=== PATIENT | female | born 1955 | race Caucasian/White ===

== ENCOUNTER 2022-12-04 12:18 | Outpatient (REF) | payer BC, SELFPAY ==
[2022-12-04 13:55] LABS: MANUAL DIFF FLAG NO
[2022-12-04 14:09] LABS: Basophils Percent Auto 0.4 % (0-2); Eosinophils Percent Auto 0.3 % (0-4); Hematocrit 36.7 % (37.0-47.0); Hemoglobin 11.7 g/dl (12.0-16.0); Imm Gran Abs Auto 0.03 X10*3/uL (0.00-0.03); Imm Gran Pct Auto 0.3 % (0.0-0.4); Lymphocytes Absolute Auto 1.2 X10*3/uL (1.2-4.9); Lymphocytes Percent Auto 13.6 % (20-40); Mean Corpuscular HGB Conc 31.9 g/dl (31.0-35.0); Mean Corpuscular Hemoglobin 26.7 pg (27.0-33.0); Mean Corpuscular Volume 83.8 fL (80.0-98.0); Monocytes Absolute Auto 1.1 X10*3/uL (0.1-1.2); Monocytes Percent Auto 11.7 % (2-11); Neutrophils Absolute Auto 6.7 x10*3/uL (2.0-8.3); Neutrophils Percent Auto 73.7 % (45-73); Platelet Count 196 X10*3/uL (160-400); Red Blood Count 4.38 X10*6/uL (4.20-5.50); Red Cell Distribution Width 15.7 % (11.0-16.0); White Blood Count 9.1 X10*3/uL (4.8-10.8)
[2022-12-04 15:07] LABS: Alanine Aminotransferase 13 U/L (0-31); Albumin Level 3.6 g/dL (3.5-5.0); Alkaline Phosphatase 98 U/L (39-117); Anion Gap 17 (12-20); Aspartate Amino Transferase 14 U/L (5-31); Bilirubin Total 1.2 mg/dL (0.0-1.0); Blood Urea Nitrogen 19 mg/dL (9-16); Calcium 9.4 mg/dL (8.4-10.2); Carbon Dioxide 25 mmol/L (22-29); Chloride 101 mmol/L (96-108); Estimated Glomerular Filt Rate > 60; Glucose Random 147 mg/dL (60-115); Sodium 139 mmol/L (135-145); Total Protein 6.3 g/dL (6.5-8.0)
[2022-12-04 15:40] LABS: Estimated Average Glucose 128 mg/dL; Hemoglobin A1c % 6.1 %
== END 2022-12-04 12:19 | disposition home or self-care (01) ==
LOC: HO.HMGCLNP 12:18
PROVIDERS: Visit Provider Pediatrics
DX: E11.9 Type 2 diabetes mellitus without complications (principal)
CPT/HCPCS: 80053; 83036; 85025

== ENCOUNTER 2023-02-02 16:20 | Emergency (ER) | payer BC, SELFPAY ==
[2023-02-02 16:51] VITALS: BP 133/47; PULSE 67; RESP 20; TEMP 35.9; O2SAT 100; BMI 40.4
--- NOTE | 2023-02-02 16:54 | ED_ITS ---
HPI - General Adult General Chief complaint: Wound/Laceration Stated complaint: wounds both legs Time Seen by Provider: 02/02/23 18:46 Source: patient Mode of arrival: ambulatory Limitations: no limitations History of Present Illness HPI narrative: Patient is a 67-year-old female presenting with wounds of both of her lower extremities. She states that these wounds have been present for a year and she is seen regularly by wound care as well as a visiting home health nurse. However in the past week she reports increased clear discharge from all wounds, a new dark discoloration in the wounds, as well as increasing pain at the wound sites. She went to be seen by wound care this afternoon who advised her to present to the emergency department. She denies any additional symptoms including fevers/chills, chest pain, SOB, nausea/vomiting, numbness, tingling Related Data Home Medications Medication Instructions Recorded Confirmed clonazepam 0.5 mg tablet 0.5 mg PO DAILY PRN Anxiety 02/02/23 02/02/23 famotidine 40 mg tablet 40 mg PO DAILY 02/02/23 02/02/23 furosemide 40 mg tablet 40 mg PO DAILY 02/02/23 02/02/23 gabapentin 300 mg capsule 300 mg PO BEDTIME 02/02/23 02/02/23 metoprolol succinate 50 mg 50 mg PO DAILY 02/02/23 02/02/23 tablet,extended release 24 hr sertraline 100 mg tablet 100 mg PO DAILY 02/02/23 02/02/23 tirzepatide 7.5 mg/0.5 mL 7.5 mg subcut FR 02/02/23 02/02/23 subcutaneous pen injector (Leonor) Previous Rx's Medication Instructions Recorded doxycycline hyclate 100 mg capsule 100 mg PO BID 10 days #20 caps 02/02/23 Allergies Allergy/AdvReac Type Severity Reaction Status Date / Time diltiazem [From Cardizem] Allergy Hives Verified 02/02/23 17:00 Penicillins Allergy Rash Verified 02/02/23 16:59 Review of Systems Review of Systems: Constitutional : No Weight loss, No Fever, No Chills, No Fatigue, No Malaise Eyes: No Eye Pain, No Swelling, No Redness Cardiovascular : No Chest Pain, No SOB, No Dyspnea on Exertion, No Orthopnea, + Edema, No Palpitations Respiratory : No Cough, No Sputum, No Wheezing Gastrointestinal : No Nausea, No Vomiting, No Diarrhea, No Constipation, No abdominal Pain, No Hematochezia, No Melena Genitourinary : No Dysuria, No Urinary Frequency, No Hematuria, Musculoskeletal : No joint pain, No Myalgias, No Joint Swelling Skin : No Skin Lesions, No rash Neuro : No Weakness, No Numbness, No Dizziness, No Headache Psych : No Anxiety/Panic, No Depression All other systems reviewed and are negative Yes all other systems are reviewed and are negative [facility] Past Medical History Attestation statement: The following information was validated with the patient. Source: old records reviewed and nursing notes reviewed Social History Social History Alcohol intake: never Smoked in Last 30 Days: No Use of substances other than those prescribed or required for medical reasons: No Advance Directives: No Advance Directives Information Provided: Yes Physical Exam ED Vital Signs: Vital Signs - 24 hr 02/02/23 16:51 02/02/23 20:55 Temperature 96.7 F L 98.2 F Pulse Rate 67 73 Respiratory Rate 20 16 Blood Pressure 133/47 L 141/67 H Pulse Oximetry 100 100 Oxygen Delivery Method Room Air Room Air BMI result Body Mass Index 40.4 Vital signs stable Appearance: Alert.? Oriented X3.? No acute distress.? Head: Normocephalic, atraumatic, no step-offs or deformities Eyes: Pupils equal, round and reactive to light.? CVS: Normal heart rate and rhythm.? Pulses normal.? Respiratory: No respiratory distress.? Breath sounds normal.? Abdomen: Soft and nontender.? Skin: Skin warm and dry.? Normal skin color.? Normal skin turgor.? Extremities: Positive lower extremity edema 4+ pitting from the knees down, patient states that this is her baseline.? No calf ttp. 5/5 strength to bilateral upper and lower extremities 2+ dorsalis pedis, anterior tibialis and posterior tibialis pulses equal bilateral. Normal sensation distally. + open wounds to b/l lower extremities w/ overlying errythema and warmt Neuro: Oriented X 3.? No motor deficit.? No sensory deficit. CN 2-12 intact Course Course Course Narrative: RME performed by Vicky Phipps PA-C. Patient is a 67 year old assigned female at presenting to the emergency department with bilateral lower leg wounds. Wound care called about this patient and explained that she will likely need surgical debridement with wound vac placement. They recommended IV antibiotics.Labs and imaging ordered. Patient placed back in the waiting room pending room availability and results. Reevaluation(s) Reevaluation #1: CBC appears to be around patient's baseline. Potassium 3.1, will order p.o. potassium, remainder of chemistry appears unremarkable. Lactic normal. As expected CRP elevated 4.74. No indication for imaging at this time. Palpable pulses no need for venous arterial duplex. I did discuss this case with the hospitalist who does not feel a need for hospital admission. Recommended I speak to surgery. Surgery recommends patient to be discharged home with outpatient surgical follow-up. Patient was offered admission however she would prefer to go home. Educated patient on diagnosis and treatment plan, answered all question, patient verbalizes understanding. At this time patient will be discharged home, advised to return with new or worsening symptoms. Educated on worrisome signs and symptoms and when to return. At this time I feel comfortable discharge home. Time: 21:52 Medications Administered Discontinued Medications Generic Name Dose Route Start Last Admin Trade Name Ponce PRN Reason Stop Dose Admin Ceftriaxone Sodium 1 gm/ 50 mls @ 100 mls/hr 02/02/23 19:45 02/02/23 20:50 Sodium Chloride IV 02/02/23 20:14 Infused ONCE ONE Infusion Vancomycin HCl 2,000 mg in 500 mls @ 250 mls/hr 02/02/23 19:45 02/02/23 20:56 Vancomycin/Ns IV 02/02/23 21:44 250 mls/hr ONCE ONE Administration Medical Decision Making Medical Decision Making MDM Narrative: 67-year-old female presents with chronic nonhealing wounds to bilateral lower extremities followed by VNA and wound clinic. Was advised to come in by the wound clinic to be evaluated. Patient denies fevers, chills, numbness and tingling. Physical exam significant for Positive lower extremity edema 4+ pitting from the knees down, patient states that this is her baseline.? No calf ttp. 5/5 strength to bilateral upper and lower extremities 2+ dorsalis pedis, anterior tibialis and posterior tibialis pulses equal bilateral. Normal sensation distally. + open wounds to b/l lower extremities w/ overlying errythema and warmt These are likely non healing chronic wounds with lymphedema. Unlikely necrotizing infection, osteomyelitis. Unlikely arterial or venous occlusion. No signs of threatened limb at this time. I do concerns for cellulitis. Plan labs. Differential Diagnosis Differential Diagnoses: The differential diagnosis associated with the presentation includes These are likely non healing chronic wounds with lymphedema. Unlikely necrotizing infection, osteomyelitis. Unlikely arterial or venous occlusion. No signs of threatened limb at this time. I do concerns for cellulitis. Admission/Observation Consideration of admission/observation: Escalation of care including admiss ion/observation considered Lab Data MDM Lab Attestation statement: I reviewed the patient's lab results. 02/02/23 17:48 02/02/23 17:48 Labs: Lab Results 02/02/23 02/02/23 02/02/23 Range/Units 17:48 17:48 17:48 WBC 9.0 (4.8-10.8) X10*3/uL RBC 4.68 (4.20-5.50) X10*6/uL Hgb 12.3 (12.0-16.0) g/dl Hct 37.9 (37.0-47.0) % MCV 81.0 (80.0-98.0) fL MCH 26.3 L (27.0-33.0) pg MCHC 32.5 (31.0-35.0) g/dl RDW 15.2 (11.0-16.0) % Plt Count 244 (160-400) X10*3/uL MPV 9.1 L (9.4-12.3) fL Immature Gran % (Auto) 0.2 (0.0-0.4) % Neut % (Auto) 76.0 H (45-73) % Lymph % (Auto) 12.8 L (20-40) % Cherry % (Auto) 9.1 (2-11) % Eos % (Auto) 1.1 (0-4) % Baso % (Auto) 0.8 (0-2) % Lymph # (Auto) 1.2 (1.2-4.9) X10*3/uL Cherry # (Auto) 0.8 (0.1-1.2) X10*3/uL Eos # (Auto) 0.1 (0.0-0.4) X10*3/uL Baso # (Auto) 0.1 (0.0-0.2) X10*3/uL Abs Immat Gran (auto) 0.02 (0.00-0.03) X10*3/uL Absolute Neuts (auto) 6.8 (2.0-8.3) x10*3/uL Absolute Nucleated RBC 0.000 (0.0-0.012) X10*3/uL Nucleated RBC % (auto) 0.0 (0.0-0.2) /100WBC ESR 34 H (0-20) MM/HR Sodium 143 (135-145) mmol/L Potassium 3.1 L D (3.3-5.1) mmol/L Chloride 105 (96-108) mmol/L Carbon Dioxide 29 (22-29) mmol/L Anion Gap 12 (12-20) BUN 20 H (9-16) mg/dL Creatinine 0.79 (0.5-1.4) mg/dL Estim Creat Clear Calc 92.6 Estimated GFR > 60 Random Glucose 120 H (60-115) mg/dL Lactic Acid (0.5-2.0) mmol/L Calcium 9.8 (8.4-10.2) mg/dL Magnesium 1.8 (1.6-2.6) mg/dL Total Bilirubin 0.9 (0.0-1.0) mg/dL AST 14 (5-31) U/L ALT 15 (0-31) U/L Alkaline Phosphatase 121 H (39-117) U/L C-Reactive Protein 4.74 H (< or = 0.50) mg/dL Total Protein 7.0 (6.5-8.0) g/dL Albumin 3.8 (3.5-5.0) g/dL 02/02/23 Range/Units 17:48 WBC (4.8-10.8) X10*3/uL RBC (4.20-5.50) X10*6/uL Hgb (12.0-16.0) g/dl Hct (37.0-47.0) % MCV (80.0-98.0) fL MCH (27.0-33.0) pg MCHC (31.0-35.0) g/dl RDW (11.0-16.0) % Plt Count (160-400) X10*3/uL MPV (9.4-12.3) fL Immature Gran % (Auto) (0.0-0.4) % Neut % (Auto) (45-73) % Lymph % (Auto) (20-40) % Cherry % (Auto) (2-11) % Eos % (Auto) (0-4) % Baso % (Auto) (0-2) % Lymph # (Auto) (1.2-4.9) X10*3/uL Cherry # (Auto) (0.1-1.2) X10*3/uL Eos # (Auto) (0.0-0.4) X10*3/uL Baso # (Auto) (0.0-0.2) X10*3/uL Abs Immat Gran (auto) (0.00-0.03) X10*3/uL Absolute Neuts (auto) (2.0-8.3) x10*3/uL Absolute Nucleated RBC (0.0-0.012) X10*3/uL Nucleated RBC % (auto) (0.0-0.2) /100WBC ESR (0-20) MM/HR Sodium (135-145) mmol/L Potassium (3.3-5.1) mmol/L Chloride (96-108) mmol/L Carbon Dioxide (22-29) mmol/L Anion Gap (12-20) BUN (9-16) mg/dL Creatinine (0.5-1.4) mg/dL Estim Creat Clear Calc Estimated GFR Random Glucose (60-115) mg/dL Lactic Acid 1.6 (0.5-2.0) mmol/L Calcium (8.4-10.2) mg/dL Magnesium (1.6-2.6) mg/dL Total Bilirubin (0.0-1.0) mg/dL AST (5-31) U/L ALT (0-31) U/L Alkaline Phosphatase (39-117) U/L C-Reactive Protein (< or = 0.50) mg/dL Total Protein (6.5-8.0) g/dL Albumin (3.5-5.0) g/dL Core Measures AMI core measures followed: Yes Measure exclusions: not indicated Critical Care Time Critical Care Time Critical Care Time: No Discharge Plan Discharge Clinical Impression: Nonhealing nonsurgical wound Patient Disposition: Home, Self-Care Additional Instructions: Take your medications as prescribed. If you were prescribed antibiotics today, it is important that you take your medication to their entirety, do not skip any doses, do not finish them early. Follow-up with your primary care provider this week. Return to the emergency department with new or worsening symptoms. Such as fevers, chills, chest pain, shortness of breath, nausea, vomiting, dizziness, headache, vision changes, lethargy In case of emergency call 911 Please follow-up with General surgery. Prescriptions: New doxycycline hyclate 100 mg capsule 100 mg PO BID 10 Days Qty: 20 0RF No Action furosemide 40 mg tablet 40 mg PO DAILY metoprolol succinate 50 mg tablet extended release 24 hr 50 mg PO DAILY famotidine 40 mg tablet 40 mg PO DAILY clonazepam 0.5 mg tablet 0.5 mg PO DAILY PRN (Reason: Anxiety) sertraline 100 mg tablet 100 mg PO DAILY gabapentin 300 mg capsule 300 mg PO BEDTIME Mounjaro 7.5 mg/0.5 mL pen injector 7.5 mg subcut FR Referrals: Дмитрий Valdivia MD [Physician] - 2 days Tre White MD [Primary Care Provider] - 2 days Stand Alone Forms: Work/School Release
[2023-02-02 17:55] LABS: MANUAL DIFF FLAG NO
[2023-02-02 18:13] LABS: Lactic Acid 1.6 mmol/L (0.5-2.0)
[2023-02-02 18:18] LABS: Alanine Aminotransferase 15 U/L (0-31); Albumin Level 3.8 g/dL (3.5-5.0); Alkaline Phosphatase 121 U/L (39-117); Anion Gap 12 (12-20); Aspartate Amino Transferase 14 U/L (5-31); Bilirubin Total 0.9 mg/dL (0.0-1.0); Blood Urea Nitrogen 20 mg/dL (9-16); C Reactive Protein 4.74 mg/dL (< or = 0.50); Calcium 9.8 mg/dL (8.4-10.2); Carbon Dioxide 29 mmol/L (22-29); Chloride 105 mmol/L (96-108); Creatinine Clr Calc Pharmacy 92.6; Estimated Glomerular Filt Rate > 60; Glucose Random 120 mg/dL (60-115); Magnesium 1.8 mg/dL (1.6-2.6); Potassium 3.1 mmol/L (3.3-5.1); Sodium 143 mmol/L (135-145)
[2023-02-02 18:35] LABS: Basophils Absolute Auto 0.1 X10*3/uL (0.0-0.2); Basophils Percent Auto 0.8 % (0-2); Eosinophils Absolute Auto 0.1 X10*3/uL (0.0-0.4); Eosinophils Percent Auto 1.1 % (0-4); Hematocrit 37.9 % (37.0-47.0); Hemoglobin 12.3 g/dl (12.0-16.0); Imm Gran Abs Auto 0.02 X10*3/uL (0.00-0.03); Imm Gran Pct Auto 0.2 % (0.0-0.4); Lymphocytes Absolute Auto 1.2 X10*3/uL (1.2-4.9); Lymphocytes Percent Auto 12.8 % (20-40); Mean Corpuscular HGB Conc 32.5 g/dl (31.0-35.0); Mean Corpuscular Hemoglobin 26.3 pg (27.0-33.0); Mean Platelet Volume 9.1 fL (9.4-12.3); Monocytes Absolute Auto 0.8 X10*3/uL (0.1-1.2); Monocytes Percent Auto 9.1 % (2-11); Neutrophils Absolute Auto 6.8 x10*3/uL (2.0-8.3); Platelet Count 244 X10*3/uL (160-400); Red Blood Count 4.68 X10*6/uL (4.20-5.50); Red Cell Distribution Width 15.2 % (11.0-16.0)
[2023-02-02 18:49] LABS: Erythrocyte Sedimentation Rate 34 MM/HR (0-20)
[2023-02-02] MEDS: cefTRIAXone sodium 1 GM in 0.9 % Sodium Chloride 50 ML IV (20:14)
--- NOTE | 2023-02-02 20:18 | PC.NURSE ---
Pt presents to ER from wound care for possibly infected wounds on the lower legs. Pt has multiple ulcers and wounds on the lower extemeties as well as a pressure wound on the right buttock. Pt reporting no pain or nausea at this time. Wounds had been loosely packed at wound care. Pt is resting quietly in bed at this time. Pt is A&Ox4, GCS 15, with warm, dry skin. Pt is incontinent of urine, she was cleaned, rolled, and a purewick was put in place. A 20g IV was placed in the right forearm. The second set of cultures were sent and antibiotics were hung.
--- NOTE | 2023-02-02 20:54 | PC.NURSE ---
Medication administration delayed due to hard stick and previous antibiotic administration.
[2023-02-02 20:55] VITALS: BP 141/67; PULSE 73; RESP 16; TEMP 36.8; O2SAT 100
[2023-02-02] MEDS: vancomycin/NS 2,000 MG/500 ML PLAST..BAG 250 MG IV (20:56)
--- NOTE | 2023-02-02 21:22 | PHA.MEDREC ---
Pharmacy Consult ? Medication Reconciliation Pharmacy has completed the medication reconciliation. Pt was able to list the names of her medications. States she was recently changed to 7.5 mg mounjaro and is supposed to take on sunday but she missed this morning dose.
[2023-02-02 21:58] VITALS: BP 127/59; PULSE 73; RESP 16; TEMP 36.7; O2SAT 100
[2023-02-02] MEDS: Potassium Chloride Packet 20 MEQ PACKET 40 MEQ PO (22:00)
--- NOTE | 2023-02-02 22:49 | PC.NURSE ---
IV removed. Pt legs dressed with an abdominal pad and gauze, per PA. Pt verbalized understanding of discharge instructions.
== END 2023-02-02 23:06 | disposition home or self-care (01) ==
PROVIDERS: Physician Assistant Medical; Emergency Provider Internal Medicine; PCP Pediatrics
DX: S81.802A Unspecified open wound, left lower leg, initial encounter (principal); S81.801A Unspecified open wound, right lower leg, initial encounter; X58.XXXA Exposure to other specified factors, initial encounter; R60.0 Localized edema; Y93.9 Activity, unspecified; Y92.9 Unspecified place or not applicable; Y99.9 Unspecified external cause status
CPT/HCPCS: 36415; 80053; 83605; 83735; 85025; 85652; 86140; 87040; 96365; 96366; 96367; 99284; J0696; J3370

== ENCOUNTER → 2023-02-08 15:51 | Outpatient (BNVA) | payer BC, SELFPAY | PROVIDERS: PCP Pediatrics; Visit Provider Surgery ==

== ENCOUNTER 2023-02-19 12:10 | Outpatient (REF) | payer BC, SELFPAY ==
[2023-02-19 12:14] LABS: MANUAL DIFF FLAG NO
[2023-02-19 12:25] LABS: Basophils Absolute Auto 0.1 X10*3/uL (0.0-0.2); Basophils Percent Auto 0.8 % (0-2); Eosinophils Absolute Auto 0.1 X10*3/uL (0.0-0.4); Eosinophils Percent Auto 1.7 % (0-4); Hematocrit 32.8 % (37.0-47.0); Hemoglobin 10.7 g/dl (12.0-16.0); Imm Gran Abs Auto 0.02 X10*3/uL (0.00-0.03); Imm Gran Pct Auto 0.3 % (0.0-0.4); Lymphocytes Absolute Auto 1.3 X10*3/uL (1.2-4.9); Lymphocytes Percent Auto 17.5 % (20-40); Mean Corpuscular HGB Conc 32.6 g/dl (31.0-35.0); Mean Corpuscular Hemoglobin 26.4 pg (27.0-33.0); Mean Corpuscular Volume 80.8 fL (80.0-98.0); Mean Platelet Volume 9.5 fL (9.4-12.3); Monocytes Absolute Auto 0.9 X10*3/uL (0.1-1.2); Monocytes Percent Auto 12.1 % (2-11); Neutrophils Absolute Auto 5.1 x10*3/uL (2.0-8.3); Neutrophils Percent Auto 67.6 % (45-73); Platelet Count 216 X10*3/uL (160-400); Red Blood Count 4.06 X10*6/uL (4.20-5.50); White Blood Count 7.6 X10*3/uL (4.8-10.8)
[2023-02-19 13:10] LABS: Alanine Aminotransferase 13 U/L (0-31); Albumin Level 3.2 g/dL (3.5-5.0); Alkaline Phosphatase 97 U/L (39-117); Anion Gap 13 (12-20); Aspartate Amino Transferase 17 U/L (5-31); Bilirubin Total 0.7 mg/dL (0.0-1.0); Blood Urea Nitrogen 15 mg/dL (9-16); Calcium 8.9 mg/dL (8.4-10.2); Carbon Dioxide 27 mmol/L (22-29); Chloride 106 mmol/L (96-108); Cholesterol 134 mg/dL; Estimated Glomerular Filt Rate > 60; Glucose Random 85 mg/dL (60-115); HDL Cholesterol 38 mg/dL; LDL Cholesterol Calculated 82 mg/dl; Potassium 3.9 mmol/L (3.3-5.1); Sodium 142 mmol/L (135-145); Total Protein 5.8 g/dL (6.5-8.0); Triglycerides 74 mg/dL
[2023-02-19 13:17] LABS: Estimated Average Glucose 108 mg/dL; Hemoglobin A1c % 5.4 %
[2023-02-19 13:47] LABS: T4 Thyroxine 8.6 ug/dL (4.5-12.0); Thyroid Stimulating Hormone 2.05 uIU/mL (0.32-4.0); Vitamin B12 893 pg/mL (200-900)
== END 2023-02-19 12:11 | disposition home or self-care (01) ==
LOC: HO.HVNA 12:10
PROVIDERS: Visit Provider Pediatrics
DX: E11.9 Type 2 diabetes mellitus without complications (principal)
CPT/HCPCS: 36415; 80053; 80061; 82607; 83036; 84436; 84443; 85025

== ENCOUNTER 2023-03-05 07:10 | Day surgery (SDC) | payer BC, SELFPAY ==
[2023-03-01 14:10] VITALS: BMI 39.3
--- NOTE | 2023-03-01 15:14 | HO.ANESPROP2 ---
HPI - Anesthesia Eval Consult details Narrative: 67yo F for Bilateral Debridement Soft Tissue ulcers on legs x 4 Hx of atrial flutter, none since ablation 4 years ago Hx of DVT/PE d/t immobility. No further anticoag T/C to pt 03/02/23: Denies CP or SOB with limited activity PMFSH Active Problems Active Problems: All Active Problems (Updated 03/01/23 @ 14:10 by Adenike Ford RN) Acid reflux (Acute) Stasis ulcer of left lower extremity (Acute) Past Medical History Medical History Anxiety and depression Arthritis Dependent on walker for ambulation HTN (hypertension) Hx of atrial flutter Hx of deep venous thrombosis Hx pulmonary embolism Incontinence of urine Lymphedema of both lower extremities On beta mahamed at home Pre-diabetes Snores Ulcer of ankle Surgical History Surgical History History of ankle fusion History of radiofrequency ablation procedure for cardiac arrhythmia History of surgery on lower extremity History of surgery on lower extremity (03/05/23) Hx of colonoscopy Hx of dilation and curettage Hx of tonsillectomy Social History Social History Are you a primary career development consultant to a significant other at home: No Do you presently have visiting nurse or other home services: Yes ([facility] - 3Xweek) Alcohol intake: never Patient Tobacco Use Status: Never used Tobacco Meds Allergies Allergy/AdvReac Type Severity Reaction Status Date / Time diltiazem [From Cardizem] Allergy Hives Verified 03/15/23 14:35 Penicillins Allergy Rash Verified 03/15/23 14:35 Home Medications Medication Instructions Recorded Confirmed Last Taken Type clonazepam 0.5 mg tablet 0.5 mg PO DAILY PRN Anxiety 02/02/23 03/15/23 03/05/23 History famotidine 40 mg tablet 40 mg PO DAILY 02/02/23 03/15/23 02/01/23 History furosemide 40 mg tablet 40 mg PO DAILY 02/02/23 03/15/23 02/01/23 History gabapentin 300 mg capsule 300 mg PO BEDTIME 02/02/23 03/15/23 02/01/23 History metoprolol succinate 50 mg 50 mg PO DAILY 02/02/23 03/15/23 03/05/23 History tablet,extended release 24 hr sertraline 100 mg tablet 100 mg PO DAILY 02/02/23 03/15/23 03/05/23 History tirzepatide 7.5 mg/0.5 mL 7.5 mg subcut FR 02/02/23 03/15/23 01/26/23 History subcutaneous pen injector (Leonor) Exam Exam Date and Time: March 01, 2023 1514 Height,Weight and Vital Signs: Height 5 ft 7 in Weight 113.852 kg Pertinent Lab Results Pertinent Lab Results: Laboratory Tests 02/19/23 02/19/23 10:40 10:40 WBC 7.6 Hgb 10.7 L Hct 32.8 L Plt Count 216 Sodium 142 Potassium 3.9 D Chloride 106 Carbon Dioxide 27 BUN 15 Creatinine 0.88 Assessment and Plan Assessment Anesthesia Assessment: Chart Reviewed
[2023-03-05] VITALS (14 sets, daily range): BP systolic 87–118; BP diastolic 50–81; PULSE 72–79; RESP 16–22; TEMP 36.1–36.4; O2SAT 96–100
--- NOTE | 2023-03-05 08:13 | MHC.SHP ---
Pre-Procedural Eval Section A Date of Service: 03/05/23 The patient is an INPATIENT: No Changes since office visit: Yes Patient answered all questions; No Cold of Flu in the past 2 weeks, No New Medical Problems and No Changes in Medication The History & Physical has been completed within 30 days and I have reviewed it.: Yes Section B Chief Complaint: Varicose veins L low ext w/ ulcer,non pressure Allergies: Allergies Allergy/AdvReac Type Severity Reaction Status Date / Time diltiazem [From Cardizem] Allergy Hives Verified 03/01/23 14:09 Penicillins Allergy Rash Verified 03/01/23 14:09 Plan Diagnosis/Plan: Unchanged I have reviewed the history and physical and performed a pertinent physical examination on my patient. No changes have occurred unless specified. Time Spent With Patient Time: Total time managing care of this patient today ____ minutes.
[2023-03-05 08:26] LABS: Glucose, Whole Blood 104 mg/dL (60-115)
[2023-03-05] MEDS: Lactated Ringers 1,000 ML 100 ML IVCONT (08:29)
[2023-03-05] MEDS: vancomycin/NS 2,000 MG/500 ML PLAST..BAG 250 MG IV (08:35)
--- NOTE | 2023-03-05 08:35 | HO.ANESPROP2 ---
[facility] Active Problems Active Problems: All Active Problems (Updated 03/01/23 @ 14:10 by Adenike Ford RN) Acid reflux (Acute) Stasis ulcer of left lower extremity (Acute) Past Medical History Medical History Anxiety and depression Arthritis Dependent on walker for ambulation HTN (hypertension) Hx of atrial flutter Hx of deep venous thrombosis Hx pulmonary embolism Incontinence of urine Lymphedema of both lower extremities On beta mahamed at home Pre-diabetes Snores Ulcer of ankle Functional capacity: uses cane/walker Patient : No Surgical History Surgical History History of ankle fusion History of radiofrequency ablation procedure for cardiac arrhythmia History of surgery on lower extremity Hx of colonoscopy Hx of dilation and curettage Hx of tonsillectomy Social History Social History Are you a primary childcare attendant to a significant other at home: No Do you presently have visiting nurse or other home services: Yes ([facility] - 3Xweek) Alcohol intake: never Patient Tobacco Use Status: Never used Tobacco Meds Allergies Allergy/AdvReac Type Severity Reaction Status Date / Time diltiazem [From Cardizem] Allergy Hives Verified 03/01/23 14:09 Penicillins Allergy Rash Verified 03/01/23 14:09 Active Medications: Current Medications Lactated Ringer's (Lr) 1,000 mls @ 100 mls/hr IVCONT .Q10H ABRAHAN Last Admin: 03/05/23 08:29 Dose: 100 mls/hr Vancomycin HCl (Vancomycin/Ns) 2,000 mg in 500 mls @ 250 mls/hr IV PREOP ONE Stop: 03/05/23 10:29 Last Admin: 03/05/23 08:35 Dose: 250 mls/hr Pharmacy Consult (Consult Rx Vancomycin Dosing) 1 each MISCELLANE DAILY PRN PRN Reason: Consult order Home Medications Medication Instructions Recorded Confirmed Last Taken Type clonazepam 0.5 mg tablet 0.5 mg PO DAILY PRN Anxiety 02/02/23 02/28/23 03/05/23 History famotidine 40 mg tablet 40 mg PO DAILY 02/02/23 02/28/23 02/01/23 History furosemide 40 mg tablet 40 mg PO DAILY 02/02/23 02/28/23 02/01/23 History gabapentin 300 mg capsule 300 mg PO BEDTIME 02/02/23 02/28/23 02/01/23 History metoprolol succinate 50 mg 50 mg PO DAILY 02/02/23 02/28/23 03/05/23 History tablet,extended release 24 hr sertraline 100 mg tablet 100 mg PO DAILY 02/02/23 02/28/23 03/05/23 History tirzepatide 7.5 mg/0.5 mL 7.5 mg subcut FR 02/02/23 02/28/23 01/26/23 History subcutaneous pen injector (Leonor) Exam Exam Date and Time: March 05, 2023 0835 Height,Weight and Vital Signs: Height 5 ft 7 in Weight 113.852 kg Last Vital Signs Temp 97.5 F 03/05/23 08:05 Pulse 76 03/05/23 08:05 Resp 18 03/05/23 08:05 BP 118/77 03/05/23 08:05 Pulse Ox 100 03/05/23 08:05 O2 Del Method Room Air 03/05/23 08:05 Pertinent Lab Results Pertinent Lab Results: Laboratory Tests 03/05/23 08:21 POC Glucose 104 Airway Mallampati Class: I TM Dist: >3cm Neck ROM: Full Heart: RRR Lungs: CTA Assessment and Plan Final Anesthetic Review ASA Class: III Final Preanesthetic Review: Meds/Allgs Chart Reviewed, Consent Obtained/Reviewed and Anes Risks/Benef Reviewed Patient Risk: Intermediate Procedure Risk: Low Anesthetic Plan Anesthetic Plan: GA Disposition: Standard PACU
--- NOTE | 2023-03-05 08:46 | P.OP_ITS ---
Operative Note Operative Note Date of Service: 03/05/23 Narrative: Preoperative diagnosis: Bilateral leg ulcers Postoperative diagnosis: same Procedure: debridement of bilateral leg ulcers Surgeon: Дмитрий Valdivia MD Volunteer Assistant: Audrey Khan PA-C Anesthesia: general LMA Indications for procedure: 67-year-old female patient with severe lymphedema bilateral legs with leg ulcers located in the medial ankles presenting today for debridement. She [facility] however because the pain she presents today for debridement under anesthesia. Operative findings: Debridement of 1 ulcer in the left leg measuring 5 cm in diameter, 2 cm deep. Ulcers located on the right leg concluding 1 measuring 6 cm and 0.5 cm deep and a 2nd measuring 2 cm round and 0.5 cm deep Specimen: none Estimated blood loss: 5 mL Complications: none Procedure details: patient was brought to the OR placed in a supine position. After administering General anesthesia patient's bilateral legs were prepped with Betadine draped in a sterile fashion. A surgical time-out was called the consent confirmed. Patient antibiotics and Venodyne boots were in place. Debridement of the bilateral also was then performed using a combination of care at and 15 blade scalpel. Bluish discoloration was noted on the wounds to just above a Pseudomonas infection. The wounds were completely debrided down to healthy granulation tissue. Wounds were then irrigated with 5 L of saline using a Pulsavac. Wounds were then dressed with Surgicel on the left leg followed by silver alginate, fluff gauze and ABD pads. This was then covered with an Josh bandage. The right leg was covered with silver alginate, fluff gauze, large ABD and 6 in Josh band which. The patient tolerated the procedure well. Sponge, instrument, needle counts reported as correct. Patient was transferred to PACU in stable condition.
--- NOTE | 2023-03-05 09:15 | HO.ANESPROP2 ---
[facility] Active Problems Active Problems: All Active Problems Acid reflux (Acute) Stasis ulcer of left lower extremity (Acute) Past Medical History Medical History Anxiety and depression Arthritis Dependent on walker for ambulation HTN (hypertension) Hx of atrial flutter Hx of deep venous thrombosis Hx pulmonary embolism Incontinence of urine Lymphedema of both lower extremities On beta mahamed at home Pre-diabetes Snores Ulcer of ankle Functional capacity: uses cane/walker Surgical History Surgical History History of ankle fusion History of radiofrequency ablation procedure for cardiac arrhythmia History of surgery on lower extremity Hx of colonoscopy Hx of dilation and curettage Hx of tonsillectomy Social History Social History Are you a primary insurance healthcare consultant to a significant other at home: No Do you presently have visiting nurse or other home services: Yes ([facility] - 3Xweek) Alcohol intake: never Patient Tobacco Use Status: Never used Tobacco Meds Allergies Allergy/AdvReac Type Severity Reaction Status Date / Time diltiazem [From Cardizem] Allergy Hives Verified 03/01/23 14:09 Penicillins Allergy Rash Verified 03/01/23 14:09 Active Medications: Current Medications Lactated Ringer's (Lr) 1,000 mls @ 100 mls/hr IVCONT .Q10H ABRAHAN Last Admin: 03/05/23 08:29 Dose: 100 mls/hr Vancomycin HCl (Vancomycin/Ns) 2,000 mg in 500 mls @ 250 mls/hr IV PREOP ONE Stop: 03/05/23 10:29 Last Admin: 03/05/23 08:35 Dose: 250 mls/hr Home Medications Medication Instructions Recorded Confirmed Last Taken Type clonazepam 0.5 mg tablet 0.5 mg PO DAILY PRN Anxiety 02/02/23 02/28/23 03/05/23 History famotidine 40 mg tablet 40 mg PO DAILY 02/02/23 02/28/23 02/01/23 History furosemide 40 mg tablet 40 mg PO DAILY 02/02/23 02/28/23 02/01/23 History gabapentin 300 mg capsule 300 mg PO BEDTIME 05/02/28/23 02/01/23 History metoprolol succinate 50 mg 50 mg PO DAILY 02/02/23 02/28/23 03/05/23 History tablet,extended release 24 hr sertraline 100 mg tablet 100 mg PO DAILY 02/02/23 02/28/23 03/05/23 History tirzepatide 7.5 mg/0.5 mL 7.5 mg subcut FR 02/02/23 02/28/23 01/26/23 History subcutaneous pen injector (Leonor) Exam Exam Date and Time: March 05, 2023 0915 Height,Weight and Vital Signs: Height 5 ft 7 in Weight 113.852 kg Last Vital Signs Temp 97.5 F 03/05/23 08:05 Pulse 76 03/05/23 08:05 Resp 18 03/05/23 08:05 BP 118/77 03/05/23 08:05 Pulse Ox 100 03/05/23 08:05 O2 Del Method Room Air 03/05/23 08:05 Pertinent Lab Results Pertinent Lab Results: Laboratory Tests 03/05/23 08:21 POC Glucose 104 Airway Mallampati Class: I TM Dist: >3cm Neck ROM: Full Heart: RRR Lungs: CTA Assessment and Plan Final Anesthetic Review ASA Class: III Final Preanesthetic Review: Meds/Allgs Chart Reviewed and Consent Obtained/Reviewed Patient Risk: Intermediate Procedure Risk: Low Anesthetic Plan Anesthetic Plan: GA Disposition: Standard PACU
[2023-03-05] MEDS: fentaNYL citrate/PF 100 MCG/2 ML VIAL 25 MCG IVPUSH ×4 (09:51→10:30)
[2023-03-05] MEDS: Acetaminophen 1,000 MG/100 ML PIGGYBACK 400 MG IV (09:54)
[2023-03-05] MEDS: oxyCODONE HCl Immed Release 5 MG TABLET PO (09:55)
[2023-03-05] MEDS: Ketorolac Tromethamine 30 MG/ML VIAL IVPUSH (10:35)
--- NOTE | 2023-03-05 10:47 | HO.POSTANES ---
Post Anesthesia Evaluation Post Anesthesia Evaluation Date of Service: 03/05/23 Vital Signs: Vital Signs Temp Pulse Resp BP Pulse Ox O2 Del Method 03/05/23 10:40 79 18 103/59 L 97 Room Air 03/05/23 10:35 74 18 104/60 97 Room Air 03/05/23 10:25 74 18 103/56 L 97 Room Air 03/05/23 10:10 74 18 104/56 L 97 Room Air 03/05/23 10:30 76 18 109/64 97 Room Air 03/05/23 10:30 18 03/05/23 10:05 75 18 106/57 L 97 Room Air 03/05/23 10:00 18 03/05/23 10:00 74 18 90/59 L 97 Room Air 03/05/23 09:55 18 03/05/23 09:55 77 20 100/50 L 98 Room Air 03/05/23 09:50 73 22 H 100/81 98 Room Air 03/05/23 09:45 74 16 87/51 L 98 Room Air 03/05/23 09:40 97 F 76 16 97/61 98 Room Air 03/05/23 08:05 97.5 F 76 18 118/77 100 Room Air Anesthesia: General LMA Mental Status: Awake Pain Control: Satisfactory Nausea/Vomiting: None Hydration: Adequate Anesthesia-Related Issues: No Anes. Related Issues
== END 2023-03-05 11:49 | disposition home or self-care (01) ==
PROVIDERS: PCP Pediatrics; Visit Provider Surgery
PROC: (CPT 11042; principal; 2023-03-05 08:40)
DX: I83.028 Varicose veins of left lower extremity with ulcer other part of lower leg (principal); L97.829 Non-pressure chronic ulcer of other part of left lower leg with unspecified severity; I83.018 Varicose veins of right lower extremity with ulcer other part of lower leg; L97.819 Non-pressure chronic ulcer of other part of right lower leg with unspecified severity; I89.0 Lymphedema, not elsewhere classified; E11.9 Type 2 diabetes mellitus without complications; I10 Essential (primary) hypertension; Z86.718 Personal history of other venous thrombosis and embolism; Z86.711 Personal history of pulmonary embolism; Z88.0 Allergy status to penicillin; Z88.1 Allergy status to other antibiotic agents; Z79.899 Other long term (current) drug therapy; Z79.85 Long-term (current) use of injectable non-insulin antidiabetic drugs
CPT/HCPCS: 11042; 11045; 82947; J0131; J1885; J2405; J3010; J3370

== ENCOUNTER → 2023-03-15 14:23 | Outpatient (BNVA) | payer BC, SELFPAY | PROVIDERS: PCP Pediatrics; Visit Provider Surgery ==

== ENCOUNTER 2023-04-04 12:50 | Inpatient (IN) | payer BC, SELFPAY ==
[2023-04-04] VITALS (9 sets, daily range): BP systolic 82–112; BP diastolic 50–65; PULSE 64–86; RESP 14–18; TEMP 36.2–36.7; O2SAT 99–100; BMI 51.5
--- NOTE | ~2023-04-04 | XR_ITS ---
EXAMINATION: XR ANKLE, RIGHT CLINICAL INFORMATION: Bony erosion. COMPARISON: None available. TECHNIQUE: AP, lateral, and mortise views of the right ankle. FINDINGS: Severe soft tissue swelling is seen with superficial calcification seen medially in the calf. The ankle joint and mortise are intact. There is no acute fracture or dislocation. The tarsal bones are normally aligned. Small plantar and retrocalcaneal spurs are noted. XR/XR ankle RT 2V IMPRESSION: 1. Severe soft tissue swelling with superficial calcification medially in the calf. No acute underlying osseous abnormality. 2. Small degenerative calcaneal spurs.
--- NOTE | ~2023-04-04 | XR_ITS ---
EXAMINATION: XR ANKLE, LEFT CLINICAL INFORMATION: Bony erosion. COMPARISON: None available. TECHNIQUE: AP, lateral, and mortise views of the left ankle. FINDINGS: Severe soft tissue swelling is seen predominantly in the right calf proximally with superficial calcification seen medially. The ankle joint is intact. Mild tibiotalar degenerative joint changes are seen with subcortical cystic changes. Mild to moderate degenerative spurring is seen in the lateral talus. There is no acute fracture or dislocation. The tarsal bones are normally aligned. XR/XR ankle LT 2V IMPRESSION: 1. Severe soft tissue swelling predominantly in the right calf proximally with superficial soft tissue calcification medially. 2. Mild tibiotalar degenerative joint changes and lateral talar degenerative spurring without acute abnormality.
--- NOTE | ~2023-04-04 | XR_ITS ---
EXAMINATION: XR knee LT 1V CLINICAL INFORMATION: Reason for Exam possible BKA Left COMPARISON: None available at the time of this dictation. TECHNIQUE: Single frontal view. FINDINGS: BONES: No fracture or dislocation is present. JOINTS: Advanced degenerative osteoarthritis evident by narrowing of joint spaces and developed osteophytes from the edges of articular surfaces. This has involved both medial and lateral compartments. SOFT TISSUE: Normal XR/XR knee LT 1V IMPRESSION: Early advanced degenerative osteoarthritis.
--- NOTE | ~2023-04-04 | XR_ITS ---
EXAMINATION: XR CHEST CLINICAL INFORMATION: Cough, leukocytosis. COMPARISON: Chest CTA dated 11/29/2020. TECHNIQUE: Frontal view of the chest was obtained. FINDINGS: No significant abnormality is noted involving the heart, lungs, mediastinum, bony thorax or soft tissues. XR/XR chest 1V IMPRESSION: No acute cardiopulmonary process. Given the long interval between studies and lack of previous chest radiograph for comparison, if symptoms persist or worsen, short-term PA and lateral views of the chest are recommended to assess for change.
--- NOTE | 2023-04-04 13:18 | ED_ITS ---
HPI - General Adult General Chief complaint: Weakness Stated complaint: DECR MENTAL STATUS,LLE/COCCYX WOUNDS PER VNS Time Seen by Provider: 04/04/23 13:14 Source: patient Mode of arrival: ambulatory Limitations: no limitations History of Present Illness HPI narrative: Patient is 67 years old with long history of bilateral lower extremity lymphedema with bilateral ankle as ulcers status post debridement on 03/05, history of hypertension, diabetic, atrial flutter, PE not on anticoagulant comes here for increased weakness and confusion with worsening of the wound of both lower extremities with increased discharge, foul odor urine and new coccyx wound. No fever no chills for last few days patient unable to ambulate because of weakness 3 days ago patient felt weak and fell had superficial laceration to left eyebrow no loss of consciousness Related Data Home Medications Medication Instructions Recorded Confirmed clonazepam 0.5 mg tablet 0.5 mg PO DAILY PRN Anxiety 02/02/23 04/04/23 famotidine 40 mg tablet 40 mg PO DAILY 02/02/23 04/04/23 furosemide 40 mg tablet 40 mg PO DAILY 02/02/23 04/04/23 gabapentin 300 mg capsule 300 mg PO BEDTIME 02/02/23 04/04/23 metoprolol succinate 50 mg 50 mg PO DAILY 02/02/23 04/04/23 tablet,extended release 24 hr sertraline 100 mg tablet 100 mg PO DAILY 02/02/23 04/04/23 acetaminophen 650 mg 1,300 mg PO DAILY 04/04/23 04/04/23 tablet,extended release budesonide 3 mg 3 mg PO QAM 04/04/23 04/04/23 capsule,delayed,extended release cetirizine 10 mg tablet 10 mg PO DAILY 04/04/23 04/04/23 cholecalciferol (vitamin D3) 25 25 mcg PO DAILY 04/04/23 04/04/23 mcg (1,000 unit) tablet multivitamin 1 tab PO DAILY 04/04/23 04/04/23 oxybutynin chloride 10 mg 10 mg PO DAILY 04/04/23 04/04/23 tablet,extended release 24 hr sulfamethoxazole 800 1 tab PO BID 04/04/23 04/04/23 mg-trimethoprim 160 mg tablet tirzepatide 10 mg/0.5 mL 10 mg subcut FR 04/04/23 04/04/23 subcutaneous pen injector (Leonor) Previous Rx's Medication Instructions Recorded oxycodone 5 mg capsule 5 mg PO Q6H PRN pain (scale score 03/05/23 7-10) #15 caps Allergies Allergy/AdvReac Type Severity Reaction Status Date / Time diltiazem [From Cardizem] Allergy Hives Verified 03/15/23 14:35 Penicillins Allergy Rash Verified 03/15/23 14:35 Review of Systems Review of Systems: Yes all other systems are reviewed and are negative [facility] Past Medical History Medical History Anxiety and depression Arthritis Dependent on walker for ambulation HTN (hypertension) Hx of atrial flutter Hx of deep venous thrombosis Hx pulmonary embolism Incontinence of urine Lymphedema of both lower extremities On beta mahamed at home Pre-diabetes Snores Ulcer of ankle Surgical History History of ankle fusion History of radiofrequency ablation procedure for cardiac arrhythmia History of surgery on lower extremity History of surgery on lower extremity (03/05/23) Hx of colonoscopy Hx of dilation and curettage Hx of tonsillectomy Social History Social History Are you a primary health care law specialist to a significant other at home: No Do you presently have visiting nurse or other home services: Yes ([facility] - 3Xweek) Alcohol intake: never Patient Tobacco Use Status: Never used Tobacco Smoked in Last 30 Days: No Use of substances other than those prescribed or required for medical reasons: No Advance Directives: No Physical Exam ED Vital Signs: Vital Signs - 24 hr 04/04/23 13:13 04/04/23 15:02 04/04/23 15:31 Temperature 97.8 F 98.1 F Pulse Rate 64 76 75 Respiratory Rate 18 15 Blood Pressure 102/65 93/50 L 97/62 Pulse Oximetry 100 99 Oxygen Delivery Method Room Air Room Air BMI result Body Mass Index 51.5 Appearance: Alert. Oriented X3. No acute distress. Eyes: PERRLA, No Nystagmus ENT: Pharynx normal. Oral Mucosa moist Neck: Normal inspection. Neck supple. CVS: Normal heart rate and rhythm. Pulses normal. Respiratory: No respiratory distress. Equal air entry bilateral, no wheezing/rales/rhonchi Abdomen: Soft and nontender. Bowel sounds are present, no mass palpable, no CVA tenderness Skin: Skin warm and dry. Picture of gluteal and bilateral lower extremities wounds Extremities: Nonpitting lower extremity edema++. No calf tenderness Neuro: Oriented X 3. No motor deficit. No sensory deficit.No cerebellar signs , cranial nerves II-XII intact Medications Administered Generic Name Dose Route Start Last Admin Trade Name Freq PRN Reason Stop Dose Admin Heparin Sodium (Porcine) 5,000 unit 04/04/23 17:00 04/04/23 18:37 Heparin Sodium,Porcine 5,000 Unit/Ml Vial SUBCUT 5,000 unit Q8H ABRAHAN Administration Sodium Chloride 1,000 mls @ 100 mls/hr 04/04/23 17:00 04/04/23 18:14 Ns IVCONT 100 mls/hr .Q10H ABRAHAN Administration Insulin Human Lispro 0 unit 04/04/23 16:30 04/04/23 18:25 Insulin Lispro 100 Unit/Ml 3 Ml Vial SUBCUT Not Given QIDACHS PENDING SALE TO [facility] Protocol Discontinued Medications Generic Name Dose Route Start Last Admin Trade Name Freq PRN Reason Stop Dose Admin Sodium Chloride 1,000 mls @ 999 mls/hr 04/04/23 13:54 04/04/23 16:04 Ns IV 04/04/23 14:54 Infused .Q1H1M ONE Infusion Vancomycin HCl 2,000 mg in 500 mls @ 250 mls/hr 04/04/23 14:00 04/04/23 15:30 Vancomycin/Ns IV 04/04/23 15:59 250 mls/hr ONCE ONE Administration Piperacillin Sod/Tazobactam 100 mls @ 200 mls/hr 04/04/23 14:00 04/04/23 15:30 Sod 4.5 gm/ Sodium Chloride IV 04/04/23 14:29 Infused ONCE ONE Infusion Medical Decision Making Medical Decision Making [facility] Narrative: Patient with infected ulcers both lower extremities also gluteal area x-ray negative for bony erosion she does have leukocytosis wounds are foul-smelling. Will start patient on antibiotic vancomycin and Zosyn for broad coverage patient does have ELVA with creatinine of 3.5 baseline was 0.8 on 02/19/2023 Differential Diagnosis Differential Diagnoses: The differential diagnosis associated with the presentation includes Sepsis/osteomyelitis/ELVA and metabolic encephalopathy Admission/Observation Consideration of admission/observation: Escalation of care including admission/observation considered Consult Healthcare Provider Management of the patient was discussed with: Hospitalist Lab Data MDM Lab Attestation statement: I reviewed the patient's lab results. 04/04/23 14:25 04/04/23 14:25 Labs: Lab Results 04/04/23 04/04/23 04/04/23 Range/Units 14:25 14:25 14:25 WBC 25.6 H (4.8-10.8) X10*3/uL RBC 3.58 L (4.20-5.50) X10*6/uL Hgb 9.1 L (12.0-16.0) g/dl Hct 27.5 L (37.0-47.0) % MCV 76.8 L (80.0-98.0) fL MCH 25.4 L (27.0-33.0) pg MCHC 33.1 (31.0-35.0) g/dl RDW 17.3 H (11.0-16.0) % Plt Count 311 D (160-400) X10*3/uL MPV 9.1 L (9.4-12.3) fL Immature Gran % (Auto) 2.9 H (0.0-0.4) % Neut % (Auto) 83.9 H (45-73) % Lymph % (Auto) 5.5 L (20-40) % Payne % (Auto) 6.1 (2-11) % Eos % (Auto) 1.1 (0-4) % Baso % (Auto) 0.5 (0-2) % Lymph # (Auto) 1.4 (1.2-4.9) X10*3/uL Payne # (Auto) 1.6 H (0.1-1.2) X10*3/uL Eos # (Auto) 0.3 (0.0-0.4) X10*3/uL Baso # (Auto) 0.1 (0.0-0.2) X10*3/uL Abs Immat Gran (auto) 0.75 H (0.00-0.03) X10*3/uL Absolute Neuts (auto) 21.4 H (2.0-8.3) x10*3/uL Absolute Nucleated RBC 0.000 (0.0-0.012) X10*3/uL Nucleated RBC % (auto) 0.0 (0.0-0.2) /100WBC Smear Tech's Comments VERIFIED PT (11.1-13.3) SEC INR (0.9-1.1) APTT (26.0-36.4) SEC Sodium 125 L (135-145) mmol/L Potassium 4.0 (3.3-5.1) mmol/L Chloride 98 (96-108) mmol/L Carbon Dioxide 19 L (22-29) mmol/L Anion Gap 12 (12-20) BUN 51 H (9-16) mg/dL Creatinine 3.50 H (0.5-1.4) mg/dL Estim Creat Clear Calc 21.8 Estimated GFR 13 Random Glucose 148 H (60-115) mg/dL Lactic Acid 2.1 H* (0.5-2.0) mmol/L Calcium 9.5 D (8.4-10.2) mg/dL Magnesium 2.2 (1.6-2.6) mg/dL Total Bilirubin 0.3 (0.0-1.0) mg/dL AST 25 (5-31) U/L ALT 24 (0-31) U/L Alkaline Phosphatase 158 H (39-117) U/L Total Protein 5.8 L (6.5-8.0) g/dL Albumin 2.5 L (3.5-5.0) g/dL 04/04/ Range/Units 14:25 WBC (4.8-10.8) X10*3/uL RBC (4.20-5.50) X10*6/uL Hgb (12.0-16.0) g/dl Hct (37.0-47.0) % MCV (80.0-98.0) fL MCH (27.0-33.0) pg MCHC (31.0-35.0) g/dl RDW (11.0-16.0) % Plt Count (160-400) X10*3/uL MPV (9.4-12.3) fL Immature Gran % (Auto) (0.0-0.4) % Neut % (Auto) (45-73) % Lymph % (Auto) (20-40) % Payne % (Auto) (2-11) % Eos % (Auto) (0-4) % Baso % (Auto) (0-2) % Lymph # (Auto) (1.2-4.9) X10*3/uL Payne # (Auto) (0.1-1.2) X10*3/uL Eos # (Auto) (0.0-0.4) X10*3/uL Baso # (Auto) (0.0-0.2) X10*3/uL Abs Immat Gran (auto) (0.00-0.03) X10*3/uL Absolute Neuts (auto) (2.0-8.3) x10*3/uL Absolute Nucleated RBC (0.0-0.012) X10*3/uL Nucleated RBC % (auto) (0.0-0.2) /100WBC Smear Tech's Comments PT 13.2 (11.1-13.3) SEC INR 1.1 (0.9-1.1) APTT 27.5 (26.0-36.4) SEC Sodium (135-145) mmol/L Potassium (3.3-5.1) mmol/L Chloride (96-108) mmol/L Carbon Dioxide (22-29) mmol/L Anion Gap (12-20) BUN (9-16) mg/dL Creatinine (0.5-1.4) mg/dL Estim Creat Clear Calc Estimated GFR Random Glucose (60-115) mg/dL Lactic Acid (0.5-2.0) mmol/L Calcium (8.4-10.2) mg/dL Magnesium (1.6-2.6) mg/dL Total Bilirubin (0.0-1.0) mg/dL AST (5-31) U/L ALT (0-31) U/L Alkaline Phosphatase (39-117) U/L Total Protein (6.5-8.0) g/dL Albumin (3.5-5.0) g/dL Independent Interpretation I performed an independent interpretation of an: EKG Interpretation: Now sinus rhythm heart rate 74 beats per minute normal interval normal axis no acute ST and no acute ischemia Discharge Plan Discharge Clinical Impression: Open wound of both lower extremities with complication, Cellulitis of left lower extremity, Venous stasis ulcer of left lower extremity Patient Disposition: Admitted As Inpatient Interventions: Admission Worksheet (ED) Last Done: 04/04/23 18:16 Discharge Date/Time: 04/04/23 18:16
--- NOTE | 2023-04-04 14:07 | ECG_ITS ---
Test Reason : AFIB Blood Pressure : / mmHG Vent. Rate : 074 BPM Atrial Rate : 074 BPM P-R Int : 178 ms QRS Dur : 106 ms QT Int : 446 ms P-R-T Axes : 071 -16 060 degrees QTc Int : 495 ms Normal sinus rhythm Prolonged QT Abnormal ECG No previous ECGs available Referred By: Jeff Mercedes Electronically Signed By:TWIN FERNANDES MD
[2023-04-04 14:43] LABS: Basophils Absolute Auto 0.1 X10*3/uL (0.0-0.2); Basophils Percent Auto 0.5 % (0-2); Eosinophils Absolute Auto 0.3 X10*3/uL (0.0-0.4); Eosinophils Percent Auto 1.1 % (0-4); Hematocrit 27.5 % (37.0-47.0); Hemoglobin 9.1 g/dl (12.0-16.0); Imm Gran Abs Auto 0.75 X10*3/uL (0.00-0.03); Imm Gran Pct Auto 2.9 % (0.0-0.4); Lymphocytes Absolute Auto 1.4 X10*3/uL (1.2-4.9); Lymphocytes Percent Auto 5.5 % (20-40); MANUAL DIFF FLAG SCAN; Mean Corpuscular HGB Conc 33.1 g/dl (31.0-35.0); Mean Corpuscular Hemoglobin 25.4 pg (27.0-33.0); Mean Corpuscular Volume 76.8 fL (80.0-98.0); Mean Platelet Volume 9.1 fL (9.4-12.3); Monocytes Absolute Auto 1.6 X10*3/uL (0.1-1.2); Monocytes Percent Auto 6.1 % (2-11); Neutrophils Absolute Auto 21.4 x10*3/uL (2.0-8.3); Neutrophils Percent Auto 83.9 % (45-73); Platelet Count 311 X10*3/uL (160-400); Red Blood Count 3.58 X10*6/uL (4.20-5.50); Red Cell Distribution Width 17.3 % (11.0-16.0); SCAN SMEAR FLAG 1; White Blood Count 25.6 X10*3/uL (4.8-10.8)
[2023-04-04] MEDS: 0.9 % Sodium Chloride 1,000 ML 999 ML IV (14:45)
[2023-04-04 14:57] LABS: Lactic Acid 2.1 mmol/L (0.5-2.0)
[2023-04-04 14:59] LABS: INTERNATIONAL NORM RATIO 1.1 (0.9-1.1); Prothrombin Time 13.2 SEC (11.1-13.3)
[2023-04-04] MEDS: Piperacillin Sodium/Tazobactam 4.5 GM in 0.9 % Sodium Chloride 100 ML IV (14:59)
[2023-04-04 15:00] LABS: Alanine Aminotransferase 24 U/L (0-31); Albumin Level 2.5 g/dL (3.5-5.0); Alkaline Phosphatase 158 U/L (39-117); Anion Gap 12 (12-20); Aspartate Amino Transferase 25 U/L (5-31); Bilirubin Total 0.3 mg/dL (0.0-1.0); Blood Urea Nitrogen 51 mg/dL (9-16); Calcium 9.5 mg/dL (8.4-10.2); Carbon Dioxide 19 mmol/L (22-29); Chloride 98 mmol/L (96-108); Creatinine Clr Calc Pharmacy 21.8; Estimated Glomerular Filt Rate 13; Glucose Random 148 mg/dL (60-115); Magnesium 2.2 mg/dL (1.6-2.6); Sodium 125 mmol/L (135-145); Total Protein 5.8 g/dL (6.5-8.0)
[2023-04-04 15:03] LABS: Partial Thromboplastin Time 27.5 SEC (26.0-36.4)
[2023-04-04 15:14] LABS: SLIDE REVIEW VERIFIED
[2023-04-04] MEDS: vancomycin/NS 2,000 MG/500 ML PLAST..BAG 250 MG IV (15:30)
--- NOTE | 2023-04-04 15:54 | PHA.MEDREC ---
Pharmacy Consult ? Medication Reconciliation Pharmacy has completed the medication reconciliation. Received list from [facility]. Marcy Garcia, SakinaD
[2023-04-04 16:41] LABS: Reflex Lactate? Lactic Acid Added
--- NOTE | 2023-04-04 16:58 | PM.IMHP ---
History of Present Illness Date of Service: 04/04/23 Chief Complaint: generalized weakness bilateral leg wound 67-year-old female patient with past medical history significant for longstanding bilateral lower extremity lymphedema, with bilateral lower leg wounds ,status post debridement on 03/[address] Valdivia, history of hypertension, diabetes, atrial flutter not on anticoagulation due to history of GI bleed, history of PE greater than 4 years ago, patient has VNA services 3 times per week this morning VNA felt, patient is weak and not herself with worsening left lower extremity wound with foul drainage therefore recommended her to ED, according to patient she had fever of 103 , few days ago, but today she denies fever, chills, denies nausea, vomiting, no diarrhea, denies headache, no dizziness, no shortness of breath, she has chronic urinary incontinence, she has been on antibiotic Bactrim 4 more days of antibiotic are left but do not feel any improvement in leg wound she gets dressing change 3 times per week by VNA, as per patient she is compliant with all home medications,With good blood sugar control. patient ambulates with walker, lives at home with she fell few days ago while getting up from the chair had to call EMS but was not brought to ED, did not sustain acute injuries. in ED patient noted to have soft blood pressures, afebrile, normal oxygenation, WBC 25,600, hematocrit 27.5 with last hematocrit 32.8 in February 2023, sodium 125, creatinine 3.5 with no prior history of chronic kidney disease, blood sugar 148, UA not collected patient treated in the emergency room with intravenous vanco and IV Zosyn IV and now being admitted for acute renal failure, hyponatremia bilateral leg wound and left lower extremity cellulitis. Review of Systems Review of Systems: General no headache no dizziness no fever chills. CVS no chest pain, no palpitation. Respiratory dry cough, no sob Gastrointestinal no nausea no vomiting, no abdominal pain chronic urine incontinence PMFSH Medical History Anxiety and depression Arthritis Dependent on walker for ambulation HTN (hypertension) Hx of atrial flutter Hx of deep venous thrombosis Hx pulmonary embolism Incontinence of urine Lymphedema of both lower extremities On beta mahamed at home Pre-diabetes Snores Ulcer of ankle Pertinent family history: no family history of lymphedema Surgical History History of ankle fusion History of radiofrequency ablation procedure for cardiac arrhythmia History of surgery on lower extremity History of surgery on lower extremity (03/05/23) Hx of colonoscopy Hx of dilation and curettage Hx of tonsillectomy Social History Household Members: Spouse Housing: House Are you a primary medicare insurance specialist to a significant other at home: No Do you presently have visiting nurse or other home services: No Alcohol intake: never Patient Tobacco Use Status: Never used Tobacco Smoked in Last 30 Days: No Use of substances other than those prescribed or required for medical reasons: No Currently Displaying Signs/Symptoms of Drug Intoxication Withdrawal: No Any prior treatment program specific to substance use: No Have you been hit, kicked, punched, or otherwise hurt by someone within the past year? If so, by whom?: No Do you feel safe in your current relationship?: Yes Is there a partner from a previous relationship who is making you feel unsafe now?: No Are you made to feel afraid or neglected: No Advance Directives: No Do you have thoughts of harming others: None Recently lost weight without trying: No Nutrition Risks: No Nutritional Risk Patient : No : No Poor oral hygiene: No service: No Meds Allergies Allergy/AdvReac Type Severity Reaction Status Date / Time diltiazem [From Cardize] Allergy Hives Verified 03/15/23 14:35 Penicillins Allergy Rash Verified 03/15/23 14:35 Active Medications: Current Medications Clonazepam (Clonazepam 0.5 Mg Tablet) 0.5 mg PO DAILY PRN PRN Reason: Anxiety Dextrose (Dextrose 50 % 25 Gm/50 Ml Syringe) 25 gm IVPUSH Q15M PRN; Protocol PRN Reason: per Hypoglycemia Standing Ord. Gabapentin (Gabapentin 300 Mg Capsule) 300 mg PO BEDTIME ABRAHAN Glucose (Glucose Gel 15 Gm Gel..Gram.) 15 gm PO Q15M PRN; Protocol PRN Reason: per Hypoglycemia Standing Ord. Insulin Human Lispro (Insulin Lispro 100 Unit/Ml 3 Ml Vial) 0 unit SUBCUT QIDACHS ABRAHAN; Protocol Loratadine (Loratadine 10 Mg Tablet) 10 mg PO DAILY [facility] Multivitamins/Vitamin C (Multivitamin Tablet) 1 tab PO DAILY [facility] Oxybutynin Chloride (Oxybutynin Chloride Er 5 Mg Tab.Er.24) 10 mg PO DAILY [facility] Pharmacy Consult (Consult Rx Perform Med Rec) 1 each MISCELLANE ONCE PRN PRN Reason: Consult order Sertraline HCl (Sertraline Hcl 100 Mg Tablet) 100 mg PO DAILY [facility] Vitamin D (Cholecalciferol (Vitamin D3) 25 Mcg Tablet) 25 mcg PO DAILY [facility] Home Medications Medication Instructions Recorded Confirmed Last Taken Type clonazepam 0.5 mg tablet 0.5 mg PO DAILY PRN Anxiety 02/02/23 04/04/23 03/05/23 History famotidine 40 mg tablet 40 mg PO DAILY 02/02/23 04/04/23 02/01/23 History furosemide 40 mg tablet 40 mg PO DAILY 02/02/23 04/04/23 02/01/23 History gabapentin 300 mg capsule 300 mg PO BEDTIME 02/02/23 04/04/23 02/01/23 History metoprolol succinate 50 mg 50 mg PO DAILY 02/02/23 04/04/23 03/05/23 History tablet,extended release 24 hr sertraline 100 mg tablet 100 mg PO DAILY 02/02/23 04/04/23 03/05/23 History acetaminophen 650 mg 1,300 mg PO DAILY 04/04/23 04/04/23 Unknown History tablet,extended release budesonide 3 mg 3 mg PO QAM 04/04/23 04/04/23 Unknown History capsule,delayed,extended release cetirizine 10 mg tablet 10 mg PO DAILY 04/04/23 04/04/23 Unknown History cholecalciferol (vitamin D3) 25 25 mcg PO DAILY 04/04/23 04/04/23 Unknown History mcg (1,000 unit) tablet multivitamin 1 tab PO DAILY 04/04/23 04/04/23 Unknown History oxybutynin chloride 10 mg 10 mg PO DAILY 04/04/23 04/04/23 Unknown History tablet,extended release 24 hr sulfamethoxazole 800 1 tab PO BID 04/04/23 04/04/23 Unknown History mg-trimethoprim 160 mg tablet tirzepatide 10 mg/0.5 mL 10 mg subcut FR 04/04/23 04/04/23 Unknown History subcutaneous pen injector (Leonor) Physical Exam Vital Signs and Narrative: Vital Signs: Last Vital Signs Temp 98.1 F 04/04/23 15:02 Pulse 75 04/04/23 15:31 Resp 15 04/04/23 15:02 BP 97/62 04/04/23 15:31 Pulse Ox 99 04/04/23 15:02 O2 Del Method Room Air 04/04/23 15:02 BMI result Body Mass Index 51.5 Const: Other: General awake alert x3, resting comfortably in no acute distress. HEENT PERRLA,EOMI Neck supple no JVD. CVS regular rate rhythm, Respiratory lungs clear to auscultation, no respiratory distress, no wheeze, no rhonchi. Gastrointestinal abdomen soft, nontender, bowel sounds audible, no guarding , no rigidity. Extremities bilateral non pitting edema skin bilateral ankle wounds, left wound with surrounding erythema foul odor and purulent drainage bilateral buttock stage 2 pressure ulcers Neuro nonfocal , speech clear. psych appropriate affect Results Labs 04/04/23 14:25 04/04/23 14:25 Labs: Laboratory Results - last 24 hr 04/04/23 04/04/23 04/04/23 14:25 14:25 14:25 MCV 76.8 L MCH 25.4 L MCHC 33.1 RDW 17.3 H Plt Count 311 D MPV 9.1 L Immature Gran % (Auto) 2.9 H Neut % (Auto) 83.9 H Lymph % (Auto) 5.5 L Stewart % (Auto) 6.1 Eos % (Auto) 1.1 Baso % (Auto) 0.5 Lymph # (Auto) 1.4 Stewart # (Auto) 1.6 H Eos # (Auto) 0.3 Baso # (Auto) 0.1 Abs Immat Gran (auto) 0.75 H Absolute Neuts (auto) 21.4 H Absolute Nucleated RBC 0.000 Nucleated RBC % (auto) 0.0 Smear Tech's Comments VERIFIED PT INR APTT Anion Gap 12 Estim Creat Clear Calc 21.8 Estimated GFR 13 Random Glucose 148 H Lactic Acid 2.1 H* Calcium 9.5 D Magnesium 2.2 Total Bilirubin 0.3 AST 25 ALT 24 Alkaline Phosphatase 158 H Total Protein 5.8 L Albumin 2.5 L 04/04/23 14:25 MCV MCH MCHC RDW Plt Count MPV Immature Gran % (Auto) Neut % (Auto) Lymph % (Auto) Stewart % (Auto) Eos % (Auto) Baso % (Auto) Lymph # (Auto) Stewart # (Auto) Eos # (Auto) Baso # (Auto) Abs Immat Gran (auto) Absolute Neuts (auto) Absolute Nucleated RBC Nucleated RBC % (auto) Smear Tech's Comments PT 13.2 INR 1.1 APTT 27.5 Anion Gap Estim Creat Clear Calc Estimated GFR Random Glucose Lactic Acid Calcium Magnesium Total Bilirubin AST ALT Alkaline Phosphatase Total Protein Albumin Imaging Radiologist's Impressions: Impressions Ankle X-Ray 04/04/23 15:52 IMPRESSION: 1. Severe soft tissue swelling predominantly in the right calf proximally with superficial soft tissue calcification medially. 2. Mild tibiotalar degenerative joint changes and lateral talar degenerative spurring without acute abnormality. Ankle X-Ray 04/04/23 15:52 IMPRESSION: 1. Severe soft tissue swelling with superficial calcification medially in the calf. No acute underlying osseous abnormality. 2. Small degenerative calcaneal spurs. Assessment and Plan (1) Acute kidney injury: Status: Acute (2) Hyponatremia: Status: Acute (3) Leukocytosis: Status: Acute (4) Cellulitis of left leg: Status: Acute (5) Open wound of both legs with complication: Status: Acute Plan 67-year-old female with past medical history significant for diabetes mellitus, lymphedema, bilateral leg wounds, history of atrial flutter not on anticoagulation due to GI bleed, history of PE 4 years ago presented to [facility] due to worsening left lower extremity redness and drainage from left leg wound generalized weakness and recent bout of fever patient in the ED diagnosed to have leukocytosis, acute kidney injury, and hyponatremia, patient awake alert no confusion noted. Left leg cellulitis with bilateral lower extremity wounds with chronic lymphedema. wounds not related to diabetes, no sepsis significant leukocytosis and purulent drainage will place patient on IV vancomycin and Zosyn is started on 04/[address] Valdivia patient status post debridment by Dr. Valdivia March 05 under anaesthesia follow follow labs, acute kidney injury likely multifactorial due Bactrim/decreased by mouth intake and use of diuretics will hold Lasix, DC Bactrim give IV fluids, avoid nephrotoxins if no improvement in BMP obtain Nephro consult hypovolemic hyponatremia treat with IV fluids hold Lasix and follow BMP check urinary sodium, serum/ urine osmolality, TSH history of atrial flutter currently normal sinus rhythm, soft blood pressure hold beta-blockers. lactic acidosis due to dehydration not due to sepsis. Diabetes mellitus placed on diabetic diet and insulin sliding scale, hold Monjaro bilateral buttock pressure ulcer stage II, high-protein diet frequent position change and wound consult chronic urinary incontinence continue oxybutynin. morbid obesity weight loss recommended DVT prophylaxis with subcu heparin full code in my clinical judgment patient need to night inpatient stay for IV antibiotics and for further debridement of bilateral leg wounds requiring expert consultation. Time Spent With Patient Time: Total time managing care of this patient today ____ minutes. Quality Stroke Does the patient have a stroke diagnosis?: No VTE Prior VTE?: No VTE Risk Level:: Medical - moderate - high VTE Device Contraindication: Treatment Not Indicated VTE Drug Contraindication: N/A - Med Ordered
--- NOTE | 2023-04-04 18:06 | PHA.PROG ---
Admission Date/Time: April 04, 2023 16:55 Indication: SKIN/SKIN STRUCTURE Weight in k.078 kg Adjusted body weight in Kg: [place] body weight in Kg: Obesity Dosing Indication % IBW: Serum Creatinine - Last 168 Hours 04/04/23 14:25 Creatinine 3.50 H Estimated CrCl and GFR - Last 168 Hours 04/04/23 14:25 Estim Creat Clear Calc 21.8 Estimated GFR 13 Vancomycin Loading Dose: 2000 MG Current Vancomycin Dosing Regimen: 500MG Q24H Vancomycin Monitoring using AUC goal of 400 - 600 range with trough as surrogate marker: AUC 540, 18.9 Date and Time for next Vancomycin Level to be drawn: 04/06 @ 1400 Pharmacist Comments on Vancomycin Plan: Vancomycin dosing will take advantage of [employer] as a clinical decision support tool that uses Bayesian modeling to calculate individual patient's pharmacokinetic parameters and forecast the patient's drug concentration time course with the target goal AUC 24 range of 400 - 600 mg/L/hr.
[2023-04-04] MEDS: 0.9 % Sodium Chloride 1,000 ML 100 ML IVCONT (18:14)
[2023-04-04] MEDS: Heparin Sodium,Porcine 5,000 UNIT/ML VIAL 5000 UNIT SUBCUT (18:37)
[2023-04-04 19:38] LABS: ~Lactic Acid-LAB USE ONLY 2.7 mmol/L (0.5-2.0)
[2023-04-04 20:15] LABS: Glucose, Whole Blood 113 mg/dL (60-115)
[2023-04-04 20:15] LABS: Glucose, Whole Blood 144 mg/dL (60-115)
[2023-04-04] MEDS: 0.9 % Sodium Chloride Flush 3 ML SYRINGE IVFLUSH (20:27)
[2023-04-04] MEDS: Gabapentin 300 MG CAPSULE PO (20:40)
[2023-04-04] MEDS: Piperacillin Sodium/Tazobactam 3.375 GM in 0.9 % Sodium Chloride 50 ML IV (20:40)
[2023-04-04 20:56] LABS: Reflex Lactate? 2 Y
[2023-04-04] MEDS: Lactated Ringers 1,000 ML 999 ML IV (21:10)
[2023-04-04] MEDS: oxyCODONE HCl Immed Release 5 MG TABLET PO (22:49)
[2023-04-04] MEDS: Acetaminophen 325 MG TABLET 650 MG PO (22:49)
[2023-04-05] VITALS (7 sets, daily range): BP systolic 92–108; BP diastolic 51–61; PULSE 71–95; RESP 14–20; TEMP 35.9–37.4; O2SAT 94–100; BMI 51.5
[2023-04-05 00:12] LABS: Lactic Acid 2.2 mmol/L (0.5-2.0)
[2023-04-05 01:42] LABS: Reflex Lactate? Lactic Acid Added
[2023-04-05] MEDS: 0.9 % Sodium Chloride 1,000 ML 100 ML IVCONT ×3 (02:17→22:12)
[2023-04-05] MEDS: Heparin Sodium,Porcine 5,000 UNIT/ML VIAL 5000 UNIT SUBCUT ×3 (02:18→17:11)
[2023-04-05] MEDS: Piperacillin Sodium/Tazobactam 3.375 GM in 0.9 % Sodium Chloride 50 ML IV ×4 (02:22→20:17)
--- NOTE | 2023-04-05 05:16 | PC.NURSE ---
Assumed care at 1900. Critical lab results back from recent evening lab draw showed lactic acid of 2.7. Vitals obtained showed hypotension, 80's/50's. Pt placed in trendelenberg position with improvement in BP to 93/54. Patient consistently asymptomatic and vitals otherwise stable. Extremities warm with palpable pulses. Covering Dr. Carol Ann Khan notified of BP and critical lactate with orders placed for 1L LR bolus, BCx x2 and repeat lactate obtained after bolus was given per MD written order. BP after bolus = 90/56, patient remained asymptomatic. Recieved MD written okay to administer ordered prn opioid with this BP for pt c/o 06/19 pain in BLE wounds 2/2 severe lymphedema/ BLE wounds. Pt tolerated meds, reported pain as improved which has also been evidenced by pt resting in bed appearing more comfortable. BP has since remained 90's/50 with map >65. Lactic acid recheck after bolus = 2.2. Dr. Khan notified of recheck with further lactic acid draws deferred by MD. Maintenance fluids Nacl running on assuming care continue at 100ml/hr overnight. 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
[2023-04-05 07:30] LABS: Glucose, Whole Blood 126 mg/dL (60-115)
[2023-04-05 07:31] LABS: Hematocrit 26.4 % (37.0-47.0); Hemoglobin 8.7 g/dl (12.0-16.0); Mean Corpuscular Hemoglobin 25.4 pg (27.0-33.0); Mean Corpuscular Volume 77.2 fL (80.0-98.0); Mean Platelet Volume 9.5 fL (9.4-12.3); Platelet Count 262 X10*3/uL (160-400); Red Blood Count 3.42 X10*6/uL (4.20-5.50); Red Cell Distribution Width 17.4 % (11.0-16.0); White Blood Count 19.9 X10*3/uL (4.8-10.8)
--- NOTE | 2023-04-05 07:55 | PM.CNGS ---
History of Present Illness Consult details Consult date: 04/05/23 Requesting physician: Veronique Kaufman Narrative: 67-year-old female patient with a long history of peripheral edema with bilateral leg ulcers. Patient presented with increased weakness and dizziness and subsequently fell to her knees and struck her forehead on the left side. Patient was noted to have the increased swelling in the lower extremities with follow-up smelling discharge was subsequently admitted to the hospital service for further management. She had previously undergone operative debridement but appears to have increased necrotic tissue requiring further debridement. Review of Systems Review of Systems: Yes all other systems are reviewed and are negative Constitutional: Constitutional: Reports body ache(s) and Reports fatigue Musculoskeletal: Musculoskeletal: Reports as per HPI Integumentary/Breasts: Skin/Breast: Reports as per HPI Endocrine: Endocrine: Reports fatigue PMFSH Past Medical History Medical History Anxiety and depression Arthritis Dependent on walker for ambulation HTN (hypertension) Hx of atrial flutter Hx of deep venous thrombosis Hx pulmonary embolism Incontinence of urine Lymphedema of both lower extremities On beta mahamed at home Pre-diabetes Snores Ulcer of ankle Surgical History Surgical History History of ankle fusion History of radiofrequency ablation procedure for cardiac arrhythmia History of surgery on lower extremity History of surgery on lower extremity (03/05/23) Hx of colonoscopy Hx of dilation and curettage Hx of tonsillectomy Social History Social History Household Members: Spouse Housing: House Are you a primary patient centered care specialist to a significant other at home: No Do you presently have visiting nurse or other home services: No Alcohol intake: never Patient Tobacco Use Status: Never used Tobacco Smoked in Last 30 Days: No Use of substances other than those prescribed or required for medical reasons: No Currently Displaying Signs/Symptoms of Drug Intoxication Withdrawal: No Any prior treatment program specific to substance use: No Have you been hit, kicked, punched, or otherwise hurt by someone within the past year? If so, by whom?: No Do you feel safe in your current relationship?: Yes Is there a partner from a previous relationship who is making you feel unsafe now?: No Are you made to feel afraid or neglected: No Advance Directives: No Do you have thoughts of harming others: None Recently lost weight without trying: No Nutrition Risks: No Nutritional Risk Patient : No : No Poor oral hygiene: No Meds Allergies Allergy/AdvReac Type Severity Reaction Status Date / Time diltiazem [From Cardizem] Allergy Hives Verified 03/15/23 14:35 Penicillins Allergy Rash Verified 03/15/23 14:35 Active Medications: Current Medications Acetaminophen (Acetaminophen 325 Mg Tablet) 650 mg PO Q6H PRN PRN Reason: Pain, Mild (Pain Scale 1-3) Last Admin: 04/04/23 22:49 Dose: 650 mg Benzonatate (Benzonatate 100 Mg Capsule) 100 mg PO TID PRN PRN Reason: Cough Clonazepam (Clonazepam 0.5 Mg Tablet) 0.5 mg PO DAILY PRN PRN Reason: Anxiety Dextrose (Dextrose 50 % 25 Gm/50 Ml Syringe) 25 gm IVPUSH Q15M PRN; Protocol PRN Reason: per Hypoglycemia Standing Ord. Gabapentin (Gabapentin 300 Mg Capsule) 300 mg PO BEDTIME [facility] Last Admin: 04/04/23 20:40 Dose: 300 mg Glucose (Glucose Gel 15 Gm Gel..Gram.) 15 gm PO Q15M PRN; Protocol PRN Reason: per Hypoglycemia Standing Ord. Heparin Sodium (Porcine) (Heparin Sodium,Porcine 5,000 Unit/Ml Vial) 5,000 unit SUBCUT Q8H [facility] Last Admin: 04/05/23 02:18 Dose: 5,000 unit Sodium Chloride (Ns) 1,000 mls @ 100 mls/hr IVCONT .Q10H [facility] Last Admin: 04/05/23 02:17 Dose: 100 mls/hr Vancomycin HCl 500 mg/ Sodium (Chloride) 110 mls @ 110 mls/hr IV Q24H [facility] Piperacillin Sod/Tazobactam (Sod 3.375 gm/ Sodium Chloride) 50 mls @ 100 mls/hr IV Q6H [facility] Last Infusion: 04/05/23 02:52 Dose: Infused Albumin Human (Kedbumin 25 %) 100 mls @ 100 mls/hr IV Q1H [facility] Stop: 04/05/23 09:44 Insulin Human Lispro (Insulin Lispro 100 Unit/Ml 3 Ml Vial) 0 unit SUBCUT QIDACHS [facility]; Protocol Last Admin: 04/05/23 07:31 Dose: Not Given Loratadine (Loratadine 10 Mg Tablet) 10 mg PO DAILY [facility] Melatonin (Melatonin 3 Mg Tablet) 6 mg PO BEDTIME PRN PRN Reason: Insomnia Multivitamins/Vitamin C (Multivitamin Tablet) 1 tab PO DAILY [facility] Ondansetron HCl (Ondansetron Hcl 4 Mg/2 Ml Vial) 4 mg IVPUSH Q8H PRN PRN Reason: Nausea and Vomiting Oxybutynin Chloride (Oxybutynin Chloride Er 5 Mg Tab.Er.24) 10 mg PO DAILY [facility] Oxycodone HCl (Oxycodone Hcl Immed Release 5 Mg Tablet) 5 mg PO Q6H PRN PRN Reason: Pain, Severe (Pain Scale 7-10) Last Admin: 04/04/23 22:49 Dose: 5 mg Pharmacy Consult (Consult Rx Perform Med Rec) 1 each MISCELLANE ONCE PRN PRN Reason: Consult order Pharmacy Consult (Consult Rx Vancomycin Dosing) 1 each MISCELLANE DAILY PRN PRN Reason: Consult order Sertraline HCl (Sertraline Hcl 100 Mg Tablet) 100 mg PO DAILY [facility] Sodium Chloride (0.9 % Sodium Chloride Flush 3 Ml Syringe) 3 ml IVFLUSH QSHIFT [facility] Last Admin: 04/05/23 07:32 Dose: Not Given Vitamin D (Cholecalciferol (Vitamin D3) 25 Mcg Tablet) 25 mcg PO DAILY [facility] Home Medications Medication Instructions Recorded Confirmed Last Taken Type clonazepam 0.5 mg tablet 0.5 mg PO DAILY PRN Anxiety 02/02/23 04/04/23 03/05/23 History famotidine 40 mg tablet 40 mg PO DAILY 02/02/23 04/04/23 02/01/23 History furosemide 40 mg tablet 40 mg PO DAILY 02/02/23 04/04/23 02/01/23 History gabapentin 300 mg capsule 300 mg PO BEDTIME 02/02/23 04/04/23 02/01/23 History metoprolol succinate 50 mg 50 mg PO DAILY 02/02/23 04/04/23 03/05/23 History tablet,extended release 24 hr sertraline 100 mg tablet 100 mg PO DAILY 02/02/23 04/04/23 03/05/23 History acetaminophen 650 mg 1,300 mg PO DAILY 04/04/23 04/04/23 Unknown History tablet,extended release budesonide 3 mg 3 mg PO QAM 04/04/23 04/04/23 Unknown History capsule,delayed,extended release cetirizine 10 mg tablet 10 mg PO DAILY 04/04/23 04/04/23 Unknown History cholecalciferol (vitamin D3) 25 25 mcg PO DAILY 04/04/23 04/04/23 Unknown History mcg (1,000 unit) tablet multivitamin 1 tab PO DAILY 04/04/23 04/04/23 Unknown History oxybutynin chloride 10 mg 10 mg PO DAILY 04/04/23 04/04/23 Unknown History tablet,extended release 24 hr sulfamethoxazole 800 1 tab PO BID 04/04/23 04/04/23 Unknown History mg-trimethoprim 160 mg tablet tirzepatide 10 mg/0.5 mL 10 mg subcut FR 04/04/23 04/04/23 Unknown History subcutaneous pen injector (Leonor) Physical Exam Vital Signs: Vital Signs: Last Vital Signs Temp 97.3 F 04/05/23 07:08 Pulse 93 04/05/23 07:08 Resp 20 04/05/23 07:08 BP 99/54 L 04/05/23 07:08 Pulse Ox 100 04/05/23 07:08 O2 Del Method Room Air 04/05/23 07:08 BMI result Body Mass Index 51.5 Const: Nutritional Appearance: obese Orientation/consciousness: patient oriented x3 Limitations: ambulation with walker HEENT: Other: Laceration to left upper eyebrow. Resp: Other: Breathing comfortably on room air, no respiratory distress Skin: Other: See extremities below Neuro: General: patient oriented x3 Extrem: Other: The bilateral stasis ulcers with increased foul-smelling discharge. Wound base is black to brown with necrotic tissue requiring further debridement. Results Labs 04/05/23 06:53 04/04/23 14:25 Labs: Abnormal lab results 04/04/23 04/04/23 04/04/23 Range/Units 14:25 14:25 14:25 WBC 25.6 H (4.8-10.8) X10*3/uL RBC 3.58 L (4.20-5.50) X10*6/uL Hgb 9.1 L (12.0-16.0) g/dl Hct 27.5 L (37.0-47.0) % MCV 76.8 L (80.0-98.0) fL MCH 25.4 L (27.0-33.0) pg RDW 17.3 H (11.0-16.0) % MPV 9.1 L (9.4-12.3) fL Immature Gran % (Auto) 2.9 H (0.0-0.4) % Neut % (Auto) 83.9 H (45-73) % Lymph % (Auto) 5.5 L (20-40) % [place] # (Auto) 1.6 H (0.1-1.2) X10*3/uL Abs Immat Gran (auto) 0.75 H (0.00-0.03) X10*3/uL Absolute Neuts (auto) 21.4 H (2.0-8.3) x10*3/uL Sodium 125 L (135-145) mmol/L Carbon Dioxide 19 L (22-29) mmol/L BUN 51 H (9-16) mg/dL Creatinine 3.50 H (0.5-1.4) mg/dL POC Glucose (60-115) mg/dL Random Glucose 148 H (60-115) mg/dL Lactic Acid 2.1 H* (0.5-2.0) mmol/L Lactic Acid F/U @ 2Hr (0.5-2.0) mmol/L Alkaline Phosphatase 158 H (39-117) U/L Total Protein 5.8 L (6.5-8.0) g/dL Albumin 2.5 L (3.5-5.0) g/dL 04/04/23 04/04/23 04/04/23 Range/Units 18:51 20:03 23:34 WBC (4.8-10.8) X10*3/uL RBC (4.20-5.50) X10*6/uL Hgb (12.0-16.0) g/dl Hct (37.0-47.0) % MCV (80.0-98.0) fL MCH (27.0-33.0) pg RDW (11.0-16.0) % MPV (9.4-12.3) fL Immature Gran % (Auto) (0.0-0.4) % Neut % (Auto) (45-73) % Lymph % (Auto) (20-40) % [place] # (Auto) (0.1-1.2) X10*3/uL Abs Immat Gran (auto) (0.00-0.03) X10*3/uL Absolute Neuts (auto) (2.0-8.3) x10*3/uL Sodium (135-145) mmol/L Carbon Dioxide (22-29) mmol/L BUN (9-16) mg/dL Creatinine (0.5-1.4) mg/dL POC Glucose 144 H (60-115) mg/dL Random Glucose (60-115) mg/dL Lactic Acid 2.2 H* (0.5-2.0) mmol/L Lactic Acid F/U @ 2Hr 2.7 H* (0.5-2.0) mmol/L Alkaline Phosphatase (39-117) U/L Total Protein (6.5-8.0) g/dL Albumin (3.5-5.0) g/dL 04/05/23 04/05/23 Range/Units 06:53 07:06 WBC 19.9 H (4.8-10.8) X10*3/uL RBC 3.42 L (4.20-5.50) X10*6/uL Hgb 8.7 L (12.0-16.0) g/dl Hct 26.4 L (37.0-47.0) % MCV 77.2 L (80.0-98.0) fL MCH 25.4 L (27.0-33.0) pg RDW 17.4 H (11.0-16.0) % MPV (9.4-12.3) fL Immature Gran % (Auto) (0.0-0.4) % Neut % (Auto) (45-73) % Lymph % (Auto) (20-40) % [place] # (Auto) (0.1-1.2) X10*3/uL Abs Immat Gran (auto) (0.00-0.03) X10*3/uL Absolute Neuts (auto) (2.0-8.3) x10*3/uL Sodium (135-145) mmol/L Carbon Dioxide (22-29) mmol/L BUN (9-16) mg/dL Creatinine (0.5-1.4) mg/dL POC Glucose 126 H (60-115) mg/dL Random Glucose (60-115) mg/dL Lactic Acid (0.5-2.0) mmol/L Lactic Acid F/U @ 2Hr (0.5-2.0) mmol/L Alkaline Phosphatase (39-117) U/L Total Protein (6.5-8.0) g/dL Albumin (3.5-5.0) g/dL Short CBC 04/04/23 04/05/23 Range/Units 14:25 06:53 WBC 25.6 H 19.9 H (4.8-10.8) X10*3/uL Hgb 9.1 L 8.7 L (12.0-16.0) g/dl Hct 27.5 L 26.4 L (37.0-47.0) % Plt Count 311 D 262 (160-400) X10*3/uL BMP 04/04/23 14:25 Sodium 125 L Potassium 4.0 Chloride 98 Carbon Dioxide 19 L BUN 51 H Creatinine 3.50 H Calcium 9.5 D Liver Function 04/04/23 Range/Units 14:25 Total Bilirubin 0.3 (0.0-1.0) mg/dL AST 25 (5-31) U/L ALT 24 (0-31) U/L Alkaline Phosphatase 158 H (39-117) U/L Albumin 2.5 L (3.5-5.0) g/dL All other labs normal. Assessment and Plan (1) Open wound of both legs with complication: Status: Acute (2) Stasis ulcer of left lower extremity: Status: Acute Plan 67-year-old female patient under the service with her stasis bilateral extremities her condition or. Patient fell yesterday presenting here laceration to her left forehead. Feels improved today. Review of the wounds do revealed increased necrotic tissue at the wound base. She may benefit from further debridement in the OR under anesthesia with placement of wound VAC while in house. I will discuss with hospitalist team to determine the timing of the procedure. Of note the patient is Mounjaro which may result in gastric distension placing her at risk for aspiration with anesthesia. Time Spent With Patient Time: Total time managing care of this patient today ____ minutes. Procedures Date of Service Date of Service: 04/05/23
[2023-04-05] MEDS: Albumin Human 25 % 100 ML IV ×2 (08:08→10:22)
--- NOTE | 2023-04-05 08:16 | MHC.CM.PN ---
CM met with Patient at bedside. Patient lives in a townhouse with her /HCP and she uses a walker and more recently a w/c to assist with mobility. Patient is active with [facility] and should STR be the recommendation, Patient has been to [facility] in the past and she is agreeable to a referral there again. CM has initiated and will follow for dc planning. Patient is jose diggs and her PCP is Dr. Tre White.
[2023-04-05 08:20] LABS: Anion Gap 14 (12-20); Blood Urea Nitrogen 46 mg/dL (9-16); Calcium 8.7 mg/dL (8.4-10.2); Carbon Dioxide 16 mmol/L (22-29); Chloride 105 mmol/L (96-108); Creatinine Clr Calc Pharmacy 25.5; Estimated Glomerular Filt Rate 16; Glucose Random 116 mg/dL (60-115); Potassium 4.3 mmol/L (3.3-5.1); Sodium 131 mmol/L (135-145)
[2023-04-05] MEDS: Multivitamin TABLET 1 TAB PO (09:48)
[2023-04-05] MEDS: oxyBUTYnin chloride ER 5 MG TAB.ER.24 10 MG PO (09:48)
[2023-04-05] MEDS: Sertraline HCL 100 MG TABLET PO (09:49)
[2023-04-05] MEDS: Cholecalciferol (Vitamin D3) 25 MCG TABLET PO (09:49)
[2023-04-05] MEDS: Loratadine 10 MG TABLET PO (09:49)
--- NOTE | 2023-04-05 11:03 | MHC.CLN ---
RE: CONSULT PT WITH INCREASED NUTRITION RISK R/T PRESSURE INJURY DIET RX: 2000DM-APPROPRIATE PT RECEIVING ENSURE TID TO PROMOTE WOUND HEALING RECOMMEND SWITCHING TO ENSURE MAX BID TO PROVIDE 300KCALS, 60G PROTEIN MONITOR PO INTAKE CLOSELY SEE ALSO FULL CLINICAL NUTRITION ASSESSMENT
[2023-04-05 11:29] LABS: Glucose, Whole Blood 169 mg/dL (60-115)
[2023-04-05] MEDS: Insulin Lispro 100 UNIT/ML 3 ML VIAL SUBCUT ×3 (12:01→20:18)
--- NOTE | 2023-04-05 14:16 | P.PNIM_ITS ---
Subjective Subjective Date of Service: 04/05/23 Interval History: being followed for bilateral lower extremity leg wounds and left lower extremity cellulitis, complaining of dry cough and sore throat denies fever, no chills, slept well tolerating diet denies nausea, no vomiting, no abdominal pain no diarrhea, no acute events overnight. Review of Systems All other system reviewed and negative. Physical Exam Vital Signs: Vital Signs: Last Vital Signs Temp 97.6 F 04/05/23 11:08 Pulse 71 04/05/23 11:08 Resp 20 04/05/23 11:08 BP 104/51 L 04/05/23 11:08 Pulse Ox 99 04/05/23 11:08 O2 Del Method Room Air 04/05/23 11:08 BMI result Body Mass Index 51.5 Const: Other: General? awake alert x3, resting comfortably in no acute distress.? HEENT PERRLA,EOMI Neck? supple no JVD. CVS? regular rate rhythm, Respiratory lungs clear to auscultation, no respiratory distress, no wheeze, no rhonchi. Gastrointestinal abdomen soft, nontender, bowel sounds audible, no guarding , no rigidity. Extremities? bilateral non pitting edema skin bilateral ankle wounds, left? wound with surrounding erythema , necrotic wound base, foul odor and purulent drainage bilateral buttock stage 2? pressure ulcers Neuro nonfocal , speech clear. psych appropriate affect Objective Data Active Medications Acetaminophen (Acetaminophen 325 Mg Tablet) 650 mg PO Q6H PRN PRN Reason: Pain, Mild (Pain Scale 1-3) Last Admin: 04/04/23 22:49 Dose: 650 mg Documented By: FATUMA Benzocaine (Throat Lozenge, Medicated Lozenge) 1 lozenge MUCOUS MEM Q2H PRN PRN Reason: Sore Throat Benzonatate (Benzonatate 100 Mg Capsule) 100 mg PO TID PRN PRN Reason: Cough Clonazepam (Clonazepam 0.5 Mg Tablet) 0.5 mg PO DAILY PRN PRN Reason: Anxiety Dextrose (Dextrose 50 % 25 Gm/50 Ml Syringe) 25 gm IVPUSH Q15M PRN; Protocol PRN Reason: per Hypoglycemia Standing Ord. Gabapentin (Gabapentin 300 Mg Capsule) 300 mg PO BEDTIME [facility] Last Admin: 04/04/23 20:40 Dose: 300 mg Documented By: FATUMA Glucose (Glucose Gel 15 Gm Gel..Gram.) 15 gm PO Q15M PRN; Protocol PRN Reason: per Hypoglycemia Standing Ord. Heparin Sodium (Porcine) (Heparin Sodium,Porcine 5,000 Unit/Ml Vial) 5,000 unit SUBCUT Q8H [facility] Last Admin: 04/05/23 09:48 Dose: 5,000 unit Documented By: MARC Sodium Chloride (Ns) 1,000 mls @ 100 mls/hr IVCONT .Q10H [facility] Last Admin: 04/05/23 12:30 Dose: 100 mls/hr Documented By: MARC Vancomycin HCl 500 mg/ Sodium (Chloride) 110 mls @ 110 mls/hr IV Q24H [facility] Piperacillin Sod/Tazobactam (Sod 3.375 gm/ Sodium Chloride) 50 mls @ 100 mls/hr IV Q6H [facility] Last Infusion: 04/05/23 10:26 Dose: 0 mls/hr Documented By: MARC Insulin Human Lispro (Insulin Lispro 100 Unit/Ml 3 Ml Vial) 0 unit SUBCUT QIDACHS [facility]; Protocol Last Admin: 04/05/23 12:01 Dose: 2 unit Documented By: MARC Loratadine (Loratadine 10 Mg Tablet) 10 mg PO DAILY [facility] Last Admin: 04/05/23 09:49 Dose: 10 mg Documented By: MARC Melatonin (Melatonin 3 Mg Tablet) 6 mg PO BEDTIME PRN PRN Reason: Insomnia Multivitamins/Vitamin C (Multivitamin Tablet) 1 tab PO DAILY [facility] Last Admin: 04/05/23 09:48 Dose: 1 tab Documented By: MARC Ondansetron HCl (Ondansetron Hcl 4 Mg/2 Ml Vial) 4 mg IVPUSH Q8H PRN PRN Reason: Nausea and Vomiting Oxybutynin Chloride (Oxybutynin Chloride Er 5 Mg Tab.Er.24) 10 mg PO DAILY [facility] Last Admin: 04/05/23 09:48 Dose: 10 mg Documented By: MARC Oxycodone HCl (Oxycodone Hcl Immed Release 5 Mg Tablet) 5 mg PO Q6H PRN PRN Reason: Pain, Severe (Pain Scale 7-10) Last Admin: 04/04/23 22:49 Dose: 5 mg Documented By: FATUMA Pharmacy Consult (Consult Rx Perform Med Rec) 1 each MISCELLANE ONCE PRN PRN Reason: Consult order Pharmacy Consult (Consult Rx Vancomycin Dosing) 1 each MISCELLANE DAILY PRN PRN Reason: Consult order Sertraline HCl (Sertraline Hcl 100 Mg Tablet) 100 mg PO DAILY [facility] Last Admin: 04/05/23 09:49 Dose: 100 mg Documented By: MARC Sodium Chloride (0.9 % Sodium Chloride Flush 3 Ml Syringe) 3 ml IVFLUSH QSHIFT [facility] Last Admin: 04/05/23 07:32 Dose: Not Given Documented By: MARC Non-Admin Reason: IV Running Vitamin D (Cholecalciferol (Vitamin D3) 25 Mcg Tablet) 25 mcg PO DAILY [facility] Last Admin: 04/05/23 09:49 Dose: 25 mcg Documented By: MARC Labs 04/05/23 06:53 04/05/23 06:53 Labs: Laboratory Results - last 24 hr 04/04/23 04/04/23 04/04/23 14:25 14:25 14:25 MCV 76.8 L MCH 25.4 L MCHC 33.1 RDW 17.3 H Plt Count 311 D MPV 9.1 L Immature Gran % (Auto) 2.9 H Neut % (Auto) 83.9 H Lymph % (Auto) 5.5 L [place] % (Auto) 6.1 Eos % (Auto) 1.1 Baso % (Auto) 0.5 Lymph # (Auto) 1.4 [place] # (Auto) 1.6 H Eos # (Auto) 0.3 Baso # (Auto) 0.1 Abs Immat Gran (auto) 0.75 H Absolute Neuts (auto) 21.4 H Absolute Nucleated RBC 0.000 Nucleated RBC % (auto) 0.0 Smear Tech's Comments VERIFIED PT INR APTT Anion Gap 12 Estim Creat Clear Calc 21.8 Estimated GFR 13 POC Glucose Random Glucose 148 H Lactic Acid 2.1 H* Lactic Acid F/U @ 2Hr Calcium 9.5 D Magnesium 2.2 Total Bilirubin 0.3 AST 25 ALT 24 Alkaline Phosphatase 158 H Total Protein 5.8 L Albumin 2.5 L 04/04/23 04/04/23 04/04/23 14:25 18:16 18:51 MCV MCH MCHC RDW Plt Count MPV Immature Gran % (Auto) Neut % (Auto) Lymph % (Auto) [place] % (Auto) Eos % (Auto) Baso % (Auto) Lymph # (Auto) [place] # (Auto) Eos # (Auto) Baso # (Auto) Abs Immat Gran (auto) Absolute Neuts (auto) Absolute Nucleated RBC Nucleated RBC % (auto) Smear Tech's Comments PT 13.2 INR 1.1 APTT 27.5 Anion Gap Estim Creat Clear Calc Estimated GFR POC Glucose 113 Random Glucose Lactic Acid Lactic Acid F/U @ 2Hr 2.7 H* Calcium Magnesium Total Bilirubin AST ALT Alkaline Phosphatase Total Protein Albumin 04/04/23 04/04/23 04/05/23 20:03 23:34 06:53 MCV 77.2 L MCH 25.4 L MCHC 33.0 RDW 17.4 H Plt Count 262 MPV 9.5 Immature Gran % (Auto) Neut % (Auto) Lymph % (Auto) [place] % (Auto) Eos % (Auto) Baso % (Auto) Lymph # (Auto) [place] # (Auto) Eos # (Auto) Baso # (Auto) Abs Immat Gran (auto) Absolute Neuts (auto) Absolute Nucleated RBC 0.000 Nucleated RBC % (auto) 0.0 Smear Tech's Comments PT INR APTT Anion Gap Estim Creat Clear Calc Estimated GFR POC Glucose 144 H Random Glucose Lactic Acid 2.2 H* Lactic Acid F/U @ 2Hr Calcium Magnesium Total Bilirubin AST ALT Alkaline Phosphatase Total Protein Albumin 04/05/23 04/05/23 04/05/23 06:53 07:06 11:04 MCV MCH MCHC RDW Plt Count MPV Immature Gran % (Auto) Neut % (Auto) Lymph % (Auto) [place] % (Auto) Eos % (Auto) Baso % (Auto) Lymph # (Auto) [place] # (Auto) Eos # (Auto) Baso # (Auto) Abs Immat Gran (auto) Absolute Neuts (auto) Absolute Nucleated RBC Nucleated RBC % (auto) Smear Tech's Comments PT INR APTT Anion Gap 14 Estim Creat Clear Calc 25.5 Estimated GFR 16 POC Glucose 126 H 169 H Random Glucose 116 H Lactic Acid Lactic Acid F/U @ 2Hr Calcium 8.7 D Magnesium Total Bilirubin AST ALT Alkaline Phosphatase Total Protein Albumin Assessment and Plan (1) Acute kidney injury: Status: Acute (2) Open wound of both legs with complication: Status: Acute (3) Cellulitis of left leg: Status: Acute (4) Leukocytosis: Status: Acute (5) Hyponatremia: Status: Acute (6) Acute kidney injury: Status: Acute Plan 67-year-old female with past medical history significant for diabetes mellitus,? lymphedema, bilateral leg wounds, history of atrial flutter not on anticoagulation due to GI bleed, history of PE 4 years ago presented to [facility] due to worsening left lower extremity redness and drainage from left leg wound generalized weakness and recent bout of fever patient in the ED diagnosed to have leukocytosis, acute kidney injury, and hyponatremia, patient awake alert no confusion noted. Left leg cellulitis with bilateral lower extremity wounds? with chronic lymphedema. ?wounds not related to diabetes, no sepsis WBC trending down, blood culture pending, on IV vancomycin and Zosyn? started on 04/04 ?case discussed with Dr. Valdivia will undergo wound debridement in over at a.m ., will keep her NPO follow follow labs, ?acute kidney injury ?likely multifactorial due Bactrim/decreased by mouth intake and use of diuretics ? creatinine improving continue to hold Lasix avoid hypotension, IV fluids, avoid nephrotoxins if no improvement in BMP obtain Nephro consult ?hypovolemic hyponatremia sodium improved to 131, continue IV fluids follow BMP acute on chronic normocytic anemia will obtain iron studies follow CBC check stool guaiac. ?history of atrial flutter currently normal sinus rhythm, soft blood pressure hold beta-blockers. ?lactic acidosis due to dehydration not due to sepsis. ?Diabetes mellitus stable blood sugars continue diabetic diet and insulin sliding scale, hold Monjaro ?bilateral? buttock pressure ulcer stage II, high-protein diet frequent position change and wound consult ?chronic urinary incontinence continue oxybutynin. ?morbid obesity weight loss recommended ?DVT prophylaxis with subcu heparin ?full code ?in my clinical judgment patient need continued inpatient stay for IV antibiotics and for further debridement of bilateral leg wounds Time Spent With Patient Time: Total time managing care of this patient today ____ minutes. Quality Stroke Does the patient have a stroke diagnosis?: No VTE Prior VTE?: No VTE Risk Level:: Medical - moderate - high VTE Device Contraindication: Treatment Not Indicated VTE Drug Contraindication: N/A - Med Ordered
[2023-04-05 15:57] LABS: Glucose, Whole Blood 167 mg/dL (60-115)
[2023-04-05] MEDS: vancomycin HCL 500 MG in 0.9 % Sodium Chloride 100 ML 110 MG IV (16:30)
[2023-04-05 19:57] LABS: Glucose, Whole Blood 205 mg/dL (60-115)
[2023-04-05] MEDS: Gabapentin 300 MG CAPSULE PO (20:18)
[2023-04-05] MEDS: 0.9 % Sodium Chloride Flush 3 ML SYRINGE IVFLUSH (20:18)
[2023-04-05 21:33] LABS: Anion Gap 15 (12-20); Blood Urea Nitrogen 43 mg/dL (9-16); Calcium 9.2 mg/dL (8.4-10.2); Carbon Dioxide 17 mmol/L (22-29); Chloride 106 mmol/L (96-108); Creatinine Clr Calc Pharmacy 31.6; Estimated Glomerular Filt Rate 20; Glucose Random 198 mg/dL (60-115); Magnesium 1.7 mg/dL (1.6-2.6); Potassium 4.1 mmol/L (3.3-5.1); Sodium 134 mmol/L (135-145)
[2023-04-06] VITALS (22 sets, daily range): BP systolic 89–113; BP diastolic 45–81; PULSE 60–159; RESP 12–19; TEMP 36.4–37.3; O2SAT 95–100
[2023-04-06] MEDS: Heparin Sodium,Porcine 5,000 UNIT/ML VIAL 5000 UNIT SUBCUT (00:02)
[2023-04-06] MEDS: Piperacillin Sodium/Tazobactam 3.375 GM in 0.9 % Sodium Chloride 50 ML IV ×3 (03:27→22:47)
[2023-04-06 07:26] LABS: Glucose, Whole Blood 149 mg/dL (60-115)
[2023-04-06 07:52] LABS: Hematocrit 22.3 % (37.0-47.0); Hemoglobin 7.5 g/dl (12.0-16.0); Mean Corpuscular HGB Conc 33.6 g/dl (31.0-35.0); Mean Corpuscular Hemoglobin 25.6 pg (27.0-33.0); Mean Corpuscular Volume 76.1 fL (80.0-98.0); Platelet Count 280 X10*3/uL (160-400); Red Blood Count 2.93 X10*6/uL (4.20-5.50); Red Cell Distribution Width 17.2 % (11.0-16.0); White Blood Count 19.6 X10*3/uL (4.8-10.8)
[2023-04-06] MEDS: 0.9 % Sodium Chloride 1,000 ML 100 ML IVCONT (07:54)
[2023-04-06 08:03] LABS: Anion Gap 14 (12-20); Blood Urea Nitrogen 38 mg/dL (9-16); Calcium 8.5 mg/dL (8.4-10.2); Carbon Dioxide 17 mmol/L (22-29); Chloride 108 mmol/L (96-108); Creatinine Clr Calc Pharmacy 40.3; Estimated Glomerular Filt Rate 27; Glucose Random 142 mg/dL (60-115); Iron 11 mcg/dL (30-160); Percent Iron Saturation 9 % (15-50); Potassium 3.5 mmol/L (3.3-5.1); Sodium 135 mmol/L (135-145); Total Iron Binding Capacity 122 mcg/dL (228-428); Unsaturated Iron Binding 111 ug/dL
[2023-04-06 08:21] LABS: Ferritin 366 ng/mL (10-250)
[2023-04-06 11:30] LABS: Glucose, Whole Blood 122 mg/dL (60-115)
--- NOTE | 2023-04-06 12:03 | MHC.CLN ---
F/U CURRENTLY NPO FOR DEBRIDEMENT OF LEG ULCERS. WHEN ABLE TO RESUME DIET, RECOMMEND: DIABETIC 2000 KCALS; SUPPLEMENT ENSURE MAX PROTEIN BID. PROVIDES 300 KCALS, 60 G PROTEIN. SUPPLEMENT TO PROMOTE WOUND HEALING. MONITOR FOR INTAKE AND WOUND HEALING.
[2023-04-06 12:29] LABS: Glucose, Whole Blood 124 mg/dL (60-115)
--- NOTE | 2023-04-06 15:10 | P.CONAN_ITS ---
HPI - Anesthesia Eval Consult details Narrative: 67 yo female patient for debridement of bilateral leg ulcers. S/p debridement 03/05/23 PMF Active Problems Active Problems: All Active Problems (Updated 04/06/23 @ 13:35 by Lilia Martínez MD) Acute kidney injury (Acute) Open wound of both legs with complication (Acute) Cellulitis of left leg (Acute) Leukocytosis (Acute) Hyponatremia (Acute) Acute kidney injury (Acute) Improving but still present BUN/Cr 38/1.89 from 51/3.5 Acid reflux (Acute) Stasis ulcer of left lower extremity (Acute) Morbid Obesity BMI 51.5 Anemia Hct 22.3 from 27.5 (04/04/23) Hct 32.8 03/02 Last lactic acid 04/04 2.2 Acidosis Fall 4 days ago. Band aid over Left brow Past Medical History Medical History Anxiety and depression Arthritis Dependent on walker for ambulation HTN (hypertension) Hx of atrial flutter Hx of deep venous thrombosis Hx pulmonary embolism Incontinence of urine Lymphedema of both lower extremities On beta mahamed at home Pre-diabetes Snores Ulcer of ankle Family History Family history of problems with anesthesia: No Surgical History Surgical History History of ankle fusion History of radiofrequency ablation procedure for cardiac arrhythmia History of surgery on lower extremity History of surgery on lower extremity (03/05/23) Hx of colonoscopy Hx of dilation and curettage Hx of tonsillectomy History of Problems with Anesthesia: No Social History Social History Household Members: Spouse Housing: House Are you a primary summer child caregiver to a significant other at home: No Do you presently have visiting nurse or other home services: No Alcohol intake: never Patient Tobacco Use Status: Never used Tobacco Smoked in Last 30 Days: No Use of substances other than those prescribed or required for medical reasons: No Currently Displaying Signs/Symptoms of Drug Intoxication Withdrawal: No Any prior treatment program specific to substance use: No Have you been hit, kicked, punched, or otherwise hurt by someone within the past year? If so, by whom?: No Do you feel safe in your current relationship?: Yes Is there a partner from a previous relationship who is making you feel unsafe now?: No Are you made to feel afraid or neglected: No Are you DNR?: No Advance Directives: No Do you have thoughts of harming others: None Recently lost weight without trying: No Nutrition Risks: No Nutritional Risk Patient : No : No Poor oral hygiene: No service: No Meds Allergies Allergy/AdvReac Type Severity Reaction Status Date / Time diltiazem [From Cardizem] Allergy Hives Verified 03/15/23 14:35 Penicillins Allergy Rash Verified 03/15/23 14:35 Active Medications: Current Medications Acetaminophen (Acetaminophen 325 Mg Tablet) 650 mg PO Q6H PRN PRN Reason: Pain, Mild (Pain Scale 1-3) Last Admin: 04/04/23 22:49 Dose: 650 mg Benzocaine (Throat Lozenge, Medicated Lozenge) 1 lozenge MUCOUS MEM Q2H PRN PRN Reason: Sore Throat Benzonatate (Benzonatate 100 Mg Capsule) 100 mg PO TID PRN PRN Reason: Cough Clonazepam (Clonazepam 0.5 Mg Tablet) 0.5 mg PO DAILY PRN PRN Reason: Anxiety Dextrose (Dextrose 50 % 25 Gm/50 Ml Syringe) 25 gm IVPUSH Q15M PRN; Protocol PRN Reason: per Hypoglycemia Standing Ord. Gabapentin (Gabapentin 300 Mg Capsule) 300 mg PO BEDTIME [facility] Last Admin: 04/05/23 20:18 Dose: 300 mg Glucose (Glucose Gel 15 Gm Gel..Gram.) 15 gm PO Q15M PRN; Protocol PRN Reason: per Hypoglycemia Standing Ord. Heparin Sodium (Porcine) (Heparin Sodium,Porcine 5,000 Unit/Ml Vial) 5,000 unit SUBCUT Q8H [facility] Last Admin: 04/06/23 07:41 Dose: Not Given Sodium Chloride (Ns) 1,000 mls @ 100 mls/hr IVCONT .Q10H [facility] Last Admin: 04/06/23 07:54 Dose: 100 mls/hr Vancomycin HCl 500 mg/ Sodium (Chloride) 110 mls @ 110 mls/hr IV Q24H [facility] Last Infusion: 04/05/23 18:17 Dose: Infused Piperacillin Sod/Tazobactam (Sod 3.375 gm/ Sodium Chloride) 50 mls @ 100 mls/hr IV Q6H [facility] Last Infusion: 04/06/23 08:57 Dose: Infused Insulin Human Lispro (Insulin Lispro 100 Unit/Ml 3 Ml Vial) 0 unit SUBCUT QIDACHS [facility]; Protocol Last Admin: 04/06/23 11:39 Dose: Not Given Loratadine (Loratadine 10 Mg Tablet) 10 mg PO DAILY [facility] Last Admin: 04/06/23 07:45 Dose: Not Given Melatonin (Melatonin 3 Mg Tablet) 6 mg PO BEDTIME PRN PRN Reason: Insomnia Multivitamins/Vitamin C (Multivitamin Tablet) 1 tab PO DAILY [facility] Last Admin: 04/06/23 07:45 Dose: Not Given Ondansetron HCl (Ondansetron Hcl 4 Mg/2 Ml Vial) 4 mg IVPUSH Q8H PRN PRN Reason: Nausea and Vomiting Oxybutynin Chloride (Oxybutynin Chloride Er 5 Mg Tab.Er.24) 10 mg PO DAILY [facility] Last Admin: 04/06/23 07:46 Dose: Not Given Oxycodone HCl (Oxycodone Hcl Immed Release 5 Mg Tablet) 5 mg PO Q6H PRN PRN Reason: Pain, Severe (Pain Scale 7-10) Last Admin: 04/04/23 22:49 Dose: 5 mg Pharmacy Consult (Consult Rx Perform Med Rec) 1 each MISCELLANE ONCE PRN PRN Reason: Consult order Pharmacy Consult (Consult Rx Vancomycin Dosing) 1 each MISCELLANE DAILY PRN PRN Reason: Consult order Sertraline HCl (Sertraline Hcl 100 Mg Tablet) 100 mg PO DAILY [facility] Last Admin: 04/06/23 07:46 Dose: Not Given Sodium Chloride (0.9 % Sodium Chloride Flush 3 Ml Syringe) 3 ml IVFLUSH QSHIFT [facility] Last Admin: 04/06/23 07:55 Dose: Not Given Vitamin D (Cholecalciferol (Vitamin D3) 25 Mcg Tablet) 25 mcg PO DAILY [facility] Last Admin: 04/06/23 07:45 Dose: Not Given Home Medications Medication Instructions Recorded Confirmed Last Taken Type clonazepam 0.5 mg tablet 0.5 mg PO DAILY PRN Anxiety 02/02/23 04/04/23 03/05/23 History famotidine 40 mg tablet 40 mg PO DAILY 02/02/23 04/04/23 02/01/23 History furosemide 40 mg tablet 40 mg PO DAILY 02/02/23 04/04/2323 History gabapentin 300 mg capsule 300 mg PO BEDTIME 02/02/23 04/04/23 02/01/23 History metoprolol succinate 50 mg 50 mg PO DAILY 02/02/23 04/04/23 03/05/23 History tablet,extended release 24 hr sertraline 100 mg tablet 100 mg PO DAILY 02/02/23 04/04/23 03/05/23 History acetaminophen 650 mg 1,300 mg PO DAILY 04/04/23 04/04/23 Unknown History tablet,extended release budesonide 3 mg 3 mg PO QAM 04/04/23 04/04/23 Unknown History capsule,delayed,extended release cetirizine 10 mg tablet 10 mg PO DAILY 04/04/23 04/04/23 Unknown History cholecalciferol (vitamin D3) 25 25 mcg PO DAILY 04/04/23 04/04/23 Unknown History mcg (1,000 unit) tablet multivitamin 1 tab PO DAILY 04/04/23 04/04/23 Unknown History oxybutynin chloride 10 mg 10 mg PO DAILY 04/04/23 04/04/23 Unknown History tablet,extended release 24 hr sulfamethoxazole 800 1 tab PO BID 04/04/23 04/04/23 Unknown History mg-trimethoprim 160 mg tablet tirzepatide 10 mg/0.5 mL 10 mg subcut FR 04/04/23 04/04/23 Unknown History subcutaneous pen injector (Leonor) Exam Exam Date and Time: April 06, 2023 1510 Height,Weight and Vital Signs: Height 5 ft 4 in Weight 136.078 kg Last Vital Signs Temp 98.7 F 04/06/23 12:16 Pulse 84 04/06/23 12:16 Resp 18 04/06/23 12:16 BP 89/45 L 04/06/23 12:16 Pulse Ox 100 04/06/23 12:16 O2 Del Method Room Air 04/06/23 12:16 Repeat BP 99/51 Pertinent Lab Results Pertinent Lab Results: Laboratory Tests 04/04/23 04/04/23 04/04/23 14:25 14:25 14:25 WBC 25.6 H RBC 3.58 L Hgb 9.1 L Hct 27.5 L MCV 76.8 L MCH 25.4 L MCHC 33.1 RDW 17.3 H Plt Count 311 D MPV 9.1 L Immature Gran % (Auto) 2.9 H Neut % (Auto) 83.9 H Lymph % (Auto) 5.5 L [place] % (Auto) 6.1 Eos % (Auto) 1.1 Baso % (Auto) 0.5 Lymph # (Auto) 1.4 [place] # (Auto) 1.6 H Eos # (Auto) 0.3 Baso # (Auto) 0.1 Abs Immat Gran (auto) 0.75 H Absolute Neuts (auto) 21.4 H Absolute Nucleated RBC 0.000 Nucleated RBC % (auto) 0.0 Smear Tech's Comments VERIFIED PT INR APTT Sodium 125 L Potassium 4.0 Chloride 98 Carbon Dioxide 19 L Anion Gap 12 BUN 51 H Creatinine 3.50 H Estim Creat Clear Calc 21.8 Estimated GFR 13 POC Glucose Random Glucose 148 H Lactic Acid 2.1 H* Lactic Acid F/U @ 2Hr Calcium 9.5 D Magnesium 2.2 Iron TIBC % Saturation Unsat Iron Binding Ferritin Total Bilirubin 0.3 AST 25 ALT 24 Alkaline Phosphatase 158 H Total Protein 5.8 L Albumin 2.5 L 04/04/23 04/04/23 04/04/23 14:25 18:16 18:51 WBC RBC Hgb Hct MCV MCH MCHC RDW Plt Count MPV Immature Gran % (Auto) Neut % (Auto) Lymph % (Auto) [place] % (Auto) Eos % (Auto) Baso % (Auto) Lymph # (Auto) [place] # (Auto) Eos # (Auto) Baso # (Auto) Abs Immat Gran (auto) Absolute Neuts (auto) Absolute Nucleated RBC Nucleated RBC % (auto) Smear Tech's Comments PT 13.2 INR 1.1 APTT 27.5 Sodium Potassium Chloride Carbon Dioxide Anion Gap BUN Creatinine Estim Creat Clear Calc Estimated GFR POC Glucose 113 Random Glucose Lactic Acid Lactic Acid F/U @ 2Hr 2.7 H* Calcium Magnesium Iron TIBC % Saturation Unsat Iron Binding Ferritin Total Bilirubin AST ALT Alkaline Phosphatase Total Protein Albumin 04/04/23 04/04/23 04/05/23 20:03 23:34 06:53 WBC 19.9 H RBC 3.42 L Hgb 8.7 L Hct 26.4 L MCV 77.2 L MCH 25.4 L MCHC 33.0 RDW 17.4 H Plt Count 262 MPV 9.5 Immature Gran % (Auto) Neut % (Auto) Lymph % (Auto) [place] % (Auto) Eos % (Auto) Baso % (Auto) Lymph # (Auto) [place] # (Auto) Eos # (Auto) Baso # (Auto) Abs Immat Gran (auto) Absolute Neuts (auto) Absolute Nucleated RBC 0.000 Nucleated RBC % (auto) 0.0 Smear Tech's Comments PT INR APTT Sodium Potassium Chloride Carbon Dioxide Anion Gap BUN Creatinine Estim Creat Clear Calc Estimated GFR POC Glucose 144 H Random Glucose Lactic Acid 2.2 H* Lactic Acid F/U @ 2Hr Calcium Magnesium Iron TIBC % Saturation Unsat Iron Binding Ferritin Total Bilirubin AST ALT Alkaline Phosphatase Total Protein Albumin 04/05/23 04/05/23 04/05/23 06:53 07:06 11:04 WBC RBC Hgb Hct MCV MCH MCHC RDW Plt Count MPV Immature Gran % (Auto) Neut % (Auto) Lymph % (Auto) [place] % (Auto) Eos % (Auto) Baso % (Auto) Lymph # (Auto) [place] # (Auto) Eos # (Auto) Baso # (Auto) Abs Immat Gran (auto) Absolute Neuts (auto) Absolute Nucleated RBC Nucleated RBC % (auto) Smear Tech's Comments PT INR APTT Sodium 131 L Potassium 4.3 Chloride 105 Carbon Dioxide 16 L Anion Gap 14 BUN 46 H Creatinine 2.98 H Estim Creat Clear Calc 25.5 Estimated GFR 16 POC Glucose 126 H 169 H Random Glucose 116 H Lactic Acid Lactic Acid F/U @ 2Hr Calcium 8.7 D Magnesium Iron TIBC % Saturation Unsat Iron Binding Ferritin Total Bilirubin AST ALT Alkaline Phosphatase Total Protein Albumin 04/05/23 04/05/23 04/05/23 15:39 19:51 20:52 WBC RBC Hgb Hct MCV MCH MCHC RDW Plt Count MPV Immature Gran % (Auto) Neut % (Auto) Lymph % (Auto) [place] % (Auto) Eos % (Auto) Baso % (Auto) Lymph # (Auto) [place] # (Auto) Eos # (Auto) Baso # (Auto) Abs Immat Gran (auto) Absolute Neuts (auto) Absolute Nucleated RBC Nucleated RBC % (auto) Smear Tech's Comments PT INR APTT Sodium 134 L Potassium 4.1 Chloride 106 Carbon Dioxide 17 L Anion Gap 15 BUN 43 H Creatinine 2.41 H Estim Creat Clear Calc 31.6 Estimated GFR 20 POC Glucose 167 H 205 H Random Glucose 198 H Lactic Acid Lactic Acid F/U @ 2Hr Calcium 9.2 Magnesium 1.7 Iron TIBC % Saturation Unsat Iron Binding Ferritin Total Bilirubin AST ALT Alkaline Phosphatase Total Protein Albumin 04/06/23 04/06/23 04/06/23 07:11 07:26 07:26 WBC 19.6 H RBC 2.93 L Hgb 7.5 L Hct 22.3 L MCV 76.1 L MCH 25.6 L MCHC 33.6 RDW 17.2 H Plt Count 280 MPV 9.0 L Immature Gran % (Auto) Neut % (Auto) Lymph % (Auto) [place] % (Auto) Eos % (Auto) Baso % (Auto) Lymph # (Auto) [place] # (Auto) Eos # (Auto) Baso # (Auto) Abs Immat Gran (auto) Absolute Neuts (auto) Absolute Nucleated RBC 0.000 Nucleated RBC % (auto) 0.0 Smear Tech's Comments PT INR APTT Sodium 135 Potassium 3.5 Chloride 108 Carbon Dioxide 17 L Anion Gap 14 BUN 38 H Creatinine 1.89 H Estim Creat Clear Calc 40.3 Estimated GFR 27 POC Glucose 149 H Random Glucose 142 H Lactic Acid Lactic Acid F/U @ 2Hr Calcium 8.5 D Magnesium Iron 11 L TIBC 122 L % Saturation 9 L Unsat Iron Binding 111 Ferritin Total Bilirubin AST ALT Alkaline Phosphatase Total Protein Albumin 04/06/23 04/06/23 04/06/23 07:26 11:12 12:24 WBC RBC Hgb Hct MCV MCH MCHC RDW Plt Count MPV Immature Gran % (Auto) Neut % (Auto) Lymph % (Auto) [place] % (Auto) Eos % (Auto) Baso % (Auto) Lymph # (Auto) [place] # (Auto) Eos # (Auto) Baso # (Auto) Abs Immat Gran (auto) Absolute Neuts (auto) Absolute Nucleated RBC Nucleated RBC % (auto) Smear Tech's Comments PT INR APTT Sodium Potassium Chloride Carbon Dioxide Anion Gap BUN Creatinine Estim Creat Clear Calc Estimated GFR POC Glucose 122 H 124 H Random Glucose Lactic Acid Lactic Acid F/U @ 2Hr Calcium Magnesium Iron TIBC % Saturation Unsat Iron Binding Ferritin 366 H Total Bilirubin AST ALT Alkaline Phosphatase Total Protein Albumin Airway Mallampati Class: II TM Dist: >3cm Neck ROM: Full Loose/Missing/Broken Teeth: No (Denies broken, loose teeth. Missing molars) Heart: RRR Lungs: CTAB Assessment and Plan Assessment Anesthesia Assessment: Anesthesia Plan Discussed and Chart Reviewed Final Anesthetic Review Family History of Problems with Anesthesia: No History of Problems with Anesthesia: No NPO: Yes ASA Class: IV Final Preanesthetic Review: No Changes in Pt Med Stat, Meds/Allgs Chart Reviewed, Consent Obtained/Reviewed and Anes Risks/Benef Reviewed Patient Risk: High Procedure Risk: Low Assessment/Block/Sedation in SS: Assess/Block/Sedation-SS Anesthetic Plan Anesthetic Plan: GA Disposition: Standard PACU and Inp. Admit - Standard Bed
--- NOTE | 2023-04-06 15:37 | P.PNIM_ITS ---
Subjective Subjective Date of Service: 04/06/23 Interval History: resting comfortably, NPO for wound debridement in OR by General surgery, no fevers, no chills no other acute issues overnight. Review of Systems all other system reviewed and negative. Physical Exam Vital Signs: Vital Signs: Last Vital Signs Temp 98.7 F 04/06/23 12:16 Pulse 84 04/06/23 12:16 Resp 18 04/06/23 12:16 BP 89/45 L 04/06/23 12:16 Pulse Ox 100 04/06/23 12:16 O2 Del Method Room Air 04/06/23 12:16 BMI result Body Mass Index 51.5 Const: Other: General? awake alert x3, in no acute distress.? Neck? supple no JVD. CVS? regular rate rhythm, Respiratory lungs clear to auscultation, no respiratory distress, no wheeze, no rhonchi. Gastrointestinal abdomen soft, nontender, bowel sounds audible, no guarding , no rigidity. Extremities? bilateral non pitting edema skin bilateral ankle wounds, left? wound with surrounding erythema ,? necrotic wound base, foul odor and purulent drainage bilateral buttock stage 2? pressure ulcers Neuro nonfocal , speech clear. psych appropriate affect Objective Data Active Medications Acetaminophen (Acetaminophen 325 Mg Tablet) 650 mg PO Q6H PRN PRN Reason: Pain, Mild (Pain Scale 1-3) Last Admin: 04/04/23 22:49 Dose: 650 mg Documented By: FATUMA Benzocaine (Throat Lozenge, Medicated Lozenge) 1 lozenge MUCOUS MEM Q2H PRN PRN Reason: Sore Throat Benzonatate (Benzonatate 100 Mg Capsule) 100 mg PO TID PRN PRN Reason: Cough Clonazepam (Clonazepam 0.5 Mg Tablet) 0.5 mg PO DAILY PRN PRN Reason: Anxiety Dextrose (Dextrose 50 % 25 Gm/50 Ml Syringe) 25 gm IVPUSH Q15M PRN; Protocol PRN Reason: per Hypoglycemia Standing Ord. Gabapentin (Gabapentin 300 Mg Capsule) 300 mg PO BEDTIME [facility] Last Admin: 04/05/23 20:18 Dose: 300 mg Documented By: FATUMA Glucose (Glucose Gel 15 Gm Gel..Gram.) 15 gm PO Q15M PRN; Protocol PRN Reason: per Hypoglycemia Standing Ord. Heparin Sodium (Porcine) (Heparin Sodium,Porcine 5,000 Unit/Ml Vial) 5,000 unit SUBCUT Q8H [facility] Last Admin: 04/06/23 07:41 Dose: Not Given Documented By: DAMIAN Non-Admin Reason: hold for debridement Sodium Chloride (Ns) 1,000 mls @ 100 mls/hr IVCONT .Q10H [facility] Last Admin: 04/06/23 07:54 Dose: 100 mls/hr Documented By: DAMIAN Vancomycin HCl 500 mg/ Sodium (Chloride) 110 mls @ 110 mls/hr IV Q24H [facility] Last Infusion: 04/05/23 18:17 Dose: 0 mls/hr Documented By: MARC Piperacillin Sod/Tazobactam (Sod 3.375 gm/ Sodium Chloride) 50 mls @ 100 mls/hr IV Q6H [facility] Last Infusion: 04/06/23 08:57 Dose: 0 mls/hr Documented By: DAMIAN Lactated Ringer's (Lr) 1,000 mls @ 100 mls/hr IVCONT .Q10H [facility] Insulin Human Lispro (Insulin Lispro 100 Unit/Ml 3 Ml Vial) 0 unit SUBCUT QIDACHS [facility]; Protocol Last Admin: 04/06/23 11:39 Dose: Not Given Documented By: DAMIAN Non-Admin Reason: No Insulin Coverage Loratadine (Loratadine 10 Mg Tablet) 10 mg PO DAILY [facility] Last Admin: 04/06/23 07:45 Dose: Not Given Documented By: DAMIAN Non-Admin Reason: NPO Melatonin (Melatonin 3 Mg Tablet) 6 mg PO BEDTIME PRN PRN Reason: Insomnia Multivitamins/Vitamin C (Multivitamin Tablet) 1 tab PO DAILY [facility] Last Admin: 04/06/23 07:45 Dose: Not Given Documented By: DAMIAN Non-Admin Reason: NPO Ondansetron HCl (Ondansetron Hcl 4 Mg/2 Ml Vial) 4 mg IVPUSH Q8H PRN PRN Reason: Nausea and Vomiting Oxybutynin Chloride (Oxybutynin Chloride Er 5 Mg Tab.Er.24) 10 mg PO DAILY [facility] Last Admin: 04/06/23 07:46 Dose: Not Given Documented By: DAMIAN Non-Admin Reason: NPO Oxycodone HCl (Oxycodone Hcl Immed Release 5 Mg Tablet) 5 mg PO Q6H PRN PRN Reason: Pain, Severe (Pain Scale 7-10) Last Admin: 04/04/23 22:49 Dose: 5 mg Documented By: FATUMA Pharmacy Consult (Consult Rx Perform Med Rec) 1 each MISCELLANE ONCE PRN PRN Reason: Consult order Pharmacy Consult (Consult Rx Vancomycin Dosing) 1 each MISCELLANE DAILY PRN PRN Reason: Consult order Sertraline HCl (Sertraline Hcl 100 Mg Tablet) 100 mg PO DAILY [facility] Last Admin: 04/06/23 07:46 Dose: Not Given Documented By: DAMIAN Non-Admin Reason: NPO Sodium Chloride (0.9 % Sodium Chloride Flush 3 Ml Syringe) 3 ml IVFLUSH QSHIFT [facility] Last Admin: 04/06/23 07:55 Dose: Not Given Documented By: DAMIAN Non-Admin Reason: IV Running Vitamin D (Cholecalciferol (Vitamin D3) 25 Mcg Tablet) 25 mcg PO DAILY [facility] Last Admin: 04/06/23 07:45 Dose: Not Given Documented By: DAMIAN Non-Admin Reason: NPO Labs 04/06/23 07:26 04/06/23 07:26 Labs: Laboratory Results - last 24 hr 04/05/23 04/05/23 04/05/23 15:39 19:51 20:52 MCV MCH MCHC RDW Plt Count MPV Absolute Nucleated RBC Nucleated RBC % (auto) Anion Gap 15 Estim Creat Clear Calc 31.6 Estimated GFR 20 POC Glucose 167 H 205 H Random Glucose 198 H Calcium 9.2 Magnesium 1.7 Iron TIBC % Saturation Unsat Iron Binding Ferritin 04/06/23 04/06/23 04/06/23 07:11 07:26 07:26 MCV 76.1 L MCH 25.6 L MCHC 33.6 RDW 17.2 H Plt Count 280 MPV 9.0 L Absolute Nucleated RBC 0.000 Nucleated RBC % (auto) 0.0 Anion Gap 14 Estim Creat Clear Calc 40.3 Estimated GFR 27 POC Glucose 149 H Random Glucose 142 H Calcium 8.5 D Magnesium Iron 11 L TIBC 122 L % Saturation 9 L Unsat Iron Binding 111 Ferritin 04/06/23 04/06/23 04/06/23 07:26 11:12 12:24 MCV MCH MCHC RDW Plt Count MPV Absolute Nucleated RBC Nucleated RBC % (auto) Anion Gap Estim Creat Clear Calc Estimated GFR POC Glucose 122 H 124 H Random Glucose Calcium Magnesium Iron TIBC % Saturation Unsat Iron Binding Ferritin 366 H Microbiology Microbiology Results: Microbiology 04/04/23 14:25 Blood Culture - Preliminary Blood - Venous Prelim: GNR Gram Stain only Prelim: GPC Gram Stain only 04/04/23 23:34 Blood Culture - Preliminary Blood - Venous No growth after 24 hours. 04/04/23 23:34 Blood Culture - Preliminary Blood - Venous No growth after 24 hours. 04/04/23 23:34 Blood Culture - Preliminary Blood - Venous No growth after 24 hours. Assessment and Plan (1) Acute kidney injury: Status: Acute (2) Open wound of both legs with complication: Status: Acute (3) Cellulitis of left leg: Status: Acute (4) Leukocytosis: Status: Acute (5) Hyponatremia: Status: Acute (6) Acute kidney injury: Status: Acute Plan 67-year-old female with past medical history significant for diabetes mellitus,? lymphedema, bilateral leg wounds, history of atrial flutter not on anticoagulation due to GI bleed, history of PE 4 years ago presented to [facility] due to worsening left lower extremity redness and drainage from left leg wound generalized weakness and recent bout of fever patient in the ED diagnosed to have leukocytosis, acute kidney injury, and hyponatremia, patient awake alert no confusion noted. Left leg cellulitis with bilateral lower extremity wounds? with chronic lymphedema. ?wounds not related to diabetes, no sepsis WBC remains elevated 19.6, improved from 25.6, blood culture 1/4 positive for g negative rods and Gram-positive cocci in clusters continue IV vancomycin and Zosyn? started on 04/04 ?case discussed with Dr. Valdivia will undergo wound debridement in OR today follow labs, ?acute kidney injury ?likely multifactorial due to Bactrim/decreased by mouth intake and use of diuretics creatinine improving 1.89 improved from 3.5, continue to hold Lasix avoid hypotension,dc IV fluids, avoid nephrotoxins if no improvement Nephro consult ?hypovolemic hyponatremia sodium improved to 135 acute on chronic normocytic anemia hematocrit dropped to 22.3, likely multifactorial dilutional + iron studies showed mixed picture low iron saturation, but consistent with anemia of chronic disease, check stool guaiac. ?history of atrial flutter currently normal sinus rhythm, soft blood pressure hold beta-blockers. ?lactic acidosis due to dehydration not due to sepsis. ?Diabetes mellitus stable blood sugars continue diabetic diet and insulin sliding scale, hold Monjaro ?bilateral? buttock pressure ulcer stage II, high-protein diet frequent position change and wound consult ?chronic urinary incontinence continue oxybutynin. ?morbid obesity weight loss recommended ?DVT prophylaxis with subcu heparin ?full code ?in my clinical judgment patient need continued inpatient stay for IV antibiotics and for further debridement of bilateral leg wounds Time Spent With Patient Time: Total time managing care of this patient today ____ minutes. Quality Stroke Does the patient have a stroke diagnosis?: No VTE Prior VTE?: No VTE Risk Level:: Medical - moderate - high VTE Device Contraindication: Treatment Not Indicated VTE Drug Contraindication: N/A - Med Ordered
--- NOTE | 2023-04-06 15:56 | W.PM.OPN ---
Operative Note Operative Note Date of Service: 04/06/23 Narrative: Preoperative diagnosis: bilateral leg ulcers Postoperative diagnosis: bilateral leg ulcers, leg necrotizing fasciitis extending to left knee Procedure: debridement bilateral leg ulcers, above knee amputation left leg Surgeon: Дмитрий Valdivia MD Peer Specialist: Brooks Lombardo MD Anesthesia: general LMA Indications for procedure: 67-year-old female patient with morbid obesity and marked bilateral lower extremity edema with chronic bilateral leg ulcers presenting to the ED with severe gangrenous changes involving the Lower legs left greater than right. Operative findings: Patient found to have areas of necrotic skin extending left mid bañuelos level with underlying necrotizing fasciitis extending to the level of the knee. Foul-smelling discharge extending along fascial planes to the knee. Multiple attempts to call patient's were made during the procedure to inform him of the need for an above knee amputation. Unable to contact patient's and patient never responded to messages left. As this was a matter of life and limb, the decision was made to proceed to above knee amputation which was a life-saving procedure. Specimen: left leg above the amputation Estimated blood loss: 300 mL, expected blood loss for patient's medical condition. Complications: None Procedure details: patient was brought to the OR placed in a supine position. After administering general anesthesia the patient's bilateral legs were prepped with Betadine and draped in a sterile fashion. A surgical time-out was called the consent confirmed. patient was on [id number] antibiotics were continued during the surgery. Beginning on the right leg ulceration located along the medial thigh was debrided sharply down to viable tissue. No necrotic tissue was noted on the right leg. Attention was then directed to the left leg which was noted to have a wide area of necrosis in the skin above the initial ulcer. Debridement of this area revealed necrotic subcutaneous tissue extending down to the fascial planes. purulent discharge was noted along the fascial plane extending up to the level of the knee. Findings were consistent with necrotizing fasciitis extending to the level of the knee. As noted above an attempt was made to contact the patient's which was unsuccessful. It was felt the level of necrotizing fasciitis which continue to extend if left untreated therefore the decision was made to perform an above knee amputation. the patient had previous knee surgery and it was uncertain if there was underlying hardware. An x-ray of the left knee was therefore performed which revealed no evidence of hardware. Incision was then made above the knee circumferentially with a scalpel and carried out through subcutaneous tissue using electrocautery. Dissection was continued circumferentially down to the femur. Dissection was continued below the femur and vessels protected using a Ray-Jim sponge. Bone saw was used to cut the femur just above the knee. Vessels were then individually ligated as was the sciatic nerve using 2-0 silk. The remaining muscles were divided using electrocautery. Hemostasis was assured using electrocautery and free ties of Polysorb. Leg was passed off the table and sent to pathology for further examination. Wounds were then irrigated with saline solution suctioned dry. Dermal edges were then loosely approximated using interrupted 3-0 Polysorb sutures. Sterile dressings were applied to both wounds. the patient remained hemodynamically stable was transferred to PACU in stable condition. She will be observed in the ICU.
--- NOTE | 2023-04-06 16:18 | PM.EVENT ---
Event Note Date of Service: 04/06/23 Event Note: Patient scheduled for debridement of bilateral leg ulcers. H/o chronic lymphedema. S/p debridement 03/05/23. Patient was admitted on 04/04/23 with mental status changes, with acute kidney injury and lactic acidosis. Still with acute kidney injury though improved. 5 point drop in Hct since admission 27.5 - 22.3 and 10 point drop since February. Lactic acid since admission as high as 2.7. Last check 04/04 was 2.2 Leukocytosis. BP soft. No fever. Patient alert and oriented pre-op On examination and upon commencement of surgery, patient found to have necrotizing fasciitis and 2 Physician decision made to amputate the left leg after attempts to speak with patient's was unsuccessful. Patient needed some doses of phenlyephrine intra-op. Decision made to transfer patient to ICU post -op for further evaluation and management. Patient was taken to PACU post-op pending transfer to ICU. VSS Time Spent With Patient Time: Total time managing care of this patient today ____ minutes.
--- NOTE | 2023-04-06 16:27 | PC.NURSE ---
Received hand off report on patient at 15:00. patient already off unit in OR at that time for debridement.
[2023-04-06 16:57] LABS: VBG Base Excess -6.8 mmol/L; VBG HCO3 14 mmol/L (22-26); VBG pCO2 18 mmHg; VBG pO2 218 mmHg
[2023-04-06] MEDS: Albumin Human 25 % 100 ML 133.33 ML IV ×4 (17:00→22:47)
[2023-04-06 17:08] LABS: Lactic Acid 1.4 mmol/L (0.5-2.0)
--- NOTE | 2023-04-06 17:08 | PM.CCN ---
Critical Care Event Note Summary Date of Service: 04/06/23 Code activated: No Narrative: 67-year-old lady with morbid obesity, lower extremity bilateral lymphedema with bilateral leg wounds with prior surgical debridement, hypertension, DVT/PE, diabetes admitted on 04/04/2023 with worsening of her like also hours and treated for cellulitis undergoing surgical debridement on 04/06/2023 with demonstration of necrotizing fasciitis of the left lower extremity requiring [id number] amputation. Now being monitored in the intensive care unit in the immediate postoperative period. Critical Care Time (minutes): 0
[2023-04-06 17:14] LABS: Venous Blood Gas Refer to POC result
[2023-04-06 17:15] LABS: Vancomycin Random 10.6 mcg/mL (15-20)
[2023-04-06] MEDS: 0.9 % Sodium Chloride Flush 3 ML SYRINGE IVFLUSH (17:25)
--- NOTE | 2023-04-06 17:30 | HE.PHANOTE ---
VANCO DOSE ADJUSTMENT BASED ON SCR OF 1.89 AND TROUGH OF 10.6 DOSE INCREASED TO 1000 Q 24H. NEXT TROUGH 04/06 @ 1600
--- NOTE | 2023-04-06 17:43 | ECG_ITS ---
Test Reason : rhythm change Blood Pressure : / mmHG Vent. Rate : 182 BPM Atrial Rate : 267 BPM P-R Int : 000 ms QRS Dur : 084 ms QT Int : 242 ms P-R-T Axes : 000 -18 191 degrees QTc Int : 421 ms Atrial fibrillation with rapid ventricular response Anterior infarct , age undetermined ST & T wave abnormality, consider inferolateral ischemia Abnormal ECG When compared to the previous EKG of Atrial fibrillation with rapid ventricular response has replaced Normal sinus rhythm Referred By: Will Olea Electronically Signed By:TWIN FERNANDES MD
[2023-04-06] MEDS: Amiodarone/Dextrose 150 MG/100 ML PLAST..BAG 600 MG IV (17:45)
[2023-04-06 18:17] LABS: Basophils Absolute Auto 0.1 X10*3/uL (0.0-0.2); Basophils Percent Auto 0.3 % (0-2); Eosinophils Percent Auto 0.1 % (0-4); Hematocrit 21.7 % (37.0-47.0); Hemoglobin 7.4 g/dl (12.0-16.0); Imm Gran Pct Auto 4.7 % (0.0-0.4); Lymphocytes Absolute Auto 0.9 X10*3/uL (1.2-4.9); Lymphocytes Percent Auto 3.4 % (20-40); MANUAL DIFF FLAG SCAN; Mean Corpuscular HGB Conc 34.1 g/dl (31.0-35.0); Mean Corpuscular Hemoglobin 26.1 pg (27.0-33.0); Mean Corpuscular Volume 76.7 fL (80.0-98.0); Mean Platelet Volume 8.9 fL (9.4-12.3); Monocytes Absolute Auto 0.6 X10*3/uL (0.1-1.2); Monocytes Percent Auto 2.4 % (2-11); Neutrophils Absolute Auto 22.7 x10*3/uL (2.0-8.3); Neutrophils Percent Auto 89.1 % (45-73); Platelet Count 277 X10*3/uL (160-400); Red Blood Count 2.83 X10*6/uL (4.20-5.50); Red Cell Distribution Width 17.4 % (11.0-16.0); SCAN SMEAR FLAG 1; White Blood Count 25.5 X10*3/uL (4.8-10.8)
[2023-04-06] MEDS: Amiodarone HCL 900 MG in 0.9 % Sodium Chloride 500 ML 34.53 MG IVCONT (18:21)
[2023-04-06 18:31] LABS: Alanine Aminotransferase 23 U/L (0-31); Albumin Level 2.6 g/dL (3.5-5.0); Alkaline Phosphatase 132 U/L (39-117); Anion Gap 20 (12-20); Aspartate Amino Transferase 34 U/L (5-31); Bilirubin Total 0.6 mg/dL (0.0-1.0); Blood Urea Nitrogen 35 mg/dL (9-16); Calcium 8.9 mg/dL (8.4-10.2); Carbon Dioxide 13 mmol/L (22-29); Chloride 107 mmol/L (96-108); Creatinine Clr Calc Pharmacy 47.3; Estimated Glomerular Filt Rate 32; Glucose Random 226 mg/dL (60-115); Potassium 4.1 mmol/L (3.3-5.1); Sodium 136 mmol/L (135-145); Total Protein 5.5 g/dL (6.5-8.0)
[2023-04-06] MEDS: vancomycin HCL 1,000 MG in 0.9 % Sodium Chloride 250 ML 270 MG IV (18:34)
[2023-04-06 18:40] LABS: SLIDE REVIEW VERIFIED
[2023-04-06] MEDS: Metoprolol Tartrate 5 MG/5 ML VIAL IVPUSH (19:20)
[2023-04-06] MEDS: fentaNYL citrate/PF 100 MCG/2 ML VIAL 25 MCG IVPUSH (19:20)
[2023-04-06] MEDS: Metoprolol Succinate ER 50 MG TAB.ER.24H PO (19:41)
[2023-04-06] MEDS: Acetaminophen 325 MG TABLET 975 MG PO (21:05)
[2023-04-06] MEDS: oxyCODONE HCl Immed Release 5 MG TABLET PO (21:06)
[2023-04-06 21:29] LABS: Glucose, Whole Blood 223 mg/dL (60-115)
[2023-04-06] MEDS: Insulin Lispro 100 UNIT/ML 3 ML VIAL SUBCUT (21:30)
[2023-04-06] MEDS: Digoxin 0.5 MG/2 ML AMPUL IVPUSH (22:42)
[2023-04-07] VITALS (21 sets, daily range): BP systolic 91–136; BP diastolic 56–88; PULSE 52–88; RESP 14–20; TEMP 36–37; O2SAT 95–100; BMI 42.0
[2023-04-07] MEDS: Sodium Bicarbonate 8.4% 50 MEQ/50 ML SYRINGE 100 MEQ IVPUSH (01:14)
[2023-04-07 01:16] LABS: Hematocrit 19.4 % (37.0-47.0); Hemoglobin 6.7 g/dl (12.0-16.0)
[2023-04-07] MEDS: Lactated Ringers 1,000 ML 999 ML IV (01:19)
[2023-04-07] MEDS: Piperacillin Sodium/Tazobactam 3.375 GM in 0.9 % Sodium Chloride 50 ML IV ×4 (03:30→20:12)
--- NOTE | 2023-04-07 04:29 | PC.NURSE ---
Addendum entered by Roni Shah RN 04/07/23 05:14: 1AM HEPARIN SC HELD PER SHIFT REPORT AND PER ICU PA Original Note: CARE ASSUMED 23:15...AWAKE..ALERT..ORIENTED X3..RESPIRATIONS EASY ON ROOM AIR...SAO2 98-100%..LEFT AKA DRESSING WITH SEROSANGUINOUS STAINING...RIGHT LOWER LEG DRESSING DRY/INTACT...AMIODARONE DRIP 1 MG/MIN WEANED TO 0.5 MG/MIN AT 00:21.....MONITOR NSR HR 60'S ATHS...HR 52-54 AT 2AM...AMIODARONE DRIP HELD 02:15 PER ICU PA....1 UNIT PRBC COMPLETED APPROX 23:00....SBP 90'S-100'S...REPEAT H/H ORDERED BY ICU PA...H/H= 6.7/19.4....LR 1000ml BOLUS INFUSED...NaHCO3 100 MEQ IVP PER NOV...2 ADDITIONAL UNITS PRBC'S INFUSED...SBP 100'S-120...DENIES/OFFERS NO COMPLAINTS..PURWIK EXTERNAL CATHETER WITH YELLOW URINE
[2023-04-07 05:49] LABS: VBG Base Excess -1.1 mmol/L; VBG HCO3 20 mmol/L (22-26); VBG pCO2 24 mmHg; VBG pH 7.53 (7.32-7.43); VBG pO2 44 mmHg
[2023-04-07 06:13] LABS: MANUAL DIFF FLAG NO
[2023-04-07 06:21] LABS: Basophils Absolute Auto 0.1 X10*3/uL (0.0-0.2); Basophils Percent Auto 0.3 % (0-2); Eosinophils Percent Auto 0.1 % (0-4); Hematocrit 26.7 % (37.0-47.0); Hemoglobin 9.1 g/dl (12.0-16.0); Imm Gran Abs Auto 0.51 X10*3/uL (0.00-0.03); Imm Gran Pct Auto 3.2 % (0.0-0.4); Lymphocytes Absolute Auto 1.2 X10*3/uL (1.2-4.9); Lymphocytes Percent Auto 7.5 % (20-40); Mean Corpuscular HGB Conc 34.1 g/dl (31.0-35.0); Mean Corpuscular Hemoglobin 27.2 pg (27.0-33.0); Mean Corpuscular Volume 79.7 fL (80.0-98.0); Mean Platelet Volume 9.1 fL (9.4-12.3); Monocytes Absolute Auto 0.7 X10*3/uL (0.1-1.2); Monocytes Percent Auto 4.5 % (2-11); Neutrophils Absolute Auto 13.4 x10*3/uL (2.0-8.3); Neutrophils Percent Auto 84.4 % (45-73); Platelet Count 216 X10*3/uL (160-400); Red Blood Count 3.35 X10*6/uL (4.20-5.50); Red Cell Distribution Width 17.6 % (11.0-16.0); White Blood Count 15.9 X10*3/uL (4.8-10.8)
[2023-04-07 06:40] LABS: Alanine Aminotransferase 21 U/L (0-31); Albumin Level 3.5 g/dL (3.5-5.0); Alkaline Phosphatase 114 U/L (39-117); Anion Gap 17 (12-20); Aspartate Amino Transferase 32 U/L (5-31); Bilirubin Total 2.4 mg/dL (0.0-1.0); Blood Urea Nitrogen 33 mg/dL (9-16); Carbon Dioxide 18 mmol/L (22-29); Chloride 107 mmol/L (96-108); Creatinine Clr Calc Pharmacy 49.9; Estimated Glomerular Filt Rate 39; Glucose Random 173 mg/dL (60-115); Magnesium 1.7 mg/dL (1.6-2.6); Phosphorus 3.3 mg/dL (2.7-4.5); Potassium 3.7 mmol/L (3.3-5.1); Sodium 138 mmol/L (135-145); Total Protein 5.7 g/dL (6.5-8.0)
[2023-04-07 07:39] LABS: Glucose, Whole Blood 149 mg/dL (60-115)
[2023-04-07] MEDS: 0.9 % Sodium Chloride Flush 3 ML SYRINGE IVFLUSH ×2 (08:53→14:47)
[2023-04-07] MEDS: oxyCODONE HCl Immed Release 5 MG TABLET PO ×2 (09:04→17:36)
[2023-04-07] MEDS: Heparin Sodium,Porcine 5,000 UNIT/ML VIAL 5000 UNIT SUBCUT ×2 (09:25→17:29)
--- NOTE | 2023-04-07 09:52 | PM.CCPN ---
Subjective Subjective Date of Service: 04/07/23 Interval History: 67-year-old lady with morbid obesity, lower extremity bilateral lymphedema with bilateral leg wounds with prior surgical debridement, hypertension, DVT/PE, diabetes admitted on 04/04/2023 with worsening of her like also hours and treated for cellulitis undergoing surgical debridement on 04/06/2023 with demonstration of necrotizing fasciitis of the left lower extremity requiring [id number] amputation. Patient was monitored in the intensive care unit in the immediate postop period. She developed hemodynamically stable a flutter that resolved with reinstitution of beta-mahamed. She require transfusion 2 units of packed red blood cells, likely secondary to hemoglobin re-equilibration and oozing from the surgical site. Now with stabilization of hemoglobin level. Critical Care Time (minutes): 0 Physical Exam Vital Signs: Vital Signs: Last Vital Signs Temp 97.5 F 04/07/23 08:00 Pulse 67 04/07/23 09:00 Resp 16 04/07/23 09:00 BP 136/88 04/07/23 09:00 Pulse Ox 100 04/07/23 09:00 O2 Del Method Room Air 04/07/23 09:00 O2 Flow Rate 2 04/06/23 17:04 BMI result Body Mass Index 42.0 Const: General: no acute distress, alert and awake Nutritional Appearance: obese Eyes: Sclerae: sclerae normal EOM: EOMs intact bilaterally Neck: Neck: Yes no lymphadenopathy, Yes trachea midline and Yes supple Resp: Effort & Inspection: normal respiratory effort and no respiratory distress Auscultation: clear to auscultation bilaterally Cardio: Rate: regular rate Rhythm: regular rhythm Heart sounds: no gallops, no murmurs and no rubs GI: Palpation (GI): Soft to palpation and Other GI palpation findings present ( Nontender) Auscultation: normal bowel sounds Extrem: General: No clubbing, No cyanosis and Yes other (Left AKA with surgical dressing) Objective Data Labs 04/07/23 05:43 04/07/23 05:43 Labs: Laboratory Results - last 24 hr 04/06/23 04/06/23 04/06/23 11:12 12:24 16:47 WBC RBC Hgb Hct MCV MCH MCHC RDW Plt Count MPV Immature Gran % (Auto) Neut % (Auto) Lymph % (Auto) Guthrie % (Auto) Eos % (Auto) Baso % (Auto) Lymph # (Auto) Guthrie # (Auto) Eos # (Auto) Baso # (Auto) Abs Immat Gran (auto) Absolute Neuts (auto) Absolute Nucleated RBC Nucleated RBC % (auto) Smear Tech's Comments VBG pH VBG pCO2 VBG pO2 VBG HCO3 VBG O2 Saturation VBG Base Excess Sodium Potassium Chloride Carbon Dioxide Anion Gap BUN Creatinine Estim Creat Clear Calc Estimated GFR POC Glucose 122 H 124 H Random Glucose Lactic Acid 1.4 Calcium Phosphorus Magnesium Total Bilirubin AST ALT Alkaline Phosphatase Total Protein Albumin Random Vancomycin Blood Type Antibody Screen Crossmatch 04/06/23 04/06/23 04/06/23 16:48 16:48 16:50 WBC RBC Hgb Hct MCV MCH MCHC RDW Plt Count MPV Immature Gran % (Auto) Neut % (Auto) Lymph % (Auto) Guthrie % (Auto) Eos % (Auto) Baso % (Auto) Lymph # (Auto) Guthrie # (Auto) Eos # (Auto) Baso # (Auto) Abs Immat Gran (auto) Absolute Neuts (auto) Absolute Nucleated RBC Nucleated RBC % (auto) Smear Tech's Comments VBG pH 7.50 H VBG pCO2 18 VBG pO2 218 VBG HCO3 14 L VBG O2 Saturation 99.0 VBG Base Excess -6.8 Sodium Potassium Chloride Carbon Dioxide Anion Gap BUN Creatinine Estim Creat Clear Calc Estimated GFR POC Glucose Random Glucose Lactic Acid Calcium Phosphorus Magnesium Total Bilirubin AST ALT Alkaline Phosphatase Total Protein Albumin Random Vancomycin 10.6 L Blood Type A Positive Antibody Screen NEGATIVE Crossmatch See Detail 04/06/23 04/06/23 04/06/23 17:59 17:59 21:25 WBC 25.5 H RBC 2.83 L Hgb 7.4 L Hct 21.7 L MCV 76.7 L MCH 26.1 L MCHC 34.1 RDW 17.4 H Plt Count 277 MPV 8.9 L Immature Gran % (Auto) 4.7 H Neut % (Auto) 89.1 H Lymph % (Auto) 3.4 L Guthrie % (Auto) 2.4 Eos % (Auto) 0.1 Baso % (Auto) 0.3 Lymph # (Auto) 0.9 L Guthrie # (Auto) 0.6 Eos # (Auto) 0.0 Baso # (Auto) 0.1 Abs Immat Gran (auto) 1.20 H Absolute Neuts (auto) 22.7 H Absolute Nucleated RBC 0.000 Nucleated RBC % (auto) 0.0 Smear Tech's Comments VERIFIED VBG pH VBG pCO2 VBG pO2 VBG HCO3 VBG O2 Saturation VBG Base Excess Sodium 136 Potassium 4.1 Chloride 107 Carbon Dioxide 13 L Anion Gap 20 BUN 35 H Creatinine 1.61 H Estim Creat Clear Calc 47.3 Estimated GFR 32 POC Glucose 223 H Random Glucose 226 H Lactic Acid Calcium 8.9 Phosphorus Magnesium Total Bilirubin 0.6 AST 34 H ALT 23 Alkaline Phosphatase 132 H Total Protein 5.5 L Albumin 2.6 L Random Vancomycin Blood Type Antibody Screen Crossmatch 04/07/23 04/07/23 04/07/23 00:59 05:39 05:43 WBC 15.9 H RBC 3.35 L Hgb 6.7 L* 9.1 L D Hct 19.4 L* 26.7 L D MCV 79.7 L MCH 27.2 MCHC 34.1 RDW 17.6 H Plt Count 216 MPV 9.1 L Immature Gran % (Auto) 3.2 H Neut % (Auto) 84.4 H Lymph % (Auto) 7.5 L Guthrie % (Auto) 4.5 Eos % (Auto) 0.1 Baso % (Auto) 0.3 Lymph # (Auto) 1.2 Guthrie # (Auto) 0.7 Eos # (Auto) 0.0 Baso # (Auto) 0.1 Abs Immat Gran (auto) 0.51 H Absolute Neuts (auto) 13.4 H Absolute Nucleated RBC 0.000 Nucleated RBC % (auto) 0.0 Smear Tech's Comments VBG pH 7.53 H VBG pCO2 24 VBG pO2 44 VBG HCO3 20 L VBG O2 Saturation 84.0 VBG Base Excess -1.1 Sodium Potassium Chloride Carbon Dioxide Anion Gap BUN Creatinine Estim Creat Clear Calc Estimated GFR POC Glucose Random Glucose Lactic Acid Calcium Phosphorus Magnesium Total Bilirubin AST ALT Alkaline Phosphatase Total Protein Albumin Random Vancomycin Blood Type Antibody Screen Crossmatch 04/07/23 04/07/23 05:43 07:35 WBC RBC Hgb Hct MCV MCH MCHC RDW Plt Count MPV Immature Gran % (Auto) Neut % (Auto) Lymph % (Auto) Guthrie % (Auto) Eos % (Auto) Baso % (Auto) Lymph # (Auto) Guthrie # (Auto) Eos # (Auto) Baso # (Auto) Abs Immat Gran (auto) Absolute Neuts (auto) Absolute Nucleated RBC Nucleated RBC % (auto) Smear Tech's Comments VBG pH VBG pCO2 VBG pO2 VBG HCO3 VBG O2 Saturation VBG Base Excess Sodium 138 Potassium 3.7 Chloride 107 Carbon Dioxide 18 L Anion Gap 17 BUN 33 H Creatinine 1.35 Estim Creat Clear Calc 49.9 Estimated GFR 39 POC Glucose 149 H Random Glucose 173 H Lactic Acid Calcium 9.0 Phosphorus 3.3 Magnesium 1.7 Total Bilirubin 2.4 H AST 32 H ALT 21 Alkaline Phosphatase 114 Total Protein 5.7 L Albumin 3.5 Random Vancomycin Blood Type Antibody Screen Crossmatch Microbiology Microbiology Results: Microbiology 04/04/23 23:34 Blood - Venous Blood Culture - Preliminary No growth after 48 hours. 04/04/23 23:34 Blood - Venous Blood Culture - Preliminary No growth after 48 hours. 04/04/23 23:34 Blood - Venous Blood Culture - Preliminary No growth after 48 hours. 04/04/23 14:25 Blood - Venous Blood Culture - Preliminary Prelim: GNR Gram Stain only Prelim: GPC Gram Stain only Progress Note: A&P Assessment and plan (1) Atrial flutter: Status: Acute (2) Necrotizing fasciitis: Status: Acute (3) Lymphedema of both lower extremities: Status: Acute (4) Morbid obesity: Status: Acute Plan Assessment: 67-year-old lady requiring [id number] amputation for left lower extremity necrotizing fasciitis monitored in the intensive care unit in the postop period. Plan: Neuro: No acute issues. Cardiac: AFlutter with a known history of AFlutter, resolved after reinstitution of beta-mahamed. Pulmonary: No acute issues. Renal: No acute issues. Endo: No acute issues. GI: No acute issues. ID: Left lower extremity necrotizing fasciitis status post [id number] amputation. General surgery service care appreciated. Continues on empiric broad-spectrum antibiotics. Heme/Onc: No acute issues. Psych: No acute issues. Miscellaneous: No acute issues. Prophylaxis: Heparin Diet: Regular Quality Stroke Does the patient have a stroke diagnosis?: No VTE Prior VTE?: No VTE Risk Level:: Medical - moderate - high VTE Device Contraindication: Treatment Not Indicated VTE Drug Contraindication: N/A - Med Ordered
[2023-04-07 11:56] LABS: Glucose, Whole Blood 162 mg/dL (60-115)
[2023-04-07] MEDS: Insulin Lispro 100 UNIT/ML 3 ML VIAL SUBCUT ×2 (12:10→17:29)
--- NOTE | 2023-04-07 12:22 | HO.POSTANES ---
Post Anesthesia Evaluation Post Anesthesia Evaluation Date of Service: 04/07/23 Vital Signs: Vital Signs Temp Pulse Resp BP Pulse Ox O2 Del Method 04/07/23 09:00 67 16 136/88 100 Room Air 04/07/23 08:00 97.5 F 65 16 126/67 99 Room Air 04/07/23 07:00 57 15 126/71 100 Room Air 04/07/23 05:53 64 16 128/76 100 Room Air 04/07/23 05:00 56 16 122/77 99 Room Air 04/07/23 04:00 96.9 F 62 16 119/74 100 Room Air 04/07/23 04:11 96.9 F 62 16 119/74 04/07/23 03:37 97.2 F 52 16 111/64 04/07/23 03:00 97.6 F 52 16 120/67 99 Room Air 04/07/23 03:16 97.6 F 54 18 120/67 04/07/23 02:04 97.6 F 56 16 112/64 04/07/23 02:00 97.3 F 58 16 112/61 99 Room Air 04/07/23 01:57 97.3 F 58 16 112/61 04/07/23 01:49 97.6 F 57 14 111/63 04/07/23 01:45 97.6 F 54 18 111/63 04/07/23 01:00 60 16 101/64 99 Room Air Anesthesia: General LMA Mental Status: Awake Pain Control: Satisfactory Nausea/Vomiting: None Hydration: Adequate Anesthesia-Related Issues: No Anes. Related Issues
--- NOTE | 2023-04-07 12:31 | P.EN_ITS ---
Event Note Date of Service: 04/07/23 Event Note: 67-year-old lady with morbid obesity, lower extremity bilateral lymphedema with bilateral leg wounds with prior surgical debridement, hypertension, DVT/PE, diabetes admitted on 04/04/2023 with worsening LE wounds and foul drainage and treated for cellulitis undergoing surgical debridement on 04/06/2023 with demonstration of necrotizing fasciitis of the left lower extremity requiring [id number] amputation.? Patient was monitored in the intensive care unit in the immediate postop period.? She developed hemodynamically stable at. flutter that resolved with reinstitution of beta-mahamed.? She require transfusion 2 units of packed red blood cells, likely secondary to hemoglobin re-equilibration and oozing from the surgical site.? Left lower extremity necrotizing fasciitis status post cxwcy-[id number] amputation.?Continues IV vancomycin and IV Zosyn, being followed by General surgery. history of atrial flutter, briefly went into atrial flutter in ICU diet resolved with beta-blockers. continue metoprolol acute kidney injury ?likely multifactorial due to Bactrim/decreased by mouth intake and use of diuretics Resolved,?continue to hold Lasix avoid hypotension,avoid nephrotoxins ?hypovolemic hyponatremia? resolved ?acute on chronic normocytic anemia ? hematocrit dropped to 19.4 received 2 units of packed RBC hematocrit improved to 26.7 likely multifactorial oozing from surgical site,dilutional + iron studies showed mixed picture low iron saturation, but consistent with anemia of chronic disease, follow stool guaiac. ?lactic acidosis resolved with IVF ?Diabetes mellitus? stable blood sugars continue diabetic diet and insulin slidi ng scale, hold Monjaro ?bilateral? buttock pressure ulcer stage II, high-protein diet frequent position change and wound consult ?chronic urinary incontinence continue oxybutynin. ?morbid obesity weight loss recommended Prophylaxis:? Heparin Time Spent With Patient Time: Total time managing care of this patient today ____ minutes.
--- NOTE | 2023-04-07 14:44 | PM.PNGS ---
Subjective Subjective Date of Service: 04/07/23 Interval history: Patient awake alert in bed. Minimal incisional discomfort. All things considered, patient is doing amazingly well post surgical procedure. Patient states that dressing was changed earlier this morning. Physical Exam Vital Signs: Vital Signs: Last Vital Signs Temp 97.5 F 04/07/23 12:00 Pulse 69 04/07/23 12:00 Resp 20 04/07/23 12:00 BP 127/78 04/07/23 12:00 Pulse Ox 100 04/07/23 12:00 O2 Del Method Room Air 04/07/23 12:00 O2 Flow Rate 2 04/06/23 17:04 BMI result Body Mass Index 42.0 Extrem: Other: Left AKA dressing clean dry and intact. Objective Data Active Medications Acetaminophen (Acetaminophen 325 Mg Tablet) 975 mg PO Q8H PRN PRN Reason: Pain, Mild (Pain Scale 1-3) Last Admin: 04/06/23 21:05 Dose: 975 mg Documented By: PORSHA Dextrose (Dextrose 50 % 25 Gm/50 Ml Syringe) 25 gm IVPUSH Q2H PRN; Protocol PRN Reason: per Hypoglycemia Standing Ord. Glucose (Glucose Gel 15 Gm Gel..Gram.) 15 gm PO Q15M PRN; Protocol PRN Reason: per Hypoglycemia Standing Ord. Heparin Sodium (Porcine) (Heparin Sodium,Porcine 5,000 Unit/Ml Vial) 5,000 unit SUBCUT Q8H [facility] Last Admin: 04/07/23 09:25 Dose: 5,000 unit Documented By: WU Piperacillin Sod/Tazobactam (Sod 3.375 gm/ Sodium Chloride) 50 mls @ 100 mls/hr IV Q6H [facility] Last Infusion: 04/07/23 09:27 Dose: 0 mls/hr Documented By: WU Vancomycin HCl 1,000 mg/ (Sodium Chloride) 270 mls @ 270 mls/hr IV Q24H [facility] Last Infusion: 04/06/23 20:01 Dose: 0 mls/hr Documented By: PORSHA Insulin Human Lispro (Insulin Lispro 100 Unit/Ml 3 Ml Vial) 0 unit SUBCUT QIDACHS [facility]; Protocol Last Admin: 04/07/23 12:10 Dose: 2 unit Documented By: WU Metoprolol Succinate (Metoprolol Succinate Er 50 Mg Tab.Er.24h) 50 mg PO DAILY [facility]; Protocol Last Admin: 04/07/23 12:54 Dose: Not Given Documented By: WU Non-Admin Reason: Physician Held Med Ondansetron HCl (Ondansetron Hcl 4 Mg/2 Ml Vial) 4 mg IVPUSH Q8H PRN PRN Reason: Nausea and Vomiting Ondansetron HCl (Ondansetron Hcl 4 Mg/2 Ml Vial) 4 mg IVPUSH ONCE PRN PRN Reason: Nausea and Vomiting Oxycodone HCl (Oxycodone Hcl Immed Release 5 Mg Tablet) 5 mg PO Q6H PRN PRN Reason: Pain, Moderate(Pain Scale 4-6) Last Admin: 04/07/23 09:04 Dose: 5 mg Documented By: WU Pharmacy Consult (Consult Rx Perform Med Rec) 1 each MISCELLANE ONCE PRN PRN Reason: Consult order Pharmacy Consult (Consult Rx Vancomycin Dosing) 1 each MISCELLANE DAILY PRN PRN Reason: Consult order Sodium Chloride (0.9 % Sodium Chloride Flush 3 Ml Sy[facility]) [facility] Admin: 04/07/23 08:53 Dose: 3 ml Documented By: WU Labs 04/07/23 05:43 04/07/23 05:43 Labs: Laboratory Results - last 24 hr 04/06/23 04/06/23 04/06/23 16:47 16:48 16:48 MCV MCH MCHC RDW Plt Count MPV Immature Gran % (Auto) Neut % (Auto) Lymph % (Auto) [place] % (Auto) Eos % (Auto) Baso % (Auto) Lymph # (Auto) [place] # (Auto) Eos # (Auto) Baso # (Auto) Abs Immat Gran (auto) Absolute Neuts (auto) Absolute Nucleated RBC Nucleated RBC % (auto) Smear Tech's Comments VBG pH VBG pCO2 VBG pO2 VBG HCO3 VBG O2 Saturation VBG Base Excess Anion Gap Estim Creat Clear Calc Estimated GFR POC Glucose Random Glucose Lactic Acid 1.4 Calcium Phosphorus Magnesium Total Bilirubin AST ALT Alkaline Phosphatase Total Protein Albumin Random Vancomycin 10.6 L Blood Type A Positive Antibody Screen NEGATIVE Crossmatch See Detail 04/06/23 04/06/23 04/06/23 16:50 17:59 17:59 MCV 76.7 L MCH 26.1 L MCHC 34.1 RDW 17.4 H Plt Count 277 MPV 8.9 L Immature Gran % (Auto) 4.7 H Neut % (Auto) 89.1 H Lymph % (Auto) 3.4 L [place] % (Auto) 2.4 Eos % (Auto) 0.1 Baso % (Auto) 0.3 Lymph # (Auto) 0.9 L [place] # (Auto) 0.6 Eos # (Auto) 0.0 Baso # (Auto) 0.1 Abs Immat Gran (auto) 1.20 H Absolute Neuts (auto) 22.7 H Absolute Nucleated RBC 0.000 Nucleated RBC % (auto) 0.0 Smear Tech's Comments VERIFIED VBG pH 7.50 H VBG pCO2 18 VBG pO2 218 VBG HCO3 14 L VBG O2 Saturation 99.0 VBG Base Excess -6.8 Anion Gap 20 Estim Creat Clear Calc 47.3 Estimated GFR 32 POC Glucose Random Glucose 226 H Lactic Acid Calcium 8.9 Phosphorus Magnesium Total Bilirubin 0.6 AST 34 H ALT 23 Alkaline Phosphatase 132 H Total Protein 5.5 L Albumin 2.6 L Random Vancomycin Blood Type Antibody Screen Crossmatch 04/06/23 04/07/23 04/07/23 21:25 05:39 05:43 MCV 79.7 L MCH 27.2 MCHC 34.1 RDW 17.6 H Plt Count 216 MPV 9.1 L Immature Gran % (Auto) 3.2 H Neut % (Auto) 84.4 H Lymph % (Auto) 7.5 L [place] % (Auto) 4.5 Eos % (Auto) 0.1 Baso % (Auto) 0.3 Lymph # (Auto) 1.2 [place] # (Auto) 0.7 Eos # (Auto) 0.0 Baso # (Auto) 0.1 Abs Immat Gran (auto) 0.51 H Absolute Neuts (auto) 13.4 H Absolute Nucleated RBC 0.000 Nucleated RBC % (auto) 0.0 Smear Tech's Comments VBG pH 7.53 H VBG pCO2 24 VBG pO2 44 VBG HCO3 20 L VBG O2 Saturation 84.0 VBG Base Excess -1.1 Anion Gap Estim Creat Clear Calc Estimated GFR POC Glucose 223 H Random Glucose Lactic Acid Calcium Phosphorus Magnesium Total Bilirubin AST ALT Alkaline Phosphatase Total Protein Albumin Random Vancomycin Blood Type Antibody Screen Crossmatch 04/07/23 04/07/23 04/07/23 05:43 07:35 11:51 MCV MCH MCHC RDW Plt Count MPV Immature Gran % (Auto) Neut % (Auto) Lymph % (Auto) [place] % (Auto) Eos % (Auto) Baso % (Auto) Lymph # (Auto) [place] # (Auto) Eos # (Auto) Baso # (Auto) Abs Immat Gran (auto) Absolute Neuts (auto) Absolute Nucleated RBC Nucleated RBC % (auto) Smear Tech's Comments VBG pH VBG pCO2 VBG pO2 VBG HCO3 VBG O2 Saturation VBG Base Excess Anion Gap 17 Estim Creat Clear Calc 49.9 Estimated GFR 39 POC Glucose 149 H 162 H Random Glucose 173 H Lactic Acid Calcium 9.0 Phosphorus 3.3 Magnesium 1.7 Total Bilirubin 2.4 H AST 32 H ALT 21 Alkaline Phosphatase 114 Total Protein 5.7 L Albumin 3.5 Random Vancomycin Blood Type Antibody Screen Crossmatch Microbiology Microbiology Results: Microbiology 04/04/23 23:34 Blood Culture - Preliminary Blood - Venous No growth after 48 hours. 04/04/23 14:25 Blood Culture - Preliminary Blood - Venous Gram negative rishabh Coag negative Staphylococcus 04/04/23 23:34 Blood Culture - Preliminary Blood - Venous No growth after 48 hours. 04/04/23 23:34 Blood Culture - Preliminary Blood - Venous No growth after 48 hours. Procedures Date of Service Date of Service: 04/07/23 Progress Note: A&P Assessment and plan (1) Necrotizing fasciitis: Status: Acute Plan Continue restorative measures. To follow closely. Time Spent With Patient Time: Total time managing care of this patient today ____ minutes. Quality Stroke Does the patient have a stroke diagnosis?: No VTE Prior VTE?: No VTE Risk Level:: Medical - moderate - high VTE Device Contraindication: Treatment Not Indicated VTE Drug Contraindication: N/A - Med Ordered
[2023-04-07 16:20] LABS: Glucose, Whole Blood 171 mg/dL (60-115)
[2023-04-07 16:43] LABS: Vancomycin Random 14.3 mcg/mL (15-20)
[2023-04-07] MEDS: vancomycin HCL 1,000 MG in 0.9 % Sodium Chloride 250 ML 270 MG IV (17:29)
[2023-04-07] MEDS: Morphine Sulfate 4 MG/ML CARTRIDGE IVPUSH (20:12)
[2023-04-07 20:50] LABS: Glucose, Whole Blood 158 mg/dL (60-115)
[2023-04-08] MEDS: Morphine Sulfate 4 MG/ML CARTRIDGE IVPUSH ×2 (01:54→13:21)
[2023-04-08] MEDS: Heparin Sodium,Porcine 5,000 UNIT/ML VIAL 5000 UNIT SUBCUT ×3 (01:55→17:02)
[2023-04-08] MEDS: Piperacillin Sodium/Tazobactam 3.375 GM in 0.9 % Sodium Chloride 50 ML IV ×4 (01:56→21:22)
[2023-04-08 03:36] VITALS: BP 110/59; PULSE 84; RESP 14; TEMP 36.3; O2SAT 96
[2023-04-08 05:59] LABS: MANUAL DIFF FLAG NO
[2023-04-08 06:00] VITALS: BMI 41.2
[2023-04-08 06:05] LABS: Basophils Absolute Auto 0.1 X10*3/uL (0.0-0.2); Basophils Percent Auto 0.7 % (0-2); Eosinophils Absolute Auto 0.3 X10*3/uL (0.0-0.4); Eosinophils Percent Auto 2.5 % (0-4); Hematocrit 25.9 % (37.0-47.0); Imm Gran Abs Auto 0.58 X10*3/uL (0.00-0.03); Imm Gran Pct Auto 4.8 % (0.0-0.4); Lymphocytes Absolute Auto 2.2 X10*3/uL (1.2-4.9); Mean Corpuscular HGB Conc 34.7 g/dl (31.0-35.0); Mean Corpuscular Hemoglobin 27.2 pg (27.0-33.0); Mean Corpuscular Volume 78.2 fL (80.0-98.0); Mean Platelet Volume 8.8 fL (9.4-12.3); Monocytes Absolute Auto 1.1 X10*3/uL (0.1-1.2); Monocytes Percent Auto 9.4 % (2-11); NRBC Pct Auto 0.2 /100WBC (0.0-0.2); Neutrophils Absolute Auto 7.8 x10*3/uL (2.0-8.3); Neutrophils Percent Auto 64.6 % (45-73); Platelet Count 250 X10*3/uL (160-400); Red Blood Count 3.31 X10*6/uL (4.20-5.50); Red Cell Distribution Width 17.1 % (11.0-16.0)
[2023-04-08 06:25] LABS: Albumin Level 2.8 g/dL (3.5-5.0); Anion Gap 13 (12-20); Blood Urea Nitrogen 25 mg/dL (9-16); Calcium 8.6 mg/dL (8.4-10.2); Carbon Dioxide 19 mmol/L (22-29); Chloride 111 mmol/L (96-108); Estimated Glomerular Filt Rate > 60; Glucose Random 132 mg/dL (60-115); Magnesium 1.6 mg/dL (1.6-2.6); Phosphorus 2.9 mg/dL (2.7-4.5); Potassium 3.4 mmol/L (3.3-5.1); Sodium 140 mmol/L (135-145)
[2023-04-08 06:45] LABS: Venous Blood Gas Refer to POC result
[2023-04-08 07:02] VITALS: BP 119/56; PULSE 84; RESP 20; TEMP 36.1; O2SAT 98
[2023-04-08 07:30] LABS: Glucose, Whole Blood 122 mg/dL (60-115)
[2023-04-08] MEDS: oxyBUTYnin chloride ER 5 MG TAB.ER.24 10 MG PO (08:30)
[2023-04-08] MEDS: Famotidine 20 MG TABLET 40 MG PO (08:30)
[2023-04-08] MEDS: Metoprolol Succinate ER 50 MG TAB.ER.24H PO (08:30)
[2023-04-08] MEDS: Sertraline HCL 100 MG TABLET PO (08:31)
--- NOTE | 2023-04-08 10:41 | P.PNIM_ITS ---
Subjective Subjective Date of Service: 04/09/23 Interval History: resting comfortably in bed offers no acute complaints denies pain, tolerating diet no nausea, no vomiting, no abdominal pain, no other acute events overnight, blood sugars stable 122 this morning tolerating antibiotics, no fevers, no chills. Review of Systems All other system reviewed and negative. Physical Exam Vital Signs: Vital Signs: Last Vital Signs Temp 97.0 F 04/08/23 07:02 Pulse 84 04/08/23 07:02 Resp 20 04/08/23 07:02 BP 119/56 L 04/08/23 07:02 Pulse Ox 98 04/08/23 07:02 O2 Del Method Room Air 04/08/23 07:02 O2 Flow Rate 2 04/06/23 17:04 BMI result Body Mass Index 41.2 Const: Other: General? awake alert x3, in no acute distress.? Neck? supple no JVD. CVS? regular rate rhythm, Respiratory lungs clear to auscultation, no respiratory distress, no wheeze, no rhonchi. Gastrointestinal abdomen soft, nontender, bowel sounds audible, no guarding , no rigidity. Extremities? left AKA dressing in place,Rt leg multiple ulcers, no drainage noted bilateral buttock stage 2? pressure ulcers Neuro nonfocal , speech clear. psych appropriate affect Objective Data Active Medications Acetaminophen (Acetaminophen 325 Mg Tablet) 975 mg PO Q8H PRN PRN Reason: Pain, Mild (Pain Scale 1-3) Last Admin: 04/06/23 21:05 Dose: 975 mg Documented By: PORSHA Clonazepam (Clonazepam 0.5 Mg Tablet) 0.5 mg PO BID PRN PRN Reason: Anxiety Dextrose (Dextrose 50 % 25 Gm/50 Ml Syringe) 25 gm IVPUSH Q2H PRN; Protocol PRN Reason: per Hypoglycemia Standing Ord. Famotidine (Famotidine 20 Mg Tablet) 40 mg PO DAILY [facility] Last Admin: 04/08/23 08:30 Dose: 40 mg Documented By: MARCIN Gabapentin (Gabapentin 300 Mg Capsule) 300 mg PO BEDTIME [facility] Glucose (Glucose Gel 15 Gm Gel..Gram.) 15 gm PO Q15M PRN; Protocol PRN Reason: per Hypoglycemia Standing Ord. Heparin Sodium (Porcine) (Heparin Sodium,Porcine 5,000 Unit/Ml Vial) 5,000 unit SUBCUT Q8H [facility] Last Admin: 04/08/23 08:31 Dose: 5,000 unit Documented By: MARCIN Piperacillin Sod/Tazobactam (Sod 3.375 gm/ Sodium Chloride) 50 mls @ 100 mls/hr IV Q6H [facility] Last Admin: 04/08/23 08:31 Dose: 100 mls/hr Documented By: MARCIN Vancomycin HCl 1,000 mg/ (Sodium Chloride) 270 mls @ 270 mls/hr IV Q24H [facility] Last Infusion: 04/07/23 19:36 Dose: 0 mls/hr Documented By: WU Insulin Human Lispro (Insulin Lispro 100 Unit/Ml 3 Ml Vial) 0 unit SUBCUT QIDACHS [facility]; Protocol Last Admin: 04/08/23 07:32 Dose: Not Given Documented By: MARCIN Non-Admin Reason: No Insulin Coverage Metoprolol Succinate (Metoprolol Succinate Er 50 Mg Tab.Er.24h) 50 mg PO DAILY [facility]; Protocol Last Admin: 04/08/23 08:30 Dose: 50 mg Documented By: MARCIN Morphine Sulfate (Morphine Sulfate 4 Mg/Ml Cartridge) 4 mg IVPUSH Q4H PRN; Protocol PRN Reason: Pain, Severe (Pain Scale 7-10) Last Admin: 04/08/23 01:54 Dose: 4 mg Documented By: DELMA Ondansetron HCl (Ondansetron Hcl 4 Mg/2 Ml Vial) 4 mg IVPUSH Q8H PRN PRN Reason: Nausea and Vomiting Ondansetron HCl (Ondansetron Hcl 4 Mg/2 Ml Vial) 4 mg IVPUSH ONCE PRN PRN Reason: Nausea and Vomiting Oxybutynin Chloride (Oxybutynin Chloride Er 5 Mg Tab.Er.24) 10 mg PO DAILY [facility] Last Admin: 04/08/23 08:30 Dose: 10 mg Documented By: MARCIN Oxycodone HCl (Oxycodone Hcl Immed Release 5 Mg Tablet) 5 mg PO Q6H PRN PRN Reason: Pain, Moderate(Pain Scale 4-6) Last Admin: 04/07/23 17:36 Dose: 5 mg Documented By: WU Pharmacy Consult (Consult Rx Perform Med Rec) 1 each MISCELLANE ONCE PRN PRN Reason: Consult order Pharmacy Consult (Consult Rx Vancomycin Dosing) 1 each MISCELLANE DAILY PRN PRN Reason: Consult order Sertraline HCl (Sertraline Hcl 100 Mg Tablet) 100 mg PO DAILY [facility] Last Admin: 04/08/23 08:31 Dose: 100 mg Documented By: MARCIN Sodium Chloride (0.9 % Sodium Chloride Flush 3 Ml Syringe) 3 ml IVFLUSH QSHIFT [facility] Last Admin: 04/08/23 08:31 Dose: Not Given Documented By: MARCIN Non-Admin Reason: IV Running Labs 04/08/23 05:50 04/08/23 05:50 Labs: Laboratory Results - last 24 hr 04/07/23 04/07/23 04/07/23 11:51 15:39 16:06 MCV MCH MCHC RDW Plt Count MPV Immature Gran % (Auto) Neut % (Auto) Lymph % (Auto) [place] % (Auto) Eos % (Auto) Baso % (Auto) Lymph # (Auto) [place] # (Auto) Eos # (Auto) Baso # (Auto) Abs Immat Gran (auto) Absolute Neuts (auto) Absolute Nucleated RBC Nucleated RBC % (auto) Anion Gap Estim Creat Clear Calc Estimated GFR POC Glucose 162 H 171 H Random Glucose Calcium Phosphorus Magnesium Albumin Random Vancomycin 14.3 L 04/07/23 04/08/23 04/08/23 20:41 05:50 05:50 MCV 78.2 L MCH 27.2 MCHC 34.7 RDW 17.1 H Plt Count 250 MPV 8.8 L Immature Gran % (Auto) 4.8 H Neut % (Auto) 64.6 Lymph % (Auto) 18.0 L [place] % (Auto) 9.4 Eos % (Auto) 2.5 Baso % (Auto) 0.7 Lymph # (Auto) 2.2 [place] # (Auto) 1.1 Eos # (Auto) 0.3 Baso # (Auto) 0.1 Abs Immat Gran (auto) 0.58 H Absolute Neuts (auto) 7.8 Absolute Nucleated RBC 0.020 H Nucleated RBC % (auto) 0.2 Anion Gap 13 Estim Creat Clear Calc 75.0 Estimated GFR > 60 POC Glucose 158 H Random Glucose 132 H Calcium 8.6 Phosphorus 2.9 Magnesium 1.6 Albumin 2.8 L Random Vancomycin 04/08/23 07:21 MCV MCH MCHC RDW Plt Count MPV Immature Gran % (Auto) Neut % (Auto) Lymph % (Auto) [place] % (Auto) Eos % (Auto) Baso % (Auto) Lymph # (Auto) [place] # (Auto) Eos # (Auto) Baso # (Auto) Abs Immat Gran (auto) Absolute Neuts (auto) Absolute Nucleated RBC Nucleated RBC % (auto) Anion Gap Estim Creat Clear Calc Estimated GFR POC Glucose 122 H Random Glucose Calcium Phosphorus Magnesium Albumin Random Vancomycin Microbiology Microbiology Results: Microbiology 04/04/23 23:34 Blood Culture - Preliminary Blood - Venous No growth after 48 hours. 04/04/23 14:25 Blood Culture - Final Blood - Venous Bacteroides fragilis group Coag negative Staphylococcus Assessment and Plan (1) Hereditary lymphedema of legs: Status: Acute (2) S/P AKA (above knee amputation) unilateral: Status: Acute (3) Morbid obesity: Status: Acute (4) Necrotizing fasciitis: Status: Acute (5) Atrial flutter: Status: Acute (6) Acute kidney injury: Status: Acute Plan 67-year-old lady with morbid obesity, lower extremity bilateral lymphedema with bilateral leg wounds with prior surgical debridement, hypertension, DVT/PE, diabetes admitted on 04/04/2023 with worsening LE wounds and foul drainage and treated for cellulitis undergoing surgical debridement on 04/06/2023 with demonstration of necrotizing fasciitis of the left lower extremity requiring [id number] amputation.? Patient was monitored in the intensive care unit in the immediate postop period.? She developed hemodynamically stable at. flutter that resolved with reinstitution of beta-mahamed.? She require transfusion 2 units of packed red blood cells, likely secondary to hemoglobin re-equilibration and oozing from the surgical site.? Left lower extremity necrotizing fasciitis status post [id number] amputation 04/06 Continues? IV vancomycin and IV Zosyn initial blood cultures 04/04 grew Bacteroides fragilis,+ beta lactamase suggestive of PEN/AMP resistance continue analgesics, dressing change as per General surgery . history of atrial flutter, briefly went into atrial flutter in ICU resolved with beta-blockers. continue metoprolol now in normal sinus rhythm. ?acute kidney injury ?likely multifactorial due to Bactrim/decreased by mouth intake and use of diuretics ?Resolved,?continue to hold Lasix avoid hypotension,avoid nephrotoxins. ?hypovolemic hyponatremia?? resolved. ?acute on chronic normocytic anemia ? hematocrit dropped to 19.4? received 2 units of packed RBC hematocrit improved to 26.7 ?likely multifactorial? oozing from surgical site,dilutional + iron studies showed mixed picture low iron saturation, but consistent with anemia of chronic disease, follow stool guaiac. ?lactic acidosis resolved with IVF. ?Diabetes mellitus? stable blood sugars continue diabetic diet and insulin sliding scale, hold Monjaro. ?bilateral? buttock pressure ulcer stage II, high-protein diet frequent position change. ?chronic urinary incontinence continue oxybutynin. ?morbid obesity weight loss recommended Prophylaxis:? Heparin patient need continued inpatient hospitalization for IV antibiotics and close monitoring after left AKA. Time Spent With Patient Time: Total time managing care of this patient today ____ minutes. Quality Stroke Does the patient have a stroke diagnosis?: No VTE Prior VTE?: No VTE Risk Level:: Medical - moderate - high VTE Device Contraindication: Treatment Not Indicated VTE Drug Contraindication: N/A - Med Ordered
[2023-04-08 11:15] LABS: Glucose, Whole Blood 154 mg/dL (60-115)
[2023-04-08] MEDS: oxyCODONE HCl Immed Release 5 MG TABLET PO (11:22)
[2023-04-08 11:51] VITALS: BP 129/78; PULSE 76; RESP 20; TEMP 36.4; O2SAT 99
--- NOTE | 2023-04-08 12:44 | PM.PNGS ---
Subjective Subjective Date of Service: 04/08/23 Interval history: Uneventful evening. All things considered, patient is doing well. Physical Exam Vital Signs: Vital Signs: Last Vital Signs Temp 97.5 F 04/08/23 11:51 Pulse 76 04/08/23 11:51 Resp 20 04/08/23 11:51 BP 129/78 04/08/23 11:51 Pulse Ox 99 04/08/23 11:51 O2 Del Method Room Air 04/08/23 11:51 O2 Flow Rate 2 04/06/23 17:04 BMI result Body Mass Index 41.2 Extrem: Other: Dressing taken down in wound is clean dry intact. Serous drainage from radha. Objective Data Active Medications Acetaminophen (Acetaminophen 325 Mg Tablet) 975 mg PO Q8H PRN PRN Reason: Pain, Mild (Pain Scale 1-3) Last Admin: 04/06/23 21:05 Dose: 975 mg Documented By: PORSHA Clonazepam (Clonazepam 0.5 Mg Tablet) 0.5 mg PO BID PRN PRN Reason: Anxiety Dextrose (Dextrose 50 % 25 Gm/50 Ml Syringe) 25 gm IVPUSH Q2H PRN; Protocol PRN Reason: per Hypoglycemia Standing Ord. Famotidine (Famotidine 20 Mg Tablet) 40 mg PO DAILY [facility] Last Admin: 04/08/23 08:30 Dose: 40 mg Documented By: MARCIN Gabapentin (Gabapentin 300 Mg Capsule) 300 mg PO BEDTIME [facility] Glucose (Glucose Gel 15 Gm Gel..Gram.) 15 gm PO Q15M PRN; Protocol PRN Reason: per Hypoglycemia Standing Ord. Heparin Sodium (Porcine) (Heparin Sodium,Porcine 5,000 Unit/Ml Vial) 5,000 unit SUBCUT Q8H [facility] Last Admin: 04/08/23 08:31 Dose: 5,000 unit Documented By: MARCIN Piperacillin Sod/Tazobactam (Sod 3.375 gm/ Sodium Chloride) 50 mls @ 100 mls/hr IV Q6H [facility] Last Infusion: 04/08/23 11:24 Dose: 0 mls/hr Documented By: MARCIN Vancomycin HCl 1,000 mg/ (Sodium Chloride) 270 mls @ 270 mls/hr IV Q24H [facility] Last Infusion: 04/07/23 19:36 Dose: 0 mls/hr Documented By: WU Insulin Human Lispro (Insulin Lispro 100 Unit/Ml 3 Ml Vial) 0 unit SUBCUT QIDACHS [facility]; Protocol Last Admin: 04/08/23 07:32 Dose: Not Given Documented By: MARCIN Non-Admin Reason: No Insulin Coverage Metoprolol Succinate (Metoprolol Succinate Er 50 Mg Tab.Er.24h) 50 mg PO DAILY [facility]; Protocol Last Admin: 04/08/23 08:30 Dose: 50 mg Documented By: MARCIN Morphine Sulfate (Morphine Sulfate 4 Mg/Ml Cartridge) 4 mg IVPUSH Q4H PRN; Protocol PRN Reason: Pain, Severe (Pain Scale 7-10) Last Admin: 04/08/23 01:54 Dose: 4 mg Documented By: DELMA Ondansetron HCl (Ondansetron Hcl 4 Mg/2 Ml Vial) 4 mg IVPUSH Q8H PRN PRN Reason: Nausea and Vomiting Ondansetron HCl (Ondansetron Hcl 4 Mg/2 Ml Vial) 4 mg IVPUSH ONCE PRN PRN Reason: Nausea and Vomiting Oxybutynin Chloride (Oxybutynin Chloride Er 5 Mg Tab.Er.24) 10 mg PO DAILY [facility] Last Admin: 04/08/23 08:30 Dose: 10 mg Documented By: MARCIN Oxycodone HCl (Oxycodone Hcl Immed Release 5 Mg Tablet) 5 mg PO Q6H PRN PRN Reason: Pain, Moderate(Pain Scale 4-6) Last Admin: 04/08/23 11:22 Dose: 5 mg Documented By: MARCIN Pharmacy Consult (Consult Rx Perform Med Rec) 1 each MISCELLANE ONCE PRN PRN Reason: Consult order Pharmacy Consult (Consult Rx Vancomycin Dosing) 1 each MISCELLANE DAILY PRN PRN Reason: Consult order Sertraline HCl (Sertraline Hcl 100 Mg Tablet) 100 mg PO DAILY [facility] Last Admin: 04/08/23 08:31 Dose: 100 mg Documented By: MARCIN Sodium Chloride (0.9 % Sodium Chloride Flush 3 Ml Syringe) 3 ml IVFLUSH QSHIFT [facility] Last Admin: 04/08/23 08:31 Dose: Not Given Documented By: MARCIN Non-Admin Reason: IV Running Labs 04/08/23 05:50 04/08/23 05:50 Labs: Laboratory Results - last 24 hr 04/07/23 04/07/23 04/07/23 15:39 16:06 20:41 MCV MCH MCHC RDW Plt Count MPV Immature Gran % (Auto) Neut % (Auto) Lymph % (Auto) [place] % (Auto) Eos % (Auto) Baso % (Auto) Lymph # (Auto) [place] # (Auto) Eos # (Auto) Baso # (Auto) Abs Immat Gran (auto) Absolute Neuts (auto) Absolute Nucleated RBC Nucleated RBC % (auto) Anion Gap Estim Creat Clear Calc Estimated GFR POC Glucose 171 H 158 H Random Glucose Calcium Phosphorus Magnesium Albumin Random Vancomycin 14.3 L 04/08/23 04/08/23 04/08/23 05:50 05:50 07:21 MCV 78.2 L MCH 27.2 MCHC 34.7 RDW 17.1 H Plt Count 250 MPV 8.8 L Immature Gran % (Auto) 4.8 H Neut % (Auto) 64.6 Lymph % (Auto) 18.0 L [place] % (Auto) 9.4 Eos % (Auto) 2.5 Baso % (Auto) 0.7 Lymph # (Auto) 2.2 [place] # (Auto) 1.1 Eos # (Auto) 0.3 Baso # (Auto) 0.1 Abs Immat Gran (auto) 0.58 H Absolute Neuts (auto) 7.8 Absolute Nucleated RBC 0.020 H Nucleated RBC % (auto) 0.2 Anion Gap 13 Estim Creat Clear Calc 75.0 Estimated GFR > 60 POC Glucose 122 H Random Glucose 132 H Calcium 8.6 Phosphorus 2.9 Magnesium 1.6 Albumin 2.8 L Random Vancomycin 04/08/23 11:10 MCV MCH MCHC RDW Plt Count MPV Immature Gran % (Auto) Neut % (Auto) Lymph % (Auto) [place] % (Auto) Eos % (Auto) Baso % (Auto) Lymph # (Auto) [place] # (Auto) Eos # (Auto) Baso # (Auto) Abs Immat Gran (auto) Absolute Neuts (auto) Absolute Nucleated RBC Nucleated RBC % (auto) Anion Gap Estim Creat Clear Calc Estimated GFR POC Glucose 154 H Random Glucose Calcium Phosphorus Magnesium Albumin Random Vancomycin Microbiology Microbiology Results: Microbiology 04/04/23 23:34 Blood Culture - Preliminary Blood - Venous No growth after 48 hours. 07/26/23 14:25 Blood Culture - Final Blood - Venous Bacteroides fragilis group Coag negative Staphylococcus Procedures Date of Service Date of Service: 04/08/23 Progress Note: A&P Assessment and plan (1) Necrotizing fasciitis: Status: Acute Plan Continue current plan. GABRIELE garcia tomorrow. Time Spent With Patient Time: Total time managing care of this patient today ____ minutes. Quality Stroke Does the patient have a stroke diagnosis?: No VTE Prior VTE?: No VTE Risk Level:: Medical - moderate - high VTE Device Contraindication: Treatment Not Indicated VTE Drug Contraindication: N/A - Med Ordered
[2023-04-08 15:05] VITALS: BP 131/62; PULSE 77; RESP 20; TEMP 36.7; O2SAT 93
[2023-04-08 16:03] LABS: Glucose, Whole Blood 169 mg/dL (60-115)
[2023-04-08] MEDS: Insulin Lispro 100 UNIT/ML 3 ML VIAL SUBCUT (17:02)
[2023-04-08] MEDS: vancomycin HCL 1,000 MG in 0.9 % Sodium Chloride 250 ML 250 MG IV (18:35)
[2023-04-08 19:04] VITALS: BP 118/58; PULSE 78; RESP 20; TEMP 36.4; O2SAT 98
[2023-04-08 19:58] LABS: Glucose, Whole Blood 137 mg/dL (60-115)
[2023-04-08] MEDS: Gabapentin 300 MG CAPSULE PO (21:21)
[2023-04-08] MEDS: 0.9 % Sodium Chloride Flush 3 ML SYRINGE IVFLUSH (23:18)
[2023-04-08 23:20] VITALS: BP 132/87; PULSE 85; RESP 18; TEMP 37.1; O2SAT 99
[2023-04-09] MEDS: Heparin Sodium,Porcine 5,000 UNIT/ML VIAL 5000 UNIT SUBCUT ×3 (01:52→17:40)
[2023-04-09] MEDS: Piperacillin Sodium/Tazobactam 3.375 GM in 0.9 % Sodium Chloride 50 ML IV ×4 (02:04→21:25)
[2023-04-09] MEDS: oxyCODONE HCl Immed Release 5 MG TABLET PO ×3 (03:42→21:24)
[2023-04-09 04:00] VITALS: BP 127/65; PULSE 88; RESP 20; TEMP 36.6; O2SAT 97
[2023-04-09 06:00] VITALS: BMI 41.4
[2023-04-09 07:15] LABS: Glucose, Whole Blood 124 mg/dL (60-115)
[2023-04-09 07:24] LABS: Estimated Glomerular Filt Rate > 60
[2023-04-09 07:41] VITALS: BP 124/56; PULSE 80; RESP 17; TEMP 35.8; O2SAT 98
--- NOTE | 2023-04-09 08:54 | PM.PNGS ---
Subjective Subjective Date of Service: 04/09/23 Interval history: Uneventful weekend. States she is doing ok. Pain is well controlled and she is comfortable. Tolerating diet but not eating much. Physical Exam Vital Signs: Vital Signs: Last Vital Signs Temp 96.5 F L 04/09/23 07:41 Pulse 80 04/09/23 07:41 Resp 17 04/09/23 07:41 BP 124/56 L 04/09/23 07:41 Pulse Ox 98 04/09/23 07:41 O2 Del Method Room Air 04/09/23 07:41 O2 Flow Rate 2 04/06/23 17:04 BMI result Body Mass Index 41.4 Const: General: no acute distress, well developed and alert Orientation/consciousness: patient oriented x3 Resp: Effort & Inspection: normal respiratory effort Skin: Other: no rash Neuro: General: patient oriented x3 Extrem: Other: left AKA dressing intact Objective Data Active Medications Acetaminophen (Acetaminophen 325 Mg Tablet) 975 mg PO Q8H PRN PRN Reason: Pain, Mild (Pain Scale 1-3) Last Admin: 04/06/23 21:05 Dose: 975 mg Documented By: PORSHA Clonazepam (Clonazepam 0.5 Mg Tablet) 0.5 mg PO BID PRN PRN Reason: Anxiety Dextrose (Dextrose 50 % 25 Gm/50 Ml Syringe) 25 gm IVPUSH Q2H PRN; Protocol PRN Reason: per Hypoglycemia Standing Ord. Famotidine (Famotidine 20 Mg Tablet) 40 mg PO DAILY [facility] Last Admin: 04/08/23 08:30 Dose: 40 mg Documented By: MARCIN Gabapentin (Gabapentin 300 Mg Capsule) 300 mg PO BEDTIME [facility] Last Admin: 04/08/23 21:21 Dose: 300 mg Documented By: MARJAN Glucose (Glucose Gel 15 Gm Gel..Gram.) 15 gm PO Q15M PRN; Protocol PRN Reason: per Hypoglycemia Standing Ord. Heparin Sodium (Porcine) (Heparin Sodium,Porcine 5,000 Unit/Ml Vial) 5,000 unit SUBCUT Q8H [facility] Last Admin: 04/09/23 01:52 Dose: 5,000 unit Documented By: MARJAN Piperacillin Sod/Tazobactam (Sod 3.375 gm/ Sodium Chloride) 50 mls @ 100 mls/hr IV Q6H [facility] Last Infusion: 04/09/23 02:35 Dose: 0 mls/hr Documented By: MARJAN Vancomycin HCl 1,000 mg/ (Sodium Chloride) 270 mls @ 270 mls/hr IV Q24H [facility] Last Infusion: 04/08/23 19:40 Dose: 0 mls/hr Documented By: MARJAN Insulin Human Lispro (Insulin Lispro 100 Unit/Ml 3 Ml Vial) 0 unit SUBCUT QIDACHS [facility]; Protocol Last Admin: 04/08/23 21:21 Dose: Not Given Documented By: MARJAN Non-Admin Reason: No Insulin Coverage Metoprolol Succinate (Metoprolol Succinate Er 50 Mg Tab.Er.24h) 50 mg PO DAILY [facility]; Protocol Last Admin: 04/08/23 08:30 Dose: 50 mg Documented By: MARCIN Morphine Sulfate (Morphine Sulfate 4 Mg/Ml Cartridge) 4 mg IVPUSH Q4H PRN; Protocol PRN Reason: Pain, Severe (Pain Scale 7-10) Last Admin: 04/08/23 13:21 Dose: 4 mg Documented By: MARCIN Ondansetron HCl (Ondansetron Hcl 4 Mg/2 Ml Vial) 4 mg IVPUSH Q8H PRN PRN Reason: Nausea and Vomiting Ondansetron HCl (Ondansetron Hcl 4 Mg/2 Ml Vial) 4 mg IVPUSH ONCE PRN PRN Reason: Nausea and Vomiting Oxybutynin Chloride (Oxybutynin Chloride Er 5 Mg Tab.Er.24) 10 mg PO DAILY [facility] Last Admin: 04/08/23 08:30 Dose: 10 mg Documented By: MARCIN Oxycodone HCl (Oxycodone Hcl Immed Release 5 Mg Tablet) 5 mg PO Q6H PRN PRN Reason: Pain, Moderate(Pain Scale 4-6) Last Admin: 04/09/23 03:42 Dose: 5 mg Documented By: MARJAN Pharmacy Consult (Consult Rx Perform Med Rec) 1 each MISCELLANE ONCE PRN PRN Reason: Consult order Pharmacy Consult (Consult Rx Vancomycin Dosing) 1 each MISCELLANE DAILY PRN PRN Reason: Consult order Sertraline HCl (Sertraline Hcl 100 Mg Tablet) 100 mg PO DAILY [facility] Last Admin: 04/08/23 08:31 Dose: 100 mg Documented By: HO.LESSARL Sodium Chloride (0.9 % Sodium Chloride Flush 3 Ml Syringe) 3 ml IVFLUSH QSHIFT [facility] Last Admin: 04/08/23 23:18 Dose: 3 ml Documented By: MARJAN Labs 04/08/23 05:50 04/09/23 06:13 Labs: Laboratory Results - last 24 hr 04/08/23 04/08/23 04/08/23 11:10 15:58 16:08 Estim Creat Clear Calc Estimated GFR POC Glucose 154 H 169 H Random Vancomycin 13.0 L 04/08/23 04/09/23 04/09/23 19:51 06:13 07:11 Estim Creat Clear Calc 88.0 Estimated GFR > 60 POC Glucose 137 H 124 H Random Vancomycin Procedures Date of Service Date of Service: 04/09/23 Progress Note: A&P Assessment and plan (1) Necrotizing fasciitis: Status: Acute (2) S/P AKA (above knee amputation) unilateral: Status: Acute Plan 67-year-old female patient with hx of chronic LE lymphedema and chronic bilateral leg ulcers who was admitted with severe gangrenous changes found to have necrotizing fasciitis requiring left AKA. Patient is doing well and hemodynamically stable. WBC has been continuously down trending. Will return later today for dressing change. Time Spent With Patient Time: Total time managing care of this patient today ____ minutes. Quality Stroke Does the patient have a stroke diagnosis?: No VTE Prior VTE?: No VTE Risk Level:: Medical - moderate - high VTE Device Contraindication: Treatment Not Indicated VTE Drug Contraindication: N/A - Med Ordered
[2023-04-09] MEDS: oxyBUTYnin chloride ER 5 MG TAB.ER.24 10 MG PO (08:57)
[2023-04-09] MEDS: Sertraline HCL 100 MG TABLET PO (08:57)
[2023-04-09] MEDS: Famotidine 20 MG TABLET 40 MG PO (08:57)
[2023-04-09] MEDS: 0.9 % Sodium Chloride Flush 3 ML SYRINGE IVFLUSH ×2 (08:58→21:26)
[2023-04-09] MEDS: Metoprolol Succinate ER 50 MG TAB.ER.24H PO (08:59)
[2023-04-09 11:08] LABS: Glucose, Whole Blood 200 mg/dL (60-115)
[2023-04-09 11:26] VITALS: BP 118/60; PULSE 82; RESP 17; TEMP 37.7; O2SAT 98
--- NOTE | 2023-04-09 12:18 | P.CONWO_ITS ---
History of Present Illness Data of Consult Service Date: 04/09/23 Requesting physician: Veronique Kaufman Primary Care Provider: Tre White MD HPI Reason for consult: right leg ulcers [id number]: 67-year-old female known to us for terrible lymphedema, difficult to control despite lymphedema pumps another home strategies to try to help her with drainage management, recent surgical debridement with wound VAC attempted back in February. She presents to the emergency department on April 04 with altered mental status and significant odor from the left lower extremity. She was seen in consultation by surgery and had a left leg amputation over the weekend. I am seeing her today for the 1st time since the amputation. Her is at the bedside. She is feeling better. Vancomycin and Zosyn are identified at the bedside as well. Appetite is okay. No fever. Were going to address the orders for the right lower extremity. Review of Systems Review of Systems: No chest pain or shortness of breath is reported. Yes all other systems are reviewed and are negative [facility] Medical History (Updated 04/09/23 @ 12:23 by SEBASTIEN Swan) Anxiety and depression Arthritis Dependent on walker for ambulation HTN (hypertension) Hx of atrial flutter Hx of deep venous thrombosis Hx pulmonary embolism Incontinence of urine Lymphedema of both lower extremities On beta mahamed at home Pre-diabetes Snores Ulcer of ankle Surgical History (Updated 04/09/23 @ 09:02 by Audrey Khan PA-C) History of ankle fusion History of radiofrequency ablation procedure for cardiac arrhythmia History of surgery on lower extremity History of surgery on lower extremity (03/05/23) Hx of colonoscopy Hx of dilation and curettage Hx of tonsillectomy Social History Household Members: Spouse Housing: House Are you a primary child caregiver private home to a significant other at home: No Do you presently have visiting nurse or other home services: No Alcohol intake: never Patient Tobacco Use Status: Never used Tobacco Smoked in Last 30 Days: No Use of substances other than those prescribed or required for medical reasons: No Currently Displaying Signs/Symptoms of Drug Intoxication Withdrawal: No Any prior treatment program specific to substance use: No Have you been hit, kicked, punched, or otherwise hurt by someone within the past year? If so, by whom?: No Do you feel safe in your current relationship?: Yes Is there a partner from a previous relationship who is making you feel unsafe now?: No Are you made to feel afraid or neglected: No Are you DNR?: No Advance Directives: No Do you have thoughts of harming others: None Recently lost weight without trying: No Nutrition Risks: No Nutritional Risk Patient : No : No Poor oral hygiene: No service: No Meds Allergies Allergy/AdvReac Type Severity Reaction Status Date / Time diltiazem [From Cardizem] Allergy Hives Verified 03/15/23 14:35 Penicillins Allergy Rash Verified 03/15/23 14:35 Active Medications: Current Medications Acetaminophen (Acetaminophen 325 Mg Tablet) 975 mg PO Q8H PRN PRN Reason: Pain, Mild (Pain Scale 1-3) Last Admin: 04/06/23 21:05 Dose: 975 mg Clonazepam (Clonazepam 0.5 Mg Tablet) 0.5 mg PO BID PRN PRN Reason: Anxiety Dextrose (Dextrose 50 % 25 Gm/50 Ml Syringe) 25 gm IVPUSH Q2H PRN; Protocol PRN Reason: per Hypoglycemia Standing Ord. Famotidine (Famotidine 20 Mg Tablet) 40 mg PO DAILY [facility] Last Admin: 04/09/23 08:57 Dose: 40 mg Gabapentin (Gabapentin 300 Mg Capsule) 300 mg PO BEDTIME [facility] Last Admin: 04/08/23 21:21 Dose: 300 mg Glucose (Glucose Gel 15 Gm Gel..Gram.) 15 gm PO Q15M PRN; Protocol PRN Reason: per Hypoglycemia Standing Ord. Heparin Sodium (Porcine) (Heparin Sodium,Porcine 5,000 Unit/Ml Vial) 5,000 unit SUBCUT Q8H [facility] Last Admin: 04/09/23 08:56 Dose: 5,000 unit Piperacillin Sod/Tazobactam (Sod 3.375 gm/ Sodium Chloride) 50 mls @ 100 mls/hr IV Q6H [facility] Last Infusion: 04/09/23 09:27 Dose: Infused Vancomycin HCl 1,000 mg/ (Sodium Chloride) 270 mls @ 270 mls/hr IV Q24H [facility] Last Infusion: 04/08/23 19:40 Dose: Infused Insulin Human Lispro (Insulin Lispro 100 Unit/Ml 3 Ml Vial) 0 unit SUBCUT QIDACHS [facility]; Protocol Last Admin: 04/09/23 08:56 Dose: Not Given Metoprolol Succinate (Metoprolol Succinate Er 50 Mg Tab.Er.24h) 50 mg PO DAILY [facility]; Protocol Last Admin: 04/09/23 08:59 Dose: 50 mg Morphine Sulfate (Morphine Sulfate 4 Mg/Ml Cartridge) 4 mg IVPUSH Q4H PRN; Protocol PRN Reason: Pain, Severe (Pain Scale 7-10) Last Admin: 04/08/23 13:21 Dose: 4 mg Ondansetron HCl (Ondansetron Hcl 4 Mg/2 Ml Vial) 4 mg IVPUSH Q8H PRN PRN Reason: Nausea and Vomiting Ondansetron HCl (Ondansetron Hcl 4 Mg/2 Ml Vial) 4 mg IVPUSH ONCE PRN PRN Reason: Nausea and Vomiting Oxybutynin Chloride (Oxybutynin Chloride Er 5 Mg Tab.Er.24) 10 mg PO DAILY [facility] Last Admin: 04/09/23 08:57 Dose: 10 mg Oxycodone HCl (Oxycodone Hcl Immed Release 5 Mg Tablet) 5 mg PO Q6H PRN PRN Reason: Pain, Moderate(Pain Scale 4-6) Last Admin: 04/09/23 10:16 Dose: 5 mg Pharmacy Consult (Consult Rx Perform Med Rec) 1 each MISCELLANE ONCE PRN PRN Reason: Consult order Pharmacy Consult (Consult Rx Vancomycin Dosing) 1 each MISCELLANE DAILY PRN PRN Reason: Consult order Sertraline HCl (Sertraline Hcl 100 Mg Tablet) 100 mg PO DAILY [facility] Last Admin: 04/09/23 08:57 Dose: 100 mg Sodium Chloride (0.9 % Sodium Chloride Flush 3 Ml Syringe) [address] [facility] Last Admin: 04/09/23 08:58 Dose: 3 ml Home Medications Medication Instructions Recorded Confirmed Last Taken Type clonazepam 0.5 mg tablet 0.5 mg PO DAILY PRN Anxiety 02/02/23 04/04/23 03/05/23 History famotidine 40 mg tablet 40 mg PO DAILY 02/02/23 04/04/23 02/01/23 History furosemide 40 mg tablet 40 mg PO DAILY 02/02/23 04/04/23 02/01/23 History gabapentin 300 mg capsule 300 mg PO BEDTIME 02/02/23 04/04/23 02/01/23 History metoprolol succinate 50 mg 50 mg PO DAILY 02/02/23 04/04/23 03/05/23 History tablet,extended release 24 hr sertraline 100 mg tablet 100 mg PO DAILY 02/02/23 04/04/23 03/05/23 History acetaminophen 650 mg 1,300 mg PO DAILY 04/04/23 04/04/23 Unknown History tablet,extended release budesonide 3 mg 3 mg PO QAM 04/04/23 04/04/23 Unknown History capsule,delayed,extended release cetirizine 10 mg tablet 10 mg PO DAILY 04/04/23 04/04/23 Unknown History cholecalciferol (vitamin D3) 25 25 mcg PO DAILY 04/04/23 04/04/23 Unknown History mcg (1,000 unit) tablet multivitamin 1 tab PO DAILY 04/04/23 04/04/23 Unknown History oxybutynin chloride 10 mg 10 mg PO DAILY 04/04/23 04/04/23 Unknown History tablet,extended release 24 hr sulfamethoxazole 800 1 tab PO BID 04/04/23 04/04/23 Unknown History mg-trimethoprim 160 mg tablet tirzepatide 10 mg/0.5 mL 10 mg subcut FR 04/04/23 04/04/23 Unknown History subcutaneous pen injector (Adonayundashawn) Physical Exam Vital Signs and Narrative: Vital Signs: Last Vital Signs Temp 99.8 F 04/09/23 11:26 Pulse 82 04/09/23 11:26 Resp 17 04/09/23 11:26 BP 118/60 04/09/23 11:26 Pulse Ox 98 04/09/23 11:26 O2 Del Method Room Air 04/09/23 11:26 O2 Flow Rate 2 04/06/23 17:04 BMI result Body Mass Index 41.4 Her circumferential right lower extremity dressing is not removed. There is no redness or stroke streaking to suggest active infection here. The pictures of the right leg look congruent with her last exam on March 23. She will need barrier cream to her buttocks as well as offloading techniques and positional change assistance. Results Labs 04/08/23 05:50 04/09/23 06:13 Labs: Laboratory Results - last 24 hr 04/08/23 04/08/23 04/08/23 15:58 16:08 19:51 Estim Creat Clear Calc Estimated GFR POC Glucose 169 H 137 H Random Vancomycin 13.0 L 04/09/23 04/09/23 04/09/23 06:13 07:11 11:05 Estim Creat Clear Calc 88.0 Estimated GFR > 60 POC Glucose 124 H 200 H Random Vancomycin Assessment and Plan (1) Hereditary lymphedema of legs: Status: Acute Plan 67-year-old female with bilateral lower extremity lymphedema, life-threatening left lower extremity infection status post left leg amputation by surgery. Follow surgical orders for the left leg. Use alginate on the right lower extremity, cut to fit open ulcers. Please resume Josh wraps so long as fluid status is stable. Based on her history, she will need this changed every day. Please use barrier cream to the buttocks twice daily and help her offload, change position every 2 hours while awake. In terms of her rehabilitative options, will defer to hospitalist team, however would lean towards acute rehabilitation setting with 3 hours of therapy daily in the setting of new left leg amputation for bed mobility, transfer training, wheelchair mobility and stair navigation. Additionally, might consider physical therapy evaluation prior to discharge from the acute hospital setting for training on least assistive device. Time Spent With Patient Time: Total time managing care of this patient today ____ minutes.
[2023-04-09] MEDS: Insulin Lispro 100 UNIT/ML 3 ML VIAL SUBCUT ×2 (12:31→21:25)
--- NOTE | 2023-04-09 12:34 | HO.PM.IMPN ---
Subjective Subjective Date of Service: 04/09/23 Interval History: offers no acute complaints, noted to have significant redness and skin breakdown in pelvic area, no urinary symptoms of urgency frequency, denies fever chills, tolerating diet, poor by mouth intake no nausea, no vomiting, no abdominal pain, denies pain at AKA site. Review of Systems All other system reviewed and negative. Physical Exam Vital Signs: Vital Signs: Last Vital Signs Temp 99.8 F 04/09/23 11:26 Pulse 82 04/09/23 11:26 Resp 17 04/09/23 11:26 BP 118/60 04/09/23 11:26 Pulse Ox 98 04/09/23 11:26 O2 Del Method Room Air 04/09/23 11:26 O2 Flow Rate 2 04/06/23 17:04 BMI result Body Mass Index 41.4 Const: Other: General? awake alert x3, in no acute distress.? Neck? supple no JVD. CVS? regular rate rhythm, Respiratory lungs clear to auscultation, no respiratory distress, no wheeze, no rhonchi. Gastrointestinal abdomen soft, nontender, bowel sounds audible, no guarding , no rigidity. Extremities? left AKA dressing in place,Rt leg? multiple ulcers, no drainage noted. bilateral buttock stage 2? pressure ulcers bilateral labial redness and skin tears Neuro nonfocal , speech clear. psych appropriate affect Objective Data Active Medications Acetaminophen (Acetaminophen 325 Mg Tablet) 975 mg PO Q8H PRN PRN Reason: Pain, Mild (Pain Scale 1-3) Last Admin: 04/06/23 21:05 Dose: 975 mg Documented By: PORSHA Clonazepam (Clonazepam 0.5 Mg Tablet) 0.5 mg PO BID PRN PRN Reason: Anxiety Dextrose (Dextrose 50 % 25 Gm/50 Ml Syringe) 25 gm IVPUSH Q2H PRN; Protocol PRN Reason: per Hypoglycemia Standing Ord. Famotidine (Famotidine 20 Mg Tablet) 40 mg PO DAILY [facility] Last Admin: 04/09/23 08:57 Dose: 40 mg Documented By: ANGELA Gabapentin (Gabapentin 300 Mg Capsule) 300 mg PO BEDTIME [facility] Last Admin: 04/08/23 21:21 Dose: 300 mg Documented By: MARJAN Glucose (Glucose Gel 15 Gm Gel..Gram.) 15 gm PO Q15M PRN; Protocol PRN Reason: per Hypoglycemia Standing Ord. Heparin Sodium (Porcine) (Heparin Sodium,Porcine 5,000 Unit/Ml Vial) 5,000 unit SUBCUT Q8H [facility] Last Admin: 04/09/23 08:56 Dose: 5,000 unit Documented By: ANGELA Piperacillin Sod/Tazobactam (Sod 3.375 gm/ Sodium Chloride) 50 mls @ 100 mls/hr IV Q6H [facility] Last Infusion: 04/09/23 09:27 Dose: 0 mls/hr Documented By: ANGELA Vancomycin HCl 1,000 mg/ (Sodium Chloride) 270 mls @ 270 mls/hr IV Q24H [facility] Last Infusion: 04/08/23 19:40 Dose: 0 mls/hr Documented By: MARJAN Insulin Human Lispro (Insulin Lispro 100 Unit/Ml 3 Ml Vial) 0 unit SUBCUT QIDACHS [facility]; Protocol Last Admin: 04/09/23 12:31 Dose: 2 unit Documented By: ANGELA Metoprolol Succinate (Metoprolol Succinate Er 50 Mg Tab.Er.24h) 50 mg PO DAILY [facility]; Protocol Last Admin: 04/09/23 08:59 Dose: 50 mg Documented By: ANGELA Morphine Sulfate (Morphine Sulfate 4 Mg/Ml Cartridge) 4 mg IVPUSH Q4H PRN; Protocol PRN Reason: Pain, Severe (Pain Scale 7-10) Last Admin: 04/08/23 13:21 Dose: 4 mg Documented By: MARCIN Ondansetron HCl (Ondansetron Hcl 4 Mg/2 Ml Vial) 4 mg IVPUSH Q8H PRN PRN Reason: Nausea and Vomiting Ondansetron HCl (Ondansetron Hcl 4 Mg/2 Ml Vial) 4 mg IVPUSH ONCE PRN PRN Reason: Nausea and Vomiting Oxybutynin Chloride (Oxybutynin Chloride Er 5 Mg Tab.Er.24) 10 mg PO DAILY [facility] Last Admin: 04/09/23 08:57 Dose: 10 mg Documented By: ANGELA Oxycodone HCl (Oxycodone Hcl Immed Release 5 Mg Tablet) 5 mg PO Q6H PRN PRN Reason: Pain, Moderate(Pain Scale 4-6) Last Admin: 07/31/23 10:16 Dose: 5 mg Documented By: ANGELA Pharmacy Consult (Consult Rx Perform Med Rec) 1 each MISCELLANE ONCE PRN PRN Reason: Consult order Pharmacy Consult (Consult Rx Vancomycin Dosing) 1 each MISCELLANE DAILY PRN PRN Reason: Consult order Sertraline HCl (Sertraline Hcl 100 Mg Tablet) 100 mg PO DAILY [facility] Last Admin: 04/09/23 08:57 Dose: 100 mg Documented By: ANGELA Sodium Chloride (0.9 % Sodium Chloride Flush 3 Ml Syringe) 3 ml IVFLUSH QSHIFT [facility] Last Admin: 04/09/23 08:58 Dose: 3 ml Documented By: ANGELA Labs 04/08/23 05:50 04/09/23 06:13 Labs: Laboratory Results - last 24 hr 04/08/23 04/08/23 04/08/23 15:58 16:08 19:51 Estim Creat Clear Calc Estimated GFR POC Glucose 169 H 137 H Random Vancomycin 13.0 L 04/09/23 04/09/23 04/09/23 06:13 07:11 11:05 Estim Creat Clear Calc 88.0 Estimated GFR > 60 POC Glucose 124 H 200 H Random Vancomycin Assessment and Plan (1) Hereditary lymphedema of legs: Status: Acute (2) S/P AKA (above knee amputation) unilateral: Status: Acute (3) Morbid obesity: Status: Acute (4) Necrotizing fasciitis: Status: Acute (5) Atrial flutter: Status: Acute (6) Acute kidney injury: Status: Acute Plan 67-year-old lady with morbid obesity, lower extremity bilateral lymphedema with bilateral leg wounds with prior surgical debridement, hypertension, DVT/PE, diabetes admitted on 04/04/2023 with worsening LE wounds and foul drainage and treated for cellulitis undergoing surgical debridement on 04/06/2023 with demonstration of necrotizing fasciitis of the left lower extremity requiring [id number] amputation.? Patient was monitored in the intensive care unit in the immediate postop period.? She developed hemodynamically stable at. flutter that resolved with reinstitution of beta-mahamed.? She require transfusion 2 units of packed red blood cells, likely secondary to hemoglobin re-equilibration and oozing from the surgical site.? Left lower extremity necrotizing fasciitis status post [id number] amputation 04/06/ right lower extremity ulcers on? IV vancomycin and IV Zosyn started 04/04 initial blood cultures 04/04 grew Bacteroides fragilis,+ beta lactamase suggestive of PEN/AMP resistance , staph aureus coagulase negative will DC IV vancomycin, continue IV Zosyn day 02/21 right lower extremity ulcers healing well. continue analgesics, daily dressing change to left AKA stump with fluffs, abd dressing, kerlix wrap and stockinette to keep in place. Continue daily dressing changes of RLE wounds with silver alginate followed by fluffs and kerlix wrap,as per General surgery . history of atrial flutter, briefly went into atrial flutter in ICU resolved with beta-blockers. continue metoprolol now in normal sinus rhythm. ?acute kidney injury ?likely multifactorial due to Bactrim/decreased by mouth intake and use of diuretics ?Resolved,?continue to hold Lasix avoid hypotension,avoid nephrotoxins. ?hypovolemic hyponatremia:? resolved. ?acute on chronic normocytic anemia ? hematocrit dropped to 19.4? received 2 units of packed RBC hematocrit improved to 26.7 ?likely multifactorial? oozing from surgical site,dilutional + iron studies showed mixed picture low iron saturation, but consistent with anemia of chronic disease, follow stool guaiac. ?lactic acidosis resolved with IVF. ?Diabetes mellitus? stable blood sugars continue diabetic diet and insulin sliding scale, hold Monjaro. ?bilateral? buttock pressure ulcer stage II,/ noted to have periurethral hyperemia and skin abrasion, will place Urena catheter for skin integrity, high-protein diet frequent position change. ?chronic urinary incontinence continue oxybutynin. ?morbid obesity weight loss recommended. Prophylaxis:? Heparin patient need continued inpatient hospitalization for IV antibiotics and close monitoring after left AKA wound and left leg ulcer. Time Spent With Patient Time: Total time managing care of this patient today ____ minutes. Quality Stroke Does the patient have a stroke diagnosis?: No VTE Prior VTE?: No VTE Risk Level:: Medical - moderate - high VTE Device Contraindication: Treatment Not Indicated VTE Drug Contraindication: N/A - Med Ordered
--- NOTE | 2023-04-09 13:12 | MHC.CM.PN ---
EMR reviewed and per MD rounds, pt is not medically cleared for D/C due to continued need for IV ABX and monitoring s/p left AKA. CM will continue to monitor.
--- NOTE | 2023-04-09 14:01 | MHC.CLN ---
F/U WOUND CONSULT 04/06 DEBRIDEMENT OF RIGHT LEG ULCERS AND LEFT AKA. RECOMMEND DIABETIC 2000 KCALS; SUPPLEMENT ENSURE MAX PROTEIN BID. PROVIDES 300 KCALS, 60 G PROTEIN. SUPPLEMENT TO PROMOTE WOUND HEALING. MONITOR FOR INTAKE AND WOUND HEALING.
[2023-04-09 15:17] LABS: Glucose, Whole Blood 150 mg/dL (60-115)
[2023-04-09 15:21] VITALS: BP 106/59; PULSE 83; RESP 18; TEMP 36.7; O2SAT 100
[2023-04-09 19:35] VITALS: BP 134/60; PULSE 82; RESP 20; TEMP 37.6; O2SAT 99
[2023-04-09 19:49] LABS: Glucose, Whole Blood 151 mg/dL (60-115)
[2023-04-09] MEDS: Acetaminophen 325 MG TABLET 975 MG PO (21:25)
[2023-04-09] MEDS: Gabapentin 300 MG CAPSULE PO (21:25)
[2023-04-09 23:35] VITALS: BP 138/66; PULSE 86; RESP 20; TEMP 36.3; O2SAT 97
[2023-04-10] MEDS: Heparin Sodium,Porcine 5,000 UNIT/ML VIAL 5000 UNIT SUBCUT ×3 (00:12→17:19)
[2023-04-10] MEDS: Piperacillin Sodium/Tazobactam 3.375 GM in 0.9 % Sodium Chloride 50 ML IV ×4 (03:04→20:01)
[2023-04-10 03:33] VITALS: BP 127/62; PULSE 74; RESP 20; TEMP 36.1; O2SAT 97
[2023-04-10 05:48] VITALS: BMI 41.6
[2023-04-10 07:07] LABS: Hematocrit 28.1 % (37.0-47.0); Hemoglobin 9.2 g/dl (12.0-16.0); Mean Corpuscular HGB Conc 32.7 g/dl (31.0-35.0); Mean Corpuscular Volume 82.4 fL (80.0-98.0); Mean Platelet Volume 8.7 fL (9.4-12.3); Platelet Count 238 X10*3/uL (160-400); Red Blood Count 3.41 X10*6/uL (4.20-5.50); Red Cell Distribution Width 18.2 % (11.0-16.0); White Blood Count 7.1 X10*3/uL (4.8-10.8)
[2023-04-10 07:12] VITALS: BP 139/67; PULSE 67; RESP 20; TEMP 36.1; O2SAT 99
[2023-04-10 07:17] LABS: Glucose, Whole Blood 122 mg/dL (60-115)
[2023-04-10 07:22] LABS: Anion Gap 13 (12-20); Blood Urea Nitrogen 14 mg/dL (9-16); Calcium 8.6 mg/dL (8.4-10.2); Carbon Dioxide 19 mmol/L (22-29); Chloride 113 mmol/L (96-108); Creatinine Clr Calc Pharmacy 95.8; Estimated Glomerular Filt Rate > 60; Glucose Random 117 mg/dL (60-115); Potassium 4.2 mmol/L (3.3-5.1); Sodium 141 mmol/L (135-145)
--- NOTE | 2023-04-10 08:31 | P.PNIM_ITS ---
Subjective Subjective Date of Service: 04/10/23 Interval History: Doing well, offers no complaint this morning Physical Exam Vital Signs: Vital Signs: Last Vital Signs Temp 97.0 F 04/10/23 07:12 Pulse 67 04/10/23 07:12 Resp 20 04/10/23 07:12 BP 139/67 04/10/23 07:12 Pulse Ox 99 04/10/23 07:12 O2 Del Method Room Air 04/10/23 07:12 O2 Flow Rate 2 04/06/23 17:04 BMI result Body Mass Index 41.6 Const: Other: General? awake alert x3, in no acute distress.? Neck? supple no JVD. CVS? regular rate rhythm, Respiratory lungs clear to auscultation, no respiratory distress, no wheeze, no rhonchi. Gastrointestinal abdomen soft, nontender, bowel sounds audible, no guarding , no rigidity. Extremities? left AKA dressing in place,Rt leg? multiple ulcers, no drainage noted. bilateral buttock stage 2? pressure ulcers bilateral labial redness and skin tears Neuro nonfocal , speech clear. psych appropriate affect Objective Data Active Medications Acetaminophen (Acetaminophen 325 Mg Tablet) 975 mg PO Q8H PRN PRN Reason: Pain, Mild (Pain Scale 1-3) Last Admin: 04/09/23 21:25 Dose: 975 mg Documented By: ERNESTO Clonazepam (Clonazepam 0.5 Mg Tablet) 0.5 mg PO BID PRN PRN Reason: Anxiety Dextrose (Dextrose 50 % 25 Gm/50 Ml Syringe) 25 gm IVPUSH Q2H PRN; Protocol PRN Reason: per Hypoglycemia Standing Ord. Famotidine (Famotidine 20 Mg Tablet) 40 mg PO DAILY [facility] Last Admin: 04/09/23 08:57 Dose: 40 mg Documented By: ANGELA Gabapentin (Gabapentin 300 Mg Capsule) 300 mg PO BEDTIME [facility] Last Admin: 04/09/23 21:25 Dose: 300 mg Documented By: ERNESTO Glucose (Glucose Gel 15 Gm Gel..Gram.) 15 gm PO Q15M PRN; Protocol PRN Reason: per Hypoglycemia Standing Ord. Heparin Sodium (Porcine) (Heparin Sodium,Porcine 5,000 Unit/Ml Vial) 5,000 unit SUBCUT Q8H [facility] Last Admin: 04/10/23 00:12 Dose: 5,000 unit Documented By: BETTY Piperacillin Sod/Tazobactam (Sod 3.375 gm/ Sodium Chloride) 50 mls @ 100 mls/hr IV Q6H [facility] Last Infusion: 04/10/23 05:07 Dose: 0 mls/hr Documented By: BETTY Insulin Human Lispro (Insulin Lispro 100 Unit/Ml 3 Ml Vial) 0 unit SUBCUT QIDACHS [facility]; Protocol Last Admin: 04/10/23 07:41 Dose: Not Given Documented By: ROXIE Non-Admin Reason: No Insulin Coverage Metoprolol Succinate (Metoprolol Succinate Er 50 Mg Tab.Er.24h) 50 mg PO DAILY [facility]; Protocol Last Admin: 04/09/23 08:59 Dose: 50 mg Documented By: ANGELA Morphine Sulfate (Morphine Sulfate 4 Mg/Ml Cartridge) 4 mg IVPUSH Q4H PRN; Protocol PRN Reason: Pain, Severe (Pain Scale 7-10) Last Admin: 04/08/23 13:21 Dose: 4 mg Documented By: MARCIN Ondansetron HCl (Ondansetron Hcl 4 Mg/2 Ml Vial) 4 mg IVPUSH Q8H PRN PRN Reason: Nausea and Vomiting Ondansetron HCl (Ondansetron Hcl 4 Mg/2 Ml Vial) 4 mg IVPUSH ONCE PRN PRN Reason: Nausea and Vomiting Oxybutynin Chloride (Oxybutynin Chloride Er 5 Mg Tab.Er.24) 10 mg PO DAILY [facility] Last Admin: 04/09/23 08:57 Dose: 10 mg Documented By: ANGELA Oxycodone HCl (Oxycodone Hcl Immed Release 5 Mg Tablet) 5 mg PO Q6H PRN PRN Reason: Pain, Moderate(Pain Scale 4-6) Last Admin: 04/09/23 21:24 Dose: 5 mg Documented By: ERNESTO Pharmacy Consult (Consult Rx Perform Med Rec) 1 each MISCELLANE ONCE PRN PRN Reason: Consult order Sertraline HCl (Sertraline Hcl 100 Mg Tablet) 100 mg PO DAILY [facility] Last Admin: 04/09/23 08:57 Dose: 100 mg Documented By: ANGELA Sodium Chloride (0.9 % Sodium Chloride Flush 3 Ml Syringe) 3 ml IVFLUSH QSHIFT [facility] Last Admin: 04/09/23 21:26 Dose: 3 ml Documented By: ERNESTO Labs 04/10/23 06:24 04/10/23 06:24 Labs: Laboratory Results - last 24 hr 04/09/23 04/09/23 04/09/23 11:05 15:13 19:44 MCV MCH MCHC RDW Plt Count MPV Absolute Nucleated RBC Nucleated RBC % (auto) Anion Gap Estim Creat Clear Calc Estimated GFR POC Glucose 200 H 150 H 151 H Random Glucose Calcium 04/10/23 04/10/23 04/10/23 06:24 06:24 07:11 MCV 82.4 MCH 27.0 MCHC 32.7 RDW 18.2 H Plt Count 238 MPV 8.7 L Absolute Nucleated RBC 0.000 Nucleated RBC % (auto) 0.0 Anion Gap 13 Estim Creat Clear Calc 95.8 Estimated GFR > 60 POC Glucose 122 H Random Glucose 117 H Calcium 8.6 Microbiology Microbiology Results: Microbiology 04/04/23 23:34 Blood Culture - Final Blood - Venous No growth after 5 days. 04/04/23 23:34 Blood Culture - Final Blood - Venous No growth after 5 days. Assessment and Plan (1) Hereditary lymphedema of legs: Status: Acute (2) S/P AKA (above knee amputation) unilateral: Status: Acute (3) Morbid obesity: Status: Acute (4) Necrotizing fasciitis: Status: Acute (5) Atrial flutter: Status: Acute (6) Acute kidney injury: Status: Acute Plan 67-year-old lady with morbid obesity, lower extremity bilateral lymphedema with bilateral leg wounds with prior surgical debridement, hypertension, DVT/PE, diabetes admitted on 04/04/2023 with worsening LE wounds and foul drainage and treated for cellulitis undergoing surgical debridement on 04/06/2023 with demonstration of necrotizing fasciitis of the left lower extremity requiring [id number] amputation.? Patient was monitored in the intensive care unit in the immediate postop period.? She developed hemodynamically stable at. flutter that resolved with reinstitution of beta-mahamed.? She require transfusion 2 units of packed red blood cells, likely secondary to hemoglobin re-equilibration and oozing from the surgical site.? Left lower extremity necrotizing fasciitis status post [id number] amputation 04/06/ right lower extremity ulcers initial blood cultures 04/04 grew Bacteroides fragilis,+ beta lactamase suggestive of PEN/AMP resistance , staph aureus coagulase negative on? IV vancomycin and IV Zosyn started 04/04, Vanco dc'd 04/09, Zosyn D7/ right lower extremity ulcers healing well. continue analgesics, daily dressing change to left AKA stump with fluffs, abd dressing, kerlix wrap and stockinette to keep in place. Continue daily dressing changes of RLE wounds with silver alginate followed by fluffs and kerlix wrap,as per General surgery . history of atrial flutter, briefly went into atrial flutter in ICU resolved with beta-blockers. continue metoprolol now in normal sinus rhythm. ?acute kidney injury ?likely multifactorial due to Bactrim/decreased by mouth intake and use of diuretics ?Resolved,?continue to hold Lasix avoid hypotension,avoid nephrotoxins. ?hypovolemic hyponatremia:? resolved. ?acute on chronic normocytic anemia ? hematocrit dropped to 19.4? received 2 units of packed RBC hematocrit improved to 26.7 ?likely multifactorial? oozing from surgical site,dilutional + iron studies showed mixed picture low iron saturation, but consistent with anemia of chronic disease, follow stool guaiac. ?lactic acidosis resolved with IVF. ?Diabetes mellitus? stable blood sugars continue diabetic diet and insulin sliding scale, hold Monjaro. ?bilateral? buttock pressure ulcer stage II,/ noted to have periurethral hyperemia and skin abrasion, Urena catheter for skin integrity, high-protein diet frequent position change. ?chronic urinary incontinence continue oxybutynin. ?morbid obesity weight loss recommended. Prophylaxis:? Heparin patient need continued inpatient hospitalization for IV antibiotics and close monitoring after left AKA wound and left leg ulcer. Time Spent With Patient Time: Total time managing care of this patient today ____ minutes. Quality Stroke Does the patient have a stroke diagnosis?: No VTE Prior VTE?: No VTE Risk Level:: Medical - moderate - high VTE Device Contraindication: Treatment Not Indicated VTE Drug Contraindication: N/A - Med Ordered
--- NOTE | 2023-04-10 08:46 | PM.PNGS ---
Subjective Subjective Date of Service: 04/10/23 Interval history: Patient reports feeling comfortable this morning. No significant left leg pain. Physical Exam Vital Signs: Vital Signs: Last Vital Signs Temp 97.0 F 04/10/23 07:12 Pulse 67 04/10/23 07:12 Resp 20 04/10/23 07:12 BP 139/67 04/10/23 07:12 Pulse Ox 99 04/10/23 07:12 O2 Del Method Room Air 04/10/23 07:12 O2 Flow Rate 2 04/06/23 17:04 BMI result Body Mass Index 41.6 Const: General: no acute distress, well developed and alert Orientation/consciousness: patient oriented x3 Resp: Effort & Inspection: normal respiratory effort Skin: Other: no rash Neuro: General: patient oriented x3 Extrem: Other: left AKA dressing intact Objective Data Active Medications Acetaminophen (Acetaminophen 325 Mg Tablet) 975 mg PO Q8H PRN PRN Reason: Pain, Mild (Pain Scale 1-3) Last Admin: 04/09/23 21:25 Dose: 975 mg Documented By: ERNESTO Clonazepam (Clonazepam 0.5 Mg Tablet) 0.5 mg PO BID PRN PRN Reason: Anxiety Dextrose (Dextrose 50 % 25 Gm/50 Ml Syringe) 25 gm IVPUSH Q2H PRN; Protocol PRN Reason: per Hypoglycemia Standing Ord. Famotidine (Famotidine 20 Mg Tablet) 40 mg PO DAILY [facility] Last Admin: 04/09/23 08:57 Dose: 40 mg Documented By: ANGELA Gabapentin (Gabapentin 300 Mg Capsule) 300 mg PO BEDTIME [facility] Last Admin: 04/09/23 21:25 Dose: 300 mg Documented By: ERNESTO Glucose (Glucose Gel 15 Gm Gel..Gram.) 15 gm PO Q15M PRN; Protocol PRN Reason: per Hypoglycemia Standing Ord. Heparin Sodium (Porcine) (Heparin Sodium,Porcine 5,000 Unit/Ml Vial) 5,000 unit SUBCUT Q8H [facility] Last Admin: 04/10/23 00:12 Dose: 5,000 unit Documented By: BETTY Piperacillin Sod/Tazobactam (Sod 3.375 gm/ Sodium Chloride) 50 mls @ 100 mls/hr IV Q6H [facility] Last Infusion: 04/10/23 05:07 Dose: 0 mls/hr Documented By: BETTY Insulin Human Lispro (Insulin Lispro 100 Unit/Ml 3 Ml Vial) 0 unit SUBCUT QIDACHS [facility]; Protocol Last Admin: 04/10/23 07:41 Dose: Not Given Documented By: ROXIE Non-Admin Reason: No Insulin Coverage Metoprolol Succinate (Metoprolol Succinate Er 50 Mg Tab.Er.24h) 50 mg PO DAILY [facility]; Protocol Last Admin: 04/09/23 08:59 Dose: 50 mg Documented By: ANGELA Morphine Sulfate (Morphine Sulfate 4 Mg/Ml Cartridge) 4 mg IVPUSH Q4H PRN; Protocol PRN Reason: Pain, Severe (Pain Scale 7-10) Last Admin: 04/08/23 13:21 Dose: 4 mg Documented By: MARCIN Ondansetron HCl (Ondansetron Hcl 4 Mg/2 Ml Vial) 4 mg IVPUSH Q8H PRN PRN Reason: Nausea and Vomiting Ondansetron HCl (Ondansetron Hcl 4 Mg/2 Ml Vial) 4 mg IVPUSH ONCE PRN PRN Reason: Nausea and Vomiting Oxybutynin Chloride (Oxybutynin Chloride Er 5 Mg Tab.Er.24) 10 mg PO DAILY [facility] Last Admin: 04/09/23 08:57 Dose: 10 mg Documented By: ANGELA Oxycodone HCl (Oxycodone Hcl Immed Release 5 Mg Tablet) 5 mg PO Q6H PRN PRN Reason: Pain, Moderate(Pain Scale 4-6) Last Admin: 04/09/23 21:24 Dose: 5 mg Documented By: ERNESTO Pharmacy Consult (Consult Rx Perform Med Rec) 1 each MISCELLANE ONCE PRN PRN Reason: Consult order Sertraline HCl (Sertraline Hcl 100 Mg Tablet) 100 mg PO DAILY [facility] Last Admin: 04/09/23 08:57 Dose: 100 mg Documented By: ANGELA Sodium Chloride (0.9 % Sodium Chloride Flush 3 Ml Syringe) 3 ml IVFLUSH QSHIFT [facility] Last Admin: 04/09/23 21:26 Dose: 3 ml Documented By: ERNESTO Labs 04/10/23 06:24 04/10/23 06:24 Labs: Laboratory Results - last 24 hr 04/09/23 04/09/23 04/09/23 11:05 15:13 19:44 MCV MCH MCHC RDW Plt Count MPV Absolute Nucleated RBC Nucleated RBC % (auto) Anion Gap Estim Creat Clear Calc Estimated GFR POC Glucose 200 H 150 H 151 H Random Glucose Calcium 04/10/23 04/10/23 04/10/23 06:24 06:24 07:11 MCV 82.4 MCH 27.0 MCHC 32.7 RDW 18.2 H Plt Count 238 MPV 8.7 L Absolute Nucleated RBC 0.000 Nucleated RBC % (auto) 0.0 Anion Gap 13 Estim Creat Clear Calc 95.8 Estimated GFR > 60 POC Glucose 122 H Random Glucose 117 H Calcium 8.6 Microbiology Microbiology Results: Microbiology 04/04/23 23:34 Blood Culture - Final Blood - Venous No growth after 5 days. 04/04/23 23:34 Blood Culture - Final Blood - Venous No growth after 5 days. Procedures Date of Service Date of Service: 04/10/23 Progress Note: A&P Assessment and plan (1) Necrotizing fasciitis: Status: Acute (2) S/P AKA (above knee amputation) unilateral: Status: Acute Plan 67-year-old female patient with hx of chronic LE lymphedema and chronic bilateral leg ulcers who was admitted with severe gangrenous changes found to have necrotizing fasciitis requiring left AKA. Patient is comfortable this morning and wounds appear clean without evidence of gangrenous changes. Continue physical therapy. Will need short-term rehab. Time Spent With Patient Time: Total time managing care of this patient today ____ minutes. Quality Stroke Does the patient have a stroke diagnosis?: No VTE Prior VTE?: No VTE Risk Level:: Medical - moderate - high VTE Device Contraindication: Treatment Not Indicated VTE Drug Contraindication: N/A - Med Ordered
[2023-04-10] MEDS: oxyBUTYnin chloride ER 5 MG TAB.ER.24 10 MG PO (09:43)
[2023-04-10] MEDS: Sertraline HCL 100 MG TABLET PO (09:44)
[2023-04-10] MEDS: Famotidine 20 MG TABLET 40 MG PO (09:44)
[2023-04-10] MEDS: Metoprolol Succinate ER 50 MG TAB.ER.24H PO (09:44)
[2023-04-10] MEDS: 0.9 % Sodium Chloride Flush 3 ML SYRINGE IVFLUSH ×3 (09:44→20:01)
--- NOTE | 2023-04-10 10:35 | MHC.CM.PN ---
Addendum entered by Ester [place] 04/10/23 15:54: [facility] received auth, however they stated they also filled their last bed and won't have a bed open until tomorrow after 3pm. Plan will be for pt to discharge to [facility] tomorrow. Transport via BLS. Addendum entered by Ester [place] 04/10/23 13:55: [facility] has offered pt a bed and submitted for insurance auth. Pt and MD aware. Original Note: EMR reviewed and per MD rounds, pt is medically cleared for D/C for rehab. Per PT recommendations are for acute rehab. This CM met with pt and [facility] in [place] is her first preference. Referrals placed via careport. OT eval also pending. CM will continue to follow for D/C.
[2023-04-10 11:14] LABS: Glucose, Whole Blood 175 mg/dL (60-115)
[2023-04-10 12:00] VITALS: BP 141/65; PULSE 70; RESP 20; TEMP 36.6; O2SAT 100
[2023-04-10] MEDS: Insulin Lispro 100 UNIT/ML 3 ML VIAL SUBCUT ×2 (12:05→17:19)
--- NOTE | 2023-04-10 12:09 | P.DS_ITS ---
DS: Providers Provider Date of Service: 04/10/23 Date of admission: 04/04/23 16:55 Primary care physician: Tre White MD Consults: 04/04/23 17:08 Consult to General Surgery Routine Consulting Provider: [facility] [place] [place] General Surgeons Reason for consultation: leg wounds Has provider been notified: No 04/08/23 15:52 Consult to Wound Care Routine Consulting Provider: Veronique Kaufman Reason for consultation: WND DS: Diagnosis Discharge Diagnosis (1) Necrotizing fasciitis: Status: Acute (2) S/P AKA (above knee amputation) unilateral: Status: Acute DS: Summary Hospital Course Hospital Course: Chief Complaint:? generalized weakness bilateral leg wound ?67-year-old female patient with past medical history significant for longstanding bilateral lower extremity lymphedema, with bilateral lower leg wounds ,status post debridement on 03/[address] Valdivia, history of hypertension, diabetes, atrial flutter not on anticoagulation due to history of GI bleed, history of PE greater than 4 years ago, patient has VNA services 3 times per week this morning VNA felt, patient is weak and not herself with worsening left lower extremity wound with foul drainage therefore recommended her to ED, according to patient she had fever of 103 , few days ago, but today she denies fever, chills, denies nausea, vomiting, no diarrhea, denies headache, no dizziness, no shortness of breath, she has chronic urinary incontinence, she has been on antibiotic Bactrim 4 more days of antibiotic are left but do not feel any improvement in leg wound she gets dressing change 3 times per week by VNA, as per patient she is compliant with all home medications,With good blood sugar control. patient ambulates with walker, lives at home with she fell few days ago while getting up from the chair had to call EMS but was not brought to ED, did not sustain acute injuries. in ED patient noted to? have soft blood pressures, afebrile, normal oxygenation, WBC 25,600, hematocrit 27.5 with last hematocrit 32.8 in February 2023, sodium 125, creatinine 3.5 with no prior history of chronic kidney disease, blood sugar 148, UA not collected patient treated in the emergency room with intravenous vanco and IV Zosyn IV and now being admitted for acute renal failure, hyponatremia bilateral leg wound and left lower extremity cellulitis. Hospital course: She presented with weakness and bilateral infected lower extremity wounds and developped necrotizing fascitis on the left side that ultimately resulted in above the knee amputation on 04/06, blook cultures grew Bacteriodes Fragilis and 1 coag negative staph (likely contamination), She has been treated with IV Vancomycin and Zosyn since 04/04, Vanco was stopped on 04/09 and continued on Zosyn. Will change to oral Flagyl for 7 days and doxycline 100 mg for 5 days to continue local wound care as recommended by Surgery and wound care. right lower extremity ulcers healing well. continue analgesics, daily dressing change to left AKA stump with fluffs, abd dressing, kerlix wrap and stockinette to keep in place. Continue daily dressing changes of RLE wounds with silver alginate followed by fluffs and kerlix wrap,as per General surgery . history of atrial flutter, briefly went into atrial flutter in ICU resolved with beta-blockers. continue metoprolol now in normal sinus rhythm. ?acute kidney injury--likely multifactorial due to Bactrim/decreased by mouth intake and use of diuretics, resolved Creatine is now 0.70 ?hypovolemic hyponatremia:? resolved. ?acute on chronic normocytic anemia ? hematocrit dropped to 19.4? received 2 units of packed RBC hematocrit improved to 26.7 ?likely multifactorial? oozing from surgical site,dilutional + iron studies showed mixed picture low iron saturation, but consistent with anemia of chronic disease, follow stool guaiac. ?Acute lactic acidosis resolved with IVF. ?Diabetes mellitus? stable blood sugars continue diabetic diet and insulin sliding scale, hold Monjaro. ?bilateral? buttock pressure ulcer stage II,/ noted to have periurethral hyperemia and skin abrasion, Urena catheter for skin integrity, high-protein diet frequent position change. ?chronic urinary incontinence continue oxybutynin. ?morbid obesity weight loss recommended Time Spent with Patient Time attestation: Total time managing care of this patient today ____ minutes. Discharge coordination time: Greater than 30 minutes Quality: Safe Use of Opioids Does Pt have an Active Cancer Diagnosis on the Problem List?: No Quality: Stroke Does the patient have a stroke diagnosis?: No Physical Exam Vital Signs: Vital Signs: Last Vital Signs Temp 97.0 F 04/10/23 07:12 Pulse 67 04/10/23 07:12 Resp 20 04/10/23 07:12 BP 139/67 04/10/23 07:12 Pulse Ox 99 04/10/23 07:12 O2 Del Method Room Air 04/10/23 07:12 O2 Flow Rate 2 04/06/23 17:04 BMI result Body Mass Index 41.6 DS: Data Data Completed and Pending Pending studies at discharge: Pending at discharge 04/06/23 16:09 Surgical [PTH] Routine Labs on day of discharge: Laboratory Results - last 24 hr 04/09/23 04/09/23 04/10/23 15:13 19:44 06:24 WBC RBC Hgb Hct MCV MCH MCHC RDW Plt Count MPV Absolute Nucleated RBC Nucleated RBC % (auto) Sodium 141 Potassium 4.2 D Chloride 113 H Carbon Dioxide 19 L Anion Gap 13 BUN 14 Creatinine 0.70 Estim Creat Clear Calc 95.8 Estimated GFR > 60 POC Glucose 150 H 151 H Random Glucose 117 H Calcium 8.6 04/10/23 04/10/23 04/10/23 06:24 07:11 11:06 WBC 7.1 RBC 3.41 L Hgb 9.2 L Hct 28.1 L MCV 82.4 MCH 27.0 MCHC 32.7 RDW 18.2 H Plt Count 238 MPV 8.7 L Absolute Nucleated RBC 0.000 Nucleated RBC % (auto) 0.0 Sodium Potassium Chloride Carbon Dioxide Anion Gap BUN Creatinine Estim Creat Clear Calc Estimated GFR POC Glucose 122 H 175 H Random Glucose Calcium Discharge Plan Discharge Anticipated Discharge Date/Time: 04/11/23 14:42 Patient Disposition: [facility] Discharge Diagnosis: Necrotizing fascitis Referrals: Дмитрий Valdivia MD [Physician] - 1 Week Tre White MD [Primary Care Provider] - 1 Week Discharge Medications: New metronidazole 500 mg Tablet 500 mg PO Q12H Qty: 14 0RF doxycycline hyclate 100 mg tablet 100 mg PO BID 7 Days Qty: 14 0RF Continued furosemide 40 mg tablet 40 mg PO DAILY metoprolol succinate 50 mg tablet extended release 24 hr 50 mg PO DAILY famotidine 40 mg tablet 40 mg PO DAILY clonazepam 0.5 mg tablet 0.5 mg PO DAILY PRN (Reason: Anxiety) sertraline 100 mg tablet 100 mg PO DAILY gabapentin 300 mg capsule 300 mg PO BEDTIME Mounjaro 10 mg/0.5 mL pen injector 10 mg subcut FR oxybutynin chloride 10 mg tablet extended release 24hr 10 mg PO DAILY acetaminophen 650 mg Tablet Extended Release 1,300 mg PO DAILY budesonide 3 mg capsule,delayed,extend.release 3 mg PO QAM cholecalciferol (vitamin D3) 25 mcg (1,000 unit) Tablet 25 mcg PO DAILY multivitamin Tablet 1 tab PO DAILY cetirizine 10 mg Tablet 10 mg PO DAILY oxycodone 5 mg capsule 5 mg PO Q6H PRN (Reason: pain (scale score 7-10)) Qty: 15 0RF Rx Instructions: Partial Fill upon patient request. Discontinued sulfamethoxazole-trimethoprim 800-160 mg tablet 1 tab PO BID Discharge Orders: Discharge Order (Routine); Ordered 04/11/23 Ordered By: Gareth Christianson Diet: Advance to usual diet Activity on Discharge: As tolerated Stand Alone Forms: Patient Portal Discharge page Activity Restrictions/Additional Instructions: Daily and PRN wound care: Left AKA stump: fluffs, abdominal dressings, kerlix wrap, stockinette followed by melchor wrap for compression RLE ulcers: silver alginate followed by fluffs and kerlix wrap Care Plan Goals: Healing of the wound Health Concerns: Necrotizing fascitis Plan of Treatment: Take Flagyl 500 mg twice daily for 7 more days, Take Augmentin 875 mg twice daily for 5 days Wound dressing as above, follow upwith Dr. Valentino Assessment: as above
[2023-04-10 15:19] VITALS: BP 133/87; PULSE 75; RESP 14; TEMP 36.1; O2SAT 100
[2023-04-10 16:02] LABS: Glucose, Whole Blood 157 mg/dL (60-115)
[2023-04-10 19:34] VITALS: BP 129/69; PULSE 82; RESP 14; TEMP 36.5; O2SAT 94
[2023-04-10 19:42] LABS: Glucose, Whole Blood 131 mg/dL (60-115)
[2023-04-10] MEDS: Gabapentin 300 MG CAPSULE PO (19:59)
[2023-04-10 23:47] VITALS: BP 121/67; PULSE 87; RESP 18; TEMP 37.1; O2SAT 97
[2023-04-11] MEDS: Heparin Sodium,Porcine 5,000 UNIT/ML VIAL 5000 UNIT SUBCUT ×2 (00:16→08:45)
[2023-04-11] MEDS: Piperacillin Sodium/Tazobactam 3.375 GM in 0.9 % Sodium Chloride 50 ML IV ×2 (03:28→08:45)
[2023-04-11 04:00] VITALS: BP 137/75; PULSE 80; RESP 18; TEMP 36.4; O2SAT 95
[2023-04-11 06:00] VITALS: BMI 42.1
[2023-04-11 07:20] LABS: Creatinine Clr Calc Pharmacy 96.4; Estimated Glomerular Filt Rate > 60
[2023-04-11 07:41] LABS: Glucose, Whole Blood 129 mg/dL (60-115)
[2023-04-11 07:52] VITALS: BP 146/85; PULSE 79; RESP 20; TEMP 36.1; O2SAT 97
--- NOTE | 2023-04-11 08:19 | P.PNGS_ITS ---
Subjective Subjective Date of Service: 04/11/23 <Audrey Khan PA-C - Last Filed: 04/11/23 08:24> 04/11/23 <Дмитрий Valdivia MD - Last Filed: 04/11/23 08:27> Interval history: Pain is well controlled. Tolerating diet and appetite increasing. Participating with PT. <Audrey Khan PA-C - Last Filed: 04/11/23 08:24> Physical Exam Vital Signs: Vital Signs: Last Vital Signs Temp 97.0 F 04/11/23 07:52 Pulse 79 04/11/23 07:52 Resp 20 04/11/23 07:52 BP 146/85 H 04/11/23 07:52 Pulse Ox 97 04/11/23 07:52 O2 Del Method Room Air 04/11/23 07:52 O2 Flow Rate 2 04/06/23 17:04 BMI result Body Mass Index 42.1 <Audrey Khan PA-C - Last Filed: 04/11/23 08:24> Const: General: comfortable, no acute distress and alert <Audrey Khan PA-C - Last Filed: 04/11/23 08:24> Orientation/consciousness: patient oriented x3 <Audrey Khan PA-C - Last Filed: 04/11/23 08:24> Resp: Effort & Inspection: normal respiratory effort <Audrey Khan PA-C - Last Filed: 04/11/23 08:24> Skin: Other: no rash <Audrey Khan PA-C - Last Filed: 04/11/23 08:24> Neuro: General: patient oriented x3 and moves all extremities <BELINDA Archuleta Last Filed: 04/11/23 08:24> Extrem: Other: left AKA stump clean appearing, small openings between keren where wound radha were in place with small amount of serosanguineous drainage; no evidence of further necrosis, no erythema, mild edema <BELINDA Archuleta Last Filed: 04/11/23 08:24> Objective Data Active Medications Acetaminophen (Acetaminophen 325 Mg Tablet) 975 mg PO Q8H PRN PRN Reason: Pain, Mild (Pain Scale 1-3) Last Admin: 04/09/23 21:25 Dose: 975 mg Documented By: ERNESTO Clonazepam (Clonazepam 0.5 Mg Tablet) 0.5 mg PO BID PRN PRN Reason: Anxiety Dextrose (Dextrose 50 % 25 Gm/50 Ml Syringe) 25 gm IVPUSH Q2H PRN; Protocol PRN Reason: per Hypoglycemia Standing Ord. Famotidine (Famotidine 20 Mg Tablet) 40 mg PO DAILY [facility] Last Admin: 04/10/23 09:44 Dose: 40 mg Documented By: ROXIE Gabapentin (Gabapentin 300 Mg Capsule) 300 mg PO BEDTIME [facility] Last Admin: 04/10/23 19:59 Dose: 300 mg Documented By: ERNESTO Glucose (Glucose Gel 15 Gm Gel..Gram.) 15 gm PO Q15M PRN; Protocol PRN Reason: per Hypoglycemia Standing Ord. Heparin Sodium (Porcine) (Heparin Sodium,Porcine 5,000 Unit/Ml Vial) 5,000 unit SUBCUT Q8H [facility] Last Admin: 04/11/23 00:16 Dose: 5,000 unit Documented By: ISAAC Piperacillin Sod/Tazobactam (Sod 3.375 gm/ Sodium Chloride) 50 mls @ 100 mls/hr IV Q6H [facility] Last Infusion: 04/11/23 05:00 Dose: 0 mls/hr Documented By: UMAIR Insulin Human Lispro (Insulin Lispro 100 Unit/Ml 3 Ml Vial) 0 unit SUBCUT QIDACHS [facility]; Protocol Last Admin: 04/11/23 07:49 Dose: Not Given Documented By: ROLLY Non-Admin Reason: No Insulin Coverage Metoprolol Succinate (Metoprolol Succinate Er 50 Mg Tab.Er.24h) 50 mg PO DAILY [facility]; Protocol Last Admin: 04/10/23 09:44 Dose: 50 mg Documented By: ROXIE Morphine Sulfate (Morphine Sulfate 4 Mg/Ml Cartridge) 4 mg IVPUSH Q4H PRN; Protocol PRN Reason: Pain, Severe (Pain Scale 7-10) Last Admin: 04/08/23 13:21 Dose: 4 mg Documented By: MARCIN Ondansetron HCl (Ondansetron Hcl 4 Mg/2 Ml Vial) 4 mg IVPUSH Q8H PRN PRN Reason: Nausea and Vomiting Ondansetron HCl (Ondansetron Hcl 4 Mg/2 Ml Vial) 4 mg IVPUSH ONCE PRN PRN Reason: Nausea and Vomiting Oxybutynin Chloride (Oxybutynin Chloride Er 5 Mg Tab.Er.24) 10 mg PO DAILY [facility] Last Admin: 04/10/23 09:43 Dose: 10 mg Documented By: ROXIE Oxycodone HCl (Oxycodone Hcl Immed Release 5 Mg Tablet) 5 mg PO Q6H PRN PRN Reason: Pain, Moderate(Pain Scale 4-6) Last Admin: 04/09/23 21:24 Dose: 5 mg Documented By: ERNESTO Pharmacy Consult (Consult Rx Perform Med Rec) 1 each MISCELLANE ONCE PRN PRN Reason: Consult order Sertraline HCl (Sertraline Hcl 100 Mg Tablet) 100 mg PO DAILY [facility] Last Admin: 04/10/23 09:44 Dose: 100 mg Documented By: ROXIE Sodium Chloride (0.9 % Sodium Chloride Flush 3 Ml Syringe) 3 ml IVFLUSH QSHIFT [facility] Last Admin: 04/10/23 20:01 Dose: 3 ml Documented By: ERNESTO <Audrey Khan PA-C - Last Filed: 04/11/23 08:24> Labs CBC & Chem 7: 04/10/23 06:24 04/11/23 06:28 <Audrey Khan PA-C - Last Filed: 04/11/23 08:24> Labs: Laboratory Results - last 24 hr 04/10/23 04/10/23 04/10/23 11:06 15:58 19:38 Estim Creat Clear Calc Estimated GFR POC Glucose 175 H 157 H 131 H 04/11/23 04/11/23 06:28 07:38 Estim Creat Clear Calc 96.4 Estimated GFR > 60 POC Glucose 129 H <Audrey Khan PA-C - Last Filed: 04/11/23 08:24> Microbiology Microbiology Results: Microbiology 04/04/23 23:34 Blood Culture - Final Blood - Venous No growth after 5 days. <Audrey Khan PA-C - Last Filed: 04/11/23 08:24> Procedures Date of Service Date of Service: 04/11/23 <Audrey Khan PA-C - Last Filed: 04/11/23 08:24> 04/11/23 <Дмитрий Valdivia MD - Last Filed: 04/11/23 08:27> Progress Note: A&P Assessment and plan (1) S/P AKA (above knee amputation) unilateral: Status: Acute <Audrey Khan PA-C - Last Filed: 04/11/23 08:24> (2) Necrotizing fasciitis: Status: Acute <Audrey Khan PA-C - Last Filed: 04/11/23 08:24> (3) Lymphedema of both lower extremities: Status: Acute <Audrey Khan PA-C - Last Filed: 04/11/23 08:24> Assessment and Plan: 67-year-old female patient with hx of chronic LE lymphedema and chronic bilateral leg ulcers who was admitted with severe gangrenous changes found to have necrotizing fasciitis requiring left AKA. Patient is doing well post op and remains comfortable with clean AKA stump without evidence of gangrenous changes. Continue physical therapy. Rafael montemayor. Stable for transfer to [facility] when medically cleared. Continue daily dressings changes with fluffs, abd dressing, kerlix wrap, stockinette followed by melchor wrap to AKA stump and silver alginate to RLE ulcers. F/u in office in [address] Valdivia. <Audrey Khan PA-C - Last Filed: 04/11/23 08:24> 67-year-old female patient with hx of chronic LE lymphedema and chronic bilateral leg ulcers who was admitted with severe gangrenous changes found to have necrotizing fasciitis requiring left AKA. Patient is doing well post op and remains comfortable with clean AKA stump without evidence of gangrenous changes. Continue physical therapy. Rafael montemayor. Stable for transfer to [facility] when medically cleared. Continue daily dressings changes with fluffs, abd dressing, kerlix wrap, stockinette followed by melchor wrap to AKA stump and silver alginate to RLE ulcers. F/u in office in [address] Valdivia. Agree with the above assessment and plan. Wounds are clean with no evidence of fasciitis/skin necrosis. Compressive dressing applied. Possible discharge to [facility] later today. <Дмитрий Valdivia MD - Last Filed: 04/11/23 08:27> Time Spent With Patient Time: Total time managing care of this patient today ____ minutes. <Audrey Khan PA-C - Last Filed: 04/11/23 08:24> Quality Stroke Does the patient have a stroke diagnosis?: No <Audrey Khan PA-C - Last Filed: 04/11/23 08:24> VTE Prior VTE?: No <Audrey Khan PA-C - Last Filed: 04/11/23 08:24> VTE Risk Level:: Medical - moderate - high <Audrey Khan PA-C - Last Filed: 04/11/23 08:24> VTE Device Contraindication: Treatment Not Indicated <Audrey Khan PA-C - Last Filed: 04/11/23 08:24> VTE Drug Contraindication: N/A - Med Ordered <Audrey Khan PA-C - Last Filed: 04/11/23 08:24>
[2023-04-11] MEDS: oxyBUTYnin chloride ER 5 MG TAB.ER.24 10 MG PO (08:44)
[2023-04-11] MEDS: Famotidine 20 MG TABLET 40 MG PO (08:45)
[2023-04-11] MEDS: Metoprolol Succinate ER 50 MG TAB.ER.24H PO (08:45)
[2023-04-11] MEDS: Sertraline HCL 100 MG TABLET PO (08:45)
[2023-04-11] MEDS: 0.9 % Sodium Chloride Flush 3 ML SYRINGE IVFLUSH (08:45)
[2023-04-11 11:21] LABS: Glucose, Whole Blood 171 mg/dL (60-115)
--- NOTE | 2023-04-11 11:28 | MHC.CM.PN ---
Pt is medically cleared for D/C today to [facility] for acute rehab, transport set up for 3pm today via [facility].
--- NOTE | 2023-04-11 11:32 | MHC.CLN ---
F/U VARIABLE PO INTAKE DIET RX: 2000DM-APPROPRIATE PT RECEIVING ENSURE MAX BID TO PROMOTE WOUND HEALING SUPP PROVIDES 300KCLAS, 60G PROTEIN MONITOR PO INTAKE CLOSELY
[2023-04-11 11:41] VITALS: BP 131/80; PULSE 76; RESP 20; TEMP 36.8; O2SAT 97
[2023-04-11] MEDS: metroNIDAZOLE 500 MG TABLET PO (11:49)
[2023-04-11] MEDS: Insulin Lispro 100 UNIT/ML 3 ML VIAL SUBCUT (11:55)
--- NOTE | 2023-04-11 13:44 | PC.NURSE ---
montemayor cath removed at 1200. patient tolerated well. DUe to void at 1800
--- NOTE | 2023-04-18 07:15 | P.CDIM_ITS ---
PROVIDER RESPONSE TEXT: To clarify, the appropriate diagnosis supported by the clinical indicators: Acute QUERY TEXT: PHYSICIAN'S DOCUMENTATION REQUEST Date of Query: 04/09/2023 08:58 AM EDT Patient Name: Anna Alejo Admit Date: 04/04/2023 Dear Veronique Kaufman, A review of the medical record indicates additional documentation may be needed. Please review below and update the documentation accordingly. Clinical Indicators: Per Hospitalist Progress Note 04/08/23: lactic acidosis resolved with IVF Clarify which of the following accurately represents the acuity of the Lactic Acidosis. Possible options might include: Acute Acute on chronic Compensated Chronic stable condition Remission Other (explain)Clinically unable to determine (explain)Thank you, Felicia Mak RN Use of terms such as suspected, likely, concern for, or probable (associated with a specific diagnosi s that is being evaluated, monitored, or treated as if it exists) are acceptable and can be coded in the inpatient se tting, when documented at the time of discharge. Please use your independent medical judgment in providing your response. THIS QUERY IS PART OF THE PERMANENT MEDICAL RECORD
--- NOTE | 2023-04-18 07:15 | P.CDIM_ITS ---
PROVIDER RESPONSE TEXT: To clarify, the appropriate diagnosis supported by the clinical indicators: Other (explain): multifactorial no acute blood loss QUERY TEXT: PHYSICIAN'S DOCUMENTATION REQUEST Date of Query: 04/09/2023 08:54 AM EDT Patient Name: Anna Alejo Admit Date: 04/04/2023 Dear Veronique Kaufman, A review of the medical record indicates additional documentation may be needed. Please review below and update the documentation accordingly. Clinical Indicators: Per Hospitalist Progress Note 04/08/23: acute on chronic normocytic anemia hematocrit dropped to 19.4 received 2 units of packed RBC hematocr it improved to 26.7 likely multifactorial oozing from surgical site, dilutional + iron studies showed mixed picture low i evan saturation, but consistent with anemia of chronic disease, follow stool guaiac H&H on 04/06/23: 7.4/21.7 H&H on 04/07/23: 6.7/19.4 H&H on 04/07/23: 9.1/26.7 Based on the above, could you clarify which of the following is the most likely type of anemia you ar e evaluating, treating, and/or monitoring? Acute blood loss anemia Acute blood loss anemia with baseline chronic anemia (specify type) Anemia of chronic disease indicate if neoplastic disease, CKD, or other Chronic iron deficiency anemia due to blood loss Other (explain)Clinically unable to determine (explain)Thank you, Felicia Mak RN Use of terms such as suspected, likely, concern for, or probable (associated with a specific diagnosi s that is being evaluated, monitored, or treated as if it exists) are acceptable and can be coded in the inpatient se tting, when documented at the time of discharge. Please use your independent medical judgment in providing your response. THIS QUERY IS PART OF THE PERMANENT MEDICAL RECORD
== END 2023-04-11 15:52 | disposition skilled nursing facility (03) | DRG 305 ==
LOC: HO.ED 14:51 → HO.EDOVER 17:00 → HO.IMC 17:10 → HO.ICU 04-06 16:01 → HO.IMC 04-07 09:02
PROVIDERS: Internal Medicine; Internal Medicine Pulmonary Disease; Physician Assistant Medical; Surgery; Admitting Provider Hospitalist; Emergency Provider Internal Medicine; PCP Pediatrics; Visit Provider Internal Medicine
PROC: 0Y6D0Z3 Detachment at Left Upper Leg, Low, Open Approach (ICD-10-PCS; principal; 2023-04-06 13:00)
DX: M72.6 Necrotizing fasciitis (principal); N17.8 Other acute kidney failure; E87.21 Acute metabolic acidosis; L89.312 Pressure ulcer of right buttock, stage 2; L89.322 Pressure ulcer of left buttock, stage 2; E11.52 Type 2 diabetes mellitus with diabetic peripheral angiopathy with gangrene; I48.92 Unspecified atrial flutter; E87.1 Hypo-osmolality and hyponatremia; E86.0 Dehydration; N14.19 Nephropathy induced by other drugs, medicaments and biological substances; T36.8X5A Adverse effect of other systemic antibiotics, initial encounter; L03.116 Cellulitis of left lower limb; D63.8 Anemia in other chronic diseases classified elsewhere; I87.313 Chronic venous hypertension (idiopathic) with ulcer of bilateral lower extremity; Q82.0 Hereditary lymphedema; L03.115 Cellulitis of right lower limb; T50.2X5A Adverse effect of carbonic-anhydrase inhibitors, benzothiadiazides and other diuretics, initial encounter; L97.829 Non-pressure chronic ulcer of other part of left lower leg with unspecified severity; L97.819 Non-pressure chronic ulcer of other part of right lower leg with unspecified severity; E86.1 Hypovolemia; E66.01 Morbid (severe) obesity due to excess calories; Z68.41 Body mass index [BMI] 40.0-44.9, adult; R32 Unspecified urinary incontinence; Z86.718 Personal history of other venous thrombosis and embolism; Z79.899 Other long term (current) drug therapy
CPT/HCPCS: 36415; 71045; 73560; 73600; 80048; 80053; 80202; 82040; 82565; 82728; 82803; 82947; 83540; 83605; 83735; 84100; 85014; 85018; 85025; 85027; 85610; 85730; 86850; 86900; 86901; 86923; 87040; 87076; 87147; 88307; 93005; 97163; 97167; 97530; 97535; 99285; 99499; C1758; J0131; J0282; J0283; J1100; J1160; J1170; J1643; J2250; J2270; J2370; J2371; J2405; J2543; J3010; J3370; P9016; P9047

== ENCOUNTER → 2023-04-04 14:07 | Outpatient (BNV) | payer BC, SELFPAY | PROVIDERS: Admitting Provider Hospitalist; Emergency Provider Internal Medicine; PCP Pediatrics; Visit Provider Internal Medicine Cardiovascular Disease | DX: I48.91 Unspecified atrial fibrillation (principal) | CPT/HCPCS: 93010 ==

== ENCOUNTER 2023-04-04 16:55 | Outpatient (BNV) | payer BC, SELFPAY | END 2023-04-06 17:43 | PROVIDERS: Admitting Provider Hospitalist; Emergency Provider Internal Medicine; PCP Pediatrics; Visit Provider Internal Medicine Cardiovascular Disease | DX: I49.9 Cardiac arrhythmia, unspecified (principal) | CPT/HCPCS: 93010 ==

== ENCOUNTER → 2023-04-04 16:55 | Outpatient (BNV) | payer BC, SELFPAY | PROVIDERS: Admitting Provider Hospitalist; Emergency Provider Internal Medicine; PCP Pediatrics; Visit Provider Internal Medicine Pulmonary Disease | DX: I48.92 Unspecified atrial flutter (principal); M72.6 Necrotizing fasciitis; I89.0 Lymphedema, not elsewhere classified; E66.01 Morbid (severe) obesity due to excess calories | CPT/HCPCS: 99232; 99499 ==

== ENCOUNTER → 2023-04-04 16:55 | Outpatient (BNV) | payer BC, SELFPAY | PROVIDERS: Admitting Provider Hospitalist; Emergency Provider Internal Medicine; PCP Pediatrics; Visit Provider Hospitalist | DX: M72.6 Necrotizing fasciitis (principal); Z89.619 Acquired absence of unspecified leg above knee | CPT/HCPCS: 99223; 99232; 99233; 99239; 99499 ==

== ENCOUNTER → 2023-04-04 16:55 | Outpatient (BNV) | payer BC, SELFPAY | PROVIDERS: Admitting Provider Hospitalist; Emergency Provider Internal Medicine; PCP Pediatrics; Visit Provider Surgery | DX: M72.6 Necrotizing fasciitis (principal); Z89.619 Acquired absence of unspecified leg above knee | CPT/HCPCS: 11042; 27590; 99024; 99222 ==

== ENCOUNTER → 2023-04-11 16:00 | Outpatient (RCR) | payer BC, SELFPAY | END | disposition home or self-care (01) | LOC: HO.WCC 04-03 08:06 | PROVIDERS: Visit Provider Physician Assistant | DX: L97.812 Non-pressure chronic ulcer of other part of right lower leg with fat layer exposed (principal); L97.222 Non-pressure chronic ulcer of left calf with fat layer exposed; I96 Gangrene, not elsewhere classified; Q82.0 Hereditary lymphedema; I10 Essential (primary) hypertension | CPT/HCPCS: 11042; 11045; 11104; 88304; 88305; 99212; 99214 ==

== ENCOUNTER 2023-04-19 16:06 | Outpatient (AMB) | payer BC, SELFPAY ==
--- NOTE | 2023-04-19 16:06 | A.OFFVIS_ITS ---
Intake Vital Signs 04/19/23 16:12 Height 5 ft 7 in Weight 233 lb BMI 36.5 BP 120/82 Intake Visit Reasons: debridement BI leg ulcers, above knee amp left leg Intake Note: Patient is seen in office for post op assessment post above the knee amputation of the left leg. Patient c/o: denies any concerns at the time of visit, dressing changed daily Office Clerk Routine Required: No Accompanied by: Other Relationship Allergies diltiazem [From Cardizem] Allergy (Verified 04/19/23 16:13) Hives Penicillins Allergy (Verified 04/19/23 16:13) Rash Medication List - Last Reconciled 04/23/23 by Дмитрий Valdivia MD acetaminophen ER 1,300 mg PO DAILY bisacodyl 5 mg PO BEDTIME budesonide ER 3 mg PO QAM cetirizine 10 mg PO DAILY cholecalciferol (vitamin D3) 25 mcg PO DAILY clonazepam 0.5 mg PO DAILY PRN clonazepam 0.5 mg PO DAILY doxycycline hyclate 100 mg PO BID 7 days enoxaparin (Lovenox) 40 mg subcut DAILY famotidine 40 mg PO DAILY furosemide 40 mg PO DAILY gabapentin 300 mg PO BEDTIME lactulose 20 grams PO BID metoprolol succinate ER 50 mg PO DAILY metoprolol succinate ER (Toprol XL) 50 mg PO DAILY metronidazole 500 mg PO Q12H multivitamin 1 tab PO DAILY oxybutynin chloride ER 10 mg PO DAILY oxycodone 5 mg PO Q6H PRN polyethylene glycol 3350 (Miralax) 17 grams PO DAILY sertraline 100 mg PO DAILY tirzepatide (Mounjaro) 10 mg subcut FR HPI HPI Comments History of Present Illness Details Patient returns 1 week following discharge from the hospital after emergency left above knee amputation for necrotizing fasciitis. She is now in rehab and reports feeling fairly well. She does have phantom pain localized to her feet and ankle. She returns today for wound check. [facility] Medical History Anxiety and depression Arthritis Dependent on walker for ambulation Hereditary lymphedema of legs HTN (hypertension) Hx of atrial flutter Hx of deep venous thrombosis Hx pulmonary embolism Incontinence of urine Lymphedema of both lower extremities On beta mahamed at home Pre-diabetes Snores Ulcer of ankle Surgical History History of ankle fusion History of left above knee amputation (04/06/23) History of radiofrequency ablation procedure for cardiac arrhythmia History of surgery on lower extremity History of surgery on lower extremity (03/05/23) Hx of colonoscopy Hx of dilation and curettage Hx of tonsillectomy Social History Household Members: Spouse Housing: House Are you a primary manager progressive care to a significant other at home: No Do you presently have visiting nurse or other home services: No Alcohol intake: never Patient Tobacco Use Status: Never used Tobacco service: No Physical Exam Vital Signs: Last Vital Signs BP 120/82 04/19/23 16:12 BMI result Body Mass Index 36.5 Const General: no acute distress Nutritional Appearance: obese Orientation/consciousness: patient oriented x3 HEENT Head: Yes normocephalic and Yes atraumatic Resp Effort & Inspection: normal respiratory effort Neuro General: patient oriented x3 Extrem Other: Dressings changed to left leg. There was some erythema in the inferior flap from moisture accumulation. There is mild edema at the stump. A clean dry dressing was applied followed by Josh bandage. Patient tolerated dressing change well. Assessment & Plan Assessment & Plan (1) S/P AKA (above knee amputation) unilateral: Comment: left Code(s): Z89.619 - Acquired absence of unspecified leg above knee Plan Patient should continue with physical therapy and local wound care with compressive dressings. I have asked her to return in 1 month for follow-up examination. Coding Level of Care Code Global (58346) Diagnoses S/P AKA (above knee amputation) unilateral Z89.619
--- OUTSIDE RECORDS SUMMARY | 2023-04-19 16:08 | XMS_ITS | Continuity of Care Document ---
Author Name Unknown Organization [facility] ter Address [address] [place] [id number] Care Team Providers Care Diver Tender Name Role Phone Christopher LAU, Tre Primary Care Physician Encounter [facility] Date(s): 03/03/22 - 03/09/[address] [address] Encounter Diagnosis Hypokalemia(Final) - 03/03/22 Symptomatic anemia(Final) - 03/03/22 Leukocytosis(Final) - 03/03/22 Lactic acidosis(Final) - 03/03/22 Discharge Disposition: A-Transfer SNF Attending Physician: Antonio Diaz MD Admitting Physician: Katey Reinoso MD Referring Physician: Not on Staff, Referring MD Allergies, Adverse Reactions, Alerts Substance Reaction Severity Status penicillins rash Active Cardizem hives Active Immunizations Given and Recorded Vaccine Date Status Refusal Reason SARS-CoV-2 (COVID-19) mRNA-1273 vaccine 09/09/21 R ecorded influenza virus vaccine, inactivated 06/18/21 Rahul rded SARS-CoV-2 (COVID-19) mRNA BNT-162b2 vac 01/15/21 Recorded SARS-CoV-2 (COVID-19) mRNA BNT-162b2 vac 12/24/20 Recorded Medications acetaminophen 325 mg oral tablet 650 mg, By Mouth, 3 times a day, Temperature Greater than 100.5, Refills 0, Maintenance, 03/09/22 15:07:00 EDT, Partial fill upon patient request if the prescription is for a schedule II opioid drug. Start Date: 03/09/22 Status: Ordered Acetaminophen Tablet 650 mg, Tablet, By Mouth, Temperature Greater than 100.5, 03/08/22 21:00:00 EDT Start Date: 03/08/22 Stop Date: 03/08/22 Status: Completed budesonide 3 mg oral delayed release capsule See Instructions, 3 capsules by mouth daily for 6 weeks then 2 capsules daily for 4 weeks then 1 capsule daily for 4 weeks, # 210 capsule, 0 Refills, Acute 08/10/22 15:00:00 EST, 03/03/22 7:27:00 EDT, [facility]/pharmacy #[id number], Partial fill upon patient requ... Start Date: 03/03/22 Stop Date: 08/10/22 Status: Ordered cholecalciferol 1000 intl units oral capsule 1 capsule = 25 mcg, By Mouth, Daily, Maintenance, 03/03/22 19:36:00 EDT, Capsule, Partial fill uponpatient request if the prescription is for a schedule II opioid drug. Start Date: 03/03/22 Status: Ordered clonazePAM 0.5 mg oral tablet 1 tablet = 0.5 mg, By Mouth, Daily, PRN Anxiety, 0 Refills, Acute, 11/30/20 3:16:00 EDT, Tablet, Partial fill upon patient request if the prescription is for a schedule II opioid drug. Start Date: 11/30/20 Status: Ordered diclofenac 1% topical gel = 2 Gm, Topically, 2 times a day, 0 Refills, Maintenance, 03/09/22 15:06:00 EDT, Gel, Partial fill upon patient request if the prescription is for a schedule II opioid drug. Start Date: 03/09/22 Status: Ordered Dilaudid 2 mg oral tablet 1 tablet = 2 mg, By Mouth, Every 4 hours, PRN Pain , Severe, # 12 tablet, 0 Refills, Acute 03/11/2215:06:00 EDT, 03/09/22 15:06:00 EDT, Tablet, Partial fill upon patient request if the prescription is for a schedule II opioid drug. Start Date: 03/09/22 Stop Date: 03/11/22 Status: Ordered furosemide 40 mg oral tablet 40 mg, 1, tablet, By Mouth, Daily, Refills 0, Maintenance, 11/30/20 3:16:00 EDT, Partial fill upon patient request if the prescription is for a schedule II opioid drug. Start Date: 11/30/20 Status: Ordered metoprolol 50 mg oral tablet, extended release 50 mg, By Mouth, Daily, # 30 tablet, Refills 0, Tot. Refills 0, Maintenance, 10/25/16 14:55:24, Route to Pharmacy Electronically, [id number], [facility]/pharmacy #[id number] Start Date: 10/25/16 Status: Ordered Multivitamin 1 tablet, By Mouth, Daily, 0 Refills, Maintenance, 01/25/17 6:20:18 EDT Start Date: 01/25/17 Status: Ordered omeprazole 20 mg oral delayed release tablet 1 tablet = 20 mg, By Mouth, Daily, 0 Refills, Maintenance, 03/01/22 10:21:00 EDT, EC Tablet, Partial fill upon patient request if the prescription is for a schedule II opioid drug. Start Date: 03/01/22 Status: Ordered oxybutynin 10 mg/24 hr oral tablet, extended release 1 tablet = 10 mg, By Mouth, Daily, Maintenance, 03/03/22 19:41:00 EDT, ER Tablet, Partial fill uponpatient request if the prescription is for a schedule II opioid drug. Start Date: 03/03/22 Status: Ordered Readi-Cat 2 2.1% oral suspension See Instructions, As instructed prior to CT scan, # 2 each, 0 Refills, Maintenance, 03/03/22 7:27:00 EDT, [facility]/pharmacy #[id number], Partial fill upon patient request if the prescription is for a schedule II opioid drug., As instructed prior to CT scan, 170,... Start Date: 03/03/22 Status: Ordered sertraline 100 mg oral tablet 1 tablet = 100 mg, By Mouth, Daily, Maintenance, 03/03/22 19:34:00 EDT, Tablet, Partial fill upon patient request if the prescription is for a schedule II opioid drug. Start Date: 03/03/22 Status: Ordered ZyrTEC 10 mg oral tablet 1 tablet = 10 mg, By Mouth, Daily, Maintenance, 03/03/22 19:36:00 EDT, Tablet, Partial fill upon patient request if the prescription is for a schedule II opioid drug. Start Date: 03/03/22 Status: Ordered Problem List Condition Effective Dates Status Health Status Inform ant Anxiety(Confirmed) Active Endometrial hyperplasia with out atypia, simple(Confirmed) Active Hypertension(Confirmed) Active IBS (irritable bowel syndrome)(Confirmed) Active Post-menopausal bleeding(Confirmed) Active Severe obesity(Confirmed) Active Results Orders for Microbiology Reports Name Date Blood Culture (BLOOD CULTURE) 03/03/22 Microbiology Reports TEST:Blood Culture STATUS:Auth (Verified) BODY SITE: SOURCE:Blood COLLECTED DATE/TIME:03/03/22 5:40 PM Blood Culture SPECIMEN DESCRIPTION : BLOOD NO SITE SPECIAL REQUESTS : NONE CULTURE : NO GROWTH 5 DAYS. REPORT STATUS : FINAL 03/08/2022 Radiology Reports * Exam Date Time Procedure Performing Provider Status 03/03/22 5:48 PM Chest Portable Alina Gaviria; Auth (Verified) Notes: (Chest Portable) Reason For Exam: Shortness of Breath RESULT: Chest Portable Chest Portable Reason: Shortness of Breath; Clinical Question(s): Pneumonia COMPARISON: 10/24/2016 FINDINGS: LINES AND TUBES: None. LUNGS AND PLEURA: Clear lungs. Normal pulmonary vascularity. No pleural effusion. No pneumothorax. HEART, MEDIASTINUM AND TIFFANIE: Heart is normal in size. Normal upper mediastinal and hilar contour. BONES AND SOFT TISSUES: No acute abnormality. IMPRESSION: No acute abnormality. WSN: [id number] Ordering Physician: Bebe Olmstead Dictated By: Michi Kyle MD Dictated Date/Time: 03/03/22 6:19 pm Reviewed By: Michi Kyle MD Signed By: Michi Kyle MD Signed Date/Time: 03/03/22 6:19 pm Transcribed By: JUAN MANUEL Transcribed Date/Time: 03/03/22 6:18 pm Vital Signs Most recent to oldest [Reference Range]: 1 2 3 Height 170 cm (03/09/22 8:24 AM) 170 cm (03/08/22 11:48 PM) 170 cm (03/08/22 8:28 PM) Weight 122.6 kg (03/04/22 1:54 AM) Oxygen Saturation [94-100 %] 100 % (03/09/22 8:24 AM) 99 % (03/08/22 11:48 PM) 100 % (03/08/22 8:28 PM) Pulse Rate [55-90 bpm] 70 bpm (03/09/22 8:24 AM) 84 bpm (03/08/22 11:48 PM) 86 bpm (03/08/22 8:28 PM) Body Mass Index [18.5-24.99] 42.42 *>HHI* (03/04/22 1:54 AM) Blood Pressure [90-138/55-84 mm Hg] 130/75mm Hg (03/09/22 8:24 AM) 117/69mm Hg (03/08/22 11:48 PM) 120/82mm Hg (03/08/22 8:28 PM) Respiratory Rate [16-30 br/min] 20 br/min (03/09/22 8:24 AM) 18 br/min (03/08/22 11:48 PM) 18 br/min (03/08/22 9:02 PM) Temperature [96.8-100.4 DegF] 97.8 DegF (03/09/22 8:24 AM) 98.3 DegF (03/08/22 11:48 PM) 98.2 DegF (03/08/22 8:28 PM) Mode of Delivery (Oxygen) Room air (03/09/22 8:24 AM) Room air (03/08/22 11:48 PM) Room air (03/08/22 8:28 PM) Blood pressure sites Arm, right (03/09/22 8:24 AM) Arm, right (03/08/22 11:48 PM) Arm, right (03/08/22 8:28 PM) Temperature Route Oral (03/09/22 8:24 AM) Oral (03/08/22 11:48 PM) Oral (03/08/22 8:28 PM) Dry Weight 122.6 kg (03/04/22 1:54 AM) Social History Social History Type Response Smoking Status Never smoker entered on: 04/29/15 Sex
--- OUTSIDE RECORDS SUMMARY | 2023-04-19 16:08 | XMS_ITS | Continuity of Care Document ---
Author Name Unknown Organization [facility] [place] Address [address] [place] [address]- Care Team Providers Care Fire Official Name Role Phone Christopher LAU, Tre Primary Care Physician [phone] Encounter [facility] Date(s): 11/24/22 - 12/24/22 [facility] [place] [address] [place], [place] [address] Attending Physician: Admtr, Piter8 Admitting Physician: AdmtrPiter8 Referring Physician: Admtr, Ar8 Allergies, Adverse Reactions, Alerts Substance Reaction Severity [...] opioid drug. Start Date: 03/09/22 Status: Ordered cholecalciferol 1000 intl units oral [...] opioid drug. Start Date: 03/09/22 Status: Ordered furosemide 40 mg oral tablet [...] Maintenance, 10/25/16 14:55:24, Route to Pharmacy Electronically, [id number], [facility]/pharmacy #[id number] Start Date: 10/25/16 Status: Ordered Mirena 52 mg intrauterine device 1 each = 52 mg, Intrauterine, Once, # 1 each, 0 Refills, Soft Stop, 04/05/22 16:08:00 EDT, [facility], Partial fill upon patient request if the prescription is for a schedule II opioid drug., 170, cm, 03/21/22 10:42:00 EDT, Height, 12... Start Date: 04/05/22 Status: Ordered Multivitamin 1 tablet, By Mouth, [...] each, 0 Refills, Maintenance, 03/03/22 7:27:00 EDT, [facility]/pharmacy #[id number], Partial fill upon patient request if the [...] Date: 03/03/22 Status: Ordered Problem List Condition Confirmation Course Effective Dates Status Health St atus Informant Anxiety Confirmed Active Endometrial hyperplasia without atypia, simple Confirmed Active Hypertension Confirmed Active IBS (irritable bowel syndrome) Confirmed Active Post-menopausal bleeding Confirmed Active PMB (postmenopausal bleeding) Confirmed Active Severe obesity Confirmed Active Social History Social History Type Response Smoking Status Never smoker entered on: 04/29/15 Sex Patient Care team information Care Team Personnel Name: Priscilla Miller Position: [facility] RN Member Role: Primary Care Nurse Name: Tre White MD Position: Reference Physician Member Role: PCP Address: Address: [address] [place] [address], [address] [address]- Name: Selvin Barclay Position: [facility] RN Member Role: Primary Care Nurse Care Team Related Persons Name: JONN SAM Address: home [address] [place] [id number]
--- OUTSIDE RECORDS SUMMARY | 2023-04-19 16:08 | XMS_ITS | Continuity of Care Document ---
Author Name Unknown Organization [facility] [place] Address [address] [place] [address]- Care Team Providers Care Linotype Operator Name Role Phone Christopher LAU, Tre Primary Care Physician [phone] Encounter [facility] Date(s): 03/02/22 - 06/25/22 [facility] [place] [address] [place], [place] [address] Attending Physician: Seamus Martinez MD Allergies, Adverse Reactions, Alerts Substance Reaction [...] opioid drug. Start Date: 03/09/22 Status: Ordered budesonide 3 mg oral delayed release capsule See Instructions, 3 capsules by mouth daily for 6 weeks then 2 capsules daily for 4 weeks then 1 capsule daily for 4 weeks, # 210 capsule, 0 Refills, Acute 08/10/22 15:00:00 EST, 03/03/22 7:27:00 EDT, [facility]/pharmacy #[id number], Partial fill upon patient requ... Start Date: [...] Maintenance, 10/25/16 14:55:24, Route to Pharmacy Electronically, [id number], [facility]/pharmacy #[id number] Start Date: 10/25/16 Status: Ordered Mirena 52 mg intrauterine device 1 each = 52 mg, Intrauterine, Once, # 1 each, 0 Refills, Soft Stop, 04/05/22 16:08:00 EDT, [facility], Partial fill upon patient request if [...] on: 04/29/15 Sex Patient Care team information Personnel Name: Tre White MD Address: Address: [address] [facility], [address]
--- OUTSIDE RECORDS SUMMARY | 2023-04-19 16:08 | XMS_ITS | Continuity of Care Document ---
Author Name Unknown Organization [facility] Address [address] [place] [address]- Care Team Providers Care Release And Technical Records Clerk Name Role Phone Tre White MD Primary Care Physician Encounter [facility] Date(s): 03/01/22 - 03/01/[address] [address] Discharge Disposition: A-D/C Home Attending Physician: Seamus Martinez MD Admitting Physician: Seamus Martinez MD Referring Physician: Seamus Martinez MD Allergies, Adverse Reactions, Alerts Substance Reaction Severity Status penicillins rash Active Cardizem hives Active Medications chlorthalidone 25 mg oral tablet 25 mg, 1, tablet, By Mouth, Daily, Refills 0, Maintenance, 01/25/17 6:19:18 Start Date: 01/25/17 Status: Ordered clonazePAM 0.5 mg oral tablet 1 tablet = 0.5 mg, By Mouth, Daily, 0 Refills, Maintenance, 11/30/20 3:16:00 EDT, Tablet, Partial fill upon patient request if the prescription is for a schedule II opioid drug. Start Date: 11/30/20 Status: Ordered Diclofenac = 50 mg, 3 times a day, 0 Refills, Maintenance, 01/25/17 6:20:01 Start Date: 01/25/17 Status: Ordered furosemide 40 mg oral tablet 40 mg, 1, tablet, By Mouth, Daily, # 90 tablet, Refills 0, Maintenance, 11/30/20 3:16:00 EDT, Partial fill upon patient request if the prescription is for a schedule II opioid drug. Start Date: 11/30/20 Status: Ordered Ketoconazole 2% Topical 1 applicator, Topically, PRN Itch, 0 Refills, Maintenance Start Date: 01/25/17 Status: Ordered metoprolol 50 mg oral tablet, extended release 50 mg, By Mouth, Daily, # 30 tablet, Refills 0, Tot. Refills 0, Maintenance, 10/25/16 14:55:24, Route to Pharmacy Electronically, [id number], [facility]/pharmacy #[id number] Start Date: 10/25/16 Status: Ordered Multivitamin Daily, 0 Refills, Maintenance, 01/25/17 6:20:18 Start Date: 01/25/17 Status: Ordered omeprazole 20 mg oral delayed release tablet 1 tablet = 20 mg, By Mouth, 2 times a day, # 30 tablet, 0 Refills, Maintenance, 03/01/22 10:21:00 EDT, [facility], Partial fill upon patient request if the prescription is for a schedule II opioid drug. Start Date: 03/01/22 Status: Ordered sertraline 50 mg oral tablet 1 tablet = 50 mg, By Mouth, Daily, # 90 tablet, 0 Refills, Maintenance, 11/30/20 3:15:00 EDT, Tablet, Partial fill upon patient request if the prescription is for a schedule II opioid drug. Start Date: 11/30/20 Status: Ordered Xarelto Starter Pack 15 mg-20 mg oral kit See Instructions, stop eliquis, # 1 each, 0 Refills, Maintenance, 11/30/20 12:48:00 EDT, [id number], Partial fill upon patient request if the prescription is for a schedule II opioid drug., 170, cm, 11/30/20 6:06:00 EDT, Height, 127, kg, 11/30... Start Date: 11/30/20 Status: Ordered Problem List Condition Effective Dates Status Health Status Inform ant Anxiety(Confirmed) Active Endometrial hyperplasia with out atypia, simple(Confirmed) Active Hypertension(Confirmed) Active IBS (irritable bowel syndrome)(Confirmed) Active Post-menopausal bleeding(Confirmed) Active Vital Signs Most recent to oldest [Reference Range]: 1 2 3 Height 170 cm (03/01/22 10:23 AM) Oxygen Saturation [94-100 %] 100 % (03/01/22 12:05 PM) 99 % (03/01/22 11:55 AM) 97 % (03/01/22 11:45 AM) Pulse Rate [55-90 bpm] 84 bpm (03/01/22 10:40 AM) 95 bpm *H* (03/01/22 10:23 AM) Blood Pressure [90-138/55-84 mm Hg] 136/81mm Hg (03/01/22 12:05 PM) 118/77mm Hg (03/01/22 11:55 AM) 110/70mm Hg (03/01/22 11:45 AM) Respiratory Rate [16-30 br/min] 17 br/min (03/01/22 12:05 PM) 16 br/min (03/01/22 11:55 AM) 18 br/min (03/01/22 11:45 AM) Temperature [96.8-100.4 DegF] 98.0 DegF (03/01/22 11:45 AM) 97.8 DegF (03/01/22 10:23 AM) Mode of Delivery (Oxygen) Room air (03/01/22 12:48 PM) Room air (03/01/22 12:05 PM) Room air (03/01/22 11:55 AM) Temperature Route Temporal (03/01/22 11:45 AM) Temporal (03/01/22 10:23 AM) Dry Weight 125.5 kg (03/01/22 10:23 AM) Dry Weight Obtained Via Standing scale (03/01/22 10:23 AM) Social History Social History Type Response Smoking Status Never smoker entered on: 04/29/15 Sex
--- OUTSIDE RECORDS SUMMARY | 2023-04-19 16:08 | XMS_ITS | Continuity of Care Document ---
Author Name Unknown Organization [facility] Address [address] [place] [address]- Care Team Providers Care Want Ad Clerk Name Role Phone Tre White MD Primary Care Physician En[facility] Date(s): 03/14/22 - 04/20/22 [facility] On[facility] [address] [place] [address] Attending Physician: Savi Cabrera MD Admitting Physician: Savi Cabrera MD Referring Physician: Tre White MD Allergies, Adverse Reactions, Alerts Substance Reaction [...] Acute 08/10/22 15:00:00 EST, 03/03/22 7:27:00 EDT, [facility]/pharmacy #[id number], Partial fill upon patient requ... Start Date: [...] Maintenance, 10/25/16 14:55:24, Route to Pharmacy Electronically, [id number], [facility]/pharmacy #[id number] Start Date: 10/25/16 Status: Ordered Mirena 52 mg intrauterine device 1 each = 52 mg, Intrauterine, Once, # 1 each, 0 Refills, Soft Stop, 04/05/22 16:08:00 EDT, [facility], Partial fill upon patient request [...] each, 0 Refills, Maintenance, 03/03/22 7:27:00 EDT, [id number], Partial fill upon patient request if [...] (irritable bowel syndrome)(Confirmed) Active Post-menopausal bleeding(Confirmed) Active PMB (postmenopausal bleeding)(Confirmed) Active Severe obesity(Confirmed) Active Social History Social History Type Response Smoking Status Never smoker entered on: 04/29/15 Sex
--- OUTSIDE RECORDS SUMMARY | 2023-04-19 16:08 | XMS_ITS | Continuity of Care Document ---
Author Name Unknown Organization [facility]OGRAPHICAL FIELD ASSISTANT Oncolog [facility] Address [address] [place] [address]- Care Team Providers Care Steelscope Operator Name Role Phone Christopher LAU, Tre Primary Care Physician [phone] Encounter [facility] Date(s): 04/21/22 - 05/21/22 [facility] TOPOGRAPHICAL FIELD ASSISTANT Oncology [address] [place], [place] [address] Allergies, Adverse Reactions, Alerts Substance Reaction Severity [...] Acute 08/10/22 15:00:00 EST, 03/03/22 7:27:00 EDT, [facility]/pharmacy #[id number], Partial fill upon patient requ... Start Date: [...] Maintenance, 10/25/16 14:55:24, Route to Pharmacy Electronically, [id number], [facility]/pharmacy #[id number] Start Date: 10/25/16 Status: Ordered Mirena 52 mg intrauterine device 1 each = 52 mg, Intrauterine, Once, # 1 each, 0 Refills, Soft Stop, 04/05/22 16:08:00 EDT, [facility], Partial fill upon patient request [...] each, 0 Refills, Maintenance, 03/03/22 7:27:00 EDT, [facility]/pharmacy #[id number], Partial fill upon patient request if [...] Status Never smoker entered on: 04/29/15 Sex Care Team Personnel Name: Tre White MD Address: [address] [place] [address], [address]
--- OUTSIDE RECORDS SUMMARY | 2023-04-19 16:08 | XMS_ITS | Continuity of Care Document ---
Author Name Unknown Organization [facility] ter Address [address] [place] [address]- Care Team Providers Care Blood Bank Business Manager Name Role Phone Christopher LAU, Tre Primary Care Physician Encounter [id number] Date(s): 11/29/20 - 11/30/[address] [address] Discharge Disposition: A-D/C Home Attending Physician: Laci Burton DO Admitting Physician: Katey Reinoso MD Referring Physician: [...] mg oral tablet, extended release 50 mg, XL Tablet, By Mouth, 11/30/20 9:00:00 EDT Start Date: 11/30/20 Stop Date: 11/30/20 Status: Completed metoprolol 50 mg oral tablet, extended release 50 mg, By Mouth, Daily, # 30 tablet, Refills 0, Tot. Refills 0, Maintenance, 10/25/16 14:55:24, Route to Pharmacy Electronically, [id number], [facility]/pharmacy #[id number] Start Date: 10/25/16 Status: Ordered Multivitamin Daily, 0 Refills, Maintenance, 01/25/17 6:20:18 Start Date: 01/25/17 Status: Ordered sertraline 50 mg oral tablet [...] each, 0 Refills, Maintenance, 11/30/20 12:48:00 EDT, [facility]/pharmacy #[id number], Partial fill upon patient request if the [...] Range]: 1 2 3 Height 170 cm (11/30/20 12:52 PM) 170 cm (11/30/20 6:06 AM) 170 cm (11/30/20 2:40 AM) Weight 124.1 kg (11/30/20 6:06 AM) 124.1 kg (11/30/20 2:40 AM) Oxygen Saturation [94-100 %] 98 % (11/30/20 12:52 PM) 97 % (11/30/20 6:06 AM) 99 % (11/30/20 2:40 AM) Pulse Rate [55-90 bpm] 71 bpm (11/30/20 12:52 PM) 67 bpm (11/30/20 8:00 AM) 69 bpm (11/30/20 6:06 AM) Body Mass Index [18.5-24.99] 42.94 *>HHI* (11/30/20 6:06 AM) 42.94 *>HHI* (11/30/20 2:40 AM) Blood Pressure [90-138/55-84 mm Hg] 125/80mm Hg (11/30/20 12:52 PM) 116/67mm Hg (11/30/20 8:00 AM) 113/70mm Hg (11/30/20 6:06 AM) Respiratory Rate [16-30 br/min] 19 br/min (11/30/20 12:52 PM) 18 br/min (11/30/20 6:06 AM) 20 br/min (11/30/20 2:40 AM) Temperature [96.8-100.4 DegF] 98.2 DegF (11/30/20 12:52 PM) 97.6 DegF (11/30/20 6:06 AM) 98.9 DegF (11/30/20 2:40 AM) Mode of Delivery (Oxygen) Room air (11/30/20 12:52 PM) Room air (11/30/20 6:06 AM) Room air (11/30/20 2:40 AM) Blood pressure sites Arm, right (11/30/20 12:52 PM) Arm, right (11/30/20 6:06 AM) Arm, right (11/30/20 2:40 AM) Temperature Route Oral (11/30/20 12:52 PM) Oral (11/30/20 6:06 AM) Oral (11/30/20 2:40 AM) Dry Weight 127 kg (11/30/20 2:40 AM) Weight Obtained Via Bed scale (11/30/20 6:06 AM) Social History Social History Type Response Smoking Status Never smoker entered on: 04/29/15 Sex
--- OUTSIDE RECORDS SUMMARY | 2023-04-19 16:08 | XMS_ITS | Continuity of Care Document ---
Author Name Unknown Organization [facility] [place] Address [address] [place] [address]- Care Team Providers Care Clinical Research Scientist Name Role Phone Christopher LAU, Tre Primary Care Physician Encounter [facility] Date(s): 05/26/22 - 06/25/22 [facility] [place] [address] [place], [place] [address] Attending Physician: Admtr, Piter8 Admitting [...] Acute 08/10/22 15:00:00 EST, 03/03/22 7:27:00 EDT, [facility]/pharmacy #[id number], Partial fill upon patient requ... Start Date: [...] Maintenance, 10/25/16 14:55:24, Route to Pharmacy Electronically, [id number], [facility]/pharmacy #[id number] Start Date: 10/25/16 Status: Ordered Mirena 52 mg intrauterine device 1 each = 52 mg, Intrauterine, Once, # 1 each, 0 Refills, Soft Stop, 04/05/22 16:08:00 EDT, [facility], Partial fill upon patient request [...] Personnel Name: Tre White MD Address: Address: [address] [place] [address], [address]
--- OUTSIDE RECORDS SUMMARY | 2023-04-19 16:08 | XMS_ITS | Continuity of Care Document ---
Author Name Unknown Organization [facility] ter Address [address] [place] [address]- Care Team Providers Care Physiotherapist'S Assistant Name Role Phone Christopher LAU, Tre Primary Care Physician [phone] [facility] [facility] Date(s): 09/17/19 - 09/24/[address] [address]- [facility] Attending Physician: Florence Willson MD Allergies, Adverse Reactions, Alerts Substance Reaction Severity Status penicillins rash Active Cardizem hives Active Medications chlorthalidone 25 mg oral tablet 25 mg, 1, tablet, By Mouth, Daily, Refills 0, Maintenance, 01/25/17 6:19:18 Start Date: 01/25/17 Status: Ordered Diclofenac = 50 mg, 3 times a day, 0 Refills, Maintenance, 01/25/17 6:20:01 Start Date: 01/25/17 Status: Ordered Ketoconazole 2% Topical 1 applicator, Topically, PRN Itch, 0 Refills, Maintenance Start Date: 01/25/17 Status: Ordered metoprolol 50 mg oral tablet, extended release 50 mg, By Mouth, Daily, # 30 tablet, Refills 0, Tot. Refills 0, Maintenance, 10/25/16 14:55:24, Route to Pharmacy Electronically, [id number], [facility]/pharmacy #[id number] Start Date: 10/25/16 Status: Ordered Multivitamin Daily, 0 Refills, Maintenance, 01/25/17 6:20:18 Start Date: 01/25/17 Status: Ordered Xarelto 20 mg oral tablet 1 tablet = 20 mg, By Mouth, Daily, # 30 tablet, 0 Refills, Maintenance, 01/25/17 6:19:44, Tablet Start Date: 01/25/17 Status: Ordered Problem List Condition Effective Dates Status Health Status Inform ant Anxiety(Confirmed) Active Endometrial hyperplasia with out atypia, simple(Confirmed) Active Hypertension(Confirmed) Active IBS (irritable bowel syndrome)(Confirmed) Active Post-menopausal bleeding(Confirmed) Active Social History Social History Type Response Smoking Status Never smoker entered on: 04/29/15 Sex
--- OUTSIDE RECORDS SUMMARY | 2023-04-19 16:08 | XMS_ITS | Continuity of Care Document ---
Author Name Unknown Organization [facility] Address [address] [place] [address]- Care Team Providers Care Customer Manager Name Role Phone Tre White MD Primary Care Physician [place] [facility] [place]s): 08/30/21 - 09/29/21 [facility] [address] [place] [address]- Attending Physician: Pedro Colbert Admitting Physician: Pedro Colbert Referring Physician: AdmtrPiter8 Allergies, Adverse Reactions, Alerts Substance Reaction Severity [...] Maintenance, 10/25/16 14:55:24, Route to Pharmacy Electronically, [id number], [facility]/pharmacy #[id number] Start Date: 10/25/16 Status: Ordered Multivitamin [...] each, 0 Refills, Maintenance, 11/30/20 12:48:00 EDT, [facility]/pharmacy #[id number], Partial fill upon patient request if the [...]
--- OUTSIDE RECORDS SUMMARY | 2023-04-19 16:08 | XMS_ITS | Continuity of Care Document ---
Author Name Unknown Organization [facility] Address [address] [place] [address]- Care Team Providers Care Manager Motor Name Role Phone Tre White MD Primary Care Physician [id number] Date(s): 08/29/21 - 09/29/21 [facility] [address] [place] [address]- Attending Physician: Zoey Kong Admitting Physician: Zoey Kong Referring Physician: Tre White MD Allergies, Adverse [...] Maintenance, 10/25/16 14:55:24, Route to Pharmacy Electronically, [id number], [facility]/pharmacy #[id number] Start Date: 10/25/16 Status: Ordered [...] each, 0 Refills, Maintenance, 11/30/20 12:48:00 EDT, [facility]/pharmacy #[id number], Partial fill upon patient request if the [...]
--- OUTSIDE RECORDS SUMMARY | 2023-04-19 16:08 | XMS_ITS | Continuity of Care Document ---
Author Name Unknown Organization [facility] [place] Address [address] [place] [address]- Care Team Providers Care Education Dean Name Role Phone Christopher LAU, Tre Primary Care Physician Encounter [facility] Date(s): 10/27/21 - 11/26/21 [facility] [place] [address] [place], [place] [address] Attending Physician: Pedro Colbert Admitting Physician: AdmPedro ogden Referring Physician: Admtr ArAury Allergies, Adverse Reactions, Alerts Substance Reaction Severity [...] Maintenance, 10/25/16 14:55:24, Route to Pharmacy Electronically, [id number], [facility]/pharmacy #[id number] Start Date: 10/25/16 Status: Ordered Multivitamin Daily, [...] each, 0 Refills, Maintenance, 11/30/20 12:48:00 EDT, [facility]/pharmacy #[id number], Partial fill upon patient request if the [...]
--- OUTSIDE RECORDS SUMMARY | 2023-04-19 16:08 | XMS_ITS | Continuity of Care Document ---
Author Name Unknown Organization [facility] ter Address [address] [place] [address]- Care Team Providers Care Poultry Process Worker Name Role Phone Tre White MD Primary Care Physician [place] [facility] [place] 10/28/19 - 10/28/[address] [address]- [facility] Attending Physician: Tre White MD Allergies, Adverse Reactions, [...] Maintenance, 10/25/16 14:55:24, Route to Pharmacy Electronically, [id number], [facility]/pharmacy #[id number] Start Date: 10/25/16 Status: Ordered Multivitamin Daily, [...] (irritable bowel syndrome)(Confirmed) Active Post-menopausal bleeding(Confirmed) Active Results Orders for Microbiology Reports Name Date Urine Culture (URINE CULTURE) 10/28/19 Microbiology Reports TEST:Urine Culture STATUS:Unauthenticated BODY SITE: SOURCE:URINE COLLECTED DATE/TIME:10/28/19 3:33 PM Urine Culture SPECIMEN DESCRIPTION : URINE SPECIAL REQUESTS : NONE Reflexed from [id number] REPORT STATUS : PRELIMINARY REPORT Social History Social History Type Response Smoking Status Never smoker entered on: 04/29/15 Sex
--- OUTSIDE RECORDS SUMMARY | 2023-04-19 16:08 | XMS_ITS | Continuity of Care Document ---
Author Name Unknown Organization [facility] CAMP RECREATION SPECIALIST Oncolog y Address [address] [place] [address]- Care Team Providers Care Attending Radiologist Name Role Phone Christopher LAU, Tre Primary Care Physician [phone] Encounter [facility] Date(s): 03/10/22 - 04/09/22 [facility] CAMP RECREATION SPECIALIST Oncology [address] [place] [address] Allergies, Adverse Reactions, Alerts Substance [...] Acute 08/10/22 15:00:00 EST, 03/03/22 7:27:00 EDT, [facility]/pharmacy #[id number], Partial fill upon patient requ... Start Date: [...] Maintenance, 10/25/16 14:55:24, Route to Pharmacy Electronically, [id number], [facility]/pharmacy #[id number] Start Date: 10/25/16 Status: Ordered Mirena 52 mg intrauterine device 1 each = 52 mg, Intrauterine, Once, # 1 each, 0 Refills, Soft Stop, 04/05/22 16:08:00 EDT, [facility], Partial fill upon [...] each, 0 Refills, Maintenance, 03/03/22 7:27:00 EDT, [facility]/pharmacy #[id number], Partial fill upon patient request [...]
--- OUTSIDE RECORDS SUMMARY | 2023-04-19 16:08 | XMS_ITS | Continuity of Care Document ---
Author Name Unknown Organization [facility] MATE Oncolog y Address [address] [place] [address]- Care Team Providers Care Dry House Attendant Name Role Phone Tre White MD Primary Care Physician [phone] En[facility] Date(s): 03/24/22 - 05/25/22 [facility] Oncology [address] [place] [address] Attending Physician: Savi Cabrera MD Admitting Physician: [...] Acute 08/10/22 15:00:00 EST, 03/03/22 7:27:00 EDT, [facility]/pharmacy #[id number], Partial fill upon patient requ... Start Date: [...] Maintenance, 10/25/16 14:55:24, Route to Pharmacy Electronically, [id number], [facility]/pharmacy #233 Start Date: 10/25/16 Status: Ordered Mirena 52 mg intrauterine device 1 each = 52 mg, Intrauterine, Once, # 1 each, 0 Refills, Soft Stop, 04/05/22 16:08:00 EDT, [facility], Partial fill upon patient request [...] Team Personnel Name: Tre White MD Address: [address] [place] [address]
--- OUTSIDE RECORDS SUMMARY | 2023-04-19 16:08 | XMS_ITS | Continuity of Care Document ---
Author Name Unknown Organization [facility] Address [address] [place] [id number] Care Team Providers Care Rubber Insulator Name Role Phone Tre White MD Primary Care Physician [phone] [facility] [id number] Date(s): 08/19/20 - 09/18/20 [facility] [address] [place] [id number] Attending Physician: Pedro Colbert Admitting Physician: AdmPedro [...] Maintenance, 10/25/16 14:55:24, Route to Pharmacy Electronically, [id number], [facility]/pharmacy #[id number] Start Date: 10/25/16 Status: Ordered Multivitamin Daily, [...]
[2023-04-19 16:12] VITALS: BP 120/82; BMI 36.5
== END 2023-04-19 16:28 | disposition home or self-care (01) ==
LOC: HO.HGS 16:06
PROVIDERS: PCP Pediatrics; Visit Provider Surgery
DX: Z89.619 Acquired absence of unspecified leg above knee (principal)
CPT/HCPCS: 99024

== ENCOUNTER → 2023-04-19 16:06 | Outpatient (BNVA) | payer BC, SELFPAY | PROVIDERS: PCP Pediatrics; Visit Provider Surgery ==

== ENCOUNTER 2023-06-11 20:58 | Emergency (ER) | payer BC, SELFPAY ==
--- NOTE | 2023-06-11 | ECG_ITS ---
Test Reason : SOB Blood Pressure : / mmHG Vent. Rate : 076 BPM Atrial Rate : 076 BPM P-R Int : 132 ms QRS Dur : 090 ms QT Int : 424 ms P-R-T Axes : 033 -10 026 degrees QTc Int : 477 ms Normal sinus rhythm Possible Left atrial enlargement Borderline ECG When compared with ECG of 06-APR-2023 17:31, Vent. rate has decreased BY [address] no longer depressed in Anterolateral leads Nonspecific T wave abnormality, improved in Inferior leads T wave inversion no longer evident in Lateral leads Atrial fibrillation with rapid ventricular response is no longer Present Referred By: Generic ED Physician Electronically Signed By:DORCAS HERNANDEZ
--- NOTE | ~2023-06-11 | CT_ITS ---
EXAMINATION: CT ABDOMEN AND PELVIS WITHOUT CONTRAST CLINICAL INFORMATION: Left-sided flank pain COMPARISON: None available. TECHNIQUE: Multidetector volumetric imaging was performed from the superior aspect of the liver through the pubic symphysis. Sagittal and coronal reformatted images were obtained on the technologist's workstation. This CT examination was performed using dose optimization techniques as appropriate, variously including the following: *Automated exposure control *Adjustment of mA and/or kV according to patient size (this includes techniques or standardized protocols for targeted exams where dose is matched to indication/reason for exam; i.e. extremities or head) *Use of iterative reconstruction technique DLP: 813 mGy-cm FINDINGS: LUNG BASES: Bibasilar atelectasis, left greater than right. A tiny left pleural effusion is present LIVER, GALLBLADDER, AND BILIARY TREE: The liver is enlarged at 19.1 cm in cephalocaudad dimension. Attenuation is normal. No focal hepatic lesion or biliary ductal dilatation is present. The gallbladder is contracted but otherwise unremarkable with no evidence of radiopaque gallstones, gallbladder wall thickening, or obvious pericholecystic inflammatory changes. PANCREAS: Marked fatty infiltration of the pancreas. SPLEEN: Unremarkable. ADRENAL GLANDS: Unremarkable. KIDNEYS AND URETERS: The kidneys are normal in size, shape, and attenuation. No hydronephrosis, hydroureter, or calculi seen. No perinephric stranding. BLADDER: Empty and poorly evaluated GASTROINTESTINAL TRACT: The small and large bowel are unremarkable aside from a few scattered colonic diverticula without diverticulitis. The appendix is unremarkable. ABDOMINAL WALL: No significant hernia is appreciated. LYMPH NODES: Normal. VASCULAR: Calcific plaque present in the aorta and iliac vessels without aneurysm. PELVIC VISCERA: Calcified uterine fibroids are present in the mid body on the right. An IUD is present in the endometrial canal OSSEOUS STRUCTURES: Degenerative changes in spine. L1-L5. CT/CT abdomen pelvis wo IV con IMPRESSION: 1. A cause for the patient's left-sided flank pain has not been found. 2. Incidental note made of hepatomegaly, fatty infiltration of the pancreas, calcified uterine fibroids and IUD. Fleischner guidelines were followed.
[2023-06-11 21:02] VITALS: BP 106/54; BP 129/60; PULSE 78; PULSE 82; RESP 20; TEMP 36.7; O2SAT 100; BMI 33.9
--- NOTE | 2023-06-11 21:32 | MHC.EDTECH ---
This tecj assumed care of this pt upon arrival. Pt changed into hospital gown and placed on ic design engineer. EKG done and handed to provider. bloodwork sent for processing
[2023-06-11 21:36] LABS: MANUAL DIFF FLAG NO
[2023-06-11 21:37] LABS: Basophils Absolute Auto 0.1 X10*3/uL (0.0-0.2); Basophils Percent Auto 0.6 % (0-2); Eosinophils Absolute Auto 0.1 X10*3/uL (0.0-0.4); Eosinophils Percent Auto 1.2 % (0-4); Hematocrit 35.3 % (37.0-47.0); Hemoglobin 11.7 g/dl (12.0-16.0); Imm Gran Abs Auto 0.04 X10*3/uL (0.00-0.03); Imm Gran Pct Auto 0.5 % (0.0-0.4); Lymphocytes Absolute Auto 1.3 X10*3/uL (1.2-4.9); Lymphocytes Percent Auto 14.6 % (20-40); Mean Corpuscular HGB Conc 33.1 g/dl (31.0-35.0); Mean Corpuscular Volume 84.4 fL (80.0-98.0); Mean Platelet Volume 8.6 fL (9.4-12.3); Monocytes Percent Auto 11.1 % (2-11); Neutrophils Absolute Auto 6.2 x10*3/uL (2.0-8.3); Platelet Count 182 X10*3/uL (160-400); Red Blood Count 4.18 X10*6/uL (4.20-5.50); Red Cell Distribution Width 14.9 % (11.0-16.0); White Blood Count 8.5 X10*3/uL (4.8-10.8)
[2023-06-11 21:54] LABS: Alanine Aminotransferase 8 U/L (0-31); Alkaline Phosphatase 113 U/L (39-117); Anion Gap 14 (12-20); Aspartate Amino Transferase 12 U/L (5-31); Bilirubin Total 0.4 mg/dL (0.0-1.0); Blood Urea Nitrogen 23 mg/dL (9-16); Carbon Dioxide 26 mmol/L (22-29); Chloride 102 mmol/L (96-108); Estimated Glomerular Filt Rate 47; Glucose Random 211 mg/dL (60-115); Potassium 4.2 mmol/L (3.3-5.1); Sodium 138 mmol/L (135-145); Total Protein 7.5 g/dL (6.5-8.0)
--- NOTE | 2023-06-11 22:30 | ED.BACK ---
HPI - Back Pain/Injury General Chief Complaint: Back Pain/Injury Stated Complaint: SOB BACK PAIN Time Seen by Provider: 06/11/23 22:02 Source: patient and EMS Mode of arrival: EMS Limitations: no limitations History of Present Illness HPI Narrative: Patient is a 67-year-old female who presents emergency department via EMS for evaluation of sudden onset severe left flank pain approximately 45 minutes prior to arrival 06/19. At this time pain is 4/10, made worse upon particular movements in upon palpation. Denies history of similar pain in the past. Denies any trauma. Denies fevers, chills, shortness of breath, chest pain, abdominal pain, nausea, vomiting, diarrhea, constipation. At baseline has urinary incontinence, denies any recent odor, noted hematuria, or decreased urinary output. Denies numbness or tingling to the lower extremities, denies saddle paresthesias, denies bowel dysfunction. Related Data Home Medications Medication Instructions Recorded Confirmed clonazepam 0.5 mg tablet 0.5 mg PO DAILY PRN Anxiety 02/02/23 04/23/23 famotidine 40 mg tablet 40 mg PO DAILY 02/02/23 04/23/23 furosemide 40 mg tablet 40 mg PO DAILY 02/02/23 04/23/23 gabapentin 300 mg capsule 300 mg PO BEDTIME 02/02/23 04/23/23 metoprolol succinate 50 mg 50 mg PO DAILY 02/02/23 04/23/23 tablet,extended release 24 hr sertraline 100 mg tablet 100 mg PO DAILY 02/02/23 04/23/23 acetaminophen 650 mg 1,300 mg PO DAILY 04/04/23 04/23/23 tablet,extended release budesonide 3 mg 3 mg PO QAM 04/04/23 04/23/23 capsule,delayed,extended release cetirizine 10 mg tablet 10 mg PO DAILY 04/04/23 04/23/23 cholecalciferol (vitamin D3) 25 25 mcg PO DAILY 04/04/23 04/23/23 mcg (1,000 unit) tablet multivitamin 1 tab PO DAILY 04/04/23 04/23/23 oxybutynin chloride 10 mg 10 mg PO DAILY 04/04/23 04/23/23 tablet,extended release 24 hr tirzepatide 10 mg/0.5 mL 10 mg subcut FR 04/04/23 04/23/23 subcutaneous pen injector (Leonor) bisacodyl 5 mg tablet,delayed 5 mg PO BEDTIME 04/19/23 04/23/23 release clonazepam 0.5 mg tablet 0.5 mg PO DAILY 04/19/23 04/23/23 enoxaparin 40 mg/0.4 mL 40 mg subcut DAILY 04/19/23 04/23/23 subcutaneous syringe (Lovenox) lactulose 20 gram oral packet 20 g PO BID 04/19/23 04/23/23 metoprolol succinate 50 mg 50 mg PO DAILY 04/19/23 04/23/23 tablet,extended release 24 hr (Toprol XL) polyethylene glycol 3350 17 17 g PO DAILY 04/19/23 04/23/23 gram/dose oral powder (Miralax) Previous Rx's Medication Instructions Recorded doxycycline hyclate 100 mg tablet 100 mg PO BID 7 days #14 tabs 04/11/23 metronidazole 500 mg tablet 500 mg PO Q12H #14 tabs 04/11/23 oxycodone 5 mg capsule 5 mg PO Q6H PRN pain (scale score 04/11/23 7-10) #15 caps cefpodoxime 200 mg tablet 200 mg PO BID #12 tabs 06/12/23 Allergies Allergy/AdvReac Type Severity Reaction Status Date / Time diltiazem [From Cardizem] Allergy Hives Verified 06/11/23 21:09 Penicillins Allergy Rash Verified 06/11/23 21:09 Review of Systems Review of Systems: Yes all other systems are reviewed and are negative PMFSH Past Medical History Attestation statement: The following information was validated with the patient. Source: old records reviewed Medical History Hereditary lymphedema of legs Arthritis Pre-diabetes Incontinence of urine Dependent on walker for ambulation Hx of deep venous thrombosis Hx pulmonary embolism Hx of atrial flutter Snores HTN (hypertension) Ulcer of ankle Lymphedema of both lower extremities Anxiety and depression On beta mahamed at home Surgical History History of left above knee amputation (04/06/23) History of surgery on lower extremity (03/05/23) Hx of dilation and curettage History of ankle fusion History of surgery on lower extremity Hx of colonoscopy Hx of tonsillectomy History of radiofrequency ablation procedure for cardiac arrhythmia Social History Social History Household Members: Spouse Housing: House Are you a primary health care facilities inspector to a significant other at home: No Do you presently have visiting nurse or other home services: No Alcohol intake: never Patient Tobacco Use Status: Never used Tobacco Smoked in Last 30 Days: No Use of substances other than those prescribed or required for medical reasons: No Advance Directives: No Advance Directives Information Provided: No service: No Physical Exam Vital Signs: Vital Signs: Last Vital Signs Temp 98.1 F 06/11/23 21:02 Pulse 82 06/11/23 23:10 Resp 16 06/11/23 23:10 BP 144/68 H 06/11/23 23:10 Pulse Ox 100 06/11/23 23:10 O2 Del Method Room Air 06/11/23 23:10 BMI result Body Mass Index 33.9 Appearance: Alert.?Oriented to person, place and time. No acute distress.?Normal affect. Eyes: Pupils equal, round and reactive to light.? ENT: Pharynx normal.?? Neck: Normal inspection.? Neck supple.?? CVS: Heart sounds normal. Normal heart rate and rhythm.? Pulses normal.?? Respiratory: No respiratory distress.? Lung sounds clear to auscultation bilaterally?? Abdomen: Soft and non-tender. Normoactive bowel sounds. Positive left CVA tenderness? Skin: Skin warm and dry.? Normal skin color.? No rashes or lesions Extremities: Chronic lymphedema, left AKA Neuro: Moves all extremities spontaneously. Sensation intact bilaterally. Ambulates with normal steady gait. Course Reevaluation(s) Reevaluation #1: CBC reveals no leukocytosis, normocytic anemia not needing transfusion criteria, overall unremarkable CMP. Urinalysis without microscopic hematuria, positive nitrates leukocyte esterase an urine bacteria concerning for urinary tract infection, Rocephin IV ordered at this time. Time: 23:56 Reevaluation #2: CT of the abdomen and pelvis without acute intra-abdominal etiology no evidence of hydronephrosis, calculi, or perinephric stranding. Given she does have left CVA tenderness will treat as pyelonephritis. She is tolerating oral intake. Given QTC would avoid fluoroquinolones, received Rocephin, will discharge home with course of cefpodoxime. Reviewed worrisome signs and symptoms that would warrant re-evaluation the emergency department. All questions answered. Stable for discharge. Time: 01:13 Medications Administered Discontinued Medications Generic Name Dose Route Start Last Admin Trade Name Marcosq PRN Reason Stop Dose Admin Ceftriaxone Sodium 1 gm/ 50 mls @ 100 mls/hr 06/11/23 23:57 06/12/23 01:06 Sodium Chloride IV 06/12/23 00:26 Infused ONCE ONE Infusion Medical Decision Making Medical Decision Making [facility] Narrative: Patient is a 69-year-old female past medical history of hereditary lymphedema, arthritis, urinary incontinence, atrial flutter, pulmonary embolism anticoagulated with Lovenox, hypertension, left above the knee amputation presenting to emergency department for evaluation of left flank pain as per HPI. At the time of my examination she is overall well-appearing, nontoxic, afebrile. She has notable left CVA tenderness even upon light palpation Will obtain CBC to evaluate for leukocytosis/ anemia, CMP and lipase to evaluate for abnormal electrolytes /abnormal renal function/ abnormal hepatic/biliary function, CT of the abdomen and pelvis and Urinalysis. Differential Diagnosis Differential Diagnoses: The differential diagnosis associated with the presentation includes (Pyelonephritis, hydronephrosis, obstructive calculi, urinary tract infection; less likely to be diverticulitis, colitis, bowel obstruction, appendicitis) Admission/Observation Consideration of admission/observation: Escalation of care including admission/observation considered (I considered admission for flank pain, see course narrative for further detail) Lab Data [facility] Lab Attestation statement: I reviewed the patient's lab results. See course narrative for further detail 06/11/23 21:30 06/11/23 21:30 Labs: Lab Results 06/11/23 06/11/23 Range/Units 21:30 23:12 WBC 8.5 (4.8-10.8) X10*3/uL RBC 4.18 L D (4.20-5.50) X10*6/uL Hgb 11.7 L D (12.0-16.0) g/dl Hct 35.3 L D (37.0-47.0) % MCV 84.4 (80.0-98.0) fL MCH 28.0 (27.0-33.0) pg MCHC 33.1 (31.0-35.0) g/dl RDW 14.9 (11.0-16.0) % Plt Count 182 (160-400) X10*3/uL MPV 8.6 L (9.4-12.3) fL Immature Gran % (Auto) 0.5 H (0.0-0.4) % Neut % (Auto) 72.0 (45-73) % Lymph % (Auto) 14.6 L (20-40) % [place] % (Auto) 11.1 H (2-11) % Eos % (Auto) 1.2 (0-4) % Baso % (Auto) 0.6 (0-2) % Lymph # (Auto) 1.3 (1.2-4.9) X10*3/uL [place] # (Auto) 1.0 (0.1-1.2) X10*3/uL Eos # (Auto) 0.1 (0.0-0.4) X10*3/uL Baso # (Auto) 0.1 (0.0-0.2) X10*3/uL Abs Immat Gran (auto) 0.04 H (0.00-0.03) X10*3/uL Absolute Neuts (auto) 6.2 (2.0-8.3) x10*3/uL Absolute Nucleated RBC 0.000 (0.0-0.012) X10*3/uL Nucleated RBC % (auto) 0.0 (0.0-0.2) /100WBC Sodium 138 (135-145) mmol/L Potassium 4.2 (3.3-5.1) mmol/L Chloride 102 (96-108) mmol/L Carbon Dioxide 26 (22-29) mmol/L Anion Gap 14 (12-20) BUN 23 H (9-16) mg/dL Creatinine 1.15 (0.5-1.4) mg/dL Estim Creat Clear Calc 56.0 Estimated GFR 47 Random Glucose 211 H (60-115) mg/dL Calcium 10.0 D (8.4-10.2) mg/dL Total Bilirubin 0.4 (0.0-1.0) mg/dL AST 12 (5-31) U/L ALT 8 (0-31) U/L Alkaline Phosphatase 113 (39-117) U/L Total Protein 7.5 (6.5-8.0) g/dL Albumin 4.0 (3.5-5.0) g/dL Urine Color Yellow Urine Appearance Clear Urine pH 5.5 (5.0-9.0) Ur Specific [place] 1.020 (1.005-1.025) Urine Protein Negative (Neg-Trace) mg/dL Urine Glucose (UA) Negative (Negative) mg/dL Urine Ketones Negative (Negative) mg/dL Urine Blood Negative (Negative) Urine Nitrite Positive H (Negative) Ur Leukocyte Esterase Small (1+) H (Negative) Urine RBC 0-2 (0-2) /HPF Urine WBC 11-20 H (0-5) /HPF Ur Squamous Epith Cells 3-5 (0-2) /HPF Urine Bacteria 4+ (None Seen) Hyaline Casts 0-2 (0-2) /LPF Independent Historian Clinical information obtained from an independent historian. History obtained from or confirmed by: Spouse (Present at bedside who confirms history) and EMS External Record Review External record reviewed: Prior outpatient labs Prescription Management I considered prescription management with: Antibiotic Discharge Plan Discharge Clinical Impression: Pyelonephritis Patient Disposition: Home, Self-Care Instructions: Kidney Infection (ED) Additional Instructions: You received a dose of IV antibiotics in the emergency today. I have sent the remainder of oral antibiotics to your pharmacy. Please pick these up first thing tomorrow morning. Complete the entire course. If you develop new or worsening symptoms such as worsening pain, fevers, chills pain inability to urinate, inability to tolerate antibiotics digit nausea or vomiting then you should be re-evaluated. Please contact your primary care provider and arrange for a follow-up visit within 1-3 days. Prescriptions: New cefpodoxime 200 mg tablet 200 mg PO BID Qty: 12 0RF Rx Instructions: must administer with a meal/food No Action furosemide 40 mg tablet 40 mg PO DAILY metoprolol succinate 50 mg tablet extended release 24 hr 50 mg PO DAILY famotidine 40 mg tablet 40 mg PO DAILY clonazepam 0.5 mg tablet 0.5 mg PO DAILY PRN (Reason: Anxiety) sertraline 100 mg tablet 100 mg PO DAILY gabapentin 300 mg capsule 300 mg PO BEDTIME Mounjaro 10 mg/0.5 mL pen injector 10 mg subcut FR oxybutynin chloride 10 mg tablet extended release 24hr 10 mg PO DAILY acetaminophen 650 mg Tablet Extended Release 1,300 mg PO DAILY budesonide 3 mg capsule,delayed,extend.release 3 mg PO QAM cholecalciferol (vitamin D3) 25 mcg (1,000 unit) Tablet 25 mcg PO DAILY multivitamin Tablet 1 tab PO DAILY cetirizine 10 mg Tablet 10 mg PO DAILY metronidazole 500 mg Tablet 500 mg PO Q12H Qty: 14 0RF oxycodone 5 mg capsule 5 mg PO Q6H PRN (Reason: pain (scale score 7-10)) Qty: 15 0RF Rx Instructions: Partial Fill upon patient request. doxycycline hyclate 100 mg tablet 100 mg PO BID 7 Days Qty: 14 0RF metoprolol succinate [Toprol XL] 50 mg tablet extended release 24 hr 50 mg PO DAILY clonazepam 0.5 mg tablet 0.5 mg PO DAILY polyethylene glycol 3350 [Miralax] 17 gram/dose powder 17 g PO DAILY lactulose 20 gram packet 20 g PO BID bisacodyl 5 mg tablet,delayed release (DR/EC) 5 mg PO BEDTIME enoxaparin [Lovenox] 40 mg/0.4 mL syringe 40 mg subcut DAILY Referrals: Physician,Unknown J [Primary Care Provider] -
[2023-06-11 23:10] VITALS: BP 144/68; PULSE 82; RESP 16; O2SAT 100
[2023-06-11 23:20] LABS: Appearance Urine Clear; Color Urine Yellow; Glucose Urine UA Negative (Negative); Leukocyte Esterase Urine Small (1+) (Negative); Nitrite Urine Positive (Negative); PH 5.5 (5.0-9.0); UMIC TRIGGER UACC YES; Urine Blood Negative (Negative); Urine Ketones Negative (Negative); Urine Protein Negative (Neg-Trace)
[2023-06-11 23:47] LABS: Bacteria Urine 4+ (None Seen); Hyaline Casts Urine 0-2 /LPF (0-2); RBC Urine 0-2 /HPF (0-2); UACC Culture Trigger YES
[2023-06-12] MEDS: cefTRIAXone sodium 1 GM in 0.9 % Sodium Chloride 50 ML IV (00:29)
--- NOTE | 2023-06-12 01:33 | MHC.EDTECH ---
Call out to Krissy @[phone] to book BLS transport back home. 20-25 mins for an ETA
--- NOTE | 2023-06-12 01:45 | PC.NURSE ---
pt ready for d/c; in agreement. education provided to patient and spouse. pt states unable to go home via private vehicle; assistant secretary to book ems transfer home. call crook within reach.
== END 2023-06-12 02:26 | disposition home or self-care (01) ==
PROVIDERS: Emergency Provider Emergency Medicine
DX: N12 Tubulo-interstitial nephritis, not specified as acute or chronic (principal); M54.50 Low back pain, unspecified; R06.02 Shortness of breath; R10.2 Pelvic and perineal pain; Z79.899 Other long term (current) drug therapy
CPT/HCPCS: 36415; 51701; 74176; 80053; 81001; 85025; 87086; 87088; 87186; 93005; 96365; 99284; 99285; J0696

== ENCOUNTER 2023-07-05 14:58 | Outpatient (AMB) | payer BC, SELFPAY ==
--- NOTE | 2023-07-05 15:08 | A.OFFVIS_ITS ---
Intake Vital Signs 07/05/23 15:16 Height 5 ft 6 in Weight 223 lb BMI 36.0 Pulse 72 Intake Visit Reasons: LT BKA Intake Note: Patient is seen in office for post op assessment post left BKA. Patient c/o: denies any redness, swelling or discharge at the time of visit Cashier Associate Required: No Accompanied by: Family/Other Allergies diltiazem [From Cardizem] Allergy (Verified 07/05/23 15:09) Hives Penicillins Allergy (Verified 07/05/23 15:09) Rash Medication List - Last Reconciled 07/05/23 by Дмитрий Valdivia MD acetaminophen ER 1,300 mg PO DAILY bisacodyl 5 mg PO BEDTIME budesonide ER 3 mg PO QAM cefpodoxime 200 mg PO BID cetirizine 10 mg PO DAILY cholecalciferol (vitamin D3) 25 mcg PO DAILY clonazepam 0.5 mg PO DAILY doxycycline hyclate 100 mg PO BID 7 days famotidine 40 mg PO DAILY furosemide 40 mg PO DAILY gabapentin 300 mg PO BEDTIME metoprolol succinate ER (Toprol XL) 50 mg PO DAILY metronidazole 500 mg PO Q12H multivitamin 1 tab PO DAILY oxybutynin chloride ER 10 mg PO DAILY polyethylene glycol 3350 (Miralax) 17 grams PO DAILY sertraline 100 mg PO DAILY tirzepatide (Mounjaro) 10 mg subcut FR HPI HPI Comments History of Present Illness Details Patient returns 1 month following discharge from the hospital after emergency left above knee amputation for necrotizing fasciitis. She is now in rehab and reports feeling much improved. She does have phantom pain localized to her feet and ankle. She reports that her amputation site has well-healed. She she is undergoing physical therapy and continues to have dressing changes to her right leg 3 times weekly. She has not been seen by wound care since discharge from the hospital. She is inquiring regarding prosthetic placement. [facility] Medical History Hereditary lymphedema of legs Arthritis Pre-diabetes Incontinence of urine Dependent on walker for ambulation Hx of deep venous thrombosis Hx pulmonary embolism Hx of atrial flutter Snores HTN (hypertension) Ulcer of ankle Lymphedema of both lower extremities Anxiety and depression On beta mahamed at home Surgical History History of left above knee amputation (04/06/23) History of surgery on lower extremity (03/05/23) Hx of dilation and curettage History of ankle fusion History of surgery on lower extremity Hx of colonoscopy Hx of tonsillectomy History of radiofrequency ablation procedure for cardiac arrhythmia Social History Household Members: Spouse Housing: House Are you a primary child care center assistant director to a significant other at home: No Do you presently have visiting nurse or other home services: No Alcohol intake: never Patient Tobacco Use Status: Never used Tobacco service: No Physical Exam Vital Signs: Last Vital Signs Pulse 72 07/05/23 15:16 BMI result Body Mass Index 36.0 Const General: no acute distress Nutritional Appearance: obese Orientation/consciousness: patient oriented x3 HEENT Head: Yes normocephalic and Yes atraumatic Resp Effort & Inspection: normal respiratory effort Neuro General: patient oriented x3 Extrem Other: Left leg wound is completely healed with no evidence of erythema, redness or discharge. Assessment & Plan Assessment & Plan (1) Stasis ulcer of right lower extremity: Code(s): I83.019 - Varicose veins of right lower extremity with ulcer of unspecified site; L97.919 - Non-pressure chronic ulcer of unspecified part of right lower leg with unspecified severity (2) S/P AKA (above knee amputation) unilateral: Comment: left Code(s): Z89.619 - Acquired absence of unspecified leg above knee Plan Patient should continue with physical therapy and local wound care to the right leg. I recommended follow-up with wound care for further wound management. A referral will be placed for prosthetics for above the prosthetic. Orders: Referrals Wound Care Referral I83.019 - Varicose veins of right lower extremity with ulcer of unspecified site, L97.919 - Non-pressure chronic ulcer of unspecified part of right lower leg with unspecified severity Coding Level of Care Code Global (57193) Diagnoses Stasis ulcer of right lower extremity I83.019; L97.919 S/P AKA (above knee amputation) unilateral Z89.619
[2023-07-05 15:16] VITALS: PULSE 72; BMI 36.0
== END 2023-07-05 15:40 | disposition home or self-care (01) ==
PROVIDERS: Visit Provider Surgery
DX: I83.019 Varicose veins of right lower extremity with ulcer of unspecified site (principal); L97.919 Non-pressure chronic ulcer of unspecified part of right lower leg with unspecified severity; Z89.619 Acquired absence of unspecified leg above knee
CPT/HCPCS: 99024

== ENCOUNTER → 2023-07-05 14:58 | Outpatient (BNVA) | payer BC, SELFPAY | PROVIDERS: Visit Provider Surgery ==

== ENCOUNTER 2023-07-19 | Outpatient (RCR) | payer BC, SELFPAY | END 2024-01-21 08:00 | disposition admitted as inpatient to this hospital (09) | LOC: HO.WCC | PROVIDERS: PCP Pediatrics; Visit Provider Physician Assistant | DX: L97.812 Non-pressure chronic ulcer of other part of right lower leg with fat layer exposed (principal); L08.9 Local infection of the skin and subcutaneous tissue, unspecified; Q82.0 Hereditary lymphedema; I10 Essential (primary) hypertension; G54.6 Phantom limb syndrome with pain; F11.90 Opioid use, unspecified, uncomplicated; Z89.612 Acquired absence of left leg above knee | CPT/HCPCS: 11042; 11045; 87070; 87073; 87076; 87077; 87185; 87186; 87205; 97597; 99213 ==

== ENCOUNTER 2023-10-19 15:05 | Outpatient (AMB) | payer BC, SELFPAY ==
--- NOTE | 2023-10-19 14:04 | MHC.OFFVIS ---
Intake Vital Signs 10/19/23 15:07 Pulse 86 Pulse Source Pulse Oximeter Temp 97.6 F Temp Source Oral Pulse Oximetry (%) 99 Intake Visit Reasons: Ref.[facility],Wound Care,chronic ulcer,R.lower leg Allergies diltiazem [From Cardizem] Allergy (Verified 07/05/23 15:09) Hives Penicillins Allergy (Verified 07/05/23 15:09) Rash HPI Ref.[facility],Wound Care,chronic ulcer,R.lower leg HPI Details She has right ulcer. She has had this for some months. She has no fever or chills. She is seeing Wound Care. [facility] Medical History Hereditary lymphedema of legs Arthritis Pre-diabetes Incontinence of urine Dependent on walker for ambulation Hx of deep venous thrombosis Hx pulmonary embolism Hx of atrial flutter Snores HTN (hypertension) Ulcer of ankle Lymphedema of both lower extremities Anxiety and depression On beta mahamed at home Surgical History History of left above knee amputation (04/06/23) History of surgery on lower extremity (03/05/23) Hx of dilation and curettage History of ankle fusion History of surgery on lower extremity Hx of colonoscopy Hx of tonsillectomy History of radiofrequency ablation procedure for cardiac arrhythmia Social History Household Members: Spouse Housing: House Are you a primary health care facilities inspector to a significant other at home: No Do you presently have visiting nurse or other home services: No Alcohol intake: never Comment: rings appropriately Patient Tobacco Use Status: Never used Tobacco service: No Physical Exam Vital Signs: Last Vital Signs Temp 97.6 F 10/19/23 15:07 Pulse 86 10/19/23 15:07 Pulse Ox 99 10/19/23 15:07 Const General: cooperative Orientation/consciousness: patient oriented x3 HEENT Head: Yes normal to inspection Mouth: Normal oral and palatal mucosa present Eyes General: appearance normal, both eyes and all related structures Pupils: Equal, round and reactive pupils present Resp Effort & Inspection: normal respiratory effort Cardio Rate: regular rate Rhythm: regular rhythm GI Palpation (GI): Soft to palpation and nontender General: Yes no CVA tenderness Back/Spine/Pelvis Back: no CVA tenderness Skin General skin exam: no rashes or lesions noted Neuro General: patient oriented x3 Cranial nerves: Yes CN's II-XII intact bilaterally and Yes Equal, round and reactive pupils present Extrem Other: lymphedema,mild irritation Psych Appearance: grossly normal Assessment & Plan Assessment & Plan (1) Stasis ulcer of right lower extremity: Comment: No further antibiotics in addition at this time Code(s): I83.019 - Varicose veins of right lower extremity with ulcer of unspecified site; L97.919 - Non-pressure chronic ulcer of unspecified part of right lower leg with unspecified severity Plan: na Coding Level of Care Code Est Pt Level 3 (87238) Diagnoses Stasis ulcer of right lower extremity I83.019; L97.919
[2023-10-19 15:07] VITALS: PULSE 86; TEMP 36.4; O2SAT 99
== END 2023-10-19 15:40 | disposition home or self-care (01) ==
LOC: HO.HID 15:05
PROVIDERS: PCP Pediatrics; Referring Provider Pediatrics; Visit Provider Internal Medicine
DX: I83.019 Varicose veins of right lower extremity with ulcer of unspecified site (principal); L97.919 Non-pressure chronic ulcer of unspecified part of right lower leg with unspecified severity
CPT/HCPCS: 99213

== ENCOUNTER → 2023-10-19 15:05 | Outpatient (BNVA) | payer BC, SELFPAY | PROVIDERS: PCP Pediatrics; Visit Provider Internal Medicine ==

== ENCOUNTER → 2023-12-06 15:25 | Outpatient (BNVA) | payer BC, SELFPAY | PROVIDERS: PCP Pediatrics; Visit Provider Surgery Vascular Surgery ==

== ENCOUNTER 2023-12-06 15:33 | Outpatient (AMB) | payer BC, SELFPAY ==
--- NOTE | 2023-12-06 15:31 | A.OFFVIS_ITS ---
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 Pt states she goes to wound care every 2 weeks and has a visiting nurse come everday to change the dressing. She states it is extremely painful and she has calf swelling. She states wound care and the visiting nurse has been using alginate, non adherent pads, gauze wraps and melchor wraps. The pt states the discharge keeps dripping out of the wraps and she states it is a yellow-clear discharge. Allergies diltiazem [From Cardizem] Allergy (Verified 12/06/23 15:31) Hives Penicillins Allergy (Verified 12/06/23 15:31) Rash HPI GENERAL FORECASTER/WoundCare Referral for non-healing ulcer HPI Details Very pleasant 67-year-old female presents for evaluation regarding her right lower extremity. She has had prior left lower extremity amputation secondary to necrotizing fasciitis. She has these extremely large edematous legs with underlying lymphedema. It had significantly progressed on the left side and she had undergone left AKA by Dr. Valdivia on 04/06/2023. She has been [facility] for the right lower extremity and is now for evaluation by us. She has copious drainage and the leg has been a source of discomfort for her. In addition she has severe osteoarthritis of the right knee and is in need knee replacement which would not be possible secondary to the lymphedema and large wounds. She now presents to us for vascular evaluation. Of note she is nonambulatory. She is unable to even use that right leg for transfer. [facility] Medical History Hereditary lymphedema of legs Arthritis Pre-diabetes Incontinence of urine Dependent on walker for ambulation Hx of deep venous thrombosis Hx pulmonary embolism Hx of atrial flutter Snores HTN (hypertension) Ulcer of ankle Lymphedema of both lower extremities Anxiety and depression On beta mahamed at home Surgical History History of left above knee amputation (04/06/23) History of surgery on lower extremity (03/05/23) Hx of dilation and curettage History of ankle fusion History of surgery on lower extremity Hx of colonoscopy Hx of tonsillectomy History of radiofrequency ablation procedure for cardiac arrhythmia Social History Household Members: Spouse Housing: House Are you a primary director critical care to a significant other at home: No Do you presently have visiting nurse or other home services: No Alcohol intake: never Comment: rings appropriately Patient Tobacco Use Status: Never used Tobacco service: No Review of Systems Const All systems reviewed & are unremarkable except as noted in HPI and below Reports no additional complaints ENT Reports Normal hearing present Card Denies chest pain, Denies chest pain at rest, Denies chest pain with activity and Denies pedal edema Resp Denies cough GI Denies abdominal pain Musc Denies abnormal gait, Denies muscle cramps and Denies radiating pain into limb Skin/Breast Denies skin ulcer and Denies wounds Neuro Reports Normal hearing present and Denies abnormal gait Psych Reports no additional complaints Physical Exam Const General: cooperative, healthy appearing and comfortable Orientation/consciousness: oriented to person, oriented to place and oriented to time HEENT Head: Yes normal to inspection Neck Neck: Yes normal visual inspection Carotids: no bruits Chest Chest palpation & inspection: normal inspection of the chest Resp Effort & Inspection: normal respiratory effort and able to speak in complete sentences Auscultation: clear to auscultation bilaterally, no crackles, no rales, no rhonchi and no wheezes Cardio Rate: regular rate Rhythm: regular rhythm Heart sounds: S1 normal heart sound present and S2 normal heart sound present Bruits: no carotid bruits Peripheral pulses: Peripheral pulses 2+ throughout GI Inspection: Yes normal to inspection Skin Other: Left AKA well he Right calf wound measures 16.5 x 36.5 x 1.2 cm. Poor granulation bed. Significant serous drainage throughout this entire leg. Overall +4 edema with significant lymphedema. Wounds: amputation site and wounds noted Hair: normal Neuro General: oriented to person, oriented to place and oriented to time Cranial nerves: Yes CN's II-XII intact bilaterally and Yes Normal hearing present Cognition (Neuro): normal cognition Motor exam (neuro): 5/5 motor strength present throughout Extrem Other: General: No clubbing, No cyanosis and Yes edema Psych Appearance: grossly normal Mental Status: mental status grossly normal Speech and movement: Normal speech and movement present Assessment & Plan Assessment & Plan (1) Ulcer of right lower extremity: Code(s): L97.919 - Non-pressure chronic ulcer of unspecified part of right lower leg with unspecified severity Qualifiers: Non-pressure ulcer stage: unspecified non-pressure ulcer stage Qualified Code(s): L97.919 - Non-pressure chronic ulcer of unspecified part of right lower leg with unspecified severity Plan: In short patient has nonhealing right lower extremity ulcer. I did have a significant discussion with the patient regarding the overall status of this. She is unable to functionally use that leg and that knee is with severe osteoarthritis. The wound has been progressing for significant amount of time. Unfortunately I do not believe that she would be able to decrease the lymphedema. She has been unable to use her lymphedema pumps. In addition that large wound appears to be doing extremely poorly. I also explained that I do not think a skin substitute would be possible as the copious drainage in poor granulation bed will not allow the take of any artificial skin substitutes. I feel the only option for her to improve quality of life will be a right above knee amputation. I did go into a fair amount of detail regarding this. She would like to follow up with the [facility]. I would be happy to move forward with the amputation if she requests us. In addition she has had prior amputation of the left side by Dr. Valdivia and would be happy to defer to him if the patient requires his services. We left it open ended and the patient can reach out to us if she does desire to move forward with the amputation. Thank you for allowing us to assist in her care. If there are any questions or concerns please do not hesitate to contact us. Coding Level of Care Code New Pt Level 4 (36149) Diagnoses Ulcer of right lower extremity, unspecified ulcer stage L97.919 Non-pressure ulcer stage: unspecified non-pressure ulcer stage
== END 2023-12-06 16:29 | disposition home or self-care (01) ==
PROVIDERS: PCP Pediatrics; Visit Provider Surgery Vascular Surgery
DX: L97.919 Non-pressure chronic ulcer of unspecified part of right lower leg with unspecified severity (principal)
CPT/HCPCS: 99204

== ENCOUNTER 2024-01-11 08:37 | Outpatient (AMB) | payer BC, SELFPAY ==
--- NOTE | 2024-01-11 08:38 | MHC.OFFVIS ---
Vital Signs 01/11/24 08:41 Height 5 ft 6 in Weight 222 lb 10.67 oz BMI 35.9 Intake Visit Reasons: check leg, possible amp Intake Note: Patient is seen in office for follow up visit, check right leg, possible amputation. Pt c/o: severe lymphedema has been there for a few months has been stable, increase drainage and pain, nurse comes in daily to change the dressing, sees the wound clinic every other week [employer] Tester Required: No Accompanied by: Other Relationship Allergies diltiazem [From Cardizem] Allergy (Verified 12/06/23 15:31) Hives Penicillins Allergy (Verified 12/06/23 15:31) Rash Medication List - Last Reconciled 01/11/24 by Дмитрий Valdivia MD acetaminophen ER 1,300 mg PO DAILY cetirizine 10 mg PO DAILY cholecalciferol (vitamin D3) 25 mcg PO DAILY clonazepam 0.5 mg PO DAILY famotidine 40 mg PO DAILY furosemide 40 mg PO DAILY gabapentin 300 mg PO BEDTIME hydromorphone 4 mg PO DAILY levofloxacin 500 mg PO DAILY metoprolol succinate ER (Toprol XL) 50 mg PO DAILY multivitamin 1 tab PO DAILY sertraline 100 mg PO DAILY HPI Comments Details: 68-year-old female patient returning for evaluation of right leg amputation. She has a previous history of an emergency left above knee amputation for necrotizing fasciitis. She was evaluated by vascular surgery and recommendation for right amputation made. She presents today for 2nd opinion. She does have phantom pain localized to her feet and ankle. She reports that her amputation site has well-healed. She is now developed severe lymphedema, ulceration and drainage from the right leg which is not improved in fact is gradually worsening over time. She is constant pain in the right leg and is requiring narcotic. The right knee is arthritic it is unable to bend. She is requesting above knee amputation similar to the left side. COUNTS INCLUDE 234 BEDS AT THE [facility] Medical History Hereditary lymphedema of legs Arthritis Pre-diabetes Incontinence of urine Dependent on walker for ambulation Hx of deep venous thrombosis Hx pulmonary embolism Hx of atrial flutter Snores HTN (hypertension) Ulcer of ankle Lymphedema of both lower extremities Anxiety and depression On beta mahamed at home Surgical History History of left above knee amputation (04/06/23) History of surgery on lower extremity (03/05/23) Hx of dilation and curettage History of ankle fusion History of surgery on lower extremity Hx of colonoscopy Hx of tonsillectomy History of radiofrequency ablation procedure for cardiac arrhythmia Social History Household Members: Spouse Housing: House Are you a primary transitional care manager to a significant other at home: No Do you presently have visiting nurse or other home services: No Alcohol intake: never Comment: rings appropriately Patient Tobacco Use Status: Never used Tobacco service: No Review of Systems Const All systems reviewed & are unremarkable except as noted in HPI and below Physical Exam Vital Signs: BMI result Body Mass Index 35.9 Const General: no acute distress Nutritional Appearance: obese Orientation/consciousness: patient oriented x3 HEENT Head: Yes normocephalic and Yes atraumatic Resp Effort & Inspection: normal respiratory effort Skin Other: No erythema noted at the knee Neuro General: patient oriented x3 Extrem Other: Left leg wound is completely healed with no evidence of erythema, redness or discharge. Right leg with extensive ulceration, edema, with serous drainage throughout the lower extremity. Skin appears normal at the level of the knee. No subQ emphysema is palpable at the knee as well. Assessment & Plan Assessment & Plan (1) Ulcer of right lower extremity: Code(s): L97.919 - Non-pressure chronic ulcer of unspecified part of right lower leg with unspecified severity Category: Medical Qualifiers: Non-pressure ulcer stage: unspecified non-pressure ulcer stage Qualified Code(s): L97.919 - Non-pressure chronic ulcer of unspecified part of right lower leg with unspecified severity (2) Stasis ulcer of right lower extremity: Comment: No further antibiotics in addition at this time Code(s): I83.019 - Varicose veins of right lower extremity with ulcer of unspecified site; L97.919 - Non-pressure chronic ulcer of unspecified part of right lower leg with unspecified severity Category: Medical (3) S/P AKA (above knee amputation) unilateral: Comment: left Code(s): Z89.619 - Acquired absence of unspecified leg above knee Category: Surgical Plan 68-year-old female patient well known to me with chronic lymphedema bilateral lower extremities with a previous history of necrotizing fasciitis involving the left leg now with nonhealing wounds of the right leg similar to the left side. She has been undergoing wound care therapy but continues to worsen with her symptoms in the right leg. She is uncomfortable the time and feels she would be better off with an amputation above the knee. I would agree 100% that her lifestyle will be improved with the amputation given the severe symptoms which restricts her mobility. I feel her ability to transfer may be much improved after amputation. After discussion of the procedure, risks, and alternatives, she consents to above knee amputation. She will be scheduled at her earliest convenience as a short-stay admit. We also discussed rehabilitation post surgery and will determine this postoperatively. Coding Level of Care Code Est Pt Level 4 (50329) Diagnoses Ulcer of right lower extremity, unspecified ulcer stage L97.919 Non-pressure ulcer stage: unspecified non-pressure ulcer stage Stasis ulcer of right lower extremity I83.019; L97.919 S/P AKA (above knee amputation) unilateral Z89.619
[2024-01-11 08:41] VITALS: BMI 35.9
== END 2024-01-11 09:02 | disposition home or self-care (01) ==
PROVIDERS: PCP Pediatrics; Referring Provider Pediatrics; Visit Provider Surgery
DX: I83.019 Varicose veins of right lower extremity with ulcer of unspecified site (principal); L97.919 Non-pressure chronic ulcer of unspecified part of right lower leg with unspecified severity; Z89.619 Acquired absence of unspecified leg above knee
CPT/HCPCS: 99214

== ENCOUNTER → 2024-01-11 08:37 | Outpatient (BNVA) | payer BC, SELFPAY | PROVIDERS: PCP Pediatrics; Visit Provider Surgery ==

== ENCOUNTER → 2024-01-16 11:14 | Outpatient (BNV) | payer BC, SELFPAY | PROVIDERS: Admitting Provider Surgery; PCP Pediatrics; Visit Provider Internal Medicine Cardiovascular Disease | DX: Z01.818 Encounter for other preprocedural examination (principal) | CPT/HCPCS: 93010 ==

== ENCOUNTER 2024-01-21 11:25 | Inpatient (IN) | payer BC, SELFPAY ==
--- NOTE | 2024-01-16 | ECG_ITS ---
Test Reason : preop Blood Pressure : / mmHG Vent. Rate : 073 BPM Atrial Rate : 073 BPM P-R Int : 162 ms QRS Dur : 088 ms QT Int : 396 ms P-R-T Axes : 075 -29 064 degrees QTc Int : 436 ms Normal sinus rhythm Normal ECG When compared with ECG of 11-JUN-2023 21:07, No significant change was found Referred By: Ailyn Wisdom Electronically Signed By:Loy Terrazas
[2024-01-16 10:28] VITALS: BP 139/80; PULSE 83; RESP 16; O2SAT 100
--- NOTE | 2024-01-16 10:38 | P.CONAN_ITS ---
Documented by User: Ailyn Wisdom NP 01/17/24 15:12 HPI - Anesthesia Eval Consult details Narrative: 68yo F for Right Leg Amputation Above Knee Wheelchair dependant No CP/SOB with very limited activity s/p decubiti debrid 03/2023 with GA-LMA 4 s/p Left AKA Significant lymphedema R LE DM in history - Pt denies diagnosis Hx DVT/PE ?2019, off OAC for 2 years Hx aflutter s/p ablation without problems ~ 2019. Does not follow cardiology anymore [facility] Active Problems Active Problems: All Active Problems Ulcer of right lower extremity (Acute) Stasis ulcer of right lower extremity (Acute) S/P AKA (above knee amputation) unilateral (Acute) Morbid obesity (Acute) Open wound of both legs with complication (Acute) Stasis ulcer of left lower extremity (Acute) Acid reflux (Acute) Past Medical History Medical History Hx of transfusion of packed red blood cells Dependence on wheelchair Diabetes Osteoarthritis Fibromyositis Pure hypercholesterolemia Allergic rhinitis Steatosis of liver Vitamin D deficiency Albuminuria Mitral valve regurgitation Hemorrhage of large intestine due to diverticular disease Collagenous colitis Anemia Hx MRSA infection Hereditary lymphedema of legs Arthritis Pre-diabetes Incontinence of urine Hx of deep venous thrombosis Hx pulmonary embolism Hx of atrial flutter Snores HTN (hypertension) Ulcer of ankle Lymphedema of both lower extremities Anxiety and depression On beta mahamed at home Family History Family history of problems with anesthesia: No Surgical History Surgical History History of gynecologic surgery Hx of breast biopsy History of esophagogastroduodenoscopy (EGD) History of left above knee amputation (04/06/23) History of surgery on lower extremity (03/05/23) Hx of dilation and curettage History of ankle fusion History of surgery on lower extremity Hx of colonoscopy Hx of tonsillectomy History of radiofrequency ablation procedure for cardiac arrhythmia History of Problems with Anesthesia: No Social History Social History Household Members: Spouse Housing: House Are you a primary customer care assistant to a significant other at home: No Do you presently have visiting nurse or other home services: Yes (nursing) Alcohol intake: never Comment: rings appropriately Patient Tobacco Use Status: Never used Tobacco Use of substances other than those prescribed or required for medical reasons: No Have you been hit, kicked, punched, or otherwise hurt by someone within the past year? If so, by whom?: No Are you DNR?: No Advance Directives: No Advance Directives Information Provided: No Advance Directives on File: No Recently lost weight without trying: No Eating poorly because of decreased appetite: No Nutrition Risks: No Nutritional Risk Patient : No : No Poor oral hygiene: No service: No Meds Allergies Allergy/AdvReac Type Severity Reaction Status Date / Time diltiazem [From Cardizem] Allergy Hives Verified 12/06/23 15:31 Penicillins Allergy Rash Verified 12/06/23 15:31 Home Medications ?Medication ?Instructions ?Recorded ?Confirmed ?Last Taken ?Type acetaminophen 650 mg 1,300 mg PO BID 04/04/23 01/15/24 Unknown History tablet,extended release hydromorphone 4 mg tablet 4 mg PO BID 12/06/23 01/15/24 01/21/24 History gabapentin 400 mg capsule 400 mg PO TID 01/15/24 01/15/24 01/21/24 History Exam Height,Weight and Vital Signs: Height 5 ft 6 in Last Vital Signs Pulse 83 01/16/24 10:28 Resp 16 01/16/24 10:28 BP 139/80 01/16/24 10:28 Pulse Ox 100 01/16/24 10:28 O2 Del Method Room Air 01/16/24 10:28 Pertinent Lab Results Pertinent Lab Results: Laboratory Tests 01/16/24 11:35 WBC 6.9 Hgb 11.7 L Hct 36.6 L Plt Count 236 D Sodium 140 Potassium 4.3 Chloride 109 H Carbon Dioxide 24 BUN 13 Creatinine 0.70 Laboratory Tests 01/16/24 11:35 Hemoglobin A1c % 7.3 H Narrative Narrative: EKG 01/2024 Vent. Rate : 073 BPM Atrial Rate : 073 BPM P-R Int : 162 ms QRS Dur : 088 ms QT Int : 396 ms P-R-T Axes : 075 -29 064 degrees QTc Int : 436 ms Normal sinus rhythm Normal ECG When compared with ECG of 11-JUN-2023 21:07, No significant change was found Airway Mallampati Class: I TM Dist: >3cm Neck ROM: Full Loose/Missing/Broken Teeth: Yes (2 x molar pulled) Heart: RRR Lungs: CTAB Assessment and Plan Assessment Anesthesia Assessment: Anesthesia Plan Discussed and PAT Visit Final Anesthetic Review Family History of Problems with Anesthesia: No History of Problems with Anesthesia: No Documented by User: Lilia Martínez MD 01/21/24 13:40 PMFSH Active Problems Active Problems: All Active Problems Ulcer of right lower extremity (Acute) Stasis ulcer of right lower extremity (Acute) S/P Left AKA (above knee amputation) Morbid obesity (Acute) BMI 38.5 Open wound of both legs with complication (Acute) Acid reflux (Acute) Past Medical History Medical History Hx of transfusion of packed red blood cells Dependence on wheelchair Diabetes Osteoarthritis Fibromyositis Pure hypercholesterolemia Allergic rhinitis Steatosis of liver Vitamin D deficiency Albuminuria Mitral valve regurgitation Hemorrhage of large intestine due to diverticular disease Collagenous colitis Anemia Hx MRSA infection Hereditary lymphedema of legs Arthritis Pre-diabetes Incontinence of urine Hx of deep venous thrombosis Hx pulmonary embolism Hx of atrial flutter Snores HTN (hypertension) Ulcer of ankle Lymphedema of both lower extremities Anxiety and depression On beta mahamed at home Family History Family history of problems with anesthesia: No Surgical History Surgical History History of gynecologic surgery Hx of breast biopsy History of esophagogastroduodenoscopy (EGD) History of left above knee amputation (04/06/23) History of surgery on lower extremity (03/05/23) Hx of dilation and curettage History of ankle fusion History of surgery on lower extremity Hx of colonoscopy Hx of tonsillectomy History of radiofrequency ablation procedure for cardiac arrhythmia History of Problems with Anesthesia: No Social History Social History Household Members: Spouse Housing: House Are you a primary customer care assistant to a significant other at home: No Do you presently have visiting nurse or other home services: Yes (nursing) Alcohol intake: never Comment: rings appropriately Patient Tobacco Use Status: Never used Tobacco Use of substances other than those prescribed or required for medical reasons: No Have you been hit, kicked, punched, or otherwise hurt by someone within the past year? If so, by whom?: No Are you DNR?: No Advance Directives: No Advance Directives Information Provided: No Advance Directives on File: No Recently lost weight without trying: No Eating poorly because of decreased appetite: No Nutrition Risks: No Nutritional Risk Patient : No : No Poor oral hygiene: No service: No Meds Allergies Allergy/AdvReac Type Severity Reaction Status Date / Time diltiazem [From Cardizem] Allergy Hives Verified 12/06/23 15:31 Penicillins Allergy Rash Verified 12/06/23 15:31 Home Medications ?Medication ?Instructions ?Recorded ?Confirmed ?Last Taken ?Type acetaminophen 650 mg 1,300 mg PO BID 04/04/23 01/15/24 Unknown History tablet,extended release hydromorphone 4 mg tablet 4 mg PO BID 12/06/23 01/15/24 01/21/24 History gabapentin 400 mg capsule 400 mg PO TID 01/15/24 01/15/24 01/21/24 History Exam Height,Weight and Vital Signs: Height 5 ft 6 in Last Vital Signs Pulse 83 01/16/24 10:28 Resp 16 01/16/24 10:28 BP 139/80 01/16/24 10:28 Pulse Ox 100 01/16/24 10:28 O2 Del Method Room Air 01/16/24 10:28 Vital Signs Temp Pulse Resp BP Pulse Ox O2 Del Method 01/21/24 11:04 97.9 F 76 16 148/79 H 99 Room Air Airway Mallampati Class: II TM Dist: >3cm Neck ROM: Full Loose/Missing/Broken Teeth: No (Denies broken or loose teeth) Assessment and Plan Assessment Anesthesia Assessment: Anesthesia Plan Discussed, PAT Visit and Chart Reviewed Final Anesthetic Review Family History of Problems with Anesthesia: No History of Problems with Anesthesia: No NPO: Yes ASA Class: III Final Preanesthetic Review: No Changes in Pt Med Stat, Meds/Allgs Chart Reviewed, Consent Obtained/Reviewed and Anes Risks/Benef Reviewed Patient Risk: Intermediate Procedure Risk: Intermediate Assessment/Block/Sedation in SS: Assess/Block/Sedation-SS Anesthetic Plan Anesthetic Plan: GA Disposition: Standard PACU and Inp. Admit - Standard Bed
[2024-01-16 12:03] LABS: Hematocrit 36.6 % (37.0-47.0); Hemoglobin 11.7 g/dl (12.0-16.0); Mean Corpuscular Hemoglobin 25.9 pg (27.0-33.0); Mean Corpuscular Volume 81.2 fL (80.0-98.0); Mean Platelet Volume 9.2 fL (9.4-12.3); Platelet Count 236 X10*3/uL (160-400); Red Blood Count 4.51 X10*6/uL (4.20-5.50); Red Cell Distribution Width 16.2 % (11.0-16.0); White Blood Count 6.9 X10*3/uL (4.8-10.8)
[2024-01-16 12:09] LABS: Estimated Average Glucose 163 mg/dL; Hemoglobin A1c % 7.3 % (<6.0)
[2024-01-16 13:04] LABS: Anion Gap 11 (12-20); Blood Urea Nitrogen 13 mg/dL (9-16); Calcium 9.8 mg/dL (8.4-10.2); Carbon Dioxide 24 mmol/L (22-29); Chloride 109 mmol/L (96-108); Estimated Glomerular Filt Rate > 60; Glucose Random 179 mg/dL (60-115); Potassium 4.3 mmol/L (3.3-5.1); Sodium 140 mmol/L (135-145)
[2024-01-21] VITALS (22 sets, daily range): BP systolic 118–148; BP diastolic 56–95; PULSE 76–103; RESP 12–18; TEMP 36.1–36.8; O2SAT 92–100; BMI 38.5; BMI 34.3
[2024-01-21] MEDS: vancomycin HCL 1,500 MG in 0.9 % Sodium Chloride 500 ML 333.33 MG IV (11:26)
[2024-01-21] MEDS: Lactated Ringers 1,000 ML 100 ML IVCONT ×2 (11:26→22:59)
--- NOTE | 2024-01-21 11:29 | PHA.MEDREC ---
Pharmacy Consult ? Medication Reconciliation Pharmacy has reviewed the medication reconciliation completed by nursing.
--- NOTE | 2024-01-21 11:56 | MHC.SHP ---
Pre-Procedural Eval Section A - 24 Hr Update-Section A only Date of Service: 01/21/24 The patient is an INPATIENT: No Changes since office visit: Yes Patient answered all questions; No Cold of Flu in the past 2 weeks, No New Medical Problems and No Changes in Medication The patient has been examined within 24 hours of the surgical procedure. The History & Physical has been completed within 30 days and I have reviewed it.: Yes Section B - Complete if H&P > 30 days Chief Complaint: Right above knee amputation Allergies: Allergies Allergy/AdvReac Type Severity Reaction Status Date / Time diltiazem [From Cardizem] Allergy Hives Verified 12/06/23 15:31 Penicillins Allergy Rash Verified 12/06/23 15:31 Plan Diagnosis/Plan: Unchanged I have reviewed the history and physical and performed a pertinent physical examination on my patient. No changes have occurred unless specified. Time Spent With Patient Time: Total time managing care of this patient today ____ minutes.
--- NOTE | 2024-01-21 14:11 | W.PM.OPN ---
Operative Note Operative Note Date of Service: 01/21/24 Narrative: Preoperative diagnosis: Chronic stasis ulcer right leg Postoperative diagnosis: Same Procedure: Right above knee amputation Surgeon: Дмитрий Valdivia MD Media Relations Intern: Audrey Khan PA-C Anesthesia: General LMA Indications for procedure: 68-year-old female patient, nonambulatory with prior history of necrotizing fasciitis of the left leg requiring above-knee amputation now presenting with a nonhealing chronic venous stasis ulcer of the right leg which seems to be worsening. She presents today for above-knee amputation. Operative findings: Chronic ulceration of the right lower leg; healthy tissue noted above the knee. Specimen: Right above-knee amputation Estimated blood loss: 150 mL Complications: None Procedure details: Patient was brought to the OR placed in a supine position. After administering general anesthesia the patient's right leg was prepped with ChloraPrep and draped in a sterile fashion. A stockinette was applied to the lower leg followed by a compressive dressing. A surgical time-out was called and the consent confirmed. Patient received preoperative antibiotics. No Venodyne boots were applied. Esmarch was used to exsanguinate the right leg and a tourniquet was applied at a pressure of 250 mmHg. The Esmarch was then removed. A fishmouth type incision was then created with electrocautery on cutting mode. Hemostasis was assured using free ties of 3-0 Polysorb and electrocautery. Dissection was continued circumferentially down to just above the knee. Dissection was continued over the bone. Saphenous vein was identified and ligated with a 0 silk tie. Popliteal artery and nerves were also identified and individually ligated with 0 silk ties. A periosteal elevator was used to dissect above the knee on the femur. The remaining muscles were divided using electrocautery. A bone saw was then used to amputate the femur above the knee proximally 5 cm. Remaining tissue was divided using electrocautery. Wounds were then checked for hemostasis once again. The leg was removed and sent to pathology for further examination. Wounds were then irrigated with saline solution and once again checked for hemostasis. Bone edge was then checked for hemostasis. A rongeur and rasp was then used to trim the margins of the femur. Bone wax was applied for hemostasis. Muscular tissue was then reapproximated around the distal femur using interrupted 2-0 Polysorb sutures. Dermis was then reapproximated using interrupted 3-0 Polysorb sutures. Skin was then closed using skin keren. Sterile dressings consisting of fluff gauze, Kerlix and 6 in Josh bandages were then applied. The patient tolerated the procedure well. Sponge, instrument, needle counts reported as correct. The patient was transferred to PACU in stable condition.
[2024-01-21] MEDS: fentaNYL citrate/PF 100 MCG/2 ML VIAL 25 MCG IVPUSH ×4 (15:09→15:33)
[2024-01-21] MEDS: HYDROmorphone HCl 0.5 MG/0.5 ML SYRINGE 0.25 MG IVPUSH ×2 (15:56→16:01)
[2024-01-21] MEDS: Acetaminophen 1,000 MG/100 ML PIGGYBACK 400 MG IV ×2 (17:01→22:57)
[2024-01-21] MEDS: oxyCODONE HCl Immed Release 5 MG TABLET PO (17:02)
[2024-01-21] MEDS: Gabapentin 400 MG CAPSULE PO (17:02)
[2024-01-21] MEDS: HYDROmorphone HCl 0.5 MG/0.5 ML SYRINGE IVPUSH (20:21)
[2024-01-22] VITALS (9 sets, daily range): BP systolic 115–130; BP diastolic 56–78; PULSE 88–95; RESP 12–20; TEMP 36.1–36.6; O2SAT 98–100
[2024-01-22] MEDS: Acetaminophen 1,000 MG/100 ML PIGGYBACK 400 MG IV ×3 (04:13→21:58)
[2024-01-22] MEDS: HYDROmorphone HCl 0.5 MG/0.5 ML SYRINGE IVPUSH ×5 (06:21→22:05)
--- NOTE | 2024-01-22 07:38 | PM.PNGS ---
Subjective Subjective Date of Service: 01/22/24 <Audrey Khan PA-C - Last Filed: 01/22/24 07:41> 01/22/24 <Дмитрий Valdivia MD - Last Filed: 01/22/24 08:25> Interval history: Overall feels well with good pain control. Tolerating diet. <Audrey Khan PA-C - Last Filed: 01/22/24 07:41> Physical Exam Vital Signs: Vital Signs: Last Vital Signs Temp 97 F 01/22/24 04:00 Pulse 89 01/22/24 04:00 Resp 16 01/22/24 06:21 BP 120/56 L 01/22/24 04:00 Pulse Ox 99 01/22/24 04:00 O2 Del Method Room Air 01/21/24 23:56 O2 Flow Rate 6 01/21/24 15:26 BMI result Body Mass Index 34.3 <Audrey Khan PA-C - Last Filed: 01/22/24 07:41> Const: General: comfortable, no acute distress and alert <Audrey Khan PA-C - Last Filed: 01/22/24 07:41> Orientation/consciousness: patient oriented x3 <Audrey Khan PA-C - Last Filed: 01/22/24 07:41> Resp: Effort & Inspection: normal respiratory effort <Audrey Khan PA-C - Last Filed: 01/22/24 07:41> Skin: General skin exam: no rashes or lesions noted <Audrey Khan PA-C - Last Filed: 01/22/24 07:41> Neuro: General: patient oriented x3 <Audrey Khan PA-C - Last Filed: 01/22/24 07:41> Extrem: Other: right AKA site- dressing c/d/i <BELINDA Archuleta Last Filed: 01/22/24 07:41> Objective Data Active Medications Gabapentin (Gabapentin 400 Mg Capsule) 400 mg PO TID [facility] Last Admin: 01/21/24 22:25 Dose: Not Given Documented By: VIPUL Non-Admin Reason: already given at 5 pm Hydromorphone HCl (Hydromorphone Hcl 0.5 Mg/0.5 Ml Syringe) 0.5 mg IVPUSH Q3H PRN; Protocol PRN Reason: Pain, Severe (Pain Scale 7-10) Last Admin: 01/22/24 06:21 Dose: 0.5 mg Documented By: KALEY Lactated Ringer's (Lr) 1,000 mls @ 100 mls/hr IVCONT .Q10H [facility] Last Admin: 01/21/24 22:59 Dose: 100 mls/hr Documented By: VIPUL Acetaminophen (Ofirmev) 1,000 mg in 100 mls @ 400 mls/hr IV Q6H [facility] Last Infusion: 01/22/24 04:33 Dose: Infused Documented By: VIPUL Ondansetron HCl (Ondansetron Hcl 4 Mg/2 Ml Vial) 4 mg IVPUSH QID PRN PRN Reason: Nausea Oxycodone HCl (Oxycodone Hcl Immed Release 5 Mg Tablet) 5 mg PO Q6H PRN PRN Reason: Pain, Moderate(Pain Scale 4-6) Last Admin: 01/21/24 17:02 Dose: 5 mg Documented By: ALMA DELIA Zolpidem Tartrate (Zolpidem Tartrate 5 Mg Tablet) 5 mg PO BEDTIME PRN PRN Reason: Insomnia <Audrey Khan PA-C - Last Filed: 01/22/24 07:41> Labs CBC & Chem 7: 01/16/24 11:35 01/16/24 11:35 <Audrey Khan PA-C - Last Filed: 01/22/24 07:41> Procedures Date of Service Date of Service: 01/22/24 <Audrey Khan PA-C - Last Filed: 01/22/24 07:41> 01/22/24 <Дмитрий Valdivia MD - Last Filed: 01/22/24 08:25> Progress Note: A&P Assessment and plan (1) S/P AKA (above knee amputation): Status: Acute <Audrey Khan PA-C - Last Filed: 01/22/24 07:41> (2) Ulcer of right lower extremity: Status: Acute <Audrey Khan PA-C - Last Filed: 01/22/24 07:41> (3) Stasis ulcer of right lower extremity: Status: Acute <Audrey Khan PA-C - Last Filed: 01/22/24 07:41> Assessment and Plan: POD #1 s/p Right above knee amputation for chronic ulcers, worsening lymphedema. Doing well post op, pain controlled. VSS. AKA dressing site clean and intact. Dc montemayor. Dc IVF. Cont pain control. PLan for dressing change tomorrow. PT consult. <Audrey Khan PA-C - Last Filed: 01/22/24 07:41> POD #1 s/p Right above knee amputation for chronic ulcers, worsening lymphedema. Doing well post op, pain controlled. VSS. AKA dressing site clean and intact. Dc montemayor. Dc IVF. Cont pain control. PLan for dressing change tomorrow. PT consult. <Дмитрий Valdivia MD - Last Filed: 01/22/24 08:25> Time Spent With Patient Time: Total time managing care of this patient today ____ minutes. <Audrey Khan PA-C - Last Filed: 01/22/24 07:41> Quality Stroke Does the patient have a stroke diagnosis?: No <Audrey Khan PA-C - Last Filed: 01/22/24 07:41> VTE Prior VTE?: No <Audrey Khan PA-C - Last Filed: 01/22/24 07:41> VTE Risk Level:: Surgical - high <Audrey Khan PA-C - Last Filed: 01/22/24 07:41> VTE Device Contraindication: N/A - Device Ordered <BELINDA Archuleta Last Filed: 01/22/24 07:41> VTE Drug Contraindication: N/A - Med Ordered <Audrey Khan PA-C - Last Filed: 01/22/24 07:41>
--- NOTE | 2024-01-22 08:49 | HO.POSTANES ---
Post Anesthesia Evaluation Post Anesthesia Evaluation Date of Service: 01/22/24 Vital Signs: Vital Signs Temp Pulse Resp BP Pulse Ox O2 Del Method 01/22/24 07:40 97.6 F 88 12 115/78 99 Room Air 01/22/24 06:21 16 01/22/24 04:00 97 F 89 16 120/56 L 99 01/22/24 00:00 20 01/21/24 23:56 97 F 89 16 129/56 L 97 Room Air Anesthesia: General LMA Mental Status: Awake Pain Control: Satisfactory Nausea/Vomiting: None Hydration: Adequate Anesthesia-Related Issues: No Anes. Related Issues
[2024-01-22] MEDS: Gabapentin 400 MG CAPSULE PO ×3 (08:50→21:58)
--- NOTE | 2024-01-22 09:46 | MHC.CM.PN ---
Patient lives in a home w/ her . L JOCE March 2023, now admitted s/p R AKDanita. Uses a w/c at baseline and was indp w/ slide board transfers. Uses a bedside commode, as her bathrooms are small and difficult to navigate w/ w/c. PCP Tre White MD Patient completed HCP naming agents 1) [facility] and 2) sister Nicole DP: PT eval pending. Anticipating [facility]. Patient has been to [facility] in the past and they are first choice. Agreeable to referrals to all local [facility]'s. CM will continue to follow.
--- NOTE | 2024-01-22 10:07 | PC.NURSE ---
Patient montemayor removed at 0900 01/22/24. pure[address] in [address]. patient due to void at 1500.
[2024-01-22 11:36] LABS: Glucose, Whole Blood 182 mg/dL (60-115)
[2024-01-23 04:00] VITALS: BP 132/70; PULSE 86; RESP 18; TEMP 36.4; O2SAT 99
[2024-01-23] MEDS: Acetaminophen 1,000 MG/100 ML PIGGYBACK 400 MG IV ×4 (04:50→22:24)
[2024-01-23 07:53] VITALS: BP 129/60; PULSE 81; RESP 18; TEMP 36.3; O2SAT 98
[2024-01-23] MEDS: HYDROmorphone HCl 0.5 MG/0.5 ML SYRINGE IVPUSH ×3 (08:23→21:01)
[2024-01-23] MEDS: Gabapentin 400 MG CAPSULE PO ×3 (08:23→21:01)
--- NOTE | 2024-01-23 08:39 | PM.PNGS ---
Subjective Subjective Date of Service: 01/23/24 Interval history: No new complaints. Does have right limb pain especially when stretching. Physical Exam Vital Signs: Vital Signs: Last Vital Signs Temp 97.3 F 01/23/24 07:53 Pulse 81 01/23/24 07:53 Resp 18 01/23/24 07:53 BP 129/60 01/23/24 07:53 Pulse Ox 98 01/23/24 07:53 O2 Del Method Room Air 01/23/24 07:53 O2 Flow Rate 6 01/21/24 15:26 BMI result Body Mass Index 34.3 Const: General: no acute distress Nutritional Appearance: well nourished Resp: Effort & Inspection: normal respiratory effort Extrem: Other: Dressings changed to right AKA. Wounds are clean, dry, Without erythema. Fresh compressive dressings applied. Objective Data Active Medications Gabapentin (Gabapentin 400 Mg Capsule) 400 mg PO TID [facility] Last Admin: 01/23/24 08:23 Dose: 400 mg Documented By: ULYSSES Hydromorphone HCl (Hydromorphone Hcl 0.5 Mg/0.5 Ml Syringe) 0.5 mg IVPUSH Q3H PRN; Protocol PRN Reason: Pain, Severe (Pain Scale 7-10) Last Admin: 01/23/24 08:23 Dose: 0.5 mg Documented By: ULYSSES Acetaminophen (Ofirmev) 1,000 mg in 100 mls @ 400 mls/hr IV Q6H [facility] Last Infusion: 01/23/24 05:46 Dose: Infused Documented By: VIPUL Ondansetron HCl (Ondansetron Hcl 4 Mg/2 Ml Vial) 4 mg IVPUSH QID PRN PRN Reason: Nausea Oxycodone HCl (Oxycodone Hcl Immed Release 5 Mg Tablet) 5 mg PO Q6H PRN PRN Reason: Pain, Moderate(Pain Scale 4-6) Last Admin: 01/21/24 17:02 Dose: 5 mg Documented By: ALMA DELIA Zolpidem Tartrate (Zolpidem Tartrate 5 Mg Tablet) 5 mg PO BEDTIME PRN PRN Reason: Insomnia Labs 01/16/24 11:35 01/16/24 11:35 Labs: Laboratory Results - last 24 hr 01/22/24 11:31 POC Glucose 182 H Procedures Date of Service Date of Service: 01/23/24 Progress Note: A&P Assessment and plan (1) S/P AKA (above knee amputation): Status: Acute Plan [age] old female patient status post right above-knee amputation. She does report stump pain overall is doing well. Dressings were changed and the wounds are clean. Continue physical therapy. Anticipate discharge to short-term rehab. Will change dressings on Sunday as well. Time Spent With Patient Time: Total time managing care of this patient today ____ minutes. Quality Stroke Does the patient have a stroke diagnosis?: No VTE Prior VTE?: No VTE Risk Level:: Surgical - high VTE Device Contraindication: N/A - Device Ordered VTE Drug Contraindication: N/A - Med Ordered
[2024-01-23 11:13] LABS: Glucose, Whole Blood 211 mg/dL (60-115)
[2024-01-23 15:15] VITALS: BP 133/69; PULSE 88; RESP 16; TEMP 36.4; O2SAT 100
--- NOTE | 2024-01-23 15:37 | MHC.CM.PN ---
PT AND OT EVALS SENT TO ACUTE REHABS
--- NOTE | 2024-01-23 15:47 | HO.WOUND ---
Wound Consult: Initial 68yr old?female admitted [place] [facility] [place]24 - See progress notes and H&P for detailed history.? Wound consult placed for redness to buttock.? Patient agreeable to assessment and photo documentation.? Patient reports she has had various injuries to her buttock in the past. Her at the bedside provides her care at home. He reports she is often red and the patient reports she is often scratching. Buttock assessed for redness remains intact and blanchable throughout no open tissue at this time. Barrier cream applied for prevention. Etiology: ?MASD (Moisture Associated Skin Damage) Wound Bed: Intact red blanchable tissue Drainage / Odor: None Edges: ? irregular Mary wound: evidence of previous injury - ? No Induration, Fluctuance or Warmth noted Pain: denies Goals of Treatment: ? Barrier cream and off load pressure Recommendations: 1. Turn and Reposition every 2 hours and as needed for patient comfort.? Use pillows or wedges to support off loading positions. 2. Off Load all bony prominences with use of pillows and heel boots if needed.? Apply Preventative foams where needed. ? 3. Monitor for incontinence and moisture control, use barrier creams when needed for prevention and treatment. 4. Provide adequate and supplemental nutrition.? 5. Order or Continue low air loss mattress. 6. When applicable maintain blood glucose levels per Providers order. 7. Buttock - Off Load Pressure - Cleanse with PH balance spray or wipes, pat dry. ?Apply thin layer of Barrier Cream to wound bed twice daily. Reapply thin layer PRN after each episode of incontinence. Re-consult wound care Nurse for wound deterioration or wound changes.
[2024-01-23 19:43] VITALS: BP 136/59; PULSE 95; RESP 16; TEMP 36.1; O2SAT 98
[2024-01-24 02:53] VITALS: BP 122/59; PULSE 81; RESP 16; TEMP 36.1; O2SAT 98
[2024-01-24] MEDS: Acetaminophen 1,000 MG/100 ML PIGGYBACK 400 MG IV (04:34)
[2024-01-24 05:04] VITALS: RESP 18
[2024-01-24 07:24] VITALS: BP 136/65; PULSE 80; RESP 12; TEMP 36.2; O2SAT 97
--- NOTE | 2024-01-24 08:06 | P.PNGS_ITS ---
Subjective Subjective Date of Service: 01/24/24 Interval history: Patient more comfortable this morning with decreased limb pain. Does report back pain from lying in bed. Has been exercising her leg while in bed. Physical Exam 2 Vital Signs: Vital Signs: Last Vital Signs Temp 97.1 F 01/24/24 07:24 Pulse 80 01/24/24 07:24 Resp 12 01/24/24 07:24 BP 136/65 01/24/24 07:24 Pulse Ox 97 01/24/24 07:24 O2 Del Method Room Air 01/24/24 07:24 O2 Flow Rate 6 01/21/24 15:26 BMI result Body Mass Index 34.3 Const: General: no acute distress Nutritional Appearance: well nourished Resp: Effort & Inspection: normal respiratory effort Extrem: Other: Dressings clean, dry, and intact without redness or discharge. Objective Data Active Medications Gabapentin (Gabapentin 400 Mg Capsule) 400 mg PO TID [facility] Last Admin: 01/23/24 21:01 Dose: 400 mg Documented By: JANIE Hydromorphone HCl (Hydromorphone Hcl 0.5 Mg/0.5 Ml Syringe) 0.5 mg IVPUSH Q3H PRN; Protocol PRN Reason: Pain, Severe (Pain Scale 7-10) Last Admin: 01/23/24 21:01 Dose: 0.5 mg Documented By: JANIE Acetaminophen (Ofirmev) 1,000 mg in 100 mls @ 400 mls/hr IV Q6H [facility] Last Infusion: 01/24/24 04:50 Dose: Infused Documented By: CAMRYN Ondansetron HCl (Ondansetron Hcl 4 Mg/2 Ml Vial) 4 mg IVPUSH QID PRN PRN Reason: Nausea Oxycodone HCl (Oxycodone Hcl Immed Release 5 Mg Tablet) 5 mg PO Q6H PRN PRN Reason: Pain, Moderate(Pain Scale 4-6) Last Admin: 01/21/24 17:02 Dose: 5 mg Documented By: ALMA DELIA Zolpidem Tartrate (Zolpidem Tartrate 5 Mg Tablet) 5 mg PO BEDTIME PRN PRN Reason: Insomnia Labs 01/16/24 11:35 01/16/24 11:35 Labs: Laboratory Results - last 24 hr 01/23/24 11:09 POC Glucose 211 H Procedures Date of Service Date of Service: 01/24/24 Progress Note: A&P Assessment and plan (1) S/P AKA (above knee amputation): Status: Acute (2) Ulcer of right lower extremity: Status: Acute Plan Pod 3 following right above knee amputation. Patient is stable and the wounds are clean. Continue physical therapy today. Plan on dressing change tomorrow with possible discharge to acute rehab facility. Will DC IV Tylenol Time Spent With Patient Time: Total time managing care of this patient today ____ minutes. Quality Stroke Does the patient have a stroke diagnosis?: No VTE Prior VTE?: No VTE Risk Level:: Surgical - high VTE Device Contraindication: N/A - Device Ordered VTE Drug Contraindication: N/A - Med Ordered
[2024-01-24] MEDS: Gabapentin 400 MG CAPSULE PO ×3 (08:39→21:25)
--- NOTE | 2024-01-24 10:27 | MHC.IC ---
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 No positive culture this admission.
[2024-01-24] MEDS: HYDROmorphone HCl 0.5 MG/0.5 ML SYRINGE IVPUSH ×3 (10:48→21:33)
[2024-01-24 11:19] LABS: Glucose, Whole Blood 219 mg/dL (60-115)
[2024-01-24] MEDS: Acetaminophen 325 MG TABLET 975 MG PO (14:51)
[2024-01-24 15:43] VITALS: BP 133/62; PULSE 88; RESP 16; TEMP 37; O2SAT 100
[2024-01-24 16:17] LABS: Glucose, Whole Blood 181 mg/dL (60-115)
[2024-01-24 19:34] VITALS: BP 108/51; PULSE 89; RESP 18; TEMP 36.4; O2SAT 97
[2024-01-24 20:29] LABS: Glucose, Whole Blood 206 mg/dL (60-115)
[2024-01-25 03:48] VITALS: BP 130/63; PULSE 77; RESP 16; TEMP 36.1; O2SAT 99
[2024-01-25] MEDS: Gabapentin 400 MG CAPSULE PO ×3 (07:41→20:52)
[2024-01-25 07:53] VITALS: BP 144/78; PULSE 82; RESP 16; TEMP 36.1; O2SAT 98
--- NOTE | 2024-01-25 08:54 | P.PNGS_ITS ---
Subjective Subjective Date of Service: 01/25/24 Interval history: Overall feels well and reports pain has been well controlled. Feels ready for transfer today. Physical Exam 2 Vital Signs: Vital Signs: Last Vital Signs Temp 97.0 F 01/25/24 07:53 Pulse 82 01/25/24 07:53 Resp 16 01/25/24 07:53 BP 144/78 H 01/25/24 07:53 Pulse Ox 98 01/25/24 07:53 O2 Del Method Room Air 01/25/24 07:53 O2 Flow Rate 6 01/21/24 15:26 BMI result Body Mass Index 34.3 Const: General: comfortable, no acute distress and alert O rientation/consciousness: patient oriented x3 Resp: Effort & Inspection: normal respiratory effort Skin: General skin exam: no rashes or lesions noted Neuro: General: patient oriented x3 Extrem: Other: right AKA dressing c/d/i Objective Data Active Medications Acetaminophen (Acetaminophen 325 Mg Tablet) 975 mg PO Q6H PRN PRN Reason: Pain, Mild (Pain Scale 1-3) Last Admin: 01/24/24 14:51 Dose: 975 mg Documented By: MURRAY Gabapentin (Gabapentin 400 Mg Capsule) 400 mg PO TID [facility] Last Admin: 01/25/24 07:41 Dose: 400 mg Documented By: GLENN Hydromorphone HCl (Hydromorphone Hcl 0.5 Mg/0.5 Ml Syringe) 0.5 mg IVPUSH Q3H PRN; Protocol PRN Reason: Pain, Severe (Pain Scale 7-10) Last Admin: 01/24/24 21:33 Dose: 0.5 mg Documented By: PAL Ondansetron HCl (Ondansetron Hcl 4 Mg/2 Ml Vial) 4 mg IVPUSH QID PRN PRN Reason: Nausea Oxycodone HCl (Oxycodone Hcl Immed Release 5 Mg Tablet) 5 mg PO Q6H PRN PRN Reason: Pain, Moderate(Pain Scale 4-6) Last Admin: 01/21/24 17:02 Dose: 5 mg Documented By: ALMA DELIA Zolpidem Tartrate (Zolpidem Tartrate 5 Mg Tablet) 5 mg PO BEDTIME PRN PRN Reason: Insomnia Labs 01/16/24 11:35 01/16/24 11:35 Labs: Laboratory Results - last 24 hr 01/24/24 01/24/24 01/24/24 11:14 16:13 20:20 POC Glucose 219 H 181 H 206 H Procedures Date of Service Date of Service: 01/25/24 Progress Note: A&P Assessment and plan (1) S/P AKA (above knee amputation): Status: Acute Plan Pod 4 following right above knee amputation. Patient remains stable with good pain control. Will return later today for dressing change. Ready for transfer to acute rehab when bed available. Will confirm with case management. Time Spent With Patient Time: Total time managing care of this patient today ____ minutes. Quality Stroke Does the patient have a stroke diagnosis?: No VTE Prior VTE?: No VTE Risk Level:: Surgical - high VTE Device Contraindication: N/A - Device Ordered VTE Drug Contraindication: N/A - Med Ordered
[2024-01-25 11:36] VITALS: BP 144/78; PULSE 82; O2SAT 98
--- NOTE | 2024-01-25 12:09 | PM.DS ---
DS: Providers Provider Date of Service: 01/26/24 Date of admission: 01/21/24 11:25 Date of discharge: 01/26/24 Primary care physician: Tre White MD Attending physician on admission: Дмитрий Valdivia Consults: 01/22/24 11:58 Consult to Wound Care Routine Reason for consultation: redness to buttocks Attending physician on discharge: Дмитрий Valdivia DS: Diagnosis Discharge Diagnosis (1) S/P AKA (above knee amputation): Status: Acute DS: Summary Hospital Course Hospital Course: HPI AT ADMISSION: 68-year-old female patient, nonambulatory with prior history of necrotizing fasciitis of the left leg requiring above-knee amputation now presenting with a nonhealing chronic venous stasis ulcer of the right leg which seems to be worsening. She presents today for above-knee amputation. HOSPITAL COURSE: On 01/21/24, Right above knee amputation was performed by Dr. Valdivia without complication. The patient tolerated the procedure well and was admitted post operatively for observation. She had an uneventful recovery course. She necessitated IV analgesics and remained inpatient for pain control and PT/OT. Her right AKA site remained clean and keren were intact, the stump had moderate amount of residual edema. She was discharged to acute rehab on 01/26/24 in stable condition. She is to follow up in the office in 1 week for wound check and staple removal. QOD dressing change with fluffs, abd dressing, kerlix wrap, stockinette, melchor wrap Status at Discharge Overall status at discharge: patient is not back to baseline Time Attestation Discharge Coordination Time (in mins): 50 Quality: Safe Use of Opioids Does Pt have an Active Cancer Diagnosis on the Problem List?: No Quality: Stroke Does the patient have a stroke diagnosis?: No Physical Exam Vital Signs: Vital Signs: Last Vital Signs Temp 97.0 F 01/25/24 07:53 Pulse 82 01/25/24 11:36 Resp 16 01/25/24 07:53 BP 144/78 H 01/25/24 11:36 Pulse Ox 98 01/25/24 11:36 O2 Del Method Room Air 01/25/24 07:53 O2 Flow Rate 6 01/21/24 15:26 BMI result Body Mass Index 34.3 Const: General: comfortable, no acute distress and alert Orientation/consciousness: patient oriented x3 Resp: Effort & Inspection: normal respiratory effort Skin: General skin exam: no rashes or lesions noted Neuro: General: patient oriented x3 Extrem: Other: right AKA stump with keren intact and incision well approximated, clean with moderate amount of residual edema DS: Data Data Completed and Pending Completed studies during hospitalization [Text1]: 01/21/24 13:46 Surgical Path [Surgical] [PTH] Routine Leg, right, above the knee amputation: - Ulcerated and necrotic skin and subcutaneous soft tissue. - Thick-walled veins with organizing thrombi. - Arteries with intimal hyperplasia. - Viable bone marrow at margin. Procedures Detachment at Left Upper Leg, Low, Open Approach (04/04/23) Transfusion of Nonautologous Red Blood Cells into Peripheral Vein, Percutaneous Approach (04/04/23) Labs on day of discharge: Laboratory Results - last 24 hr 01/24/24 01/24/24 16:13 20:20 POC Glucose 181 H 206 H Discharge Plan Discharge Anticipated Discharge Date/Time: 01/26/24 08:09 Patient Disposition: Xfer Inpatient Rehab Fac Discharge Diagnosis: s/p right AKA Referrals: [facility] [Other] - 1 Week Дмитрий Valdivia MD [Physician] - 1 Week Tre White MD [Primary Care Provider] - 1 Week Discharge Medications: New oxycodone 5 mg tablet 5 mg PO Q4H PRN (Reason: pain (scale score 7-10)) Qty: 24 0RF Rx Instructions: Partial Fill upon patient request. docusate sodium [Colace] 100 mg capsule 100 mg PO BID PRN (Reason: constipation) Qty: 30 0RF Continued acetaminophen 650 mg Tablet Extended Release 1,300 mg PO BID gabapentin 400 mg capsule 400 mg PO TID hydromorphone 4 mg tablet 4 mg PO BID Discharge Orders: Discharge Order (Routine); Ordered 01/26/24 Ordered By: Дмитрий Valdivia Diet: Advance to usual diet Activity on Discharge: No heavy lifting Stand Alone Forms: Patient Portal Discharge page Print Language: Bulgarian Activity Restrictions/Additional Instructions: If the incision area is tender, you may apply an ice pack for short intervals (No more than 20 minutes on, followed by at least 20 minutes off). Do not apply heat. Do not use creams, lotions, or topical antibiotics. These can cause infection or allergic reaction. You have keren closing your incision and these will be removed approximately 10-14 days after surgery. Dressing change: change daily and as needed with fluffs, abd dressing, kerlix wrap, stockinette followed by melchor wrap. Follow up in office in 1 week. ([phone]) Call Your Doctor If: -Your temperature exceeds 101.5? F -You experience excessive pain or swelling -You have excessive bleeding -You experience continued vomiting/nausea -Your incision begins to separate or show signs of infection such as increased redness, swelling, excessive pain, drainage (light blood or clear fluid is normal) or heat Care Plan Goals: Return to daily activities following recovery. Health Concerns: hx of chronic lower extremity ulcers, lymphedema Plan of Treatment: s/p right AKA Assessment: Doing well post op.
--- NOTE | 2024-01-25 13:42 | MHC.CM.PN ---
dc arranged for 12 tomorrow to [facility] amb form on chart amb booked with helen
[2024-01-25] MEDS: HYDROmorphone HCl 0.5 MG/0.5 ML SYRINGE IVPUSH ×2 (14:20→21:14)
[2024-01-25 15:42] VITALS: BP 143/65; PULSE 89; RESP 18; TEMP 36.2; O2SAT 99
[2024-01-25 20:00] VITALS: BP 118/73; PULSE 94; RESP 16; TEMP 36.7; O2SAT 99
[2024-01-26 04:00] VITALS: BP 121/64; PULSE 79; RESP 16; TEMP 36.3; O2SAT 99
[2024-01-26 07:19] VITALS: BP 115/59; PULSE 77; RESP 18; TEMP 37.3; O2SAT 98
[2024-01-26 07:40] LABS: Glucose, Whole Blood 174 mg/dL (60-115)
--- NOTE | 2024-01-26 08:11 | P.PNGS_ITS ---
Subjective Subjective Date of Service: 01/26/24 Interval history: Ocassional muscle spasms in right leg. Excited for discharge for acute rehab today. Physical Exam 2 Vital Signs: Vital Signs: Last Vital Signs Temp 99.2 F 01/26/24 07:19 Pulse 77 01/26/24 07:19 Resp 18 01/26/24 07:19 BP 115/59 L 01/26/24 07:19 Pulse Ox 98 01/26/24 07:19 O2 Del Method Room Air 01/26/24 07:19 O2 Flow Rate 6 01/21/24 15:26 BMI result Body Mass Index 34.3 Const: General: comfortable Nutritional Appearance: well nourished O rientation/consciousness: patient oriented x3 Resp: Effort & Inspection: normal respiratory effort Neuro: General: patient oriented x3 Extrem: Other: dressings clean and intact. Objective Data Active Medications Acetaminophen (Acetaminophen 325 Mg Tablet) 975 mg PO Q6H PRN PRN Reason: Pain, Mild (Pain Scale 1-3) Last Admin: 01/24/24 14:51 Dose: 975 mg Documented By: MURRAY Gabapentin (Gabapentin 400 Mg Capsule) 400 mg PO TID ABRAHAN Last Admin: 01/25/24 20:52 Dose: 400 mg Documented By: KALEY Hydromorphone HCl (Hydromorphone Hcl 0.5 Mg/0.5 Ml Syringe) 0.5 mg IVPUSH Q3H PRN; Protocol PRN Reason: Pain, Severe (Pain Scale 7-10) Last Admin: 01/25/24 21:14 Dose: 0.5 mg Documented By: KALEY Ondansetron HCl (Ondansetron Hcl 4 Mg/2 Ml Vial) 4 mg IVPUSH QID PRN PRN Reason: Nausea Oxycodone HCl (Oxycodone Hcl Immed Release 5 Mg Tablet) 5 mg PO Q6H PRN PRN Reason: Pain, Moderate(Pain Scale 4-6) Last Admin: 01/21/24 17:02 Dose: 5 mg Documented By: ALMA DELIA Zolpidem Tartrate (Zolpidem Tartrate 5 Mg Tablet) 5 mg PO BEDTIME PRN PRN Reason: Insomnia Labs 01/16/24 11:35 01/16/24 11:35 Labs: Laboratory Results - last 24 hr 01/26/24 07:36 POC Glucose 174 H Procedures Date of Service Date of Service: 01/26/24 Progress Note: A&P Assessment and plan (1) S/P AKA (above knee amputation): Status: Acute Plan Pod 5 following right above knee amputation. Patient remains stable with good pain control. Dressings changed yesterday and wounds found to be clean and intact. Will need QOD dressing changes with DSD, kerlex and 6 inch melchor bandage once discharged. Ready for transfer to acute rehab today. Follow up in office in one week for wound check. Time Spent With Patient Time: Total time managing care of this patient today ____ minutes. Quality Stroke Does the patient have a stroke diagnosis?: No VTE Prior VTE?: No VTE Risk Level:: Surgical - high VTE Device Contraindication: N/A - Device Ordered VTE Drug Contraindication: N/A - Med Ordered
[2024-01-26] MEDS: Gabapentin 400 MG CAPSULE PO (08:23)
[2024-01-26] MEDS: Acetaminophen 325 MG TABLET 975 MG PO (10:59)
[2024-01-26] MEDS: oxyCODONE HCl Immed Release 5 MG TABLET 10 MG PO (10:59)
== END 2024-01-26 11:55 | DRG 180 ==
LOC: HO.SSSA 11:28 → HO.S3 16:12
PROVIDERS: Nurse Practitioner; Admitting Provider Surgery; PCP Pediatrics; Visit Provider Surgery
PROC: 0Y6C0Z2 Detachment at Right Upper Leg, Mid, Open Approach (ICD-10-PCS; CPT 27590; principal; 2024-01-21 12:00)
DX: I87.2 Venous insufficiency (chronic) (peripheral) (principal); L97.819 Non-pressure chronic ulcer of other part of right lower leg with unspecified severity; E78.00 Pure hypercholesterolemia, unspecified; Z99.3 Dependence on wheelchair; Z79.899 Other long term (current) drug therapy
CPT/HCPCS: 36415; 80048; 82947; 83036; 85027; 86850; 86870; 86880; 86900; 86901; 86902; 86905; 86920; 86921; 88307; 88311; 93005; 97110; 97112; 97162; 97166; 97530; 97535; C1758; J0131; J1100; J1170; J2250; J2371; J2405; J2704; J3010; J3371; J7120

== ENCOUNTER → 2024-01-21 11:25 | Outpatient (BNV) | payer BC, SELFPAY | PROVIDERS: Admitting Provider Surgery; PCP Pediatrics; Visit Provider Surgery | DX: Z89.619 Acquired absence of unspecified leg above knee (principal) | CPT/HCPCS: 27590; 99024 ==

== ENCOUNTER 2024-02-05 10:39 | Outpatient (AMB) | payer BC, SELFPAY ==
--- NOTE | 2024-02-05 10:49 | A.OFFVIS_ITS ---
Vital Signs 02/05/24 11:35 Height 5 ft 6 in Weight 202 lb BMI 32.6 BP 174/96 H Blood Pressure Location Lt brachial Position Sitting Pulse 75 Intake Visit Reasons: S/P Rt. above knee amputation Intake Note: Patient is seen in office for post op assessment post right above the knee amputation. 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 [facility] Medical History Hx of transfusion of packed red blood cells Dependence on wheelchair Diabetes Osteoarthritis Fibromyositis Pure hypercholesterolemia Allergic rhinitis Steatosis of liver Vitamin D deficiency Albuminuria Mitral valve regurgitation Hemorrhage of large intestine due to diverticular disease Collagenous colitis Anemia Hx MRSA infection Hereditary lymphedema of legs Arthritis Pre-diabetes Incontinence of urine Hx of deep venous thrombosis Hx pulmonary embolism Hx of atrial flutter Snores HTN (hypertension) Ulcer of ankle Lymphedema of both lower extremities Anxiety and depression On beta mahamed at home Surgical History S/P AKA (above knee amputation) History of right above knee amputation (01/21/24) History of gynecologic surgery Hx of breast biopsy History of esophagogastroduodenoscopy (EGD) History of left above knee amputation (04/06/23) History of surgery on lower extremity (03/05/23) Hx of dilation and curettage History of ankle fusion History of surgery on lower extremity Hx of colonoscopy Hx of tonsillectomy History of radiofrequency ablation procedure for cardiac arrhythmia Social History Household Members: Significant Other Housing: House Are you a primary urgent care physician assistant to a significant other at home: No Do you presently have visiting nurse or other home services: Yes Alcohol intake: never Comment: rings appropriately Patient Tobacco Use Status: Never used Tobacco Second Hand Smoke Exposure: No service: No Physical Exam Vital Signs: Last Vital Signs Pulse 75 02/05/24 11:35 BP 174/96 H 02/05/24 11:35 BMI result Body Mass Index 32.6 Const General: no acute distress Nutritional Appearance: well nourished Orientation/consciousness: patient oriented x3 Resp Effort & Inspection: normal respiratory effort Skin General skin exam: no rashes or lesions noted Neuro General: patient oriented x3 Extrem Other: Status post bilateral above knee amputation. Right leg wounds are clean, dry and intact with intact keren. [place] removed and Steri-Strips applied. Assessment & Plan Assessment & Plan (1) History of right above knee amputation: Onset Date: 01/21/24 Comment: Дмитрий Valdivia MD Code(s): Z89.611 - Acquired absence of right leg above knee Category: Surgical Plan Patient returns 2 weeks following right above-knee amputation. She tolerated the procedure well the wounds are healing nicely. He is being discharged today from rehab and traveling home following this office visit. She is requesting to return to work, which he does at home. She can return to work on 02/11/2024. I requested that she return to the office in approximately 1 month for wound check, sooner p.r.n.. 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 Coding Level of Care Code Global (26935) Diagnoses History of right above knee amputation Z89.611
[2024-02-05 11:35] VITALS: BP 174/96; PULSE 75; BMI 32.6
== END 2024-02-05 11:36 | disposition home or self-care (01) ==
PROVIDERS: PCP Pediatrics; Visit Provider Surgery
DX: Z89.611 Acquired absence of right leg above knee (principal)
CPT/HCPCS: 99024

== ENCOUNTER → 2024-02-05 10:39 | Outpatient (BNVA) | payer BC, SELFPAY | PROVIDERS: PCP Pediatrics; Visit Provider Surgery ==

== ENCOUNTER 2024-03-04 10:55 | Outpatient (AMB) | payer BC, SELFPAY ==
--- NOTE | 2024-03-04 11:04 | MHC.OFFVIS ---
Vital Signs 03/04/24 11:14 Height 5 ft 6 in Weight 200 lb 9.93 oz BMI 32.4 Respiration 16 Pulse 72 Intake Visit Reasons: S/P Rt. above knee amputation Intake Note: Patient is seen in office for one month follow up visit, post right above the knee amputation. 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 She returned to work on 02/11/2024 and tolerated this well. She is complaining of itchiness in the right leg possibly from the Josh bandage. She found a single staple remaining in the incision. [facility] Medical History Hx of transfusion of packed red blood cells Dependence on wheelchair Diabetes Osteoarthritis Fibromyositis Pure hypercholesterolemia Allergic rhinitis Steatosis of liver Vitamin D deficiency Albuminuria Mitral valve regurgitation Hemorrhage of large intestine due to diverticular disease Collagenous colitis Anemia Hx MRSA infection Hereditary lymphedema of legs Arthritis Pre-diabetes Incontinence of urine Hx of deep venous thrombosis Hx pulmonary embolism Hx of atrial flutter Snores HTN (hypertension) Ulcer of ankle Lymphedema of both lower extremities Anxiety and depression On beta mahamed at home Surgical History S/P AKA (above knee amputation) History of right above knee amputation (01/21/24) History of gynecologic surgery Hx of breast biopsy History of esophagogastroduodenoscopy (EGD) History of left above knee amputation (04/06/23) History of surgery on lower extremity (03/05/23) Hx of dilation and curettage History of ankle fusion History of surgery on lower extremity Hx of colonoscopy Hx of tonsillectomy History of radiofrequency ablation procedure for cardiac arrhythmia Social History Household Members: Significant Other Housing: House Are you a primary primary care nurse to a significant other at home: No Do you presently have visiting nurse or other home services: Yes Alcohol intake: never Comment: rings appropriately Patient Tobacco Use Status: Never used Tobacco Second Hand Smoke Exposure: No service: No Physical Exam Vital Signs: Last Vital Signs Pulse 72 03/04/24 11:14 Resp 16 03/04/24 11:14 BMI result Body Mass Index 32.4 Const General: no acute distress Nutritional Appearance: well nourished Orientation/consciousness: patient oriented x3 Resp Effort & Inspection: normal respiratory effort Skin General skin exam: no rashes or lesions noted Neuro General: patient oriented x3 Extrem Other: Status post bilateral above knee amputation. Right leg wounds are clean, dry and intact. The remaining staple was removed. Minimal edema noted in the right stump. No edema in the left stump. Assessment & Plan Assessment & Plan (1) History of right above knee amputation: Onset Date: 01/21/24 Comment: Дмитрий Valdivia MD Code(s): Z89.611 - Acquired absence of right leg above knee Category: Surgical Plan Patient is now status post bilateral above-knee amputations. She is requesting referral to prosthetics ([facility]) for management of her bilateral AKAs. She knows will be difficult to ambulate but is very eager to try. She will follow-up in 1 month. Coding Level of Care Code Global (70584) Diagnoses History of right above knee amputation Z89.611
[2024-03-04 11:14] VITALS: PULSE 72; RESP 16; BMI 32.4
== END 2024-03-04 11:25 | disposition home or self-care (01) ==
PROVIDERS: PCP Pediatrics; Visit Provider Surgery
DX: Z89.611 Acquired absence of right leg above knee (principal)
CPT/HCPCS: 99024

== ENCOUNTER → 2024-03-04 10:55 | Outpatient (BNVA) | payer BC, SELFPAY | PROVIDERS: PCP Pediatrics; Visit Provider Surgery ==

== ENCOUNTER 2024-04-08 08:53 | Outpatient (AMB) | payer BC, SELFPAY ==
--- NOTE | 2024-04-08 09:16 | A.OFFVIS_ITS ---
Vital Signs 04/08/24 09:16 Height 5 ft 6 in Intake Visit Reasons: 1 mth follow up S/P Rt. above knee amputation Intake Note: Patient is seen in office for one month follow up visit, post right above the knee amputation. Pt c/o: reports no complaints. 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 She returned to work on 02/11/2024 and tolerated this well. She presents today with her diagnostic technician from [facility] to discuss revision of the left AKA stump. [facility] Medical History Hx of transfusion of packed red blood cells Dependence on wheelchair Diabetes Osteoarthritis Fibromyositis Pure hypercholesterolemia Allergic rhinitis Steatosis of liver Vitamin D deficiency Albuminuria Mitral valve regurgitation Hemorrhage of large intestine due to diverticular disease Collagenous colitis Anemia Hx MRSA infection Hereditary lymphedema of legs Arthritis Pre-diabetes Incontinence of urine Hx of deep venous thrombosis Hx pulmonary embolism Hx of atrial flutter Snores HTN (hypertension) Ulcer of ankle Lymphedema of both lower extremities Anxiety and depression On beta mahamed at home Surgical History S/P AKA (above knee amputation) History of right above knee amputation (01/21/24) History of gynecologic surgery Hx of breast biopsy History of esophagogastroduodenoscopy (EGD) History of left above knee amputation (04/06/23) History of surgery on lower extremity (03/05/23) Hx of dilation and curettage History of ankle fusion History of surgery on lower extremity Hx of colonoscopy Hx of tonsillectomy History of radiofrequency ablation procedure for cardiac arrhythmia Social History Household Members: Significant Other Housing: House Are you a primary reproductive healthcare assistant to a significant other at home: No Do you presently have visiting nurse or other home services: Yes Alcohol intake: never Comment: rings appropriately Patient Tobacco Use Status: Never used Tobacco Second Hand Smoke Exposure: No service: No Review of Systems Const All systems reviewed & are unremarkable except as noted in HPI and below Physical Exam Const General: no acute distress Nutritional Appearance: well nourished Orientation/consciousness: patient oriented x3 Resp Effort & Inspection: normal respiratory effort Skin General skin exam: no rashes or lesions noted Neuro General: patient oriented x3 Extrem Other: Status post bilateral above knee amputation. Right leg wounds are clean, dry and intact. There is still minimal amount of swelling in the right leg compared to the left leg. Left leg has an area of skin folding with apparent redundant skin to the medial portion. This would make prosthetic fitting difficult on the left side. Assessment & Plan Assessment & Plan (1) History of right above knee amputation: Onset Date: 01/21/24 Comment: Дмитрий Valdivia MD Code(s): Z89.611 - Acquired absence of right leg above knee Category: Surgical Plan Patient is now status post bilateral above-knee amputations. Review of the left stump with a diagnostic technician reveals redundant skin on the left side along the medial surface consistent of a dog-ear which can certainly be revised to allow better fitting prosthesis. I reviewed the procedure, risks and alternatives and she consents to revision of the left AKA stump. She will be scheduled as a short-stay surgery at her earliest convenience. Coding Level of Care Code Global (23370) Diagnoses History of right above knee amputation Z89.611
== END 2024-04-08 09:39 | disposition home or self-care (01) ==
PROVIDERS: PCP Pediatrics; Visit Provider Surgery
DX: Z89.611 Acquired absence of right leg above knee (principal)
CPT/HCPCS: 99024

== ENCOUNTER → 2024-04-08 08:53 | Outpatient (BNVA) | payer BC, SELFPAY | PROVIDERS: PCP Pediatrics; Visit Provider Surgery ==

== ENCOUNTER 2024-04-28 10:29 | Day surgery (SDC) | payer BC, SELFPAY ==
--- NOTE | 2024-04-21 13:49 | HO.ANESPROP2 ---
Documented by User: Ailyn Wisdom NP 04/24/24 12:06 HPI - Anesthesia Eval Consult details Narrative: 68yo F for Left Above Knee Amputation Revision, 04/28/24 s/p Right Leg Amputation Above Knee 01/2024 with GA-LMA 4 Wheelchair dependant No CP/SOB with very limited activity s/p decubiti debrid 03/2023 with GA-LMA 4 DM in history - Pt denies diagnosis. A1C >7 01/2024 Hx DVT/PE ?2019, off OAC for 2 years Hx aflutter s/p ablation without problems ~ 2019. Does not follow cardiology anymore Anesthesia Pre-Procedure Meds Is the patient on any of the following meds?: GLP1/DPP4 PMFSH Active Problems Active Problems: All Active Problems History of right above knee amputation (Acute 01/21/24) S/P AKA (above knee amputation) unilateral (Acute) Morbid obesity (Acute) Open wound of both legs with complication (Acute) Stasis ulcer of left lower extremity (Acute) Acid reflux (Acute) Past Medical History Medical History Hx of transfusion of packed red blood cells Dependence on wheelchair Diabetes Osteoarthritis Fibromyositis Pure hypercholesterolemia Allergic rhinitis Steatosis of liver Vitamin D deficiency Albuminuria Mitral valve regurgitation Hemorrhage of large intestine due to diverticular disease Collagenous colitis Anemia Hx MRSA infection Hereditary lymphedema of legs Arthritis Pre-diabetes Incontinence of urine Hx of deep venous thrombosis Hx pulmonary embolism Hx of atrial flutter Snores HTN (hypertension) Ulcer of ankle Lymphedema of both lower extremities Anxiety and depression On beta mahamed at home Family History Family history of problems with anesthesia: No Surgical History Surgical History S/P AKA (above knee amputation) History of right above knee amputation (01/21/24) History of gynecologic surgery Hx of breast biopsy History of esophagogastroduodenoscopy (EGD) History of left above knee amputation (04/06/23) History of surgery on lower extremity (03/05/23) Hx of dilation and curettage History of ankle fusion History of surgery on lower extremity Hx of colonoscopy Hx of tonsillectomy History of radiofrequency ablation procedure for cardiac arrhythmia History of Problems with Anesthesia: No Social History Social History Household Members: Spouse Housing: House Are you a primary director of medicare to a significant other at home: No Do you presently have visiting nurse or other home services: Yes (OT 2 x week) Alcohol intake: never Comment: COUNTS CORRECT Patient Tobacco Use Status: Never used Tobacco Second Hand Smoke Exposure: No Advance Directives Date on File: 01/22/24 service: No Meds Allergies Allergy/AdvReac Type Severity Reaction Status Date / Time diltiazem [From Cardizem] Allergy Severe Hives Verified 04/16/24 14:56 Penicillins Allergy Intermediate Rash Verified 04/16/24 14:56 Home Medications ?Medication ?Instructions ?Recorded ?Confirmed ?Last Taken ?Type acetaminophen 650 mg 1,300 mg PO BID 04/04/23 04/16/24 Unknown History tablet,extended release gabapentin 400 mg capsule 400 mg PO TID 01/15/24 04/16/24 01/21/24 History tirzepatide 2.5 mg/0.5 mL 2.5 mg subcut .QFRIDAY 04/16/24 04/28/24 04/18/24 History subcutaneous pen injector (Mounjaro) Exam Height,Weight and Vital Signs: Weight 91.626 kg Pertinent Lab Results Pertinent Lab Results: CBC and CMP from outside facility 02/2024 WNL (slight low Hgb) Narrative Narrative: EKG 01/2024 Vent. Rate : 073 BPM Atrial Rate : 073 BPM P-R Int : 162 ms QRS Dur : 088 ms QT Int : 396 ms P-R-T Axes : 075 -29 064 degrees QTc Int : 436 ms Normal sinus rhythm Normal ECG When compared with ECG of 11-JUN-2023 21:07, No significant change was found Assessment and Plan Assessment Anesthesia Assessment: Chart Reviewed Final Anesthetic Review Family History of Problems with Anesthesia: No History of Problems with Anesthesia: No Documented by User: Lilia Martínez MD 04/28/24 14:47 HPI - Anesthesia Eval Anesthesia Pre-Procedure Meds Is the patient on any of the following meds?: GLP1/DPP4 (Last dose of mounjaro 04/18/24) If yes to any meds - educate patient: Pt education - increased risk of aspiration and/or euvolemic DKA PENDING SALE TO [facility] Active Problems Active Problems: All Active Problems History of right above knee amputation (Acute 01/21/24) S/P AKA (above knee amputation) unilateral (Acute) Morbid obesity Open wound of both legs with complication (Acute) Stasis ulcer of left lower extremity (Acute) Acid reflux (Acute) Denies RUBEN Past Medical History Medical History Hx of transfusion of packed red blood cells Dependence on wheelchair Diabetes Osteoarthritis Fibromyositis Pure hypercholesterolemia Allergic rhinitis Steatosis of liver Vitamin D deficiency Albuminuria Mitral valve regurgitation Hemorrhage of large intestine due to diverticular disease Collagenous colitis Anemia Hx MRSA infection Hereditary lymphedema of legs Arthritis Pre-diabetes Incontinence of urine Hx of deep venous thrombosis Hx pulmonary embolism Hx of atrial flutter Snores HTN (hypertension) Ulcer of ankle Lymphedema of both lower extremities Anxiety and depression On beta mahamed at home Family History Family history of problems with anesthesia: No Surgical History Surgical History S/P AKA (above knee amputation) History of right above knee amputation (01/21/24) History of gynecologic surgery Hx of breast biopsy History of esophagogastroduodenoscopy (EGD) History of left above knee amputation (04/06/23) History of surgery on lower extremity (03/05/23) Hx of dilation and curettage History of ankle fusion History of surgery on lower extremity Hx of colonoscopy Hx of tonsillectomy History of radiofrequency ablation procedure for cardiac arrhythmia History of Problems with Anesthesia: No Social History Social History Household Members: Spouse Housing: House Are you a primary director of medicare to a significant other at home: No Do you presently have visiting nurse or other home services: Yes (OT 2 x week) Alcohol intake: never Comment: COUNTS CORRECT Patient Tobacco Use Status: Never used Tobacco Second Hand Smoke Exposure: No Advance Directives Date on File: 01/22/24 service: No Meds Allergies Allergy/AdvReac Type Severity Reaction Status Date / Time diltiazem [From Cardizem] Allergy Severe Hives Verified 04/16/24 14:56 Penicillins Allergy Intermediate Rash Verified 04/16/24 14:56 Home Medications ?Medication ?Instructions ?Recorded ?Confirmed ?Last Taken ?Type acetaminophen 650 mg 1,300 mg PO BID 04/04/23 04/16/24 Unknown History tablet,extended release gabapentin 400 mg capsule 400 mg PO TID 01/15/24 04/16/24 01/21/24 History tirzepatide 2.5 mg/0.5 mL 2.5 mg subcut .QFRIDAY 04/16/24 04/28/24 04/18/24 History subcutaneous pen injector (Leonor) Exam Height,Weight and Vital Signs: Weight 91.626 kg Vital Signs Temp Pulse Resp BP Pulse Ox O2 Del Method 04/28/24 12:04 97.2 F 73 16 178/90 H 100 Room Air Airway Mallampati Class: II TM Dist: >3cm Neck ROM: Full (Arthritis but extension ok) Heart: RRR Lungs: CTAB Assessment and Plan Assessment Anesthesia Assessment: Anesthesia Plan Discussed and Chart Reviewed Final Anesthetic Review Family History of Problems with Anesthesia: No History of Problems with Anesthesia: No NPO: Yes ASA Class: III Final Preanesthetic Review: No Changes in Pt Med Stat, Meds/Allgs Chart Reviewed, Consent Obtained/Reviewed and Anes Risks/Benef Reviewed Patient Risk: Intermediate Procedure Risk: Low Assessment/Block/Sedation in SS: Assess/Block/Sedation-SS Anesthetic Plan Anesthetic Plan: GA Disposition: Standard PACU
[2024-04-28] VITALS (9 sets, daily range): BP systolic 128–178; BP diastolic 73–90; PULSE 73–89; RESP 14–18; TEMP 36.2–36.7; O2SAT 99–100; BMI 68.3
[2024-04-28] MEDS: vancomycin HCL 1,500 MG in 0.9 % Sodium Chloride 500 ML 333.33 MG IV (12:18)
[2024-04-28] MEDS: Lactated Ringers 1,000 ML 100 ML IVCONT (12:18)
--- NOTE | 2024-04-28 12:57 | MHC.SHP ---
Pre-Procedural Eval Section A - 24 Hr Update-Section A only Date of Service: 04/28/24 The patient is an INPATIENT: No Changes since office visit: Yes Patient answered all questions; No Cold of Flu in the past 2 weeks, No New Medical Problems and No Changes in Medication The patient has been examined within 24 hours of the surgical procedure. The History & Physical has been completed within 30 days and I have reviewed it.: Yes Section B - Complete if H&P > 30 days Chief Complaint: Acquired absence of right leg above knee Allergies: Allergies Allergy/AdvReac Type Severity Reaction Status Date / Time diltiazem [From Cardizem] Allergy Severe Hives Verified 04/16/24 14:56 Penicillins Allergy Intermediate Rash Verified 04/16/24 14:56 Plan Diagnosis/Plan: Unchanged I have reviewed the history and physical and performed a pertinent physical examination on my patient. No changes have occurred unless specified. Time Spent With Patient Time: Total time managing care of this patient today ____ minutes.
[2024-04-28] MEDS: Acetaminophen 1,000 MG/100 ML PIGGYBACK 400 MG IV (15:11)
--- NOTE | 2024-04-28 15:14 | P.OP_ITS ---
Operative Note Operative Note Date of Service: 04/28/24 Narrative: Preoperative diagnosis: History of bilateral above knee amputations, redundant skin left leg Postoperative diagnosis: Same Procedure: Revision of left above-knee amputation Surgeon: Дмитрий Valdivia MD Tool Maintenance Technician: Audrey Khan PA-C Anesthesia: General LMA Indications for procedure: 68-year-old female patient with history of severe cellulitis and gangrene involving the lower extremities status post bilateral above-knee amputation presenting now for revision of the left above-knee amputation site. Patient has redundant skin which needs to be modified to allow prosthetic fitting. Operative findings: Well-healed bilateral above-knee amputations Specimen: Skin following revision left above-knee amputation Estimated blood loss: 30 mL Complications: None Procedure details: Patient was brought to the OR placed in a supine position. After administering general anesthesia the patient's left leg was prepped with Betadine and draped in a sterile fashion. A surgical time-out was called the consent confirmed. Patient received preoperative antibiotics and Venodyne boots were in place. Local anesthesia was infiltrated circumferentially along the previous incision in the left above-knee amputation site. An elliptical incision to include the redundant skin both medially and laterally was then performed in a fishmouth type fashion. The incision was carried up along the medial and lateral surface of the leg. This was carried out through subcutaneous tissue and the redundant skin excised. Hemostasis was achieved using electrocautery. Wounds were then irrigated with saline solution and suctioned dry. Deep fascial tissue was reapproximated especially over the femur stump using interrupted 3-0 Polysorb sutures. Subcutaneous tissue and dermis were then reapproximated using interrupted 3-0 Polysorb sutures. Skin was then closed using interrupted 3-0 nylon sutures. Sterile dressings including fluff gauze, ABD pads, Kerlix, and a six-inch Josh bandage was then applied. The patient tolerated the procedure well. Sponge, instrument, and needle counts reported as correct. The patient was transferred to PACU in stable condition.
[2024-04-28] MEDS: fentaNYL citrate/PF 100 MCG/2 ML VIAL 25 MCG IVPUSH ×2 (15:23→15:33)
== END 2024-04-28 16:01 | disposition home or self-care (01) ==
PROVIDERS: PCP Pediatrics; Visit Provider Surgery
PROC: (CPT 27594; principal; 2024-04-28 12:10)
DX: T87.89 Other complications of amputation stump (principal); L98.7 Excessive and redundant skin and subcutaneous tissue; Y83.5 Amputation of limb(s) as the cause of abnormal reaction of the patient, or of later complication, without mention of misadventure at the time of the procedure; Y92.9 Unspecified place or not applicable; I10 Essential (primary) hypertension; E11.9 Type 2 diabetes mellitus without complications; Z89.612 Acquired absence of left leg above knee; Z89.611 Acquired absence of right leg above knee; Z88.0 Allergy status to penicillin; Z88.8 Allergy status to other drugs, medicaments and biological substances
CPT/HCPCS: 27594; 88304; J0131; J1100; J2250; J2405; J2704; J2795; J3010; J3371

== ENCOUNTER → 2024-04-28 10:29 | Outpatient (BNV) | payer BC, SELFPAY | PROVIDERS: PCP Pediatrics; Visit Provider Surgery | DX: Z89.611 Acquired absence of right leg above knee (principal) | CPT/HCPCS: 27594; 27884 ==

== ENCOUNTER 2024-05-15 14:06 | Outpatient (AMB) | payer BC, SELFPAY ==
--- NOTE | 2024-05-15 14:17 | A.OFFVIS_ITS ---
Vital Signs 05/15/24 14:53 Height 4 ft Weight 222 lb 10.67 oz BMI 67.9 Pulse 72 Intake Visit Reasons: s/p revision (LT) AKA Intake Note: Patient is seen in office for post op assessment post revision of left above- knee amputation. Pt c/o: healing expected, denies discharge, redness or concerns surgery: 04/28/24 [employer] Required: No Accompanied by: Family/Other Allergies diltiazem [From Cardizem] Allergy (Severe, Verified 05/15/24 14:54) Hives Penicillins Allergy (Intermediate, Verified 05/15/24 14:54) Rash HPI Comments Details: 68-year-old female patient status post bilateral above-knee amputations returning following revision of the left AKA to allow better fit of a prosthesis. She tolerated the procedure well and returns today for wound check and suture removal. She has occasional phantom pain in the left leg but denies any significant change. [facility] Medical History Hx of transfusion of packed red blood cells Dependence on wheelchair Diabetes Osteoarthritis Fibromyositis Pure hypercholesterolemia Allergic rhinitis Steatosis of liver Vitamin D deficiency Albuminuria Mitral valve regurgitation Hemorrhage of large intestine due to diverticular disease Collagenous colitis Anemia Hx MRSA infection Hereditary lymphedema of legs Arthritis Pre-diabetes Incontinence of urine Hx of deep venous thrombosis Hx pulmonary embolism Hx of atrial flutter Snores HTN (hypertension) Ulcer of ankle Lymphedema of both lower extremities Anxiety and depression On beta mahamed at home Surgical History S/P AKA (above knee amputation) (04/28/24) History of right above knee amputation (01/21/24) History of gynecologic surgery Hx of breast biopsy History of esophagogastroduodenoscopy (EGD) History of left above knee amputation (04/06/23) History of surgery on lower extremity (03/05/23) Hx of dilation and curettage History of ankle fusion History of surgery on lower extremity Hx of colonoscopy Hx of tonsillectomy History of radiofrequency ablation procedure for cardiac arrhythmia Social History Household Members: Spouse Housing: House Are you a primary manager intensive care to a significant other at home: No Do you presently have visiting nurse or other home services: Yes (OT 2 x week) 75 years or older and lives alone: No Alcohol intake: never Comment: COUNTS CORRECT Patient Tobacco Use Status: Never used Tobacco Second Hand Smoke Exposure: No Advance Directives Date on File: 01/22/24 service: No Review of Systems Const All systems reviewed & are unremarkable except as noted in HPI and below Physical Exam Vital Signs: Last Vital Signs Pulse 72 05/15/24 14:53 BMI result Body Mass Index 67.9 Const General: no acute distress Nutritional Appearance: well nourished Limitations: wheelchair Resp Effort & Inspection: normal respiratory effort Extrem Other: Left lower extremity wounds are clean, dry, and intact without redness or discharge. 1/2 of the sutures removed and the wounds remained clean and intact. Assessment & Plan Assessment & Plan (1) S/P AKA (above knee amputation) unilateral: Comment: left Code(s): Z89.619 - Acquired absence of unspecified leg above knee Category: Surgical (2) History of right above knee amputation: Onset Date: 01/21/24 Comment: Дмитрий Valdivia MD Code(s): Z89.611 - Acquired absence of right leg above knee Category: Surgical Plan Patient returns 1 week following revision of the left AKA. She tolerated the procedure well and her wounds are healing nicely. 1/2 of the sutures removed today. She will return in 1 week for removal of the remaining sutures. She is continuing her exercises to build up her upper arm strength to allow for prosthetic use. After this she should return in a proximally 1 month for final postoperative visit. Coding Level of Care Code Global (20376) Diagnoses S/P AKA (above knee amputation) unilateral Z89.619 History of right above knee amputation Z89.611
[2024-05-15 14:53] VITALS: PULSE 72; BMI 67.9
== END 2024-05-15 14:37 | disposition home or self-care (01) ==
PROVIDERS: PCP Pediatrics; Visit Provider Surgery
DX: Z89.619 Acquired absence of unspecified leg above knee (principal); Z89.611 Acquired absence of right leg above knee
CPT/HCPCS: 99024

== ENCOUNTER → 2024-05-15 14:06 | Outpatient (BNVA) | payer BC, SELFPAY | PROVIDERS: PCP Pediatrics; Visit Provider Surgery ==

== ENCOUNTER → 2024-05-22 08:36 | Outpatient (BNVA) | payer BC, SELFPAY | PROVIDERS: PCP Pediatrics; Visit Provider Surgery | DX: Z48.02 Encounter for removal of sutures (principal) | CPT/HCPCS: 99211 ==